=== PATIENT | female | born 1965 | race Two or more races ===

== ENCOUNTER 2019-06-19 13:21 | Inpatient (IN) | payer OTHER ==
[~2019-06-19] VITALS: Ht 162.6 cm; Wt 74.4 kg
[2019-06-19 13:21] VITALS: BP 130/74
--- NOTE | 2019-06-19 13:31 | NUR ---
PT BIBA TO BED 09.
--- NOTE | 2019-06-19 13:32 | NUR ---
BIBA FROM HOME, C/O WEAKNESS X2 DAYS WITH POLYURIA AND VOMITING. ACCUCHECK TOO HIGH TO READ AT HOME, ACCUCHECK 531 AT THIS TIME. PT ADMINISTERED ADDITIONAL 40 UNITS INSULIN LANTUS AT 1000. 1L NS BOLUS STARTED BY [facility]. HX EPILEPSY, DM, CVA, SUBSTANCE ABUSE. PATIENT ALERT, OREINTED,ABLE TO ANSWER THE QUESTIONS APPROPIATELY. PATIENT STATES LOWER ABD & LOWER BACK PAIN OF 6/10 AT THIS TIME. PATIENT POSITIONED FOR COMFORT; HOB ELEVATED; BEDRAILS UP X2; BED DOWN. ER MD MADE AWARE OF PT STATUS.
--- NOTE | 2019-06-19 14:16 | NUR ---
Patient being evaluated by DR RODAS at bedside.
[2019-06-19] MEDS ORDERED: NACL 0.9% 2,000 ML IV ONE (14:25)
[2019-06-19 15:31] LABS: BASOPHILS % (AUTO) 0.2 % (0.0-2.0); EOSINOPHILS % (AUTO) 0.2 % (0.0-4.0); HEMATOCRIT 35.3 % (36-48); HEMOGLOBIN 11.4 g/dL (12.0-16.0); LYMPHOCYTES # (AUTO) 1.6 K/uL (2.5-16.5); LYMPHOCYTES % (AUTO) 10.9 % (20.5-51.1); MEAN CORPUSCULAR HEMOGLOBIN 30 pg (27-31); MEAN CORPUSCULAR HGB CONC 32 g/dL (33-37); MEAN CORPUSCULAR VOLUME 92.7 fL (80-94); MONOCYTES # (AUTO) 0.8 K/uL (0.8-1.0); MONOCYTES % (AUTO) 5.7 % (1.7-9.3); NEUTROPHILS # (AUTO) 11.9 K/uL (1.8-7.7); PLATELET COUNT (AUTO) 304 K/uL (140-450); RED BLOOD CELL COUNT(AUTO) 3.81 MIL/uL (4.20-5.40); RED CELL DISTRIBUTION WIDTH 14.3 % (11.6-13.7); WHITE BLOOD COUNT (AUTO) 14.4 K/uL (4.8-10.8)
[2019-06-19 15:50] LABS: BILIRUBIN,URINE NEGATIVE (NEGATIVE); BLOOD, URINE 2+ (NEGATIVE); COLOR,URINE YELLOW (YELLOW); LEUKOCYTE ESTERASE ,URINE NEGATIVE (NEGATIVE); NITRITE, URINE NEGATIVE (NEGATIVE); UGLUCOSE 3+ (NEGATIVE)
[2019-06-19 15:52] LABS: APPEARANCE,URINE CLOUDY (CLEAR)
[2019-06-19 15:52] LABS: ALBUMIN 2.2 g/dL (3.4-5.0); ANION GAP 12.8 (8-16); CARBON DIOXIDE 26.4 mmol/L (21-32); CREATININE 1.1 mg/dL (0.6-1.3); POTASSIUM 4.2 mmol/L (3.5-5.1); TOTAL BILIRUBIN 0.4 mg/dL (0.0-1.0)
[2019-06-19 16:00] LABS: RBC,URINE 0-5 /HPF (0-5)
[2019-06-19] MEDS ORDERED: FLUCONAZOLE 100 MG TAB PO ONE (16:10)
[2019-06-19] MEDS ORDERED: INSULIN REGULAR, HUMAN 100 UNIT/ML VIAL SUBQ ONE (16:10)
--- NOTE | 2019-06-19 16:55 | NUR ---
Patients blood sugar was checked, and read at 398, Physicians notified.
[2019-06-19] MEDS ORDERED: INSULIN LANTUS 100 UNITS/ML 10 ML VIAL SUBQ ONE (17:10)
[2019-06-19] MEDS ORDERED: ZOLPIDEM 5 MG TAB PO PRN (17:10)
[2019-06-19] MEDS ORDERED: HYDROcodone/APAP 5/325 MG 1 TAB TAB PO PRN (17:10)
[2019-06-19] MEDS ORDERED: LORazepam 2 MG/ML VIAL IVP PRN (17:10)
[2019-06-19] MEDS ORDERED: ALBUTEROL 0.083% 2.5 MG/3 ML NEBU IH PRN (17:10)
[2019-06-19] MEDS ORDERED: NACL 0.9% 1,000 ML IV ONE (17:10)
[2019-06-19] MEDS ORDERED: ONDANSETRON 4 MG/2 ML VIAL IVP PRN (17:10)
[2019-06-19] MEDS ORDERED: DEXTROSE 50% 50 ML SYR IVP PRN (17:10)
[2019-06-19] MEDS ORDERED: LISINOPRIL 20 MG TAB PO SCH (17:52)
--- NOTE | 2019-06-19 18:10 | NUR ---
PATIENT ARRIVED UNIT VIA GURNEY ACCOMPANIED BY ER NURSE ANYA. ASSISTED TO TRANSFER PATIENT TO BED AND POSITIONED COMFORTABLY. RELEASE COORDINATOR CHANGED PATIENT INTO YELLOW GOWN, SOCKS AND APPLIED YELLOW WRIST BAND. ORIENTED PATIENT TO THE ROOM, DEMONSTRATED ON HOW TO USE THE CALL LIGHT, BED REMOTE, TV, TELEPHONE AND BOTTLE CAPPER, PATIENT VERBALIZED UNDERSTANDING. ALLERGY WRIST BAND APPLIED AND MRSA NARES COLLECTED. SAFETY MEASURES IN PLACE. FALL RISK PROTOCOL IN PLACE AND SEIZURE PRECAUTION IN PLACE. BED IN LOW POSITION AND CALL LIGHT WITHIN REACH. INSTRUCTED PATIENT TO USE THE CALL LIGHT FOR ANY ASSISTANCE AND PATIENT WAS AWARE.
--- NOTE | 2019-06-19 18:10 | NUR ---
Patient will be admitted to care of DR ORTEGA. Admited to MS. Will go to room 121B. Belongings list completed. Report to MARTA GOLBDERG.
[2019-06-19] MEDS: NACL 0.9% 1,000 ML IV SCH (18:24)
[2019-06-19] MEDS: ACETAMINOPHEN 325 MG TAB PO PRN (18:29)
--- NOTE | 2019-06-19 18:29 | NUR ---
PATIENT COMPLAINED THAT SHE HAS MILD PAIN ON HER BACK, ADMINISTERED ACETAMINOPHEN PER MD ORDER, MED EDUCATION PROVIDED TO PATIENT AND PATIENT SAID OK. PATIENT IS RESTING ON BED AT THIS TIME. SAFETY MEASURES IN PLACE.
--- NOTE | 2019-06-19 18:41 | NUR ---
VITAL SIGNS TAKEN; BP 147/84, PULSE 103, SPO2 99 ON RA, RR 18, STATED PAIN IS 2/10 AND ALREADY MEDICATED. ADMINISTERED LISINOPRIL PER MD ORDER. CHECKED BLOOD GLUCOSE AND RECEIVED 302, ADMINISTERED LANTUS VIA SUBQ PER MD ORDER, MEDS EDUCATION PROVIDED TO PATIENT AND PATIENT VERBALIZED UNDERSTANDING. NO SIGNS OF DISTRESS NOTED. SAFETY MEASURES IN PLACE. BED IN LOW POSITION AND CALL LIGHT WITHIN REACH. FALL RISK PROTOCOL IN PLACE AND BED ALARM ACTIVATED.
--- NOTE | 2019-06-19 18:50 | NUR ---
PATIENT DID NOT GET HER DINNER TRAY, CALLED [facility] AND WENT TO VOICE MAIL. LEFT A MESSAGE.
--- NOTE | 2019-06-19 19:18 | NUR ---
ENDORSED PATIENT AT BEDSIDE TO CAREER CENTER ADVISOR NURSE FOR CONTINUITY OF CARE. PATIENT AWAKE AND RESTING ON BED AT THIS TIME. NO SIGNS OF DISTRESS NOTED. PATIENT IS IN STABLE CONDITION.
--- NOTE | 2019-06-19 19:19 | NUR ---
RECEIVED REPORT FROM AM NURSE, PT SLEEPING, EASILY AROUSABLE, ASSESSMENT DONE, CC: OF GENERALIZED WEAKNESS, AAOX4, ABLE TO MAKE NEEDS KNOWN, EVASIVE AND AT TIMES REFUSED TO ANSWER TO SOME OF THE QUESTIONS, STATED "NOT RIGHT NOW OR ITS A LONG STORY", VITAL SIGNS STABLE, IVF INFUSING WELL, SAFETY MEASURES IN PLACE, ON SEIZURE PRECAUTION, SIDE RAILS UP AND PADDED, BED ALARM ON, CALL LIGHT WITHIN REACH.
[2019-06-19 19:30] VITALS: BP 113/49
[2019-06-19] MEDS: FLUCONAZOLE 200 MG/NS PREMIX 100 ML IV SCH (20:19)
[2019-06-19] MEDS: BLOOD GLUCOSE MONITORING 1 DEV DEV FS SCH (20:19)
[2019-06-19] MEDS: INSULIN LISPRO SLIDING SCALE 100 UNITS/ML VIAL SUBQ PRN (20:30)
--- NOTE | 2019-06-19 20:30 | NUR ---
BLOOD SUGAR CHECKED WITH 241 RESULT, COVERAGE GIVEN, PROVIDED WITH CHICKEN BROTH AND CRANBERRY JUICE PER REQUEST, TOLERATED WELL, PT WENT TO SLEEP, MONITORED CLOSELY.
--- NOTE | 2019-06-19 21:57 | NUR ---
PT NAUSEATED BUT NO VOMITING NOTED, MEDICATED PRN WITH ZOFRAN IVP, MONITORED CLOSELY.
[2019-06-20] VITALS: BP 135/53
[2019-06-20] MEDS ORDERED: Z-GUARD PASTE TP PRN (01:50)
[2019-06-20] MEDS ORDERED: Z-GUARD PASTE TP ONE (01:53)
--- NOTE | 2019-06-20 01:58 | NUR ---
PT INCONTINENT OF URINE, PERINEAL CARE, NOTED WITH PERINEAL REDNESS, ORDERED Z-GUARD, APPLIED AND LEFT SITE KAMILLA, REPOSITIONED AND OFFLOAD PRESSURE AREAS, MONITORED CLOSELY.
[2019-06-20] MEDS: ACETAMINOPHEN 325 MG TAB PO PRN (02:52)
--- NOTE | 2019-06-20 02:55 | NUR ---
PT COMPLAINING OF BACK PAIN, PT REFUSED NORCO, STATED FEELS LIKE SHES HAVING A SEIZURE WHEN TAKING IT, PREFER TYLENOL, TYLENOL GIVEN, CHANGED POSITION TO LEFT SIDE, ICE CHIPS PROVIDED PER REQUEST, TOLERATED WELL, MONITORED CLOSELY.
[2019-06-20] MEDS: NACL 0.9% 1,000 ML IV SCH ×4 (03:10→18:49)
--- NOTE | 2019-06-20 06:00 | NUR ---
PT AT FIRST REFUSED AM LAB DRAW, RISK AND BENEFITS EXPLAINED, CONSENTED TO AM LAB DRAW, BLOOD SUGAR CHECKED WITH 96 RESULT, IVF INFUSING WELL, NO DISTRESS NOTED, MONITORED CLOSELY.
--- NOTE | 2019-06-20 06:13 | NUR ---
MODERATE DRAINAGE FROM LEFT CHEST ABSCESS, NEW DRESSING APPLIED TO LEFT CHEST, MAINTAINED ON NPO, IVF INFUSING WELL, TOLERABLE PAIN 09/17 AT THIS TIME, MONITORED CLOSELY. Addendum: 06/20/19 at 0621 by Jeffery Pabon RN CHARTED ON WRONG PT
[2019-06-20] MEDS: BLOOD GLUCOSE MONITORING 1 DEV DEV FS SCH ×4 (06:33→20:33)
[2019-06-20 06:44] LABS: BASOPHILS % (AUTO) 0.1 % (0.0-2.0); HEMATOCRIT 31.1 % (36-48); HEMOGLOBIN 10.2 g/dL (12.0-16.0); LYMPHOCYTES # (AUTO) 2.1 K/uL (2.5-16.5); LYMPHOCYTES % (AUTO) 10.8 % (20.5-51.1); MEAN CORPUSCULAR HEMOGLOBIN 30 pg (27-31); MEAN CORPUSCULAR HGB CONC 33 g/dL (33-37); MEAN CORPUSCULAR VOLUME 90.6 fL (80-94); MONOCYTES # (AUTO) 0.8 K/uL (0.8-1.0); MONOCYTES % (AUTO) 3.8 % (1.7-9.3); NEUTROPHILS # (AUTO) 16.8 K/uL (1.8-7.7); NEUTROPHILS % (AUTO) 85.3 % (42.2-75.2); PLATELET COUNT (AUTO) 229 K/uL (140-450); RED BLOOD CELL COUNT(AUTO) 3.43 MIL/uL (4.20-5.40); WHITE BLOOD COUNT (AUTO) 19.7 K/uL (4.8-10.8)
[2019-06-20 07:18] LABS: ANION GAP 13.8 (8-16); CARBON DIOXIDE 21.9 mmol/L (21-32); CREATININE 0.7 mg/dL (0.6-1.3); POTASSIUM 3.7 mmol/L (3.5-5.1)
--- NOTE | 2019-06-20 07:20 | NUR ---
PT SLEEPING, NO SIGNS OF DISTRESS, NO SEIZURE EPISODE THE WHOLE SHIFT, ENDORSE TO ASHLYN WESTBROOK FOR CONTINUITY OF CARE.
--- NOTE | 2019-06-20 07:25 | NUR ---
RECEIVED REPORT FROM NIGHT NURSE. PATIENT IS LYING IN BED ASLEEP, ABLE TO WAKE. RESPIRATION EVEN AND UNLABORED. DENIES PAIN OR DISCOMFORT AT THIS TIME. IV INTACT AND PATENT TO RIGHT WRIST 20G WITH IVF NS INFUSING @ 100ML/HR. TOLERATING WELL. BED IN LOW POSITION, SAFETY MEASURES IN PLACE. CALL LIGHT WITHIN REACH.
[2019-06-20 07:31] LABS: TOTAL BILIRUBIN 0.4 mg/dL (0.0-1.0)
[2019-06-20 07:57] LABS: ALBUMIN 1.6 g/dL (3.4-5.0); MAGNESIUM 1.3 mg/dL (1.8-2.4)
[2019-06-20 08:00] VITALS: BP 118/55
--- NOTE | 2019-06-20 08:14 | NUR ---
PATIENT HAS BEEN SCREENED AND CATEGORIZED MODERATE NUTRITION RISK. PATIENT WILL BE SEEN WITHIN 3-5 DAYS OF ADMISSION. 06/22/19 06/24/[address]
[2019-06-20] MEDS: LISINOPRIL 20 MG TAB PO SCH (09:00)
[2019-06-20] MEDS: ENOXAPARIN 40 MG/0.4 ML SYR SUBQ SCH (09:48)
--- NOTE | 2019-06-20 09:50 | NUR ---
AM MEDICATIONS GIVEN ORDERED. PATIENT IS AWAKE, ALERT AND VERBALLY RESPONSIVE. IV INTACT AND PATENT TO RIGHT WRIST. IVF FLUID NS INFUSING AT 100ML/HR. TOLERATING WELL. NO S/S OF DISTRESS NOTED. CALL LIGHT WITHIN REACH.
[2019-06-20] MEDS ORDERED: VANCOMYCIN 1GM/DEXT 5% PREMIX 200 ML IV ONE (11:25)
[2019-06-20] MEDS: PIPERACILLIN/TAZOBACTAM 3.375 GM in DEXTROSE 5% 50 ML IV SCH ×2 (11:54→17:44)
[2019-06-20] MEDS: INSULIN LISPRO SLIDING SCALE 100 UNITS/ML VIAL SUBQ PRN ×3 (12:00→21:34)
--- NOTE | 2019-06-20 12:00 | NUR ---
BLOOD SUGAR, 179 HUMALOG 3UNITS GIVEN PER SLIDING SCALE. IV ZOSYN FIRST DOSE GIVEN ORDERED. PATIENT REPORTS FEELING ANXIOUS, ATIVAN GIVEN ORDERED 0.5MG. WILL MONITOR PATIENT.
--- NOTE | 2019-06-20 12:12 | NUR ---
DC PLANNING 53 YRS OLD FEMALE A/OX4 WAS ADMITTED FROM HOME, WITH A DX OF HYPERGLYCEMIA BS 548 ON ADMISSION , UTI 3+ BACTERIA IN THE URINE, AND ORAL THRUSH . HX OF DM INSULIN DEPENDENT NON-COMPLIANT WITH MEDICATION. IVF STARTED ADMINISTERED ZOSYN AND VANCO IVPB . REGULAR INSULIN ADMINISTERED . DC PLAN SLIDING SCALE COVERAGE TO MONITOR BS , DIABETIC TEACHING FNS CONSULT. SS CONSULT FOR HOMELESSNESS .CM TO F/U Addendum: 06/20/19 at 1509 by Yen Akins CM PCP APPOINTMENT CALLED PT'S PCP OFFICE DR RADHA JORGE MADE F/U APPOINTMENT ON Tuesday06/22/19 AT 3PM THE ADDRESS [address] [place] [address] TEL [phone] TANIYA REMINDER GIVEN TO THE PT
--- NOTE | 2019-06-20 12:23 | NUR ---
Radiology Equipment Servicer Note: Basic Screen: Yes High Risk DC Screen [place]: REFUSED Home Tel: N/A Relationship: N/A Pre-Admission Living Arrangements: Lives with Other Prior ADL Independent Current Home Health Name/Tel: N/A Current DME/02 Name/Tel: [facility] Current Hospice Name/Tel: N/A Current Dialysis Name/Tel: N/A Healthcare Decision Maker: Patient Advance Directive No - REFUSED Physician Orders for Life Sustaining Treatment Form No Information Taught: Advance Directive Person Taught: Patient Teaching Tools: Verbal Factors Affecting Learning: None Participation Level: Refused Discipline: Case Mgt/Social Svcs Tentative Discharge Plan/Destination: No Needs Identified Will require assistance post discharge: No Referred to [employer]: No Tentative Discharge Plan Summary: Patient is a 53 year old female admitted for hyperglycemia. Patient was admitted from home. Patient has past medical hx of diabetes. NANCY verified demographics with patient. Patient stated she is unable to provide address since she just moved but lives with 3 roommates. Patient stated that she has no emergency contact on file because her phone . Patient stated she can provide contact information once her phone is charged. Patient denies any mental health history and reported no SI/HI. Patient stated that she has a past substance abuse history for methamphetamines but patient stated she has been sober for multiple years. SW offered education for advanced directive but patient refused. Patient's tentative plan after discharge is to return home. No further needs identified. Signature: JOHN Bueno Date: Jun 20, 2019 Time: 12:23
[2019-06-20] MEDS ORDERED: VANCOMYCIN PER PHARMACY MC PRN (12:25)
--- NOTE | 2019-06-20 13:00 | NUR ---
PATIENT IS REPOSITIONED IN BED FOR COMFORT. DENIES PAIN AT THIS TIME. PATIENT IS AWAKE AND VERBALLY RESPONSIVE. IV INTACT AND PATENT WITH IVF NS INFUSING AT 100ML/HR AND TOLERATING WELL. PATIENT IS INCONTINENT, PERINEAL CARE PROVIDED. NEEDS MET AT THIS TIME. NO S/S OF DISTRESS.
[2019-06-20] MEDS: VANCOMYCIN 750 MG in DEXTROSE 5% 250 ML IV SCH (15:06)
[2019-06-20] MEDS: Z-GUARD PASTE TP SCH (15:06)
[2019-06-20 16:00] VITALS: BP_SYST 129; BP_SYST 96; BP_DIAS 49; BP_DIAS 60
--- NOTE | 2019-06-20 17:30 | NUR ---
BS 256 INSULIN COVERAGE 8UNITS GIVEN ORDERED. NO S/S OF DISTRESS NOTED.
[2019-06-20] MEDS: FLUCONAZOLE 200 MG/NS PREMIX 100 ML IV SCH (18:49)
--- NOTE | 2019-06-20 19:15 | NUR ---
ENDORSED FOR CONTINUITY OF CARE TO ASHLYN JANSEN. PATIENT IS IN STABLE CONDITION.
--- NOTE | 2019-06-20 19:15 | NUR ---
RECIEVED PT AAOX4 , NID . IV SITE INTACT AND PATENT , NO C/O PAIN . V/S WNL - PLAN OF CARE DISCUSSED AND VERBALIZE UNDERSTANDING - CALL LIGHT WITHIN REACH . ON FALL PRECAUTION PROTOCOL - BED ALARM ON WILL CONT. TO MONITOR.
--- NOTE | 2019-06-20 22:00 | NUR ---
MADE ROUND . NO SIGNS OF ACUTE DISTRESS NOTED AT THIS TIME - CALL LIGHT WITHINREACH . WILL CONT. TO MONITOR.
[2019-06-21] VITALS: BP 110/60
--- NOTE | 2019-06-21 | NUR ---
REQUESTING SNACKS - FOOD SERVE - NO COMPLAIN MADE AT THIS TIME.
[2019-06-21] MEDS: PIPERACILLIN/TAZOBACTAM 3.375 GM in DEXTROSE 5% 50 ML IV SCH ×3 (00:40→12:07)
[2019-06-21] MEDS: Z-GUARD PASTE TP SCH ×2 (01:00→13:00)
[2019-06-21] MEDS ORDERED: MAG SULF 2000 MG/WATER PREMIX 100 ML IV SCH (01:00)
[2019-06-21] MEDS: ACETAMINOPHEN 325 MG TAB PO PRN (02:55)
[2019-06-21] MEDS: VANCOMYCIN 750 MG in DEXTROSE 5% 250 ML IV SCH ×2 (02:57→13:00)
--- NOTE | 2019-06-21 03:00 | NUR ---
FEBRILE 100.3 F -WILL MEDICATE FOR FEVER . WILL CONT TO MONITOR.
--- NOTE | 2019-06-21 04:00 | NUR ---
TEMP. RE CHECK 99.8F -WILL CONT. TO MONITOR. FRESH WATER PROVIDED . CALL LIGHT WITHIN REACH.
[2019-06-21 05:37] LABS: BASOPHILS # (AUTO) 0.1 K/uL (0.00-0.22); BASOPHILS % (AUTO) 0.4 % (0.0-2.0); EOSINOPHILS % (AUTO) 0.2 % (0.0-4.0); HEMATOCRIT 28.1 % (36-48); HEMOGLOBIN 9.2 g/dL (12.0-16.0); LYMPHOCYTES # (AUTO) 2.1 K/uL (2.5-16.5); LYMPHOCYTES % (AUTO) 15.1 % (20.5-51.1); MEAN CORPUSCULAR HEMOGLOBIN 30 pg (27-31); MEAN CORPUSCULAR HGB CONC 33 g/dL (33-37); MEAN CORPUSCULAR VOLUME 90.7 fL (80-94); MONOCYTES # (AUTO) 0.8 K/uL (0.8-1.0); MONOCYTES % (AUTO) 5.8 % (1.7-9.3); NEUTROPHILS # (AUTO) 10.7 K/uL (1.8-7.7); NEUTROPHILS % (AUTO) 78.5 % (42.2-75.2); PLATELET COUNT (AUTO) 188 K/uL (140-450); WHITE BLOOD COUNT (AUTO) 13.7 K/uL (4.8-10.8)
--- NOTE | 2019-06-21 06:00 | NUR ---
MADE ROUND . NO CPMPLAIN MADE AT THIS TIME. LATEST TEMP 98.8F. WILL CONT. TO MONITOR.
[2019-06-21] MEDS: BLOOD GLUCOSE MONITORING 1 DEV DEV FS SCH ×3 (07:10→16:30)
[2019-06-21 07:21] LABS: CARBON DIOXIDE 24.3 mmol/L (21-32); CREATININE 0.9 mg/dL (0.6-1.3); POTASSIUM 3.3 mmol/L (3.5-5.1); TOTAL BILIRUBIN 0.5 mg/dL (0.0-1.0)
[2019-06-21 07:22] LABS: ALBUMIN 1.4 g/dL (3.4-5.0)
--- NOTE | 2019-06-21 07:30 | NUR ---
ENDORSED TO AM SHIFT WITH STABLE CONDITION.
--- NOTE | 2019-06-21 07:35 | NUR ---
ENDORSED TO AM SHIFT WITH STABLE CONDITION.
--- NOTE | 2019-06-21 07:35 | NUR ---
RECEIVED REPORT FROM RESIDENT MANAGER NURSE. PATIENT IS LYING IN BED, AWAKE, ALERT AND VERBALLY RESPONSIVE. DENIES PAIN OR DISCOMFORT. RESPIRATION EVEN AND UNLABORED. IV INTACT AND PATENT TO RIGHT HAND. IVF NS INFUSING @ 100ML/HR, TOLERATING WELL. NEEDS MET AT THIS TIME.
[2019-06-21 08:00] VITALS: BP 103/44
[2019-06-21] MEDS: LISINOPRIL 20 MG TAB PO SCH (09:00)
[2019-06-21] MEDS: ENOXAPARIN 40 MG/0.4 ML SYR SUBQ SCH (09:26)
[2019-06-21] MEDS: NACL 0.9% 1,000 ML IV SCH (09:27)
--- NOTE | 2019-06-21 09:27 | NUR ---
AM MEDICATIONS GIVEN ORDERED. PATIENT IS AWAKE AND ALERT. NO S/S OF DISTRESS NOTED.
[2019-06-21] MEDS ORDERED: POTASSIUM CHLORIDE 10 MEQ TABER PO SCH (11:05)
--- NOTE | 2019-06-21 12:08 | NUR ---
BS CHECKED 266, HUMALOG GIVEN WITH 8 UNITS. PATIENT IS IN BED WITH HOB ELEVATED EATING LUNCH. IV NOTED TO RIGHT HAND IS INFILTRATED, UNABLE TO FLUSH. IV REMOVED, CANNULA INTACT. ATTEMPTED TO REINSERT IV, UNABLE TO HAVE IV ACCESS AT THIS TIME. WILL ATTEMPT AGAIN LATER.
[2019-06-21] MEDS: INSULIN LISPRO SLIDING SCALE 100 UNITS/ML VIAL SUBQ PRN (12:40)
[2019-06-21] MEDS ORDERED: MAGNESIUM HYDROXIDE 2400 MG/30 ML UDC PO SCH (13:00)
--- NOTE | 2019-06-21 13:00 | NUR ---
STILL NO IV ACCESS, UNABLE TO INSERT IV AT THIS TIME.
--- NOTE | 2019-06-21 15:00 | NUR ---
PATIENT IS FOR DISCHARGED TODAY. NO S/S OF DISTRESS. PT SPOKE TO HER FRIEND FOR ORDER CALLER TODAY AT 1700.
[2019-06-21] MEDS ORDERED: MUPIROCIN CA NASAL 2% 1GM TUBE NS SCH (17:00)
[2019-06-21] MEDS ORDERED: VANCOMYCIN 1,000 MG in DEXTROSE 5% 250 ML IV SCH (17:00)
[2019-06-21] MEDS ORDERED: CHLORHEXADINE GLUC 2% CLOTH TP SCH (17:00)
--- NOTE | 2019-06-21 17:00 | NUR ---
PT DISCHARGED TO HOME WITH FRIEND RODRIGUE VIA PRIVATE TRANSPORT. PATIENT GIVEN ALL DISCHARGE INSTRUCTIONS, RESOURCES AND ALL BELONGINGS. IV ACCESS NOT INTACT. ID BAND REMOVED.
== END 2019-06-21 16:45 | disposition home or self-care (01) | DRG 420 ==
LOC: MED 13:21 → MTU 17:17
PROVIDERS: ADMIT Internal Medicine Pulmonary Disease; ATTEND Internal Medicine Pulmonary Disease
DX: E11.65 Type 2 diabetes mellitus with hyperglycemia (principal); B37.0 Candidal stomatitis; R65.10 Systemic inflammatory response syndrome (SIRS) of non-infectious origin without acute organ dysfunction; E44.0 Moderate protein-calorie malnutrition; B37.3 Candidiasis of vulva and vagina; N39.0 Urinary tract infection, site not specified; F17.210 Nicotine dependence, cigarettes, uncomplicated; E86.0 Dehydration; Z59.0 Homelessness; Z88.8 Allergy status to other drugs, medicaments and biological substances; Z91.14 Patient's other noncompliance with medication regimen
CPT/HCPCS: 36415; 71045; 80053; 80202; 81001; 82948; 83036; 83690; 83735; 84484; 85025; 87081; 87086; 87186; 96360; 96372; 99285; C1758; J0696; J1450; J1650; J1815; J2060; J2405; J2543; J3370; J3475; J7030; J7060; Q0092

== ENCOUNTER 2019-07-14 23:12 | Inpatient (IN) | payer OTHER ==
[~2019-07-14] VITALS: Ht 162.6 cm; Wt 68.9 kg
[2019-07-14 23:13] VITALS: BP 155/60
--- NOTE | 2019-07-14 23:20 | NUR ---
22G IV INSERTED BY SENAIT GOLDBERG.
--- NOTE | 2019-07-14 23:20 | NUR ---
22 G PLACED TO RIGHT WRIST. NS BOLUS RUNNING WIDE OPEN. VERBAL ORDER OBTAINED BY DR. ALARCON.
--- NOTE | 2019-07-14 23:23 | NUR ---
PATIENT BIBA WITH BS READING OF "HIGH". EMS STATES THAT PATIENT LAST SEEN 3 DAYS AGO IN HOME. PATIENT IS LETHARGIC BUT ABLE TO ANSWER QUESTIONS. PATIENT STATES THAT SHE LAST HAD INSULIN 2-3 DAYS AGO BUT STOPPED BECAUSE SHE RAN OUT OF INSULIN. BS READING HIGH. PATIENT IS LETHARGIC, AOX4, GCS 12 (E3, V4, M5). LUNG SOUNDS CTABL, SPO 100%. BOWEL SOUNDS ACTIVE X4, ABDOMEN SOFT FIRM AND TENDER IN RIGHT UPPER QUADRANT. SKIN IS PALE AND COLD. PATIENT HAS A HISTORY OF DIABETES. BED IN LOWEST POSITION, LOCKED, BED RAIL UPX1.
--- NOTE | 2019-07-14 23:25 | NUR ---
Note vira in EDM - 07/15/19 at 0320 by MEDMobovivoJorge A PATIENT BIBA WITH BS READING OF "HIGH". EMS STATES THAT PATIENT LAST SEEN 3 DAYS AGO IN HOME. PATIENT IS STUPOROUS BUT ABLE TO ANSWER QUESTIONS IN SLOW, MUMBLED SPEECH. PATIENT STATES THAT SHE LAST HAD INSULIN 2-3 DAYS AGO BUT STOPPED BECAUSE SHE RAN OUT OF INSULIN. BS READING HIGH-NO RESULT. PATIENT IS LETHARGIC, AOX4, GCS 12 (E3, V4, M5).
[2019-07-14] MEDS ORDERED: NACL 0.9% 2,000 ML IV ONE (23:40)
--- NOTE | 2019-07-14 23:45 | NUR ---
LABS DRAWN VIA BUTTERFLY BY RN. LAB NOTIFIED.
[2019-07-15] VITALS (10 sets, daily range): BP systolic 136–169; BP diastolic 69–99
[2019-07-15 00:04] LABS: HEMATOCRIT 44.2 % (36-48); HEMOGLOBIN 13.2 g/dL (12.0-16.0); MEAN CORPUSCULAR HEMOGLOBIN 28 pg (27-31); MEAN CORPUSCULAR HGB CONC 30 g/dL (33-37); MEAN CORPUSCULAR VOLUME 93.4 fL (80-94); PLATELET COUNT (AUTO) 612 K/uL (140-450); RED BLOOD CELL COUNT(AUTO) 4.73 MIL/uL (4.20-5.40); RED CELL DISTRIBUTION WIDTH 17.1 % (11.6-13.7)
[2019-07-15 00:23] LABS: WHITE BLOOD COUNT (AUTO) 25.7 K/uL (4.8-10.8)
[2019-07-15 00:32] LABS: ALBUMIN 2.4 g/dL (3.4-5.0); ANION GAP 34.1 (8-16); ASPARTATE AMINOTRANSFERASE 8 U/L (15-37); CARBON DIOXIDE 12.2 mmol/L (21-32); CHLORIDE 97 mmol/L (98-107); GFR ARICAN-AMERICAN 34 mL/min (>90); POTASSIUM 4.3 mmol/L (3.5-5.1); SALICYLATE 7.2 mg/dL (2.8-20.0); SODIUM SERUM 139 mmol/L (136-145); TOTAL BILIRUBIN 0.5 mg/dL (0.0-1.0); UREA NITROGEN, BLOOD 34 mg/dL (7-18)
[2019-07-15 00:35] LABS: APPEARANCE,URINE SL CLOUDY (CLEAR); BILIRUBIN,URINE 2+ (NEGATIVE); BLOOD, URINE 1+ (NEGATIVE); COLOR,URINE YELLOW (YELLOW); LEUKOCYTE ESTERASE ,URINE NEGATIVE (NEGATIVE); NITRITE, URINE NEGATIVE (NEGATIVE); PH,URINE 5.5 (5.0-9.0); UGLUCOSE 3+ (NEGATIVE)
[2019-07-15 00:45] LABS: BARBITURATE, URINE NEG. ng/ml (NEG <=200); BENZODIAZEPINE, URINE NEG. ng/mL (NEG <=200); CANNABINOID, URINE NEG. ng/mL (NEG <=50); COCAINE, URINE NEG. ng/mL (NEG <=300); OPIATE, URINE NEG. ng/mL (NEG <=2000); PHENCYCLIDINE SCREEN,URINE NEG. ng/mL (NEG <=25)
[2019-07-15 00:54] LABS: ACETAMINOPHEN < 0.5 ug/ml (10-30)
[2019-07-15 00:55] LABS: GLUCOSE 881 mg/dL (74-106)
--- NOTE | 2019-07-15 01:00 | NUR ---
PATIENT IS AOX3, REVEALS THAT SHE HAS HAD A HISTORY OF SEIZURES AND TAKES KEPPRA. PATIENT IS PALE AND COOL. BREATHING EVEN AND UNLABORED. WILL CONTINUE TO MONITOR. Addendum: 07/15/19 at 0402 by navabi LAST SEIZURE X 6 YEARS AGO.
[2019-07-15 01:01] LABS: LYMPHOCYTES % (MANUAL) 9 % (20-46); MONOCYTES % (MANUAL) 2 % (5-12)
[2019-07-15] MEDS: BLOOD GLUCOSE MONITORING 1 DEV DEV FS SCH ×23 (01:05→23:25)
[2019-07-15] MEDS ORDERED: INSULIN REGULAR, HUMAN 100 UNIT in NACL 0.9% 100 ML IV SCH ×4 (01:05→03:55)
[2019-07-15] MEDS ORDERED: DEXTROSE 50% 50 ML SYR IVP PRN (01:05)
--- NOTE | 2019-07-15 01:10 | NUR ---
MULTIPLE ATTEMPTS TO MAKE 2ND IV INSERTION UNSUCCESSFUL, PATIENT STATES "PLEASE STOP, NO MORE POKES", DR ALARCON MADE AWARE
[2019-07-15 01:14] LABS: RBC,URINE 0-5 /HPF (0-5)
[2019-07-15 01:15] LABS: HYALINE CASTS, URINE 0-2 /LPF (None Seen)
[2019-07-15] MEDS ORDERED: POTASSIUM CHL 20 MEQ/NACL 0.9% 1,000 ML IV ONE (01:15)
--- NOTE | 2019-07-15 01:17 | NUR ---
URINE COLLECTED VIA STRAIGHT CATH AND SENT TO LAB BY ASHLYN BORJA.
--- NOTE | 2019-07-15 01:30 | NUR ---
Denise constantino in EDM - 07/15/19 at 0342 by MEDJACQUELINE MULTIPLE ATTEMPTS TO MAKE 2ND IV INSERTION UNSUCCESSFUL, PATIENT STATES "PLEASE STOP, NO MORE POKES", DR ALARCON MADE AWARE
--- NOTE | 2019-07-15 01:40 | NUR ---
2ND IV LINE INSERTED BY PAYTON GOLDBERG, 20G IV IN RIGHT AC.
--- NOTE | 2019-07-15 02:23 | NUR ---
ATTEMPTED TO READ BLOOD SUGAR BUT STILL TOO HIGH, LAST GLUCOSE READING WAS 881 AT BLOOD DRAW. PATIENT VS STABLE. INSULIN HUMAN REGULAR DRIP STARTED AT ORDERED RATE. WILL CONTINUE TO MONITOR PER TITRATION PROTOCOL.
[2019-07-15] MEDS ORDERED: AZITHROMYCIN 500 MG in DEXTROSE 5% 250 ML IV ONE (02:30)
--- NOTE | 2019-07-15 02:30 | NUR ---
PATIENT IS AOX3, SKIN COOL AND PALE. BREATHING EVEN AND UNLABORED. WILL CONTINUE TO MONITOR.
--- NOTE | 2019-07-15 02:40 | NUR ---
PATIENT STATES THAT SHE CAN NOT REMEMBER ALL MEDICATION SHE TAKES AT HOME ASIDE FROM KEPPRA 600MG 2X DAY, GABAPENTIN 600MG 3X DAY, AND INSULIN. DOES NOT KNOW WHAT TYPE OF INSULIN OR DOSING.
--- NOTE | 2019-07-15 02:59 | NUR ---
PATIENT TAKEN TO FLOOR IN [facility]. ESCORTED BY RNS.
--- NOTE | 2019-07-15 03:10 | NUR ---
Patient will be admitted to care of DR MELCHOR. Admited to ICU. Will go to room 1. Belongings list completed. Report to ORLANDO GOLDBERG AND MEHDI GOLDBERG.
[2019-07-15] MEDS ORDERED: ACETAMINOPHEN 325 MG TAB PO PRN (03:15)
--- NOTE | 2019-07-15 03:15 | NUR ---
RECEIVED BEDSIDE REPORT FROM SURVEYOR'S ASSISTANT. PATIENT AAOX4. ABLE TO FOLLOW COMMANDS AND MAKE NEEDS KNOWN. PERRLA SIZE 2 BILATERALLY, LUNG SOUNDS CLEAR. ST ON MONITOR. BP ELEVATED. S1 AND S2 PALPATED. CAP REFILL LESS THAN 3 SECONDS. SKIN WARM AND DRY NO WOUNDS NOTED. PATIENT COMPLAINING OF ABDOMINAL PAIN. ADMISSION QUESTIONS ASKED. MRSA SCREEN COLLECTED. CALL LIGHT WITHIN REACH, WILL CONTINUE TO MONITOR.
[2019-07-15] MEDS ORDERED: GABA100C PO (03:29)
[2019-07-15] MEDS ORDERED: LEVE250T1 PO (03:29)
--- NOTE | 2019-07-15 03:50 | NUR ---
Called to bedside to obtain ABG, pt awake and alert x4 and uncooperative at this time, refused ABG, RN Summer bedside and aware, will attempt again during next ICU rounds.
[2019-07-15] MEDS: ONDANSETRON 4 MG/2 ML VIAL IVP PRN ×2 (04:10→14:02)
[2019-07-15] MEDS ORDERED: AZITHROMYCIN 500 MG INJ VIAL IV ONE (04:18)
[2019-07-15] MEDS ORDERED: cefTRIAXone 1,000 MG VIAL ONE (04:18)
[2019-07-15] MEDS ORDERED: CARVEDILOL 6.25 MG TAB PO SCH (05:10)
--- NOTE | 2019-07-15 05:15 | NUR ---
BG 510. INSULIN DRIP STILL INFUSING ACCORDING TO MD ORDER.
--- NOTE | 2019-07-15 05:50 | NUR ---
CONSENT FOR PICC LINE INSERTION COLLECTED AND PLACED IN CHART. MEDICATED WITH MORPHINE 1 MG FOR PAIN ACCORDING TO MD ORDER. MEDICATED WITH COREG FOR HIGH BP ACCORDING TO MD ORDER. PATIENT PASSED NURSING BEDSIDE SWALLOW EVALUATION WITH ICE. RT AT BEDSIDE COLLECTING BLOOD FOR ABG.
[2019-07-15 05:51] LABS: BASOPHILS # (AUTO) 0.2 K/uL (0.00-0.22); BASOPHILS % (AUTO) 0.8 % (0.0-2.0); HEMATOCRIT 40.7 % (36-48); HEMOGLOBIN 12.7 g/dL (12.0-16.0); LYMPHOCYTES # (AUTO) 2.4 K/uL (2.5-16.5); LYMPHOCYTES % (AUTO) 10.8 % (20.5-51.1); MEAN CORPUSCULAR HEMOGLOBIN 28 pg (27-31); MEAN CORPUSCULAR HGB CONC 31 g/dL (33-37); MEAN CORPUSCULAR VOLUME 90.7 fL (80-94); MONOCYTES # (AUTO) 0.6 K/uL (0.8-1.0); MONOCYTES % (AUTO) 2.6 % (1.7-9.3); NEUTROPHILS # (AUTO) 18.8 K/uL (1.8-7.7); PLATELET COUNT (AUTO) 533 K/uL (140-450); RED BLOOD CELL COUNT(AUTO) 4.49 MIL/uL (4.20-5.40); RED CELL DISTRIBUTION WIDTH 16.4 % (11.6-13.7); WHITE BLOOD COUNT (AUTO) 21.9 K/uL (4.8-10.8)
[2019-07-15 05:56] LABS: MAGNESIUM 2.1 mg/dL (1.8-2.4)
[2019-07-15 06:02] LABS: NEUTROPHILS % (AUTO) 85.8 % (42.2-75.2)
[2019-07-15 06:13] LABS: ANION GAP 30.1 (8-16); CARBON DIOXIDE 12.7 mmol/L (21-32); CREATININE 1.7 mg/dL (0.6-1.3); POTASSIUM 3.8 mmol/L (3.5-5.1)
--- NOTE | 2019-07-15 06:30 | NUR ---
ABG SHOWS METABOLIC ACIDOSIS. REPORTED CRITICAL TP DR MELCHOR.
--- NOTE | 2019-07-15 07:14 | NUR ---
RECEIVED BEDSIDE REPORT FROM ASHLYN PERRY FOR CONTINUITY OF CARE. PATIENT IS AAOX4, ABLE TO MAKE NEEDS KNOWN AND FOLLOW COMMANDS. PATIENT SKIN IS WARM, DRY, AFEBRILE, INTACT. SHE HAS PERIPHERAL IV SITE TO R WRIST 22 GAUGE AND R AC 20 GAUGE, ASYMPTOMATIC AND PATENT. PATIENT IS ON INSULIN DRIP AT 6.8 UNITS/HR. ON ROOM AIR, SR ON MONITOR, DENIES PAIN. NO SIGNS OF DISTRESS NOTED. WILL CONTINUE TO MONITOR
[2019-07-15] MEDS ORDERED: SODIUM BICARBONATE 8.4% 50 MEQ in DEXTROSE 5% 1,000 ML IV ONE (07:25)
[2019-07-15] MEDS ORDERED: SODIUM BICARBONATE 8.4% PFS 50 MEQ/50 ML SYR IVP SCH (09:00)
--- NOTE | 2019-07-15 09:23 | NUR ---
PATIENT VOMITTED, CLEANED AND REPOSITIONED FOR COMFORT.
--- NOTE | 2019-07-15 10:04 | NUR ---
DR. MELCHOR IS HERE TO SEE AND EXAMINE PATIENT, UPDATED ON PATIENT'S CONDITION. WILL FOLLOW UP ON ANY ORDERS.
[2019-07-15 10:31] LABS: ANION GAP 19.1 (8-16); CARBON DIOXIDE 21.5 mmol/L (21-32); CREATININE 1.6 mg/dL (0.6-1.3); POTASSIUM 3.6 mmol/L (3.5-5.1)
[2019-07-15 10:32] LABS: PHOSPHORUS 2.2 mg/dL (2.5-4.9)
--- NOTE | 2019-07-15 10:38 | NUR ---
PER DR. MELCHOR, CHANGE IVF TO 1/2NS WITH POTASSIUM AT 150ML/HR.
[2019-07-15] MEDS ORDERED: POTASSIUM CHL 20 MEQ/ 1/2 NS 1,000 ML IV SCH (11:40)
--- NOTE | 2019-07-15 13:21 | NUR ---
BS IS 199, DECREASED INSULIN DRIP TO 0.05ML/KG/HR (3.4ML/HR) AND STARTED D51/2NS AT 150ML/HR Addendum: 07/15/19 at 1604 by Blake Taylor RN WRONG TIME
--- NOTE | 2019-07-15 13:38 | NUR ---
PICC LINE RNPERFECTO IS HERE TO DO PICC LINE. US TECH AT BEDSIDE, NO SIGNS OF DISTRESS NOTED
--- NOTE | 2019-07-15 13:52 | NUR ---
PICC LINE INSERTED, OPERATING SYSTEM DESIGNER AT BEDSIDE
--- NOTE | 2019-07-15 13:56 | NUR ---
PER PICC LINE RN, OKAY TO USE PICC LINE
[2019-07-15] MEDS ORDERED: POTASSIUM PHOSPHATE 15 MM in NACL 0.9% 250 ML IV SCH (14:00)
[2019-07-15] MEDS: MORPHINE SULFATE 2 MG/ML SYR IVP PRN (14:02)
--- NOTE | 2019-07-15 14:42 | NUR ---
PATIENT HAS BEEN SCREENED AND CATEGORIZED HIGH NUTRITION RISK. PATIENT WILL BE SEEN WITHIN 1-2 DAYS OF ADMISSION. 07/15/19 - 07/16/19 ALEXANDRU MAURER MBA,RD
[2019-07-15 14:45] LABS: ANION GAP 13.7 (8-16); CARBON DIOXIDE 27.2 mmol/L (21-32); CREATININE 1.5 mg/dL (0.6-1.3); POTASSIUM 3.9 mmol/L (3.5-5.1)
[2019-07-15 15:24] LABS: MAGNESIUM 1.9 mg/dL (1.8-2.4); PHOSPHORUS 1.8 mg/dL (2.5-4.9)
--- NOTE | 2019-07-15 15:24 | NUR ---
BS IS 199, DECREASED INSULIN DRIP TO 0.05ML/KG/HR (3.4ML/HR) AND STARTED D51/2NS AT 150ML/HR
[2019-07-15] MEDS: DEXT 5% / NACL 0.45% 1,000 ML IV SCH ×2 (15:54→21:22)
[2019-07-15 19:04] LABS: ANION GAP 13.4 (8-16); CARBON DIOXIDE 24.6 mmol/L (21-32); CREATININE 1.4 mg/dL (0.6-1.3)
--- NOTE | 2019-07-15 19:20 | NUR ---
ENDORSED CONTINUITY OF CARE TO SUMMER, TITLE INSPECTOR RN, FOR CONTINUITY OF CARE. NO DISTRESS AT THIS TIME
[2019-07-15 19:40] LABS: MAGNESIUM 1.7 mg/dL (1.8-2.4); PHOSPHORUS 2.8 mg/dL (2.5-4.9)
--- NOTE | 2019-07-15 20:00 | NUR ---
RECEIVED REPORT FROM ADRIEL GOLDBERG. PT AWAKE, ALERT AND ORIENTED X4. ABLE TO FOLLOW COMMANDS. PERRRL. LUNG SOUNDS CLEAR. NO SOB NOTED. PICC LINE DOUBLE LUMEN ANTONIO, INTACT, FLUSHED. INSULIN INFUSING AT 3.4 UNITS/HR. NS 0.45% D5 0.9% RUNNING AT 150 ML/HR. ABDOMEN IS SOFT, ACTIVE BOWEL SOUNDS. SKIN IS WARM AND DRY. CAP REFILL LESS THAN 2 SECONDS. DENIES PAIN. SEIZURE PRECAUTIONS IN PLACE. DRY WEIGHT 68KG. BED LOCKED IN LOWEST POSITION. WILL CONTINUE TO MONITOR.
--- NOTE | 2019-07-15 21:00 | NUR ---
PAGED DR. RICKS, SPOKE WITH LOCAL [place] TRUCK DRIVER DR. AVINA. REPORTED LOW BLOOD PRESSURE AND TITRATING LEVOPHED UP WAS NOT EFFECTIVE. PT REQUESTING BACLOFLEN, DR AVINA ORDERED NOT TO GIVE BECAUSE OF LOW BLOOD PRESSURE. DR AVINA ALSO ORDERED CENTRAL LINE INSERTION AND STATED HE WILL COMMUNICATE WITH DR. STORY REGARDING INSERTION EITHER TONIGHT OR TOMORROW. DR AVINA ALSO ORDERED 1 FLUID BOLUS AND TO INFUSE 1 UNIT OF BLOOD IF HGB IS LESS THAN 8. Addendum: 07/15/19 at 2256 by Julien Pro RN DISREGARD CHARTED ON WRONG PT.
[2019-07-15] MEDS: METOPROLOL 25 MG TAB PO SCH (21:02)
[2019-07-15 22:44] LABS: CARBON DIOXIDE 24.5 mmol/L (21-32); CREATININE 1.4 mg/dL (0.6-1.3); POTASSIUM 3.5 mmol/L (3.5-5.1)
[2019-07-15 22:47] LABS: MAGNESIUM 1.7 mg/dL (1.8-2.4)
--- NOTE | 2019-07-15 22:50 | NUR ---
FOLLOWED UP WITH DR STORY. STATED HE CANNOT COME IN TONIGHT TO INSERT CENTRAL LINE AND CAN COME IN TOMORROW. DR STORY STATED TO INSERT ANOTHER PERIPHERAL LINE OR CALL THE RESIDENTS OR ERMD TO INSERT CENTRAL LINE IF NEEDED TONIGHT. Addendum: 07/15/19 at 2257 by Julien Pro RN DISREGARD CHARTED ON WRONG PT.
[2019-07-16] VITALS (9 sets, daily range): BP systolic 110–138; BP diastolic 40–85
[2019-07-16] MEDS: BLOOD GLUCOSE MONITORING 1 DEV DEV FS SCH ×14 (00:05→21:17)
--- NOTE | 2019-07-16 00:05 | NUR ---
PT HAS EYES CLOSED, NO SOB NOTED. BREATHING IS EVEN AND UNLABORED. VITAL SIGNS STABLE. WILL CONTINUE TO MONITOR.
[2019-07-16 00:28] LABS: CARBON DIOXIDE 22.8 mmol/L (21-32); CREATININE 1.4 mg/dL (0.6-1.3); POTASSIUM 3.8 mmol/L (3.5-5.1)
[2019-07-16 00:32] LABS: MAGNESIUM 1.6 mg/dL (1.8-2.4); PHOSPHORUS 1.8 mg/dL (2.5-4.9)
--- NOTE | 2019-07-16 02:30 | NUR ---
PT HAS EYES, VITAL SIGNS STABLE, NO SOB NOTED. BREATHING IS EVEN AND UNLABORED. BED LOCKED IN LOWEST POSITION. WILL CONTINUE TO MONITOR. Addendum: 07/16/19 at 0349 by Julien Pro RN PT HAS EYES CLOSED.
[2019-07-16] MEDS: DEXT 5% / NACL 0.45% 1,000 ML IV SCH (03:36)
--- NOTE | 2019-07-16 03:45 | NUR ---
PT AWAKE. NO SOB NOTED. RESPIRATIONS EVEN AND UNLABORED. DENIES ANY PAIN. WILL CONTINUE TO MONITOR.
[2019-07-16 04:37] LABS: ANION GAP 14.3 (8-16); CARBON DIOXIDE 23.4 mmol/L (21-32); CREATININE 1.3 mg/dL (0.6-1.3); POTASSIUM 3.7 mmol/L (3.5-5.1)
[2019-07-16 04:42] LABS: MAGNESIUM 1.6 mg/dL (1.8-2.4); PHOSPHORUS 1.5 mg/dL (2.5-4.9)
--- NOTE | 2019-07-16 06:00 | NUR ---
ORDERED MEDICATIONS GIVEN. PT AWAKE. NO SOB NOTED. DENIES ANY PAIN. BED LOCKED IN LOWEST POSITION. WILL CONTINUE TO MONITOR.
[2019-07-16] MEDS: AZITHROMYCIN 500 MG in DEXTROSE 5% 250 ML IV SCH (06:21)
[2019-07-16 06:53] LABS: CHOL/HDL RATIO 4.1 (1-4.5); THYROID STIMULATING HORMONE 0.46 uIU/mL (0.34-3.74)
--- NOTE | 2019-07-16 07:15 | NUR ---
RECEIVED PT FROM NIGHT NURSE. VSS. ALERT AND ORIENTED X4. PERRL. DENIES PAIN UPON QUESTIONING. CONTINUES ON INSULIN DRIP WITH BLOOD SUGAR CHECKS Q HOUR. RESPIRATIONS EVEN AND UNLABORED WITHOUT SOB. SPO2 @ 97% RA. LUNGS CLEAR THROUGHOUT. PERIPHERAL IV TO RT WRIST AND RT AC. PICC TO ANTONIO INFUSING D5 1/2 @ 100MLs/HR. PATENT. BOWEL SOUNDS ACTIVE X4. INCONTINENT DERMATITIS NOTED TO PERINEUM. PT INCONTINENT TO BLADDER BUT CLAIMS TO RECOGNIZE URGE TO HAVE BM. PULSES PALPABLE TO BILATERAL LOWER EXTREMITIES. BED LOW AND LOCKED. WILL CONTINUE TO MONITOR FOR CHANGES.
[2019-07-16] MEDS: METOPROLOL 25 MG TAB PO SCH ×3 (08:29→21:15)
--- NOTE | 2019-07-16 08:46 | NUR ---
DISCHARGE PLANNIN YO FEMALE PATIENT FROM HOME, WHO CAME IN DUE TO GENERALIZED WEAKNESS AND SOME UPPER RESPIRATORY TRACT SYMPTOMS. PAST MEDICAL HISTORY INCLUDE INSULIN DEPENDENT DIABETES, POORLY COMPLIANT AND HTN. INITIAL DIAGNOSIS OF PNEUMONIA AND DKA. CURRENT LABS INCLUDE WBC 21.9, H/H 12.7/40.7, NA/K 148/3.7, BUN/CREA 27/1.3 AND GLU 255. CURRENT MEDS INCLUDE AZITHROMYCIN, CEFTRIAXONE AND ON INSULIN DRIP. CXR ON ADMISSION SHOWED RIGHT MID LUNG CONSOLIDATION. WITH RIGHT ARM PICC LINE. NO CONSULTS AT THIS TIME. DC PLAN PENDING ON PATIENT'S RESPONSE TO TREATMENT. Addendum: 07/18/19 at 1532 by Sena Matthews PATIENT IS IN M/S STATUS NOW. WBC IS TRENDING DOWN, TODAY 13.2, H/H 8.1/25.1, NA/K 140/3.2. FOR CT ABDOMEN/PELVIS WITH CONTRAST TODAY. LANTUS WAS INCREASED TO 40 UNITS QHS. ON AZITHROMYCIN AND ROCEPHIN IV.
--- NOTE | 2019-07-16 09:30 | NUR ---
AT BEDSIDE. NEW ORDERS TO D/C INSULIN DRIP AND START LISPRO SLIDING SCALE. GAVE 30U OF LANTUS X1 X NOW. STARTED 1/2 NS @ 125 MLS/HR. ASSISTED PT TO REPOSITION. ORAL CARE PROVIDED. MIKEY-CARE PROVIDED. BED LOW AND LOCKED. CALL LIGHT WITHIN REACH. WILL CONTINUE TO MONITOR.
--- NOTE | 2019-07-16 09:50 | NUR ---
PT EVALUATED BY DR. MELCHOR. MADE AWARE OF BS 351. SAID DISCONTINUE DKA PROTOCOL. STOP INSULIN DRIP. START 0.45% NS AT 125 ML/HR. GIVE LANTUS SUBQ 30 UNITS NOW AND 20 UNIT QHS. ALSO ORDERED CHEM 7 , CBC AND MG LEVEL AT 1400 TODAY.ORDERED TO DO ACHS BS CHECK AND DC Q1H BS CHECK. WILL CARRYOUT ORDER.
[2019-07-16] MEDS: NACL 0.45% 1,000 ML IV SCH ×2 (10:23→18:07)
[2019-07-16] MEDS ORDERED: INSULIN LANTUS 100 UNITS/ML 10 ML VIAL SUBQ SCH ×2 (10:30→21:00)
[2019-07-16] MEDS: MORPHINE SULFATE 2 MG/ML SYR IVP PRN ×2 (10:34→18:16)
--- NOTE | 2019-07-16 12:00 | NUR ---
CHECKED BLOOD SUGAR BEFORE LUNCH MEAL. RESULTS 341. COVERAGE PROVIDED ORDERED. NO ASE R/T MEDICATION ADMINISTRATION NOTED. DENIES PAIN @ THIS TIME. ASSISTED TO REPOSITION. MIKEY-CARE PROVIDED. WILL CONTINUE TO MONITOR FOR CHANGES.
[2019-07-16 12:17] LABS: ANION GAP 16.1 (8-16); CARBON DIOXIDE 20.8 mmol/L (21-32); CREATININE 1.2 mg/dL (0.6-1.3); POTASSIUM 3.9 mmol/L (3.5-5.1)
[2019-07-16 12:20] LABS: MAGNESIUM 1.2 mg/dL (1.8-2.4); PHOSPHORUS 1.2 mg/dL (2.5-4.9)
[2019-07-16] MEDS: INSULIN LISPRO SLIDING SCALE 100 UNITS/ML VIAL SUBQ PRN ×3 (12:29→21:59)
--- NOTE | 2019-07-16 14:00 | NUR ---
PT ASSISTED TO REPOSITION @ THIS TIME. MIKEY-CARE PROVIDED. VSS. DENIES PAIN UPON QUESTIONING. BED LOW AND LOCKED. CALL LIGHT WITHIN REACH. WILL CONTINUE TO MONITOR.
[2019-07-16 15:51] LABS: BASOPHILS % (AUTO) 0.2 % (0.0-2.0); EOSINOPHILS % (AUTO) 0.1 % (0.0-4.0); HEMATOCRIT 28.9 % (36-48); HEMOGLOBIN 9.2 g/dL (12.0-16.0); LYMPHOCYTES # (AUTO) 1.6 K/uL (2.5-16.5); LYMPHOCYTES % (AUTO) 8.5 % (20.5-51.1); MEAN CORPUSCULAR HEMOGLOBIN 28 pg (27-31); MEAN CORPUSCULAR HGB CONC 32 g/dL (33-37); MEAN CORPUSCULAR VOLUME 87.3 fL (80-94); MONOCYTES # (AUTO) 0.6 K/uL (0.8-1.0); MONOCYTES % (AUTO) 3.3 % (1.7-9.3); NEUTROPHILS # (AUTO) 16.4 K/uL (1.8-7.7); NEUTROPHILS % (AUTO) 87.9 % (42.2-75.2); PLATELET COUNT (AUTO) 259 K/uL (140-450); RED BLOOD CELL COUNT(AUTO) 3.32 MIL/uL (4.20-5.40); RED CELL DISTRIBUTION WIDTH 15.9 % (11.6-13.7); WHITE BLOOD COUNT (AUTO) 18.7 K/uL (4.8-10.8)
--- NOTE | 2019-07-16 15:57 | NUR ---
07/16/19 RD INITIAL ASSESSMENT COMPLETED PLEASE REFER TO NUTRITION ASSESSMENT UNDER CARE ACTIVITY FOR ESTIMATED NUTRITIONAL NEEDS. 1. RECOMMEND SWALLOW EVALUATION. 2. RECOMMEND CCHO DIET WITH TEXTURE AND FLUID CONSISTENCY SUGGESTED BY SWALLOW EVALUATION. 3. ENCOURAGE PO INTAKE 4. DIABETES EDUCATION WAS PROVIDED 5. RD TO FOLLOW-UP 2-3 DAYS, HIGH RISK JEAN PIERRE COLON RD REVIEWED BY ENRIQUE EVERETT RD
--- NOTE | 2019-07-16 16:00 | NUR ---
RBS 281 @ THIS TIME. SLIDING SCALE COVERAGE ADMINISTERED ORDERED. PT DENIES PAIN. ASSISTED TO REPOSITION. BED LOW AND LOCKED. CALL LIGHT WITHIN REACH. WILL CONTINUE TO MONITOR.
[2019-07-16 16:11] LABS: ANION GAP 14.7 (8-16); CARBON DIOXIDE 21.7 mmol/L (21-32); POTASSIUM 3.4 mmol/L (3.5-5.1)
[2019-07-16 16:14] LABS: MAGNESIUM 1.5 mg/dL (1.8-2.4); PHOSPHORUS 1.4 mg/dL (2.5-4.9)
--- NOTE | 2019-07-16 18:25 | NUR ---
CLEANSED. KEPT PT DRY. REPOSITIONED. SR ON MONITOR. SPO2 96%. WILL CONTINUE TO MONITOR.
--- NOTE | 2019-07-16 19:11 | NUR ---
REPORT GIVEN TO TELE NURSE TAMY FOR CONTINUITY OF CARE. WILL TRANSFER PT TO ROOM 123 B.
--- NOTE | 2019-07-16 19:50 | NUR ---
RECEIVED PATIENT FROM ICU. REPORT RECEIVED EARLIER FROM ICU NURSE. 53 YEAR OLD, FEMALE. ALERT AND ORIENTED X3. NO APPARENT DISTRESS NOTED. APPEARS DROWSY. WITH PIV ON RIGHT WRIST 22G, RIGHT AC 20G AND RIGHT UPPER ARM PICC LINE DOUBLE LUMEN RUNNING IVF. BED ON LOW POSITION. SEIZURE PRECAUTIONS OBSERVED AT ALL TIMES. WILL CONTINUE TO MONITOR.
--- NOTE | 2019-07-16 21:45 | NUR ---
PATIENT ASLEEP IN BED. NO APPARENT DISTRESS NOTED. VISIBLE CHEST RISE AND FALL NOTED. WILL CONTINUE TO MONITOR.
--- NOTE | 2019-07-16 23:40 | NUR ---
ROUNDS DONE. PATIENT ASLEEP IN BED. NO APPARENT DISTRESS NOTED. WILL CONTINUE TO MONITOR.
[2019-07-17] VITALS: BP 129/51
--- NOTE | 2019-07-17 01:35 | NUR ---
PATIENT ASLEEP IN BED. NO APPARENT DISTRESS NOTED. VISIBLE CHEST RISE AND FALL NOTED. WILL CONTINUE TO MONITOR.
[2019-07-17] MEDS: NACL 0.45% 1,000 ML IV SCH ×3 (02:17→18:10)
[2019-07-17] MEDS: MORPHINE SULFATE 2 MG/ML SYR IVP PRN ×5 (03:18→21:58)
--- NOTE | 2019-07-17 03:20 | NUR ---
ROUNDS DONE. PATIENT NOTED WITH C/O 6/10 PAIN ON ABDOMEN. MEDICATED PER PAIN SCALE. WILL RE-ASSESS.
[2019-07-17 04:00] VITALS: BP 118/46
--- NOTE | 2019-07-17 05:20 | NUR ---
PATIENT ASLEEP IN BED. VISIBLE CHEST RISE AND FALL NOTED. NO APPARENT DISTRESS NOTED. WILL CONTINUE TO MONITOR.
[2019-07-17] MEDS: AZITHROMYCIN 500 MG in DEXTROSE 5% 250 ML IV SCH (05:30)
[2019-07-17 06:07] LABS: BASOPHILS % (AUTO) 0.1 % (0.0-2.0); HEMATOCRIT 27.3 % (36-48); HEMOGLOBIN 8.6 g/dL (12.0-16.0); LYMPHOCYTES # (AUTO) 1.7 K/uL (2.5-16.5); LYMPHOCYTES % (AUTO) 10.8 % (20.5-51.1); MEAN CORPUSCULAR HEMOGLOBIN 28 pg (27-31); MEAN CORPUSCULAR HGB CONC 32 g/dL (33-37); MEAN CORPUSCULAR VOLUME 87.6 fL (80-94); MONOCYTES # (AUTO) 0.6 K/uL (0.8-1.0); MONOCYTES % (AUTO) 3.7 % (1.7-9.3); NEUTROPHILS # (AUTO) 13.6 K/uL (1.8-7.7); NEUTROPHILS % (AUTO) 85.4 % (42.2-75.2); PLATELET COUNT (AUTO) 225 K/uL (140-450); RED BLOOD CELL COUNT(AUTO) 3.12 MIL/uL (4.20-5.40); RED CELL DISTRIBUTION WIDTH 15.9 % (11.6-13.7); WHITE BLOOD COUNT (AUTO) 15.9 K/uL (4.8-10.8)
[2019-07-17] MEDS: INSULIN LISPRO SLIDING SCALE 100 UNITS/ML VIAL SUBQ PRN ×4 (06:16→20:58)
[2019-07-17] MEDS: BLOOD GLUCOSE MONITORING 1 DEV DEV FS SCH ×4 (06:17→21:38)
[2019-07-17 06:30] LABS: ALBUMIN 1.6 g/dL (3.4-5.0); ANION GAP 15.8 (8-16); CARBON DIOXIDE 21.5 mmol/L (21-32); CREATININE 0.8 mg/dL (0.6-1.3); POTASSIUM 3.3 mmol/L (3.5-5.1); TOTAL BILIRUBIN 0.4 mg/dL (0.0-1.0)
--- NOTE | 2019-07-17 07:15 | NUR ---
ENDORSED TO AM SHIFT NURSE FOR CONTINUITY OF CARE.
--- NOTE | 2019-07-17 07:20 | NUR ---
RECEIVED PT FROM TOLL LINE INSPECTOR NURSE, PT IS ASLEEP AND LYING ON THE BED WITH SIDE RAILS UP AND CALL LIGHT WITHIN REACH, PICC LINE ON THE RT UA DOUBLE LUMEN WITH NS INFUSING AT 125ML/HR AND TWO PERIPHERAL LINES ON THE RT AC G. 22 ON SALINE LOCK AND ON THE RT THUMB G. 22 ON SALINE LOCK, RESPIRATION AND NO SIGN OF DISTRESS NOTED. WILL MONITOR PT.
[2019-07-17 08:00] VITALS: BP 130/51
[2019-07-17] MEDS: METOPROLOL 25 MG TAB PO SCH ×2 (08:36→20:55)
--- NOTE | 2019-07-17 08:49 | NUR ---
PT C/O PAIN RATE OF 6/10 ON THE LEGS, PAIN MEDICATION WAS GIVEN VIA IV PUSH, BP IS 139/52, PULSWE IS 98 AND O2 SATURATION IS 98% AND WILL RE-ASSESS AND MONITOR PT
--- NOTE | 2019-07-17 09:47 | NUR ---
DR. MELCHOR MADE ROUNDS. SPOKE TO THE PATIENT. DR. MELCHOR ORDERED MG RIDER 2G AND 40 MEQ KCl IV FOR LOW LAB LEVELS. DR. MELCHOR ORDERED CBC, CHEM 7, AND MG FOR TOMORROW. DR. MELCHOR INCREASED PATIENT'S LANTUS TO 40 UNITS QHS.
[2019-07-17] MEDS ORDERED: KCL 20 MEQ/WATER INJ PREMIX 200 ML IV ONE (10:05)
[2019-07-17] MEDS ORDERED: INSULIN LANTUS 100 UNITS/ML 10 ML VIAL SUBQ SCH (10:30)
[2019-07-17] MEDS ORDERED: MAG SULF 2000 MG/WATER PREMIX 50 ML IV SCH (10:30)
--- NOTE | 2019-07-17 10:35 | NUR ---
CXR WAS DONE TO PT .
--- NOTE | 2019-07-17 11:23 | NUR ---
ENDORSED PT TO RN AM SHIFT, ANGELES, FOR CONTINUITY OF CARE, PT IS ASLEEP AND STABLE AT THIS TIME.
--- NOTE | 2019-07-17 11:25 | NUR ---
GOT BEDSIDE REPORT FROM [facility] FOR CONTINUITY OF CARE.
[2019-07-17 12:00] VITALS: BP 126/46
--- NOTE | 2019-07-17 12:03 | NUR ---
*S.T. Note* order for S.T. Bedside swallow eval received, chart reviewed, cleared by ASHLYN Mcmillan pt seen at bedside w/o family/caregiver present. Pt c/o 05/17 abd pain and unable to have HOB moved to upright position. Once HOB was at 30 degrees, pt screamed and demanded for HOB to be brought back down and verbally refused eval, despite several attempts. Unable to complete eval at this time. Per RNs Deyanira and , pt was given morphine this AM and was not due for another dose for another hour. This clinician unable to return at that time due to schedule conflict. Will reattempt completion of eval tomorrow. Time 1120
--- NOTE | 2019-07-17 15:57 | NUR ---
PT IS ASLEEP, NO S/S OF ACUTE DISTRESS OR SOB AT THIS TIME.
--- NOTE | 2019-07-17 16:45 | NUR ---
PT DOWNGRADED TO MED-SURG
--- NOTE | 2019-07-17 17:41 | NUR ---
PT C/O 02/14 ABDOMINAL PAIN, WILL MEDICATE SOON TIMELY APPROPRIATE.
--- NOTE | 2019-07-17 19:22 | NUR ---
ENDORSED PT TO MOTOR ELECTRICIAN NURSE IN STABLE CONDITION.
--- NOTE | 2019-07-17 19:23 | NUR ---
RECEIVED REPORT FROM AM SHIFT NURSE. PATIENT ALERT AND ORIENTED X3. NO APPARENT DISTRESS NOTED. BED ON LOW POSITION. CALL LIGHT WITHIN REACH. WITH RIGHT WRIST 22G, RIGHT AC 20G AND RIGHT UPPER ARM PICC LINE RUNNING IVF. WILL CONTINUE TO MONITOR.
[2019-07-17] MEDS: INSULIN LANTUS 100 UNITS/ML 10 ML VIAL SUBQ SCH (20:58)
--- NOTE | 2019-07-17 21:20 | NUR ---
PATIENT ASLEEP IN BED. BED ON LOW POSITION. SEIZURE PRECAUTIONS IN PLACE. CALL LIGHT WITHIN REACH. VISIBLE CHEST RISE AND FALL NOTED. WILL CONTINUE TO MONITOR.
--- NOTE | 2019-07-17 23:18 | NUR ---
PATIENT AWAKE IN BED. VISIBLE CHEST RISE AND FALL NOTED. NO APPARENT DISTRESS NOTED. WILL CONTINUE TO MONITOR.
[2019-07-18] VITALS: BP 121/50
[2019-07-18] MEDS: NACL 0.45% 1,000 ML IV SCH ×3 (00:43→17:34)
--- NOTE | 2019-07-18 01:15 | NUR ---
PATIENT ASLEEP IN BED. NO APPARENT DISTRESS NOTED. VISIBLE CHEST RISE AND FALL NOTED. WILL CONTINUE TO MONITOR.
--- NOTE | 2019-07-18 03:07 | NUR ---
PATIENT AWAKE IN BED. ASSISTED WITH REPOSITIONING PER PATIENT'S REQUEST. NO APPARENT DISTRESS NOTED. WILL CONTINUE TO MONITOR.
--- NOTE | 2019-07-18 04:59 | NUR ---
PATIENT ASLEEP IN BED. BED ON LOW POSITION. NO SIGNS OF DISTRESS NOTED. VISIBLE CHEST RISE AND FALL NOTED. CALL LIGHT WITHIN REACH. SEIZURE PRECAUTIONS OBSERVED AT ALL TIMES. WILL CONTINUE TO MONITOR.
[2019-07-18] MEDS: AZITHROMYCIN 500 MG in DEXTROSE 5% 250 ML IV SCH (05:00)
[2019-07-18] MEDS: BLOOD GLUCOSE MONITORING 1 DEV DEV FS SCH ×4 (05:21→20:20)
[2019-07-18] MEDS: INSULIN LISPRO SLIDING SCALE 100 UNITS/ML VIAL SUBQ PRN ×3 (05:23→20:30)
[2019-07-18 06:12] LABS: ALBUMIN 1.4 g/dL (3.4-5.0); ANION GAP 12.5 (8-16); CARBON DIOXIDE 24.7 mmol/L (21-32); CREATININE 0.7 mg/dL (0.6-1.3); MAGNESIUM 1.8 mg/dL (1.8-2.4); POTASSIUM 3.2 mmol/L (3.5-5.1); THYROID STIMULATING HORMONE 0.65 uIU/mL (0.34-3.74); TOTAL BILIRUBIN 0.3 mg/dL (0.0-1.0)
--- NOTE | 2019-07-18 06:34 | NUR ---
PATIENT ASLEEP IN BED. NO APPARENT DISTRESS NOTED. WILL CONTINUE TO MONITOR.
[2019-07-18 06:48] LABS: BASOPHILS % (AUTO) 0.3 % (0.0-2.0); EOSINOPHILS # (AUTO) 0.1 K/uL (0-0.4); EOSINOPHILS % (AUTO) 0.7 % (0.0-4.0); HEMATOCRIT 25.1 % (36-48); HEMOGLOBIN 8.1 g/dL (12.0-16.0); LYMPHOCYTES # (AUTO) 1.9 K/uL (2.5-16.5); LYMPHOCYTES % (AUTO) 14.5 % (20.5-51.1); MEAN CORPUSCULAR HEMOGLOBIN 28 pg (27-31); MEAN CORPUSCULAR HGB CONC 32 g/dL (33-37); MEAN CORPUSCULAR VOLUME 87.6 fL (80-94); MONOCYTES # (AUTO) 0.6 K/uL (0.8-1.0); MONOCYTES % (AUTO) 4.6 % (1.7-9.3); NEUTROPHILS # (AUTO) 10.5 K/uL (1.8-7.7); NEUTROPHILS % (AUTO) 79.9 % (42.2-75.2); PLATELET COUNT (AUTO) 204 K/uL (140-450); RED BLOOD CELL COUNT(AUTO) 2.86 MIL/uL (4.20-5.40); WHITE BLOOD COUNT (AUTO) 13.2 K/uL (4.8-10.8)
--- NOTE | 2019-07-18 07:30 | NUR ---
ENDORSED TO AM SHIFT NURSE FOR CONTINUITY OF CARE.
--- NOTE | 2019-07-18 07:41 | NUR ---
RECEIVED REPORT FROM WASHROOM CLEANER NURSE. PATIENT AAOX3. NO APPARENT DISTRESS NOTED. BED ON LOW POSITION. CALL LIGHT WITHIN REACH. WITH RIGHT WRIST 22G, RIGHT AC 20G AND RIGHT UPPER ARM PICC LINE RUNNING IVF. WILL CONTINUE TO MONITOR. BED IN LOW POSITION, CALL LIGHT WITHIN REACH.
[2019-07-18 08:00] VITALS: BP 104/48
[2019-07-18] MEDS: METOPROLOL 25 MG TAB PO SCH ×2 (09:00→20:20)
[2019-07-18] MEDS: ENOXAPARIN 30 MG/0.3 ML SYR SUBQ SCH (09:00)
--- NOTE | 2019-07-18 10:01 | NUR ---
ADMINISTERED MORNING MEDS TO PT. PT TOLERATED WELL. ALL OTHER NEEDS MET.
--- NOTE | 2019-07-18 11:43 | NUR ---
PT ASLEEP. ALL NEEDS MET.
--- NOTE | 2019-07-18 11:59 | NUR ---
* ST NOTE * Pt seen at bedside w/nsg Lissa present. Pt alert, cooperative and engaged throughout session, reporting no c/o pain at this time. Pt allowing clinician to elevate HOB to 70 degrees, but refusing further elevation of HOB at this time, despite maximal cueing and education provided by clinician. Bedside dysphagia and oral mechanism exams completed. See evaluation report for further details. Pt tolerating 3/3 alternating PO trials of regular solid saltine crackers as well as 5/5 alternating PO trials of thin liquid apple juice via a straw, all w/o s/s of aspiration or choking. Pt education completed re: aspiration precautions once again and safe swallow compensatory strategies pt could utilize to aid w/swallow function, w/pt and nsg Lissa verbalizing understanding and agreement w/clinician's recommendations. Pt also requesting for eggs and oatmeal for breakfast, and for eggs to be "less dry". Clinician thus suggesting eggs scrambled easy if available, w/pt agreeable. Additionally, pt presenting with missing dentition, namely 3 missing upper incisors as well as canines. To better aid pt w/mastication and for safety, it is thus recommended pt's PO diet consistency remain as mechanical soft-ground textures w/thin liquids w/aspiration precautions in place, w/pt verbalizing agreement. No further ST follow up recommended at this time. Pt and caregiver/Nsg Lissa education completed re: results of evaluation; benefits of abiding by recommended PO diet consistency and aspiration precautions; and prognosis for improvement; with pt and caregiver/Nsg Lissa verbalizing understanding and agreement w/clinician's recommendations. Recommend: - CONTINUE CURRENT PO DIET CONSISTENCY OF MECHANICAL SOFT-GROUND TEXTURES W/THIN LIQUIDS for all meals - WHOLE PILL MEDICATION ADMINISTRATION - MAINTAIN ASPIRATION PRECAUTIONS DURING PT'S PO INTAKE - Pt can self-feed after setup of tray - CUE/REMIND/ASSIST PT IN SITTING UP AT 70-90 DEGREE ANGLE DURING PO INTAKE 2/2 TO PT NON-COMPLIANT W/PROPER POSITIONING FOR PO INTAKE - CUE/REMIND PT TO EAT/DRINK SLOWLY; ALTERNATE BTWN SOLIDS & LIQUIDS; AND TO TAKE SMALL BITES/SIPS - FNS/DIETARY: PT REQUESTING OATMEAL AND EGGS SCRAMBLED EASY FOR BREAKFAST IF AVAILABLE PLEASE No further ST follow up recommended at this time. NOMS Level 3 Time In/Out 11:15 - 11:45
[2019-07-18] MEDS ORDERED: POTASSIUM CHLORIDE 10 MEQ TABER PO ONE (12:00)
--- NOTE | 2019-07-18 13:40 | NUR ---
PT ASLEEP. ALL NEEDS MET.
--- NOTE | 2019-07-18 15:37 | NUR ---
PT ASLEEP. NO SIGNS OF PAIN OR DISTRESS NOTED. WILL CONTINUE TO ROUND ON PT.
[2019-07-18 16:00] VITALS: BP 115/55
--- NOTE | 2019-07-18 16:04 | NUR ---
07/18/19 RD FOLLOW UP COMPLETED PLEASE REFER TO NUTRITION ASSESSMENT UNDER CARE ACTIVITY FOR ESTIMATED NUTRITIONAL NEEDS. 1. RECOMMEND MECHANICAL SOFT CCHO 60GM WITH GLUCERNA BID 2. DIET HEALTH SHAKE WILL BE PROVIDED 3. ENCOURAGE INCREASING PO INTAKE 4. DIABETES EDUCATION WAS PROVIDED ON INITIAL ASSESSMENT VISIT 5. RD TO FOLLOW-UP 2-3 DAYS, HIGH RISK ENRIQUE EVERETT RD
--- NOTE | 2019-07-18 17:46 | NUR ---
PT RESTING IN BED. ALL NEEDS MET. WILL CONTINUE TO ROUND FREQUENTLY ON PT.
--- NOTE | 2019-07-18 19:37 | NUR ---
ENDORSED PT TO WRECKER OPERATOR FOR CONTINUITY OF CARE. PT IN STABLE CONDITION AT THIS TIME.
--- NOTE | 2019-07-18 19:38 | NUR ---
RECEIVED BEDSIDE REPORT FROM DAY RN. PATIENT AAOX3. ON ROOM AIR RESPIRATIONS ARE EQUAL AND UNLABORED. BED ON LOW POSITION. CALL LIGHT WITHIN REACH. WITH IV ON RIGHT WRIST 22G, RIGHT AC 20G AND RIGHT UPPER ARM PICC LINE INFUSING IVF. R ARM HAND NOTED SWELLING WILL D/C R WRIST AND AC IV. AND KEEP HAND ELEVATED.ON FALL & SZ PRECAUTIONS. SIDE RAILS UP X2 AND PADDED. PT WITH NON-PRODUCTIVE COUGH. PER RN PT HAD CT WITH CONTRAST TODAY BUT REFUSED SINCE SHE DID NOT WANT TO BE KEPT NPO. IS AWARE AND ORDERED TO CANCEL CT. POC DISCUSSED WITH PT. WILL CONTINUE TO MONITOR. BED IN LOW POSITION, CALL LIGHT WITHIN REACH.
--- NOTE | 2019-07-18 20:00 | NUR ---
PTS RIGHT ARM IS SWOLLEN AND WARM TO THE TOUCH. REMOVED IV ON RAC AND FA. BOTH CATH ARE INTACT. ELEVATED ARM ON PILLOW. WILL CONTINUE TO MONITOR. CALL LIGHT IS WITHIN REACH.
[2019-07-18] MEDS: INSULIN LANTUS 100 UNITS/ML 10 ML VIAL SUBQ SCH (20:31)
[2019-07-18] MEDS: PROMETH/CODEINE 6.25-10MG/5ML 5 ML UDC PO PRN (20:32)
--- NOTE | 2019-07-18 20:32 | NUR ---
ADMINISTERED JANUARY LANTUS 40U BG 240 ADMINISTERED SLIDING SCALE PER ORDERS. SNACK AT BEDSIDE. ADMINISTERED PRN COUGH SYRUP. ALL SAFETY MEASURES ARE IN PLACE. CALL LIGHT IS WITHIN REACH.
--- NOTE | 2019-07-18 22:00 | NUR ---
NOTED DECREASE SWELLING TO R ARM. PT DENIES PAIN. CALL LIGHT IS WITHIN REACH. WILL CONTINUE TO MONITOR.
[2019-07-18 23:42] VITALS: BP 106/38
--- NOTE | 2019-07-18 23:43 | NUR ---
VITAL SIGNS ARE WITHIN NORMAL LIMITS. ALL SAFETY MEASURES ARE IN PLACE. CALL LIGHT IS WITHIN REACH. WILL CONTINUE TO MONITOR.
--- NOTE | 2019-07-19 00:15 | NUR ---
GAVE BEDSIDE REPORT TO JOSÉ MIGUEL RN. PT ENDORSED IN STABLE CONDITION.
--- NOTE | 2019-07-19 00:20 | NUR ---
RECEIVED PT. FROM ANOTHER RN FOR CONTINUITY OF CARE. SLEEPING AT THIS TIME. CALL LIGHT WITH IN REACH AND PER PRIOR RN , PT. USES CALL LIGHT FOR HELP. WITH 1/2 NS INFUSING WELL. NO RESTLESSNESS.
[2019-07-19] MEDS: NACL 0.45% 1,000 ML IV SCH ×3 (02:00→18:34)
[2019-07-19] MEDS: BLOOD GLUCOSE MONITORING 1 DEV DEV FS SCH ×4 (05:23→20:41)
[2019-07-19] MEDS: AZITHROMYCIN 500 MG in DEXTROSE 5% 250 ML IV SCH (05:23)
[2019-07-19] MEDS: INSULIN LISPRO SLIDING SCALE 100 UNITS/ML VIAL SUBQ PRN ×2 (05:23→12:06)
[2019-07-19 06:00] LABS: BASOPHILS % (AUTO) 0.3 % (0.0-2.0); EOSINOPHILS # (AUTO) 0.2 K/uL (0-0.4); EOSINOPHILS % (AUTO) 1.4 % (0.0-4.0); HEMATOCRIT 25.6 % (36-48); HEMOGLOBIN 8.1 g/dL (12.0-16.0); LYMPHOCYTES # (AUTO) 2.1 K/uL (2.5-16.5); LYMPHOCYTES % (AUTO) 17.9 % (20.5-51.1); MEAN CORPUSCULAR HEMOGLOBIN 28 pg (27-31); MEAN CORPUSCULAR HGB CONC 32 g/dL (33-37); MEAN CORPUSCULAR VOLUME 87.5 fL (80-94); MONOCYTES # (AUTO) 0.9 K/uL (0.8-1.0); MONOCYTES % (AUTO) 7.7 % (1.7-9.3); NEUTROPHILS # (AUTO) 8.5 K/uL (1.8-7.7); NEUTROPHILS % (AUTO) 72.7 % (42.2-75.2); PLATELET COUNT (AUTO) 223 K/uL (140-450); RED BLOOD CELL COUNT(AUTO) 2.93 MIL/uL (4.20-5.40); WHITE BLOOD COUNT (AUTO) 11.7 K/uL (4.8-10.8)
--- NOTE | 2019-07-19 06:27 | NUR ---
SLEPT WELL THIS SHIFT. NO SOB. NO COMPLAINTS DONE. ABLE TO USE CALL LIGHT FOR HELP. REFUSED SCHEDULED CT ABD/PELVIS W/ CONTRAST . CHARGE NURSE AWARE. BLOOD SUGAR PER FINGERSTICK 248. COVERED WITH HUMALOG INSULIN PER PROTOCOL. FLUSHED 2 PORTS PICC LINE. PATENT.
[2019-07-19 07:07] LABS: ALBUMIN 1.3 g/dL (3.4-5.0); ANION GAP 8.5 (8-16); CREATININE 0.6 mg/dL (0.6-1.3); POTASSIUM 3.5 mmol/L (3.5-5.1); TOTAL BILIRUBIN 0.2 mg/dL (0.0-1.0)
--- NOTE | 2019-07-19 07:30 | NUR ---
PT IN BED ASLEEP. NO DISTRESS NOTED. RESPIRATIONS EVEN AND UNLABORED ON ROOM AIR. R UA PICC LINE IN PLACE INFUSING PER ORDER, PATENT ASYMPTOMATIC AND INTACT. SKIN INTACT. BED IN LOW POSITION. CALL LIGHT WITHIN REACH. SAFETY MEASURES IN PLACE. WILL CONTINUE TO MONITOR.
[2019-07-19 08:00] VITALS: BP 114/57
--- NOTE | 2019-07-19 09:42 | NUR ---
MEDICATIONS ADMINISTERED PER ORDER. PT TOLERATED WELL. NO DISTRESS NOTED. WILL CONTINUE TO MONITOR.
[2019-07-19] MEDS: PROMETH/CODEINE 6.25-10MG/5ML 5 ML UDC PO PRN (10:23)
[2019-07-19] MEDS: METOPROLOL 25 MG TAB PO SCH ×2 (10:24→20:41)
[2019-07-19] MEDS: ENOXAPARIN 30 MG/0.3 ML SYR SUBQ SCH (10:27)
--- NOTE | 2019-07-19 11:42 | NUR ---
BLOOD GLUCOSE CHECKED AT THIS TIME 190. WILL GIVE SUBQ HUMALOG 2 UNITS. NO DISTRESS NOTED. WILL CONTINUE TO MONITOR.
[2019-07-19] MEDS ORDERED: LANTUS SUBQ (13:21)
[2019-07-19] MEDS ORDERED: METO25TA PO (13:21)
[2019-07-19] MEDS ORDERED: AZIT250T3 PO (13:21)
--- NOTE | 2019-07-19 14:28 | NUR ---
PT IN BED ASLEEP. NO DISTRESS NOTED. SAFETY MEASURES IN PLACE. CALL LIGHT WITHIN REACH. WILL CONTINUE TO MONITOR.
[2019-07-19 16:00] VITALS: BP 116/51
--- NOTE | 2019-07-19 16:35 | NUR ---
BLOOD GLUCOSE MONITORED AT THIS TIME 118. NO COVERAGE NEEDED. WILL CONTINUE TO MONITOR.
[2019-07-19 16:59] VITALS: BP 116/51
--- NOTE | 2019-07-19 18:05 | NUR ---
ORDER FOR PICC LINE REMOVAL ENTERED. REMOVAL PENDING ARRANGEMENT FOR PT PICKUP. WILL CONTINUE TO MONITOR.
--- NOTE | 2019-07-19 18:24 | NUR ---
PT READY FOR DISCHARGE, CALLED BROTHRILEY FONG TWICE AT [phone] AND LEFT A MESSAGE REQUESTING FOR PT PICKUP. PT SAID FAM IRIZARRY TOLD HER SHE COULD ARRANGE PICKUP FOR PT UPON DISCHARGE, CALLED [employer] NUMBER PROVIDED IN CHART, BUT THEY ARE OUTSIDE OF BUSINESS HOURS. ALSO CALLED PT HOME PHONE NUMBER BUT THE NUMBER HAS BEEN DISCONNECTED Addendum: 07/19/19 at 1857 by Rufino Becerril RN PT NOT ABLE TO BE SENT HOME VIA TAXI OR OTHER TRANSPORT, BECAUSE PT STATED ITS A NEW RESIDENCE AND SHE HAS NOBODY TO HELP HER ONCE SHE ARRIVES AT HOME SINCE SHE CANNOT WALK
--- NOTE | 2019-07-19 19:16 | NUR ---
REPORT GIVEN TO NIGHT NURSE FOR CONTINUITY OF CARE.
--- NOTE | 2019-07-19 19:16 | NUR ---
RECEIVED REPORT FORM CHAD CHAVARRIA, PT IN STABLE CONDITION.
--- NOTE | 2019-07-19 19:57 | NUR ---
TALK TO AJTI BROTHER , PER AJIT HE WILL GO TO PATIENT HOUSE AND CHECK THE ADDRESS AND HE WILL BE THERE TO WAIT TO WAIT FOR HER,
--- NOTE | 2019-07-19 20:00 | NUR ---
PT IN LOW BED WITH SIDE RIALS UP X2 . PT AWAKE AND ALERT AND EATING A SALAD AT BED SIDE, PT HAS NO C/O OF PAIN OR DISTRESS NOTED. SHE HAS A RIGHT UPPER DOUBLE LUMEN PICC LINE INTACT AND RUNNING 1/2 NS AT 125MLS/HR. V/S FOLLOWS : T 98.4 P 92 R 18 B/P 120/54 02 96%. ALL REQUESTED NEEDS ATTENDED BY STAFF AND CALL NESBITT IN REACH.
[2019-07-19] MEDS: INSULIN LANTUS 100 UNITS/ML 10 ML VIAL SUBQ SCH (20:35)
--- NOTE | 2019-07-19 21:00 | NUR ---
PT FINGERSTICK IS 133, NO HUMALOG COVERAGE NEEDED. PT GIVEN SNACK AND LANTUS 40 UNITS ORDERED. PT ALSO GIVEN ORDERED LOPRESSOR 25MG.
--- NOTE | 2019-07-19 21:20 | NUR ---
RIGHT UPPER ARM DOUBLE LUMEN PICC WAS REMOVED PER ORDER DUE TO DISCHARGE. PICC LINE MEASURED AT 34CC WITH TIP INTACT. PRESSURE BANDAGE APPLIED TO RIGHT UPPER ARM.
--- NOTE | 2019-07-19 21:30 | NUR ---
PT DISCHARGE TEACHING DONE AT BEDSIDE. PT RECEIVED SCRIPTS FOR LANTUS, NEEDLES AND METOPROLOL FOR HTN. PT IN STABLE CONDITION. WAS DRESSED WITH ALL BELONGINGS IN HAND. PT WAS GIVEN TAXI VOUCHER TO GET HOME, PT IN STABLE CONDITION.
== END 2019-07-19 21:35 | disposition home or self-care (01) | DRG 720 ==
LOC: MED 23:12 → MIC 07-15 02:30 → MMU 07-16 19:56 → MTU 07-17 12:42 → MMU 07-17 13:10
PROVIDERS: ADMIT Internal Medicine Pulmonary Disease; ATTEND Internal Medicine Pulmonary Disease
PROC: 02HV33Z Insertion of Infusion Device into Superior Vena Cava, Percutaneous Approach (ICD-10-PCS; principal; 2019-07-15)
PROC: B548ZZA Ultrasonography of Superior Vena Cava, Guidance (ICD-10-PCS; 2019-07-15)
DX: A41.9 Sepsis, unspecified organism (principal); N17.0 Acute kidney failure with tubular necrosis; E11.10 Type 2 diabetes mellitus with ketoacidosis without coma; J18.9 Pneumonia, unspecified organism; F17.200 Nicotine dependence, unspecified, uncomplicated; T38.3X6A Underdosing of insulin and oral hypoglycemic [antidiabetic] drugs, initial encounter; I10 Essential (primary) hypertension; E44.1 Mild protein-calorie malnutrition; Z68.26 Body mass index [BMI] 26.0-26.9, adult; Z91.19 Patient's noncompliance with other medical treatment and regimen; Y92.89 Other specified places as the place of occurrence of the external cause; Z79.4 Long term (current) use of insulin; Z88.6 Allergy status to analgesic agent; Z88.4 Allergy status to anesthetic agent; Z79.899 Other long term (current) drug therapy
CPT/HCPCS: 36415; 36600; 71045; 80048; 80053; 80305; 81001; 81025; 82550; 82803; 82948; 83036; 83735; 84100; 84436; 84443; 84484; 85025; 87081; 87086; 87186; 92610; 93005; 97116; 97161-GP; 97530; 99291; G0480; G0482; J0456; J0696; J1650; J1815; J2270; J2405; J3475; J3480; J7030; J7060; Q0092

== ENCOUNTER 2019-08-15 16:09 | Inpatient (IN) | payer OTHER ==
[~2019-08-15] VITALS: Ht 154.9 cm; Wt 65.3 kg
[~2019-08-15 16:09] MED LIST: AZIT250T3 PO; GABA100C PO; LANTUS SUBQ; LEVE250T1 PO; METO25TA PO
[2019-08-15 16:10] VITALS: BP 105/78
--- NOTE | 2019-08-15 16:37 | NUR ---
53 Y/O FEMALE BIBA FOUND ALTERED IN A HOUSE, LAST SEEN NORMAL X 2 DAYS AGO PER EMS. PER EMS PT WAS FOUND FACE DOWN NAKED. BYSTANDER STATED PT WAS PAINTING A ROOM. RR EVEN AND UNLABORED. GLUCOSE TAKEN IN ROUTE, TOO HIGH TO READ. PT PLACED ON MONITOR. VSS. MEDHX: SEIZURES, DM ALLERGIES: IBURPRFEN AND PENICILLIN
[2019-08-15] MEDS ORDERED: NACL 0.9% 2,000 ML IV ONE (16:45)
[2019-08-15] MEDS ORDERED: INSULIN REGULAR, HUMAN 100 UNIT/ML VIAL SUBQ ONE (16:45)
--- NOTE | 2019-08-15 16:54 | NUR ---
LOPES PLACED IN PT. PT TOLERATED PROCEDURE WELL.
--- NOTE | 2019-08-15 17:00 | NUR ---
RT AT BEDSIDE FOR ABG.
--- NOTE | 2019-08-15 17:08 | NUR ---
LAB AT BEDSIDE
[2019-08-15] MEDS ORDERED: INSULIN REGULAR, HUMAN 100 UNIT/ML VIAL IVP ONE (17:10)
--- NOTE | 2019-08-15 17:14 | NUR ---
REVIEWED ABG SAMPLE REPORT WITH DR. RAVINDER DOUGHERTY
[2019-08-15 17:19] LABS: APPEARANCE,URINE CLEAR (CLEAR); BILIRUBIN,URINE 1+ (NEGATIVE); BLOOD, URINE 1+ (NEGATIVE); COLOR,URINE YELLOW (YELLOW); LEUKOCYTE ESTERASE ,URINE NEGATIVE (NEGATIVE); NITRITE, URINE POSITIVE (NEGATIVE); PH,URINE 5.5 (5.0-9.0); UGLUCOSE 3+ (NEGATIVE)
[2019-08-15] MEDS ORDERED: SODIUM BICARBONATE 8.4% PFS 50 MEQ/50 ML SYR IVP ONE ×2 (17:20→17:22)
[2019-08-15 17:29] LABS: BARBITURATE, URINE NEG. ng/ml (NEG <=200); BENZODIAZEPINE, URINE NEG. ng/mL (NEG <=200); CANNABINOID, URINE NEG. ng/mL (NEG <=50); COCAINE, URINE NEG. ng/mL (NEG <=300); OPIATE, URINE NEG. ng/mL (NEG <=2000); PHENCYCLIDINE SCREEN,URINE NEG. ng/mL (NEG <=25)
--- NOTE | 2019-08-15 17:29 | NUR ---
PT LAYING IN BED, AROUSABLE TO NAME, PT CONTINUES TO MUMBLE, VSS WILL CONTINUE TO MONITOR.
[2019-08-15] MEDS ORDERED: NACL 0.9% 1,000 ML IV ONE (17:40)
[2019-08-15] MEDS ORDERED: INSULIN REGULAR, HUMAN 100 UNIT in NACL 0.9% 100 ML IV ONE ×2 (17:40)
[2019-08-15] MEDS ORDERED: LEVOFLOXACIN 750 MG/D5W PREMIX 150 ML IV ONE (17:40)
[2019-08-15 17:49] LABS: BASOPHILS % (AUTO) 0.1 % (0.0-2.0); HEMATOCRIT 44.3 % (36-48); HEMOGLOBIN 11.6 g/dL (12.0-16.0); LYMPHOCYTES # (AUTO) 0.8 K/uL (2.5-16.5); LYMPHOCYTES % (AUTO) 5.4 % (20.5-51.1); MEAN CORPUSCULAR HEMOGLOBIN 28 pg (27-31); MEAN CORPUSCULAR HGB CONC 26 g/dL (33-37); MEAN CORPUSCULAR VOLUME 105.1 fL (80-94); MONOCYTES # (AUTO) 0.1 K/uL (0.8-1.0); NEUTROPHILS # (AUTO) 13.3 K/uL (1.8-7.7); NEUTROPHILS % (AUTO) 93.5 % (42.2-75.2); PLATELET COUNT (AUTO) 339 K/uL (140-450); RED BLOOD CELL COUNT(AUTO) 4.22 MIL/uL (4.20-5.40); RED CELL DISTRIBUTION WIDTH 20.7 % (11.6-13.7); WHITE BLOOD COUNT (AUTO) 14.3 K/uL (4.8-10.8)
[2019-08-15 17:51] LABS: HYALINE CASTS, URINE 0-10 /LPF (None Seen); WBC,URINE 0-5 /HPF (0-5)
--- NOTE | 2019-08-15 17:56 | NUR ---
2ND LITER OF FLUIDS GIVEN TO PT, BOLUS PLACED IN PRESSURE BAG PER MD
--- NOTE | 2019-08-15 18:10 | NUR ---
02 SAT 88% RA. PT PLACED ON 2L NC. 100% O2 SAT AFTER PLACED ON 02
--- NOTE | 2019-08-15 18:17 | NUR ---
PT AROUSABLE TO NAME, LAYING IN BED ROLLING FROM SIDE TO SIDE. IV SITE INTACT. VSS. WILL CONTINUE TO MONITOR.
[2019-08-15] MEDS ORDERED: LORazepam 2 MG/ML VIAL ONE (18:19)
[2019-08-15] MEDS ORDERED: LORazepam 2 MG/ML VIAL IVP ONE (18:20)
[2019-08-15 18:24] LABS: ALBUMIN 2.8 g/dL (3.4-5.0); ANION GAP 39.4 (8-16); CARBON DIOXIDE 13.3 mmol/L (21-32); CREATININE 3.8 mg/dL (0.6-1.3); POTASSIUM 5.7 mmol/L (3.5-5.1); TOTAL BILIRUBIN 0.5 mg/dL (0.0-1.0)
--- NOTE | 2019-08-15 18:35 | NUR ---
DR DOUGHERTY AT BEDSIDE PREPARING PT FOR CENTRAL LINE INSERTION.
[2019-08-15 18:50] LABS: ACETAMINOPHEN < 0.5 ug/ml (10-30); SALICYLATE 6.7 mg/dL (2.8-20.0)
--- NOTE | 2019-08-15 18:52 | NUR ---
CENTRAL LINE PLACED IN RT IJ BY DR DOUGHERTY. PT TOLERATED PROCEDURE WELL.
--- NOTE | 2019-08-15 19:14 | NUR ---
DR DOUGHERTY CONFIRMED IJ IN PLACE VIA XRAY, IJ OK TO USE PER DR DOUGHERTY
--- NOTE | 2019-08-15 19:21 | NUR ---
INSULIN DRIP MOVED TO CENTRAL LINE, WILL CONTINUE TO INFUSE.
--- NOTE | 2019-08-15 19:26 | NUR ---
TALK TO DR. VARGAS AND ASKED IF PT STILL NEEDS CT SCAN BEFORE TRANSFERRING TO ICU AND MD VARGAS SAID NO NEED FOR CT AT THIS TIME.
[2019-08-15] MEDS ORDERED: DOCU-299 PO (19:35)
[2019-08-15] MEDS ORDERED: TRAZ-343 PO (19:35)
[2019-08-15] MEDS ORDERED: SERT50TA PO (19:35)
[2019-08-15] MEDS ORDERED: LORA10TA19 PO (19:35)
--- NOTE | 2019-08-15 19:45 | NUR ---
PATIENT TRANSFERRED TO ICU BED 2 VIA GURNEY, RECEIVED REPORT FROM ER NURSE AT BEDSIDE. PATIENT NOT ALERT/AWAKE, AROUSED TO DEEP PAIN. DOES NOT OPEN EYES, NONVERBAL, CANNOT FOLLOW SIMPLE COMMANDS. ON NASAL CANNULA AT 2LPM. SATURATIONS 100%, RESPIRATIONS 24, EQUAL CHEST RISE, LUNG SOUNDS DIMINISHED THROUGHOUT. BREATHING IS UNLABORED. PERRL, 3MM, BRISK. S1S2, SR ON MONITOR, HEART RATE 81 BPM. BLOOD PRESSURE 114/59. RIGHT IJ CENTRAL LINE IN PLACE, TRIPLE LUMEN, PATENT. RIGHT WRIST 22G PERIPHERAL IV, FLUSHED AND PATENT WITHOUT SYMPTOMS, SALINE LOCKED. AFEBRILE, SKIN IS WARM AND DRY, INTACT. SLIGHT REDNESS NOTED AT PERINEAL AREAS. ABDOMEN SOFT, AND NONTENDER WITH ACTIVE BOWEL SOUNDS. BUE AND BLE NOTED WITH GENERALIZED WEAKNESS, CAP REFILL LESS THAN 3 SECONDS. LOPES CATHETER IN PLACE, WITH CLEAR YELLOW URINE DRAINING. SIDERAILS UPx3, HOB 30 DEGREES, CALL LIGHT WITHIN REACH, FILEMAKER DEVELOPER AND SAFETY ALARMS IN PLACE WILL CONTINUE TO MONITOR. Addendum: 08/16/19 at 0648 by Sunitha James RN INFUSING INSULIN DRIP AT 5UNITS/HR AND IV ANTIBIOTICS INFUSING (LEVOQUIN).
--- NOTE | 2019-08-15 19:48 | NUR ---
Patient will be admitted to care of dr seymour. Admited to icu . Will go to room 2. Belongings list completed. Report to leyla whitfield.
[2019-08-15 20:00] VITALS: BP 114/59
--- NOTE | 2019-08-15 20:10 | NUR ---
INCREASED INSULIN DRIP TO 5.9 UNITS/HR PER DKA PROTOCOL, DRY WT USED-59.9KG. MD AWARE, AT BEDSIDE TO ASSESS PATIENT.
[2019-08-15] MEDS ORDERED: INSULIN REGULAR, HUMAN 100 UNIT in NACL 0.9% 100 ML IV SCH ×2 (21:00)
[2019-08-15] MEDS: BLOOD GLUCOSE MONITORING 1 DEV DEV FS SCH ×4 (21:30→23:46)
[2019-08-15] MEDS: NACL 0.9% 1,000 ML IV SCH (21:32)
[2019-08-15] MEDS ORDERED: cefTRIAXone 1,000 MG VIAL ONE (21:33)
[2019-08-15 21:36] LABS: ANION GAP 27.9 (8-16); CARBON DIOXIDE 18.7 mmol/L (21-32); CREATININE 3.5 mg/dL (0.6-1.3); POTASSIUM 3.6 mmol/L (3.5-5.1)
--- NOTE | 2019-08-15 21:38 | NUR ---
RECEIVED CRITICAL LABS. BUN-83, CREATININE-3.5, WILL ENDORSE TO
[2019-08-15 22:00] VITALS: BP 110/55
--- NOTE | 2019-08-15 22:00 | NUR ---
DR. OSMAN MADE AWARE OF CRITICAL LABS, AND HIGH SUGAR LEVELS. CONFIRMED TO CONTINUE WITH INSULIN DRIP AT 5.9 MCG/KG/HR. CONTINUE WITH 2L NORMAL SALINE FLUIDS. FOLLOW UP WITH NEXT LAB DRAW. WILL CARRY OUT
--- NOTE | 2019-08-15 23:50 | NUR ---
REMOVED NASAL CANNULA FOR OXYGEN SATURATION TRIAL, PATIENT REMAINED AT 100% WITHOUT NASAL CANNULA. BREATHING IS UNLABORED, CHEST RISE AND FALL.
[2019-08-16] VITALS (12 sets, daily range): BP systolic 96–141; BP diastolic 54–85
--- NOTE | 2019-08-16 00:10 | NUR ---
PATIENT TAKEN TO CT. PHOTOGRAPHIC SPOTTER CONNECTED, TRANSFERRED VIA GURNEY WITH 2 RN's AND HAM PUMPER.
--- NOTE | 2019-08-16 00:45 | NUR ---
PATIENT BACK TO ICU BED [address] SCAN. NO INCIDENTS NOTED. PATIENT IS MORE ALERT. MOANING AND WITHDRAWS TO LIGHT PAIN, STILL LETHARGIC, OPENED EYES ONCE BUT NO EYE CONTACT. SAFETY ALARMS IN PLACE, SIDERAILS UP.
--- NOTE | 2019-08-16 01:01 | NUR ---
RECEIVED RESULTS FOR CT HEAD SCAN, CONFIRMED NEGATIVE FOR BRAIN BLEED OR OTHER INCIDENTS.
[2019-08-16 01:24] LABS: ANION GAP 18.7 (8-16); CARBON DIOXIDE 24.8 mmol/L (21-32); CREATININE 3.2 mg/dL (0.6-1.3); POTASSIUM 3.5 mmol/L (3.5-5.1)
[2019-08-16] MEDS: BLOOD GLUCOSE MONITORING 1 DEV DEV FS SCH ×23 (01:37→23:45)
[2019-08-16] MEDS: NACL 0.9% 1,000 ML IV SCH ×3 (02:30→10:45)
--- NOTE | 2019-08-16 02:45 | NUR ---
SPOKE WITH DR. OSMAN FOR PATIENT UPDATE, CONFIRMED TO CHANGE IV FLUIDS TO 0.45% NS @ 150ML/HR, PER ELEVATED SODIUM LEVELS, ALSO STANDING ORDERS FOR BORDERLINE POTASSIUM: K= 2.9-3.5, GIVE 40 KCL, IF LESS THAN 2.9, GIVE 60 KCL. WILL CARRY OUT.
[2019-08-16] MEDS: NACL 0.45% 1,000 ML IV SCH ×7 (02:55→23:50)
[2019-08-16] MEDS ORDERED: KCL 20 MEQ/WATER INJ PREMIX 100 ML IV PRN (03:00)
[2019-08-16] MEDS ORDERED: KCL 20 MEQ/WATER INJ PREMIX 200 ML IV PRN (03:00)
--- NOTE | 2019-08-16 04:07 | NUR ---
PATIENT CONTINUED ON INSULIN DRIP PER PROTOCOL, @ 5.9 MCG/HR, SUGAR CHECKS CONTINUED QHOUR, SUGAR FINALLY BELOW 600, CURRENTLY 588. WILL CONTINUE WITH PROTOCOL.
--- NOTE | 2019-08-16 05:20 | NUR ---
PROVIDED SPONGE BATH, ORAL CARE, AND PERINEAL CARE. PATIENT HAS REDNESS AT SACRUM AND PERINEAL AREA, SKIN INTACT. PATIENT WITHDRAWING TO LIGHT PAIN, MOANING AND MORE ALERT. ASKED PATIENT TO OPEN EYES AND SHE YELLS "NO". TURNED AND REPOSITIONED PATIENT TO OFFLOAD PRESSURE AREAS. REPLACED SECUREMENT DEVICE AT LOPES CATHETER AND PROVIDED LOPES CARE, PATIENT SCREAMING "OW" WITH LOPES CARE. SAFETY ALARMS IN PLACE, HOB 30 DEGREES, SIDERAILS UP. CALL LIGHT WITHIN REACH.
--- NOTE | 2019-08-16 06:10 | NUR ---
PATIENT SATURATIONS 99-100% ON ROOM AIR. BREATHING UNLABORED WITH EQUAL CHEST RISE. PERIPHERAL IV ON RIGHT WRIST 22G, PATENT AND SALINE LOCKED. RIGHT IJ CENTRAL LINE IN PLACE, INFUSING INSULIN DRIP AT 5.9 MCG/HR AND IVF 0.45% NS @ 150ML/HR. SIDERAILS UP x3, HOB 30 DEGREES, LOPES CATHETER DRAINING AT BEDSIDE. AND LODGE SALES ASSOCIATE CONNECTED, SAFETY ALARMS IN PLACE. LAST SUGAR CHECK 519. WILL ENDORSE CARE TO A.M NURSE.
[2019-08-16 07:05] LABS: ANION GAP 16.4 (8-16); CARBON DIOXIDE 26.6 mmol/L (21-32)
--- NOTE | 2019-08-16 07:30 | NUR ---
RECEIVED BEDSIDE REPORT FROM DECKER OPERATOR RN. PT IS DROWSY, EYES CLOSED, AROUSABLE TO LIGHT TOUCH, BUT DOES NOT FOLLOW COMMANDS. AFEBRILE. FLACC 0. SINUS TACHYCARDIA ON MONITOR. S1 S2 HEARD. PULSES PALPABLE TO ALL EXTREMITIES. CAP REFILL < 2 SEC. PT IS ON ROOM AIR, BREATHING EVEN AND UNLABORED. RR 14 SPO2 99%. LUNGS SOUND DIMINISHED. NO SIGNS OF RESPIRATORY DISTRESS NOTED. CENTRAL LING TLC TO RIGHT IJ PATENT AND INTACT, PT IS ON INSULIN DRIP AT 5.9 UNITS/HR (DRY WEIGHT 59 KG) AND IVF 1/2 NS AT 150 ML/HR. PERIPHERAL IV G22 TO RIGHT WRIST SALINE LOCKED. ABDOMEN SOFT, NONTENDER, NONDISTENDED. BOWEL SOUNDS ACTIVE X 4 QUADRANTS. SKIN IS INTACT, DRY AND WARM TO TOUCH. REDNESS NOTED TO PERINEAL AREA. ABLE TO MOVE ALL EXTREMITIES. HOB AT 30 DEGREES. BED IN LOWEST POSITION LOCKED. CALL LIGHT WITHIN REACH. NO SIGNS OF DISTRESS NOTED AT THIS TIME. WILL CONTINUE TO MONITOR.
--- NOTE | 2019-08-16 08:06 | NUR ---
PATIENT HAS BEEN SCREENED AND CATEGORIZED HIGH NUTRITION RISK. PATIENT WILL BE SEEN WITHIN 1-2 DAYS OF ADMISSION. 08/16/19-08/17/[address]
--- NOTE | 2019-08-16 08:14 | NUR ---
ABG TAKEN BY RT AT BEDSIDE. PT IS STILL DROWSY. NOT IN ANY DISTRESS AT THIS TIME.
[2019-08-16] MEDS: ENOXAPARIN 30 MG/0.3 ML SYR SUBQ SCH (08:22)
--- NOTE | 2019-08-16 09:36 | NUR ---
DR. RICKS IN TO SEE PT. WILL FOLLOW UP ON ORDERS. Addendum: 08/16/19 at 1122 by Britton Segura RN DR. RICKS MADE AWARE OF INCREASED HR 115, NA 153, LOW URINE OUTPUT.
[2019-08-16] MEDS ORDERED: INSULIN REGULAR, HUMAN 100 UNIT in NACL 0.9% 100 ML IV SCH ×2 (10:00)
[2019-08-16] MEDS: DEXT 5% / NACL 0.45% 1,000 ML IV SCH ×3 (10:00→23:20)
--- NOTE | 2019-08-16 11:15 | NUR ---
Digital Product Manager Note: Patient is a 53-year-old female admitted for DKA. Patient has PMHX of hypertension, diabetes, anxiety, and seizures. SW met with patient at bedside to complete assessment. Per nurse, patient was sedated and is unable to have a conversation at this time. SW will follow up as needed.
--- NOTE | 2019-08-16 11:16 | NUR ---
PT STILL DROWSY, AAOX0, DOES NOT FOLLOW COMMANDS AT THIS TIME. SAFETY PRECAUTIONS IN PLACE. CALL LIGHT WITHIN REACH. WILL CONTINUE TO MONITOR.
[2019-08-16 11:49] LABS: ANION GAP 15.2 (8-16); CARBON DIOXIDE 28.8 mmol/L (21-32); CREATININE 2.8 mg/dL (0.6-1.3)
--- NOTE | 2019-08-16 12:05 | NUR ---
SPOKE WITH DR. PAIGE. PER DR. PAIGE, HE WILL COME AND SEE PT AROUND 14:30.
[2019-08-16] MEDS: Z-GUARD PASTE TP SCH (13:50)
--- NOTE | 2019-08-16 14:21 | NUR ---
08/16/19 RD INITIAL ASSESSMENT COMPLETED PLEASE REFER TO NUTRITION ASSESSMENT UNDER CARE ACTIVITY FOR ESTIMATED NUTRITIONAL NEEDS. 1. CONTINUE NPO MEDICALLY APPROPRIATE 2. IF/WHEN PATIENT BECOMES MEDICALLY STABLE CONSIDER ADVANCING DIET TO CCHO [address] WILL PROVIDE NUTRITION EDUCATION FOR DIABETES WHEN PT IS ALERT AND ORIENTATED 4. RD TO FOLLOW-UP 2-3 DAYS, HIGH RISK ENRIQUE EVERETT, RD
--- NOTE | 2019-08-16 14:47 | NUR ---
PT STILL ON INSULIN DRIP. ON ROOM AIR, SPO2 97%, RR 25, HR 102, BP 131/64. AFEBRILE. STILL DROWSY. FLACC 0. SAFETY MEASURES ENSURED. WILL CONTINUE TO MONITOR.
[2019-08-16 15:11] LABS: ANION GAP 12.3 (8-16); CARBON DIOXIDE 30.4 mmol/L (21-32); CREATININE 2.7 mg/dL (0.6-1.3); POTASSIUM 3.7 mmol/L (3.5-5.1)
--- NOTE | 2019-08-16 15:27 | NUR ---
DISCHARGE PLANNIN53 Y/O FEMALE PATIENT FROM HOME, WHO CAME IN DUE TO HIGH BLOOD SUGAR AND ALOC. PAST MEDICAL HISTORY INCLUDE HTN, DM, ANXIETY AND DEPRESSION. INITIAL DIAGNOSIS OF DKA. CURRENT LABS INCLUDE WBC 14.3, H/H 11.6/44.3, NA/K 158/3.7, BUN/CREA 76/2.7. BLOOD SUGAR ON ADMISSION 1461, TODAY 161, ANION GAP ON ADMISSION 39.4 TODAY 12.3. ON INSULIN DRIP AND ROCEPHIN. NEPHRO CONSULT WITH DR. PAIGE FOR RENAL FAILURE. BLOOD C/S PENDING. 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 CHEST X RAY ON ADMISSION SHOWED PATCHY RIGHT MIDDLE LOBE CONSOLIDATION SUSPICIOUS FOR PNA. DC PLANNING PENDING ON PATIENT'S RESPONSE TO TREATMENT. Addendum: 08/17/19 at 0827 by Sena Matthews CM STILL IN ICU, ON ROOM AIR SAT 97%. RIGHT IJ CENTRAL LINE. ON HEPARIN DRIP. FC IN PLACE. NEPHR CONSULT IN PLACE. MORNING LABS STILL PENDING. URINE AND BLOOD C/S PENDING. DC PLAN PENDING ON PATIENT'S RESPONSE TO TREATMENT. Addendum: 08/19/19 at 1602 by Sena Matthews CM WITH DC ORDER TODAY.
--- NOTE | 2019-08-16 16:02 | NUR ---
PT SEEN AND EXAMINED BY DR. PAIGE. ORDERS RECEIVED. Addendum: 08/16/19 at 1607 by Britton Segura RN PER DR. PAIGE, CONTINUE INSULIN DRIP AND IV FLUIDS UNTIL PT IS AWAKE, ALERT AND ABLE TO EAT.
[2019-08-16] MEDS: DEXTROSE 5% 1,000 ML IV SCH ×2 (16:15→23:50)
[2019-08-16] MEDS: NACL 0.9% 500 ML IV PRN (17:21)
--- NOTE | 2019-08-16 17:56 | NUR ---
TURNED AND REPOSITIONED PT. PRESSURE AREAS OFF LOADED. PROVIDED DINNER, NEEDS 1:1 TOTAL ASSISTANCE WITH MEALS. HAVING DINNER IN HIGH FOWLERS POSITION, BEING FED BY CHARGE NURSE AT THIS TIME. NO SIGNS OF DISTRESS NOTED HAVING MECHANICAL SOFT CARDIAC DIET. WILL CONTINUE TO MONITOR.
--- NOTE | 2019-08-16 19:30 | NUR ---
PT IS DROWSY, A&OX0, DOES NOT FOLLOW COMMANDS. PUPIL SIZE 3MM, PERRL. SINUS RHYTHM ON MONITOR. PT ON ROOM AIR. LUNG SOUNDS CLEAR, DIMINISHED AT BASES. RIJ, TRIPLE LUMEN CATH CENTRAL LINE. IV SITE R WRIST 22 GAUGE, INTACT AND PATENT. CAP REFILL LESS THAN 2 SECONDS. SKIN IS WARM AND DRY. ABDOMEN IS SOFT AND ROUNDS. ACTIVE BOWEL SOUNDS. LOPES CATHETER IN PLACE. GENERALIZED WEAKNESS. NPO EXCEPT MEDS. DRY WEIGHT 59KG.
--- NOTE | 2019-08-16 19:31 | NUR ---
REPORT GIVEN TO CLOTH BOOKER RN FOR CONTINUITY OF CARE. PT IS IN STABLE CONDITION.
--- NOTE | 2019-08-16 20:00 | NUR ---
PT IS LETHARGIC AND DROWSY. PT HAS EYES CLOSED. RESPIRATIONS EVEN AND UNLABORED. REPOSITIONED PT. WILL CONTINUE TO MONITOR.
[2019-08-16 23:07] LABS: ANION GAP 13.5 (8-16); CARBON DIOXIDE 27.8 mmol/L (21-32); POTASSIUM 3.3 mmol/L (3.5-5.1)
--- NOTE | 2019-08-16 23:30 | NUR ---
PT HAS EYES CLOSED. RESPIRATIONS EVEN AND UNLABORED. CHEST RISE IS SYMMETRICAL. HOB 30 DEGREES. BED LOCKED IN LOWEST POSITION. WILL CONTINUE TO MONITOR.
[2019-08-17] VITALS (10 sets, daily range): BP systolic 136–148; BP diastolic 66–90
[2019-08-17] MEDS: NACL 0.9% 500 ML IV PRN (00:07)
--- NOTE | 2019-08-17 00:15 | NUR ---
500 ML BOLUS OF 0.9% NS GIVEN PRN DUE TO URINE OUTPUT LESS THAN 30ML/HR.
[2019-08-17] MEDS: BLOOD GLUCOSE MONITORING 1 DEV DEV FS SCH ×10 (00:45→21:53)
[2019-08-17] MEDS: Z-GUARD PASTE TP SCH ×2 (01:02→13:00)
--- NOTE | 2019-08-17 01:36 | NUR ---
PT MOANING, STATES HAS THE FEELING TO VOMIT. PT SPIT UP SMALL AMOUNT OF FLUID FROM THE MOUTH.
--- NOTE | 2019-08-17 02:00 | NUR ---
PT IS ALERT. A&O X2. RESPONDS TO NAME, ABLE TO FOLLOW COMMANDS. RESPIRATIONS EVEN AND UNLABORED. CHEST RISE IS SYMMETRICAL. WILL CONTINUE TO MONITOR.
[2019-08-17] MEDS: DEXT 5% / NACL 0.45% 1,000 ML IV SCH (02:45)
--- NOTE | 2019-08-17 04:15 | NUR ---
LOPES CATHETER LEAKING, REINFLATED LOPES CATHETER BALLOON. MIKEY CARE PROVIDED. PT REPOSITIONED. WILL CONTINUE TO MONITOR.
--- NOTE | 2019-08-17 05:15 | NUR ---
PT HAS EYES CLOSED. RESPIRATIONS EVEN AND UNLABORED. CHEST RISE IS SYMMETRICAL. WILL CONTINUE TO MONITOR.
[2019-08-17 06:19] LABS: CARBON DIOXIDE 27.2 mmol/L (21-32); CREATININE 1.7 mg/dL (0.6-1.3); POTASSIUM 3.2 mmol/L (3.5-5.1)
--- NOTE | 2019-08-17 07:22 | NUR ---
REPORT GIVEN TO AM NURSE FOR CONTINUITY OF CARE.
--- NOTE | 2019-08-17 07:30 | NUR ---
RECEIVED REPORT FROM ESSENCE . PT. IS SLEEPING ,SKIN DRY AND WARM, BREATHING IN ROOM AIR O2 QCO549. IV ACCESS HAS CENTRAL LINE ON RT. IJ INFUSING INSULIN AT 3 UNIT/HR DRY WEIGH AT 59 KGS. IV FLUID 1/2 NS AT 150M L/HR. ABDOMEN SOFT . LOPES,S CATH DRAIN CLEAR YELLOW URINE.
--- NOTE | 2019-08-17 07:54 | NUR ---
PT. SLEEP .BUT FOLLOW AND RESPONS TO VERBAL COMMAND. ORAL CARE GIVEN.
--- NOTE | 2019-08-17 08:40 | NUR ---
PAGED DR. RICKS. NOTIFIED OF BMP RESULTS DRAWN AT 9995 THIS AM. GAVE ORDERS.
--- NOTE | 2019-08-17 08:45 | NUR ---
OOB IN CHAIR ABLE TO EAT CHOCOLATE OND APPLE JUICE FOR BREAKFAST,
[2019-08-17] MEDS ORDERED: DEXTROSE 50% 50 ML SYR IVP PRN (08:50)
[2019-08-17] MEDS: NACL 0.45% 1,000 ML IV SCH (09:20)
--- NOTE | 2019-08-17 09:20 | NUR ---
INSULIN DRIP DC'D. IV CHANGED TO 0.45% NS AT 70 ML/HR.
[2019-08-17] MEDS: ENOXAPARIN 30 MG/0.3 ML SYR SUBQ SCH (09:47)
--- NOTE | 2019-08-17 10:57 | NUR ---
SCREEN FOR LOW NALLELY SCALE AT RISK, CONTINUE TO FOLLOW PRESSURE ULCER PREVENTION INTERVENTIONS. MAD TO PERINEUM Z GUARD ORDER IN PLACE, KEEP AREA DRY AND CLEAN -TURN AND REPOSITION PATIENT Q 2H -ASSESS AND MONITOR SKIN CONDITION DURING POSITION CHANGE -OFFLOAD BILATERAL HEELS BY PLACING PILLOWS UNDER CALVES AT ALL TIMES, UNLESS OTHERWISE CONTRAINDICATED -PRESSURE REDISTRIBUTION BY PLACING PILLOWS AND OFFLOADING SACRALCOCCYX -KEEP SKIN CLEAN AND DRY AT ALL TIMES.
--- NOTE | 2019-08-17 11:45 | NUR ---
BLOOD GLUCOSE 373 INSULIN COVERAGE GIVEN .
--- NOTE | 2019-08-17 12:10 | NUR ---
EVALUATED BY PT, RETURN TO BED AFTER , PT. IS AWAKE AND ALERT DURING THE EVALUATION.
[2019-08-17 13:48] LABS: ANION GAP 13.6 (8-16); CREATININE 1.4 mg/dL (0.6-1.3); POTASSIUM 4.6 mmol/L (3.5-5.1)
[2019-08-17] MEDS ORDERED: INSULIN NPH HUMAN ISOPHANE 100 UNIT/ML VIAL SUBQ SCH (14:30)
[2019-08-17] MEDS: INSULIN LISPRO SLIDING SCALE 100 UNITS/ML VIAL SUBQ PRN ×3 (17:00→21:57)
[2019-08-17] MEDS: MUPIROCIN CA NASAL 2% 1GM TUBE NS SCH (17:53)
[2019-08-17] MEDS: CHLORHEXADINE GLUC 2% CLOTH TP SCH (18:00)
--- NOTE | 2019-08-17 19:50 | NUR ---
RECEIVED FROM AM RN IN BED SLEEPING. ABLE TO WAKE UP EASILY AND ANSWER IN BULGARIAN WELL . VERBALIZE SIMPLE NEEDS. WITH RIJ TRIPLE LUMEN IN PLACE AND INFUSING WITH 1/2 NS AT 70 ML/H. CALL LIGHT WITH IN REACH AT HER BEDSIDE AND BED ALARM ON. ISOLATION PRECAUTION RT MRSA NARES. LOPES CATHETER IN PLACE AND DRAINING WITH YELLOW URINE TO BAG. PT. WILL BE ASSISTED TO TURN ON SIDES Q2H WITH PILLOW SUPPORT TO PRESSURE AREAS. .
[2019-08-17] MEDS ORDERED: LEVETIRACETAM 500 MG PO SCH (21:00)
[2019-08-17 21:48] LABS: ANION GAP 10.2 (8-16); CARBON DIOXIDE 29.7 mmol/L (21-32); POTASSIUM 3.9 mmol/L (3.5-5.1)
[2019-08-17] MEDS: levETIRAcetam 500 MG TAB PO SCH (21:53)
[2019-08-17] MEDS: METOPROLOL 25 MG TAB PO SCH (21:53)
[2019-08-17] MEDS: INSULIN LANTUS 100 UNITS/ML 10 ML VIAL SUBQ SCH (21:58)
--- NOTE | 2019-08-17 22:01 | NUR ---
CHLORHEXIDINE WIPES DONE BY CORI GOLDBERG REPORTED TO ME.
--- NOTE | 2019-08-18 00:18 | NUR ---
PT. SLEEPING AT THIS TIME. NO RESTLESSNESS NOTED. TELEMETRY MONITORING. CALL LIGHT WITH IN REACH.
[2019-08-18] MEDS: NACL 0.45% 1,000 ML IV SCH ×3 (00:27→21:23)
[2019-08-18 00:59] VITALS: BP_SYST 148; BP_SYST 97; BP_DIAS 50; BP_DIAS 74
[2019-08-18] MEDS: Z-GUARD PASTE TP SCH ×2 (01:00→13:19)
--- NOTE | 2019-08-18 02:30 | NUR ---
CHECKED ON PT. SLEEPING. NO RESTLESSNESS NOTED. CALL LIGHT WITH IN REACH. TELEMETRY MONITORING. ABLE TO VERBALIZE SIMPLE NEEDS WHEN AWAKE.
[2019-08-18 04:00] VITALS: BP 129/59
--- NOTE | 2019-08-18 04:00 | NUR ---
AM PERSONAL HYGIENE RENDERED BY CNAS. NO COMPLAINTS DONE. VERBALIZES WELL IN BULGARIAN. BEEN SLEEPING WELL THIS SHIFT. AFEBRILE.
[2019-08-18] MEDS: BLOOD GLUCOSE MONITORING 1 DEV DEV FS SCH ×4 (06:40→21:08)
[2019-08-18] MEDS: INSULIN LISPRO SLIDING SCALE 100 UNITS/ML VIAL SUBQ PRN ×4 (06:41→21:14)
--- NOTE | 2019-08-18 06:47 | NUR ---
PT. AWAKE AT THIS TIME. BLOOD SUGAR CHECK PER FINGERSTICK 195 . COVERED WITH HUMALOG INSULIN . NO SOB. DENIES ANY PAIN. WAITING FOR BREAKFAST STATING SHE IS HUNGRY. ABLE TO VERBALIZE SIMPLE NEEDS. ISOLATION PRECAUTIONS OBSERVED. WILL ENDORSE TO AM RN FOR CONTINUITY OF CARE. TELEMETRY MONITORING.
--- NOTE | 2019-08-18 07:25 | NUR ---
PATIENT REPORT RECEIVED FROM DISCHARGE RN NURSE FOR CONTINUITY OF CARE. WILL CONTINUE TO MONITOR.
[2019-08-18 07:48] LABS: ANION GAP 11.3 (8-16); CARBON DIOXIDE 27.8 mmol/L (21-32); CREATININE 0.8 mg/dL (0.6-1.3); POTASSIUM 4.1 mmol/L (3.5-5.1)
[2019-08-18 07:57] LABS: MAGNESIUM 1.7 mg/dL (1.8-2.4); PHOSPHORUS 2.1 mg/dL (2.5-4.9)
[2019-08-18 08:00] VITALS: BP 161/53
[2019-08-18 08:06] LABS: BASOPHILS % (AUTO) 0.5 % (0.0-2.0); EOSINOPHILS # (AUTO) 0.1 K/uL (0-0.4); EOSINOPHILS % (AUTO) 1.1 % (0.0-4.0); HEMATOCRIT 32.9 % (36-48); HEMOGLOBIN 10.4 g/dL (12.0-16.0); LYMPHOCYTES # (AUTO) 2.4 K/uL (2.5-16.5); LYMPHOCYTES % (AUTO) 29.8 % (20.5-51.1); MEAN CORPUSCULAR HEMOGLOBIN 28 pg (27-31); MEAN CORPUSCULAR HGB CONC 32 g/dL (33-37); MEAN CORPUSCULAR VOLUME 88.6 fL (80-94); MONOCYTES # (AUTO) 0.4 K/uL (0.8-1.0); MONOCYTES % (AUTO) 4.9 % (1.7-9.3); NEUTROPHILS # (AUTO) 5.1 K/uL (1.8-7.7); NEUTROPHILS % (AUTO) 63.7 % (42.2-75.2); PLATELET COUNT (AUTO) 157 K/uL (140-450); RED BLOOD CELL COUNT(AUTO) 3.71 MIL/uL (4.20-5.40); RED CELL DISTRIBUTION WIDTH 19.8 % (11.6-13.7); WHITE BLOOD COUNT (AUTO) 7.9 K/uL (4.8-10.8)
--- NOTE | 2019-08-18 10:00 | NUR ---
PATIENT IS RESTING, BED IN LOW POSITION, CALL LIGHT ON AND WITHIN REACH. ORDER TO REMOVE LOPES CATHETER. PATIENT IS AAOX3. SHE IS LETHARGIC AND HAS MUMBLED SPEECH. TOLERATED BREAKFAST WELL. URINE IS SLIGHTLY CLOUDED AND YELLOW. WILL CONTINUE TO MONITOR.
[2019-08-18] MEDS: levETIRAcetam 500 MG TAB PO SCH ×2 (10:09→21:20)
[2019-08-18] MEDS: SERTRALINE 50 MG TAB PO SCH (10:09)
[2019-08-18] MEDS: METOPROLOL 25 MG TAB PO SCH ×2 (10:09→21:21)
[2019-08-18] MEDS: ENOXAPARIN 30 MG/0.3 ML SYR SUBQ SCH (10:11)
[2019-08-18 12:00] VITALS: BP 129/46
--- NOTE | 2019-08-18 12:30 | NUR ---
LOPES CATHETER REMOVED, TOLERATED WELL. NON-ODOROUS. BED IN LOW POSITION, BLOOD GLUCOSE 172, 2 UNITS OF HUMALOG INSULIN TO BE GIVEN. WILL CONTINUE TO MONITOR.
[2019-08-18] MEDS: MAGNESIUM OXIDE 400 MG TAB PO SCH (13:23)
--- NOTE | 2019-08-18 15:00 | NUR ---
PATIENT IS RESTING IN BED, CALL LIGHT ON AND WITHIN REACH, BED IN LOW POSITION, WILL CONTINUE TO MONITOR.
[2019-08-18 16:00] VITALS: BP 125/55
--- NOTE | 2019-08-18 17:30 | NUR ---
MEDICATIONS GIVEN, TOLERATED WELL. CHG BATH GIVEN, TOLERATED WELL. BS 184, 2 UNITS HUMALOG INSULIN GIVEN. TOLERATED WELL. WILL CONTINUE TO MONITOR.
[2019-08-18] MEDS: MUPIROCIN CA NASAL 2% 1GM TUBE NS SCH (17:39)
[2019-08-18] MEDS: CHLORHEXADINE GLUC 2% CLOTH TP SCH (17:40)
--- NOTE | 2019-08-18 19:29 | NUR ---
REPORT GIVEN TO TIRE BUILDING SUPERVISOR NURSE FOR CONTINUITY OF CARE.
--- NOTE | 2019-08-18 19:30 | NUR ---
RECEIVED BEDSIDE REPORT FROM AM SHIFT RN FOR PT'S CONTINUITY OF CARE. PT IS ASLEEP WITH NO SIGNS OF DISTRESS. PT IS ON ROOM AIR, ON ENERGY CONSERVATION TECHNICIAN, HAS RIGHT IJ WITH 1/2 NS AT 70 ML/HR, AND RIGHT HAND 22G SALINE LOCK. ISOLATION PRECAUTION, SEIZURE PRECAUTION, AND SAFETY, MEASURES ARE IN PLACE. WILL MONITOR PT THROUGHOUT SHIFT.
[2019-08-18 20:00] VITALS: BP 126/64
[2019-08-18] MEDS: INSULIN LANTUS 100 UNITS/ML 10 ML VIAL SUBQ SCH (21:14)
--- NOTE | 2019-08-18 21:20 | NUR ---
ADMINISTERED SCHEDULED IVF, IV ABX, SUBQ INSULIN SCHEDULED AND PER SS PROTOCOL, AND PO MEDICATIONS ORDERED. PT TOLERATED THEM WELL. BLOOD GLUCOSE CHECKED AND CHARTED. PT TEACHING GIVEN. PT REQUESTED FOR SNACKS. PT DENIES ANY PAIN, VERY LETHARGIC. WILL CONTINUE TO MONITOR PT.
--- NOTE | 2019-08-18 23:30 | NUR ---
PT REQUESTED AND PROVIDED WITH SOME SNACKS AND TEA. STILL LETHARGIC BUT DENIES ANY PAIN OR DISCOMFORT. WILL CONTINUE TO MONITOR PT.
[2019-08-19] VITALS: BP 120/49
--- NOTE | 2019-08-19 01:00 | NUR ---
MADE ROUNDS, PT LYING DOWN ASLEEP WITH NO SIGNS OF DISTRESS. WILL CONTINUE TO MONITOR PT.
[2019-08-19] MEDS: Z-GUARD PASTE TP SCH (01:50)
--- NOTE | 2019-08-19 03:30 | NUR ---
PT ASLEEP WITH NO SIGNS OF DISTRESS. WILL CONTINUE TO MONITOR.
[2019-08-19 04:00] VITALS: BP 124/41
[2019-08-19] MEDS: BLOOD GLUCOSE MONITORING 1 DEV DEV FS SCH ×2 (06:17→11:30)
[2019-08-19] MEDS: INSULIN LISPRO SLIDING SCALE 100 UNITS/ML VIAL SUBQ PRN ×2 (06:21→15:44)
--- NOTE | 2019-08-19 06:27 | NUR ---
BLOOD GLUCOSE CHECKED AND CHARTED. PT C/O CHEST PAIN WHEN TAKING DEEP BREATH. REPOSITIONED PT AND PUT HER MORE UPRIGHT. ADMINISTERED SUBQ INSULIN PER SS PROTOCOL. PT DENIES ANY OTHER PAIN. MADE PT COMFORTABLE. WILL ENDORSE TO AM SHIFT RN FOR PT'S CONTINUITY OF CARE.
[2019-08-19 06:58] LABS: ALBUMIN 2.1 g/dL (3.4-5.0); CARBON DIOXIDE 28.7 mmol/L (21-32); CREATININE 0.7 mg/dL (0.6-1.3); POTASSIUM 3.7 mmol/L (3.5-5.1); TOTAL BILIRUBIN 0.3 mg/dL (0.0-1.0)
--- NOTE | 2019-08-19 07:25 | NUR ---
PATIENT REPORT RECEIVED FROM PANEL EDGE SEALER NURSE FOR CONTINUITY OF CARE. CALL LIGHT ON AND WITHIN REACH. PATIENT IS AAOX4. WILL CONTINUE TO MONITOR.
[2019-08-19 07:38] LABS: BASOPHILS % (AUTO) 0.5 % (0.0-2.0); EOSINOPHILS # (AUTO) 0.2 K/uL (0-0.4); EOSINOPHILS % (AUTO) 2.4 % (0.0-4.0); HEMATOCRIT 32.8 % (36-48); HEMOGLOBIN 10.3 g/dL (12.0-16.0); LYMPHOCYTES # (AUTO) 2.5 K/uL (2.5-16.5); MEAN CORPUSCULAR HEMOGLOBIN 28 pg (27-31); MEAN CORPUSCULAR HGB CONC 31 g/dL (33-37); MEAN CORPUSCULAR VOLUME 87.8 fL (80-94); MONOCYTES # (AUTO) 0.4 K/uL (0.8-1.0); NEUTROPHILS # (AUTO) 4.1 K/uL (1.8-7.7); NEUTROPHILS % (AUTO) 57.1 % (42.2-75.2); PLATELET COUNT (AUTO) 145 K/uL (140-450); RED BLOOD CELL COUNT(AUTO) 3.73 MIL/uL (4.20-5.40); RED CELL DISTRIBUTION WIDTH 19.4 % (11.6-13.7); WHITE BLOOD COUNT (AUTO) 7.2 K/uL (4.8-10.8)
[2019-08-19 08:00] VITALS: BP 130/60
[2019-08-19] MEDS: levETIRAcetam 500 MG TAB PO SCH (08:44)
[2019-08-19] MEDS: METOPROLOL 25 MG TAB PO SCH (08:44)
[2019-08-19] MEDS: SERTRALINE 50 MG TAB PO SCH (08:45)
[2019-08-19] MEDS: MAGNESIUM OXIDE 400 MG TAB PO SCH (08:45)
[2019-08-19] MEDS: ENOXAPARIN 30 MG/0.3 ML SYR SUBQ SCH (08:46)
--- NOTE | 2019-08-19 09:32 | NUR ---
(08/19/19) RD FOLLOW UP COMPLETED PLEASE REFER TO NUTRITION PROGRESS NOTE UNDER CARE ACTIVITY FOR ESTIMATED NUTRITION NEEDS. RD RECOMMENDATIONS: 1. CONTINUE ON CCHO 60 GM, GROUND, MECHANICAL SOFT TOLERATED. 3. RD WILL PROVIDE NUTRITION EDUCATION FOR DIABETES WHEN PT IS ALERT AND ORIENTATED RD TO FOLLOW-UP 2-3 DAYS, HIGH RISK YOJANA LAURENT MS, RDN Addendum: 08/19/19 at [address] (08/19/19) RD FOLLOW UP COMPLETED PLEASE REFER TO NUTRITION PROGRESS NOTE UNDER CARE ACTIVITY FOR ESTIMATED NUTRITION NEEDS. RD RECOMMENDATIONS: CORRECTION: 1. CONTINUE ON CCHO 60 GM, GROUND, MECHANICAL SOFT TOLERATED. 2. LORENZAN PROVIDED DM DIET EDUCATION TO PT. PT MAY BE DM DIET EDUCATION REINFORCEMENT. 3. RD TO FOLLOW-UP 2-3 DAYS, HIGH RISK YOJANA LAURENT MS, RDN
[2019-08-19 12:00] VITALS: BP 128/64
--- NOTE | 2019-08-19 16:38 | NUR ---
WAITING FOR PICKUP, DISCHARGE ORDER PLACED. CENTRAL LINE REMOVED, IV RIGHT HAND REMOVED. PATIENT TOLERATED WELL. DISCHARGE PAPERWORK SIGNED, EDUCATED ON THE IMPORTANCE OF MAINTAINING HEALTHY BLOOD SUGAR. BELONGINGS SIGNED AND ACCOUNTED FOR.
--- NOTE | 2019-08-19 17:00 | NUR ---
RECEIVED REPORT FOR CONTINUITY OF CARE. PT DISCHARGE PAPERWORK COMPLETED BY DAY SHIFT NURSE RUKHSANA. PT WAITING ON RIDE. PT IN STABLE CONDITION. RESPIRATIONS EVEN AND UNLABORED. RESPIRATIONS EVEN AND UNLABORED. CALL LIGHT AT BEDSIDE. BED IN LOW POSITION. WILL CONTINUE TO MONITOR.
--- NOTE | 2019-08-19 18:45 | NUR ---
ASSISTED PT WITH DRESSING FOR DISCHARGE. PT TOLERATED WELL.
--- NOTE | 2019-08-19 19:10 | NUR ---
WHEELED PT TO LOBBY WHERE RIDE WAS WAITING WITH BICYCLE WITH PASSENGER RIDING CART ATTACHED. PT IN STABLE CONDITION.
== END 2019-08-19 19:10 | disposition home or self-care (01) | DRG 420 ==
LOC: MED 16:09 → MIC 19:20 → MTU 08-17 17:50
PROVIDERS: ADMIT Internal Medicine Pulmonary Disease; ATTEND Internal Medicine Pulmonary Disease
PROC: 02HV33Z Insertion of Infusion Device into Superior Vena Cava, Percutaneous Approach (ICD-10-PCS; principal; 2019-08-15)
DX: E11.10 Type 2 diabetes mellitus with ketoacidosis without coma (principal); G93.40 Encephalopathy, unspecified; N18.4 Chronic kidney disease, stage 4 (severe); E87.0 Hyperosmolality and hypernatremia; E87.5 Hyperkalemia; F41.8 Other specified anxiety disorders; I12.9 Hypertensive chronic kidney disease with stage 1 through stage 4 chronic kidney disease, or unspecified chronic kidney disease; E44.1 Mild protein-calorie malnutrition; E87.6 Hypokalemia; Z79.4 Long term (current) use of insulin; Z88.8 Allergy status to other drugs, medicaments and biological substances; Z79.899 Other long term (current) drug therapy; Z68.27 Body mass index [BMI] 27.0-27.9, adult
CPT/HCPCS: 36415; 36600; 70450; 71045; 80048; 80053; 80305; 81001; 82140; 82550; 82803; 82948; 83605; 83735; 83880; 84100; 84484; 85025; 87040; 87081; 87086; 93005; 96361; 96365; 96372; 96375; 96376; 97116; 97161-GP; 99285; G0480; G0482; J0696; J1650; J1815; J1956; J2060; J3480; J7030; J7060; Q0092

== ENCOUNTER 2021-11-17 20:51 | Inpatient (IN) | payer OTHER ==
[~2021-11-17] VITALS: Ht 160 cm; Wt 65.3 kg
[2021-11-17 20:51] VITALS: BP 135/77
[~2021-11-17 20:51] MED LIST changes: +ACET-1182 PO; +ASPI81CT95 PO; -AZIT250T3 PO; +DOCU-299 PO; +GABA300C PO; +HUMSLIDE SUBQ; +LEVE500T9 PO; +LORA10TA19 PO; +LOV40I SUBQ; +METO-485 PO; +NITR100C7 PO; +SERT50TA PO; +TRAZ-343 PO
--- NOTE | 2021-11-17 20:54 | NUR ---
PT SIVAKUMAR ALS. TAKEN TO BED 9
[2021-11-17] MEDS ORDERED: NACL 0.9% 2,000 ML IV ONE (20:55)
--- NOTE | 2021-11-17 20:59 | NUR ---
X-Ray at bedside.
--- NOTE | 2021-11-17 21:30 | NUR ---
received pt from EMS and placed to bed 09. pt currently a/o x 2, gcs 13. pt is a 56 year old female with hx of HTN, DM, and COPD biba from home for ALOC for 2 days. per EMS, pt has no family at home. initial sugar LEDGER POSTER in the 500s. sugar at ER is 485. pt currently on 6lpm n/c.
[2021-11-17 21:39] LABS: BASOPHILS % (AUTO) 0.3 % (0.0-2.0); EOSINOPHILS # (AUTO) 0.1 K/uL (0-0.4); EOSINOPHILS % (AUTO) 1.7 % (0.0-4.0); HEMATOCRIT 37.5 % (36-48); HEMOGLOBIN 12.6 g/dL (12.0-16.0); LYMPHOCYTES # (AUTO) 1.1 K/uL (2.5-16.5); LYMPHOCYTES % (AUTO) 13.1 % (20.5-51.1); MEAN CORPUSCULAR HEMOGLOBIN 31 pg (27-31); MEAN CORPUSCULAR HGB CONC 34 g/dL (33-37); MEAN CORPUSCULAR VOLUME 92.7 fL (80-94); MONOCYTES # (AUTO) 0.4 K/uL (0.8-1.0); MONOCYTES % (AUTO) 4.9 % (1.7-9.3); NEUTROPHILS # (AUTO) 6.9 K/uL (1.8-7.7); PLATELET COUNT (AUTO) 209 K/uL (140-450); RED BLOOD CELL COUNT(AUTO) 4.04 MIL/uL (4.20-5.40); RED CELL DISTRIBUTION WIDTH 12.2 % (11.6-13.7); WHITE BLOOD COUNT (AUTO) 8.7 K/uL (4.8-10.8)
--- NOTE | 2021-11-17 21:40 | NUR ---
Dr. French examining patient.
--- NOTE | 2021-11-17 21:47 | NUR ---
covid swab collected
[2021-11-17 22:00] LABS: LIPASE 69 U/L (73-393)
[2021-11-17 22:11] LABS: ALBUMIN 3.1 g/dL (3.4-5.0); CARBON DIOXIDE 29.7 mmol/L (21-32); CREATININE 1.5 mg/dL (0.6-1.3); POTASSIUM 4.7 mmol/L (3.5-5.1); TOTAL BILIRUBIN 0.3 mg/dL (0.0-1.0)
[2021-11-17] MEDS ORDERED: NACL 0.9% 1,000 ML IV ONE (22:20)
[2021-11-17] MEDS ORDERED: INSULIN REGULAR, HUMAN 100 UNIT/ML VIAL IVP ONE (22:20)
[2021-11-17] MEDS ORDERED: ONDANSETRON 4 MG/2 ML VIAL IVP ONE (22:20)
--- NOTE | 2021-11-17 23:03 | NUR ---
PT RETURN FROM CT
[2021-11-17 23:54] LABS: APPEARANCE,URINE CLEAR (CLEAR); BILIRUBIN,URINE NEGATIVE (NEGATIVE); BLOOD, URINE 2+ (NEGATIVE); COLOR,URINE YELLOW (YELLOW); LEUKOCYTE ESTERASE ,URINE NEGATIVE (NEGATIVE); NITRITE, URINE NEGATIVE (NEGATIVE); PH,URINE 5.5 (5.0-9.0); UGLUCOSE 3+ (NEGATIVE)
[2021-11-18 00:02] LABS: RBC,URINE 0-5 /HPF (0-5); WBC,URINE 60-80 /HPF (0-5)
[2021-11-18 00:05] LABS: BARBITURATE, URINE NEGATIVE ng/ml (NEG <=200); BENZODIAZEPINE, URINE NEGATIVE ng/mL (NEG <=200); COCAINE, URINE NEGATIVE ng/mL (NEG <=300)
[2021-11-18 00:06] LABS: CANNABINOID, URINE NEGATIVE ng/mL (NEG <=50); OPIATE, URINE POSITIVE ng/mL (NEG <=2000); PHENCYCLIDINE SCREEN,URINE NEGATIVE ng/mL (NEG <=25)
[2021-11-18] MEDS ORDERED: MORPHINE SULFATE 4 MG/ML SYR IVP PRN (00:20)
[2021-11-18] MEDS ORDERED: ONDANSETRON 4 MG/2 ML VIAL IVP PRN (00:20)
[2021-11-18] MEDS ORDERED: HYDROcodone/APAP 5/325 MG 1 TAB TAB PO PRN (00:20)
[2021-11-18] MEDS ORDERED: MAG SULF 2000 MG/WATER PREMIX 50 ML IV PRN (00:20)
[2021-11-18] MEDS ORDERED: ACETAMINOPHEN 325 MG TAB PO PRN (00:20)
[2021-11-18] MEDS ORDERED: KCL 20 MEQ/WATER INJ PREMIX 200 ML IV PRN (00:20)
[2021-11-18] MEDS: NACL 0.9% 1,000 ML IV SCH ×3 (00:20→23:38)
[2021-11-18] MEDS ORDERED: MAGNESIUM OXIDE 400 MG TAB PO PRN (00:20)
[2021-11-18] MEDS ORDERED: POTASSIUM CHLORIDE 10 MEQ TABER PO PRN (00:20)
[2021-11-18] MEDS ORDERED: DEXTROSE 50% 50 ML SYR IVP PRN (00:25)
--- NOTE | 2021-11-18 00:44 | NUR ---
report given to Alli GOLDBERG from tele unit.
[2021-11-18] MEDS: ALBUTEROL SULFATE/IPRATROPIU 3 ML SOL IH SCH ×4 (01:00→19:54)
[2021-11-18] MEDS ORDERED: LORazepam 2 MG/ML VIAL ONE (01:09)
[2021-11-18] MEDS ORDERED: LORazepam 2 MG/ML VIAL IVP STA (01:22)
--- NOTE | 2021-11-18 01:50 | NUR ---
RECEIVED PATIENT FROM ER VIA GURNEY,PATIENT ON 3L NC,LOPES CATHETER,PERIPHERAL IV ON LEFT FOREARM 20G,RIGHT AC 20G.VS WNL,NO DISTRESS NOTED
[2021-11-18 04:00] VITALS: BP 128/81
--- NOTE | 2021-11-18 04:00 | NUR ---
PATIENT IN BED RESTING COMFORTABLY,BREATHING EVEN AND UNLABORED ,ALL SAFETY MEASURES IN PLACE ,NO DISTRESS NOTED.
[2021-11-18] MEDS ORDERED: AZITHROMYCIN 500 MG INJ VIAL IV ONE (05:53)
[2021-11-18] MEDS ORDERED: cefTRIAXone 1,000 MG VIAL ONE (05:54)
--- NOTE | 2021-11-18 06:00 | NUR ---
PATIENT ASLEEP,NO ADVERSE REACTIONS NOTED ON ANTIBIOTICS,NO DISTRESS NOTED
[2021-11-18] MEDS: AZITHROMYCIN 500 MG in DEXTROSE 5% 250 ML IV SCH (06:22)
[2021-11-18] MEDS: BLOOD GLUCOSE MONITORING 1 DEV DEV FS SCH ×4 (06:50→21:05)
--- NOTE | 2021-11-18 07:30 | NUR ---
RECEIVED REPORT FROM NIGHTSHIFT RN. PT A/O X2, ABLE TO MAKE NEEDS KNOWN. NO SOB OR RESPIRATORY DISTRESS. RR EVEN & UNLABORED ON 6L O2 VIA NC. DENIES PAIN. NS @ 80 ON R AC 20G, LFA 20G WITH DRESSING C/D/I. NEEDS ALL MET AT THIS TIME. SAFETY PRECAUTIONS IN PLACE. WILL CONTINUE TO MONITOR CLOSELY.
--- NOTE | 2021-11-18 07:40 | NUR ---
ENDORSED PT TO AM NURSE FOR CONTINUITY OF CARE PT IS STABLE.
[2021-11-18 08:00] VITALS: BP 100/48
[2021-11-18] MEDS ORDERED: PIPERACILLIN/TAZOBACTAM 3.375 GM VIAL IV ONE (08:00)
[2021-11-18] MEDS: PIPERACILLIN/TAZOBACTAM 3.375 GM in DEXTROSE 5% 50 ML IV SCH ×3 (08:00→17:46)
--- NOTE | 2021-11-18 08:32 | NUR ---
PATIENT HAS BEEN SCREENED AND CATEGORIZED MODERATE NUTRITION RISK. PATIENT WILL BE SEEN WITHIN 3-5 DAYS OF ADMISSION. REFERRAL RECEIVED NOT APPLICABLE JOSIAH ORTEGA RD
[2021-11-18] MEDS ORDERED: methylPREDNISolone SS 125 MG/2 ML VIAL IVP SCH (09:00)
--- NOTE | 2021-11-18 09:20 | NUR ---
DUE MEDS GIVEN
--- NOTE | 2021-11-18 11:00 | NUR ---
PT IN BED, LETHARGIC, RESPONSIVE TO PAIN STIMULI. AOX1 WHEN AWAKE
[2021-11-18] MEDS: INSULIN LISPRO SLIDING SCALE 100 UNITS/ML VIAL SUBQ PRN ×3 (11:52→21:08)
[2021-11-18 12:00] VITALS: BP 113/49
--- NOTE | 2021-11-18 13:15 | NUR ---
PT AWAKE, CONFUSED AND ATTEMPTING TO AMBULATE UNASSISTED. REORIENTED PT, ASSISTED BACK TO BED, COMPLIANT TO CARE
--- NOTE | 2021-11-18 15:28 | NUR ---
PT ASLEEP IN BED, NO APPARENT DISTRESS, FLACC 0
--- NOTE | 2021-11-18 15:37 | NUR ---
DC PLANNING: THE PATIENTS PRESENTED FROM HOME WITH C/O ALOC 2 DAYS. H/O SUBSTANCE ABUSE, DM AND SMOKING, CHRONIC RESPIRATORY FAILURE. CXR SHOWS PULMONARY EDEMA AND PNA, GLUCOSE 513. GIVEN IV ABX AND IVF'S IN THE ED, ADMITTED FOR MANAGEMENT. CM ATTEMPTED TO SPEAK WITH THE PATIENT AT BEDSIDE, PATIENT WAS TOO LETHARGIC TO HOLD A CONVERSATION. CM THEN SPOKE WITH HER MOTHER ELIZABET BY PHONE. ELIZABET WAS UNABLE TO CONFIRM THE PATIENTS ADDRESS BUT STATES THAT SHE RENTS A ROOM IN A HOUSE. THE HOME BASEBALL CLUB MANAGER HAS ASKED THE PATIENT TO MOVE, THE PATIENTS MOTHER IS ASSISTING WITH LOOKING FOR ANOTHER PLACE FOR THE PATIENT. THE PATIENT STAYS WITH HER MOTHER ON TUE, TUE, AND TUE, HER MOTHER DRIVES HER BACK TO HER HOME ON MONDAYS. THE PATIENT IS ON SSI/DISABILITY AND HAS DME OF O2, FWW AND GLUCOMETER. THE PATIENT HAS A H/O OF MULTIPLE CVA'S AND IS ABLE TO WALK SHORT DISTANCES USING HER FWW. THE PATIENT HAS NOT BEEN USING HER HOME O2 RECENTLY AND IS ON SERVICE WITH HOME HEALTH BUT THE MOTHER CAN'T REMEMBER THE NAME OF THE AGENCY. THE MOTHER LIVES IN A SENIOR APARTMENT COMPLEX, THE PATIENT CANNOT LIVE WITH HER. THE PATIENT DOES SEE HER PCP BUT ELIZABET IS UNSURE HOW OFTEN. THE PATIENT HAS BEEN [facility] SEVERAL TIMES AND MAY NEED SNF PLACEMENT AGAIN WHEN CLINICALLY STABLE. CM WILL FOLLOW. Addendum: 11/18/21 at 1544 by Kayeln Irizarry CM Amended: Links added. Addendum: 11/19/21 at 1216 by Kaylen Irizarry CM DC PLANNING: CM RECEIVED A CALL FROM [facility] ([phone]) WHO STATES THAT THE PATIENT IS ON SERVICE WITH THEM. THEY HAVE BEEN FOLLOWING HER AT HER MOTHERS RESIDENCE, THE PATIENT IS SEEN 2X/WEEK BY NURSING, AND ALSO BY THE PLATFORM BEATER AND FRAME FEEDER. THEY LAST SAW HER ON THE PRIOR TO ADMISSION HERE, THE PATIENT WAS AMBULATORY WITH ASSISTANCE AND HER VSS AND GLUCOSE WERE WNL'S. PER NURSING THE PATIENT TRIED TO AMBULATE TODAY AND WAS UNABLE, CM WILL SPEAK WITH HER ABOUT POSSIBLE SNF PLACEMENT. CM WILL FOLLOW. Addendum: 11/19/21 at 1501 by Kaylen Irizarry DC PLANNING: EDDA SPOKE WITH PATIENT AT BEDSIDE, PATIENT ABLE TO AMBULATE WITHOUT DIFFICULTY WITH P.T., PATIENT DECLINING TO GO TO SNF. DC PLAN IS TO RETURN HOME WITH HOSPICE. EDDA WILL FOLLOW. Addendum: 11/19/21 at 1529 by Kaylen Irizarry DC PLANNING: ORDER AND CLINICAL PACKET FAXED TO [facility], ENDORSED THAT THE PATIENT WILL DC TODAY. NURSING CALLED THE PATIENTS BROTHER TO PICK HER UP, CM ALSO SPOKE WITH THE PATIENTS MOTHER TO ENDORSE THE DISCHARGE. CM WILL FOLLOW.
[2021-11-18 16:00] VITALS: BP 115/53
--- NOTE | 2021-11-18 18:22 | NUR ---
PT AWAKE IN BED AND EATING DINNER AT THIS TIME. NO C/O PAIN, NO RESPIRATORY DISTRESS
--- NOTE | 2021-11-18 19:20 | NUR ---
RECEIVED BEDSIDE REPORT FROM DAY SHIFT NURSE. PATIENT IS ASLEEP AROUSABLE BY TOUCH. SKIN IS WARM AND DRY. IV PATENT AND INTACT. RESPIRATION EVEN UNLABORED ON 4L NC O2. NO DISTRESS NOTED. LOPES CATHETER DRAINING YELLOW URINE. ALL SAFETY MEASURES IN PLACE. BED IS AT LOW POSITION. CALL LIGHT WITHIN REACH. WILL CONTINUE TO MONITOR
[2021-11-18 20:00] VITALS: BP 140/79
--- NOTE | 2021-11-18 20:00 | NUR ---
INITIAL ASSESSMENT DONE. NOTICED THAT PATIENT REMOVED HER NASAL CANNULA. EXPLAINED THE PURPOSE OF NASAL CANNULA PATIENT VERBALIZES UNDERSTANDING. WILL CONTINUE TO MONITOR
[2021-11-18] MEDS ORDERED: INSULIN LANTUS 100 UNITS/ML 10 ML VIAL SUBQ SCH (21:00)
[2021-11-18] MEDS: levETIRAcetam 500 MG TAB PO SCH (21:04)
--- NOTE | 2021-11-18 21:09 | NUR ---
ALL SCHEDULED MEDICATIONS GIVEN PER ORDER. WILL CONTINUE TO MONITOR
--- NOTE | 2021-11-18 22:30 | NUR ---
PATIENT ASKED FOR WATER, WATER GIVEN. WILL CONTINUE TO MONITOR
--- NOTE | 2021-11-18 23:46 | NUR ---
MADE ROUNDS. FOUND PATIENT WITHOUT HER NASAL CANNULA, EXPLAINED AGAIN TO THE PATIENT THE PURPOSE OF IT X2. PATIENT VERBALIZES UNDERSTANDING WILL CONTINUE TO MONITOR
[2021-11-19] VITALS: BP 139/70
[2021-11-19] MEDS: PIPERACILLIN/TAZOBACTAM 3.375 GM in DEXTROSE 5% 50 ML IV SCH ×3 (00:17→12:31)
[2021-11-19] MEDS: ALBUTEROL SULFATE/IPRATROPIU 3 ML SOL IH SCH ×3 (01:00→12:18)
--- NOTE | 2021-11-19 01:40 | NUR ---
REPORTED FOR PT ROOM TO ADMINISTER HHN TX BUT SHE DECLINED AND STATED SHE RATHER SLEEP. PT CURRENTLY SATTING 94% ON 3 LPM NC ANTERIOR AUSCULTATIONS REVEALED BS CLEAR/ DIMINISHED, NO SIGNS OF RESPIRATORY DISTRESS NOTES AT THIS TIME.WILL CONTINUE TO MONITOR.
--- NOTE | 2021-11-19 02:18 | NUR ---
MADE ROUNDS PATIENT SLEEPING NO DISTRESS NOTED
[2021-11-19 04:00] VITALS: BP 139/72
--- NOTE | 2021-11-19 04:00 | NUR ---
PROVIDED AM CARE
[2021-11-19] MEDS: AZITHROMYCIN 500 MG in DEXTROSE 5% 250 ML IV SCH (05:21)
--- NOTE | 2021-11-19 05:33 | NUR ---
PT HAD A BOWEL MOVEMENT
[2021-11-19] MEDS: INSULIN LISPRO SLIDING SCALE 100 UNITS/ML VIAL SUBQ PRN (06:34)
[2021-11-19 07:20] LABS: BASOPHILS % (AUTO) 0.3 % (0.0-2.0); EOSINOPHILS % (AUTO) 0.2 % (0.0-4.0); HEMATOCRIT 31.8 % (36-48); HEMOGLOBIN 10.7 g/dL (12.0-16.0); LYMPHOCYTES # (AUTO) 1.4 K/uL (2.5-16.5); LYMPHOCYTES % (AUTO) 18.9 % (20.5-51.1); MEAN CORPUSCULAR HEMOGLOBIN 31 pg (27-31); MEAN CORPUSCULAR HGB CONC 34 g/dL (33-37); MEAN CORPUSCULAR VOLUME 91.9 fL (80-94); MONOCYTES # (AUTO) 0.4 K/uL (0.8-1.0); MONOCYTES % (AUTO) 5.4 % (1.7-9.3); NEUTROPHILS # (AUTO) 5.6 K/uL (1.8-7.7); NEUTROPHILS % (AUTO) 75.2 % (42.2-75.2); PLATELET COUNT (AUTO) 214 K/uL (140-450); RED BLOOD CELL COUNT(AUTO) 3.46 MIL/uL (4.20-5.40); RED CELL DISTRIBUTION WIDTH 12.5 % (11.6-13.7); WHITE BLOOD COUNT (AUTO) 7.4 K/uL (4.8-10.8)
--- NOTE | 2021-11-19 07:30 | NUR ---
RECEIVED REPORT FROM NIGHTSHIFT RN. PT A/O X2, ABLE TO MAKE NEEDS KNOWN. NO SOB OR RESPIRATORY DISTRESS. RR EVEN & UNLABORED ON 2L O2 VIA NC. DENIES PAIN. NS @ 80 ON R AC 20G, LFA 20G WITH DRESSING C/D/I. NEEDS ALL MET AT THIS TIME. SAFETY PRECAUTIONS IN PLACE. WILL CONTINUE TO MONITOR CLOSELY.
[2021-11-19 08:00] VITALS: BP 113/42
[2021-11-19 08:09] LABS: ALBUMIN 2.2 g/dL (3.4-5.0); ANION GAP 10.9 (8-16); CARBON DIOXIDE 26.5 mmol/L (21-32); CREATININE 0.9 mg/dL (0.6-1.3); MAGNESIUM 2.1 mg/dL (1.8-2.4); POTASSIUM 4.4 mmol/L (3.5-5.1); TOTAL BILIRUBIN 0.2 mg/dL (0.0-1.0)
[2021-11-19] MEDS: BLOOD GLUCOSE MONITORING 1 DEV DEV FS SCH ×2 (08:15→11:30)
[2021-11-19] MEDS: levETIRAcetam 500 MG TAB PO SCH (08:26)
[2021-11-19] MEDS: NACL 0.9% 1,000 ML IV SCH (08:52)
[2021-11-19] MEDS ORDERED: ECOTRIN 81 MG TABEC PO SCH (09:00)
--- NOTE | 2021-11-19 09:30 | NUR ---
DUE MEDS GIVEN. TOLERATED WELL
--- NOTE | 2021-11-19 11:00 | NUR ---
PT RESTING IN BED AT THIS TIME. NO APPARENT DISTRESS
[2021-11-19 12:00] VITALS: BP 124/50
--- NOTE | 2021-11-19 13:00 | NUR ---
ASSISTED TO BATHROOM, WITH X1 SMALL BM
[2021-11-19] MEDS ORDERED: LEVO-315 PO (14:11)
--- NOTE | 2021-11-19 15:28 | NUR ---
DISCHARGE INSTRUCTIONS GIVEN TO PT AND PT'S BROTHER. VERBALIZED UNDERSTANDING
[2021-11-19 16:00] VITALS: BP 146/1
--- NOTE | 2021-11-19 16:30 | NUR ---
DISCHARGED PT, PICKED BY BROTHER VIA PRIVATE VEHICLE
--- NOTE | 2021-11-25 12:00 | NUR ---
NAYELI PLANNING LATE ENTRY PAINTLESS DENT REPAIR TECHNICIAN CONTACT PATIENT'S PCP OFFICE AT TO MAKE A FOLLOW UP APPOINTMENT FOR PATIENT AFTER HER DISCHARGE. SPOKE TO LUISITO WHO PROVIDED SCHEDULED APPOINTMENT FOR PATIENT ON 11/27/2021 AT 12:00PM. LOCATION FOR APPOINTMENT IS [address] [place] [address]. SW CALL PATIENT AT TO INFORM HER OF SCHEDULED APPOINTMENT WITH ASSIGNED PCP WITHIN 7 DAYS OF HER DISCHARGE FROM [facility]. SW PROVIDED PATIENT WITH TIME, DATE AND ADDRESS INFORMATION FOR FOLLOW UP APPOINTMENT. PATIENT AGREED AND THANKED THESE RESIDENTIAL CONCIERGE.
== END 2021-11-19 16:30 | disposition home or self-care (01) | DRG 52 ==
LOC: MED 20:51 → MTU 11-18 00:21
PROVIDERS: ADMIT Internal Medicine; ATTEND Internal Medicine
DX: G93.41 Metabolic encephalopathy (principal); J96.20 Acute and chronic respiratory failure, unspecified whether with hypoxia or hypercapnia; J18.9 Pneumonia, unspecified organism; E11.43 Type 2 diabetes mellitus with diabetic autonomic (poly)neuropathy; K31.84 Gastroparesis; N17.9 Acute kidney failure, unspecified; Z20.822 Contact with and (suspected) exposure to COVID-19; J44.9 Chronic obstructive pulmonary disease, unspecified; G40.909 Epilepsy, unspecified, not intractable, without status epilepticus; F15.10 Other stimulant abuse, uncomplicated; Z88.8 Allergy status to other drugs, medicaments and biological substances; Z88.6 Allergy status to analgesic agent; Z91.010 Allergy to peanuts
CPT/HCPCS: 36415; 70450; 71045; 80053; 80305; 81001; 82009; 82140; 82803; 82948; 83036; 83605; 83690; 83735; 83880; 84484; 85025; 87040; 87081; 87086; 93005; 94640; 96374; 96375; 97116; 97163-GP; 99285; G0482; J0456; J0696; J1644; J1815; J2060; J2543; J2930; J7030; J7060

== ENCOUNTER 2022-04-06 10:48 | Emergency (ER) | payer OTHER ==
[~2022-04-06] VITALS: Ht 162.6 cm; Wt 57.2 kg
[~2022-04-06 10:48] MED LIST changes: -DOCU-299 PO; -GABA100C PO; -LEVE500T9 PO; +LEVO-481 PO; -LOV40I SUBQ; -METO-485 PO; -NITR100C7 PO; -TRAZ-343 PO
[2022-04-06 10:55] VITALS: BP 146/65
--- NOTE | 2022-04-06 11:11 | NUR ---
PT IDA SHAVER, VIA GURNEY TO BED 14.
[2022-04-06] MEDS ORDERED: ONDANSETRON 4 MG/2 ML VIAL IVP ONE ×2 (12:20)
[2022-04-06] MEDS ORDERED: MORPHINE SULFATE 4 MG/ML SYR IVP ONE (12:30)
--- NOTE | 2022-04-06 12:30 | NUR ---
56 y/o female biba from home c/o of L sided hip pain s/p fall last night. States she fell off 2 step ladder and landed on left side. Pt reports hitting her head and LOC. Rates pain 10/10, constant and sharp. Denies fever, chills, NV, headache, cp, sob. Admits to meth use x3 days ago. PMH: [place], CVA, R sided deficit ALL: Ibuprofen, Lidocaine, peanuts
[2022-04-06 12:37] LABS: BASOPHILS # (AUTO) 0.1 K/uL (0.00-0.22); BASOPHILS % (AUTO) 0.6 % (0.0-2.0); EOSINOPHILS # (AUTO) 0.2 K/uL (0-0.4); EOSINOPHILS % (AUTO) 2.6 % (0.0-4.0); HEMATOCRIT 36.7 % (36-48); HEMOGLOBIN 12.1 g/dL (12.0-16.0); LYMPHOCYTES % (AUTO) 41.4 % (20.5-51.1); MEAN CORPUSCULAR HEMOGLOBIN 31 pg (27-31); MEAN CORPUSCULAR HGB CONC 33 g/dL (33-37); MEAN CORPUSCULAR VOLUME 92.5 fL (80-94); MONOCYTES # (AUTO) 0.8 K/uL (0.8-1.0); MONOCYTES % (AUTO) 8.1 % (1.7-9.3); NEUTROPHILS # (AUTO) 4.6 K/uL (1.8-7.7); NEUTROPHILS % (AUTO) 47.3 % (42.2-75.2); PLATELET COUNT (AUTO) 267 K/uL (140-450); RED BLOOD CELL COUNT(AUTO) 3.97 MIL/uL (4.20-5.40); RED CELL DISTRIBUTION WIDTH 13.4 % (11.6-13.7); WHITE BLOOD COUNT (AUTO) 9.7 K/uL (4.8-10.8)
[2022-04-06 12:46] LABS: PROTHROMBIN TIME 9.4 secs (10.8-13.4)
[2022-04-06 12:59] LABS: ALBUMIN 2.8 g/dL (3.4-5.0); ANION GAP 10.2 (8-16); CARBON DIOXIDE 30.7 mmol/L (21-32); CREATININE 0.8 mg/dL (0.6-1.3); POTASSIUM 3.9 mmol/L (3.5-5.1); TOTAL BILIRUBIN 0.3 mg/dL (0.0-1.0)
[2022-04-06] MEDS ORDERED: MORPHINE SULFATE 10 MG/ML VIAL IM ONE (13:15)
--- NOTE | 2022-04-06 14:19 | NUR ---
PT RETURNED FROM CT VIA [facility]
--- NOTE | 2022-04-06 14:36 | NUR ---
pt resting with eyes closed, respirations even and unlabored. FLACC pain scale 0.
--- NOTE | 2022-04-06 14:49 | NUR ---
TAKEN TO CT VIA ABDIRIZAK
--- NOTE | 2022-04-06 14:56 | NUR ---
[facility]
--- NOTE | 2022-04-06 15:01 | NUR ---
pt resting in bed with eyes closed, responds to tactile stimuli. No s/s of pain or distress.
--- NOTE | 2022-04-06 15:24 | NUR ---
Denise constantino in [facility] - 04/06/22 at 1524 by NOLA allie dodson) collected and handed to computer laboratory technicianMaryan balbuena + urine sample
[2022-04-06] MEDS ORDERED: IBUP-2213 PO (16:43)
[2022-04-06] MEDS ORDERED: ACET-5629 PO (16:43)
--- NOTE | 2022-04-06 16:54 | NUR ---
Phone call placed to Efrain smith. AMADA for picked edge sewing machine operator 1 hour.
[2022-04-06 17:05] VITALS: BP 118/77
--- NOTE | 2022-04-06 17:05 | NUR ---
Patient discharged with v/s stable. Written and verbal after care instructions about hip pain, chronic back pain given and explained. Patient alert, oriented and verbalized understanding of instructions. Wheel Chair Assisted with steady gait. All questions addressed prior to discharge. ID band removed. Patient advised to follow up with PMD. Rx of Percocet, Ibuprofen given. Patient educated on indication of medication including possible reaction and side effects. Opportunity to ask questions provided and answered.
--- NOTE | 2022-04-06 17:05 | NUR ---
Pt assisted into w/c, will wait in lobby for brother to picker/puller.
== END 2022-04-06 17:05 | disposition home or self-care (01) ==
LOC: MED 10:48
DX: S70.02XA Contusion of left hip, initial encounter (principal); M54.9 Dorsalgia, unspecified; F15.10 Other stimulant abuse, uncomplicated; J44.9 Chronic obstructive pulmonary disease, unspecified; E11.9 Type 2 diabetes mellitus without complications; Z79.899 Other long term (current) drug therapy; Z88.8 Allergy status to other drugs, medicaments and biological substances; Z79.4 Long term (current) use of insulin; Z91.010 Allergy to peanuts; Z88.6 Allergy status to analgesic agent; W08.XXXA Fall from other furniture, initial encounter; Y93.89 Activity, other specified; Y92.89 Other specified places as the place of occurrence of the external cause; Y99.8 Other external cause status
CPT/HCPCS: 36415; 70450; 71045; 72100; 72131; 73502; 80053; 85025; 85610; 85730; 93005; 96374; 96375; 99285; J2270; J2405

== ENCOUNTER 2022-07-14 12:07 | Inpatient (IN) | payer OTHER ==
[~2022-07-14] VITALS: Ht 162.6 cm; Wt 59.9 kg
[2022-07-14] VITALS (7 sets, daily range): BP systolic 120–168; BP diastolic 70–91
[~2022-07-14 12:07] MED LIST changes: +ACET-5629 PO; +IBUP-2213 PO
--- NOTE | 2022-07-14 12:21 | NUR ---
PT W/C ASSISTED TO BED 7.
[2022-07-14] MEDS ORDERED: methylPREDNISolone SS 125 MG/2 ML VIAL IVP ONE (12:25)
[2022-07-14] MEDS ORDERED: ALBUTEROL SULFATE/IPRATROPIU 3 ML SOL IH ONE (12:25)
[2022-07-14] MEDS ORDERED: methylPREDNISolone SS 125 MG/2 ML VIAL ONE (12:31)
--- NOTE | 2022-07-14 12:52 | NUR ---
[place] and Rapid Flu given to lab.
--- NOTE | 2022-07-14 13:03 | NUR ---
Pt placed on purewick.
[2022-07-14 13:13] LABS: BASOPHILS % (AUTO) 0.5 % (0.0-2.0); EOSINOPHILS % (AUTO) 0.4 % (0.0-4.0); HEMATOCRIT 42.4 % (36-48); HEMOGLOBIN 14.1 g/dL (12.0-16.0); LYMPHOCYTES # (AUTO) 1.9 K/uL (2.5-16.5); LYMPHOCYTES % (AUTO) 20.4 % (20.5-51.1); MEAN CORPUSCULAR HEMOGLOBIN 30 pg (27-31); MEAN CORPUSCULAR HGB CONC 33 g/dL (33-37); MEAN CORPUSCULAR VOLUME 90.8 fL (80-94); MONOCYTES # (AUTO) 0.4 K/uL (0.8-1.0); MONOCYTES % (AUTO) 3.9 % (1.7-9.3); NEUTROPHILS % (AUTO) 74.8 % (42.2-75.2); PLATELET COUNT (AUTO) 321 K/uL (140-450); RED BLOOD CELL COUNT(AUTO) 4.67 MIL/uL (4.20-5.40); WHITE BLOOD COUNT (AUTO) 9.4 K/uL (4.8-10.8)
[2022-07-14 13:20] LABS: ALBUMIN 3.1 g/dL (3.4-5.0); ANION GAP 27.5 (8-16); ASPARTATE AMINOTRANSFERASE 12 U/L (15-37); CARBON DIOXIDE 20.4 mmol/L (21-32); CHLORIDE 87 mmol/L (98-107); CREATININE 1.6 mg/dL (0.6-1.3); GFR ARICAN-AMERICAN 43 mL/min (>90); POTASSIUM 4.9 mmol/L (3.5-5.1); SODIUM SERUM 130 mmol/L (136-145); TOTAL BILIRUBIN 0.4 mg/dL (0.0-1.0); UREA NITROGEN, BLOOD 29 mg/dL (7-18)
[2022-07-14 13:21] LABS: GLUCOSE 636 mg/dL (74-106)
[2022-07-14] MEDS ORDERED: NACL 0.9% 1,000 ML IV ONE (13:30)
[2022-07-14] MEDS ORDERED: INSULIN REGULAR, HUMAN 100 UNIT in NACL 0.9% 100 ML IV ONE ×2 (13:35)
--- NOTE | 2022-07-14 14:03 | NUR ---
Pt started on Insulin drip per protocol at 0.1U/KG/HR. Drip started at 5.5U/HR, 5.5ML/HR
[2022-07-14] MEDS ORDERED: KCL 20 MEQ/WATER INJ PREMIX 200 ML IV PRN (14:35)
[2022-07-14] MEDS ORDERED: ZOLPIDEM 5 MG TAB PO PRN (14:35)
[2022-07-14] MEDS ORDERED: NACL 0.9% 1,000 ML IV SCH (14:35)
[2022-07-14] MEDS ORDERED: HYDROcodone/APAP 5/325 MG 1 TAB TAB PO PRN (14:35)
[2022-07-14] MEDS ORDERED: ACETAMINOPHEN 325 MG TAB PO PRN (14:35)
[2022-07-14] MEDS ORDERED: POTASSIUM CHLORIDE 10 MEQ TABER PO PRN (14:35)
[2022-07-14] MEDS ORDERED: ONDANSETRON 4 MG/2 ML VIAL IVP PRN (14:35)
[2022-07-14] MEDS ORDERED: MORPHINE SULFATE 4 MG/ML SYR IVP PRN (14:35)
[2022-07-14] MEDS ORDERED: MAG SULF 2000 MG/WATER PREMIX 50 ML IV PRN (14:35)
[2022-07-14] MEDS: NACL 0.9% 1,000 ML IV SCH ×2 (14:45→20:30)
[2022-07-14] MEDS: DEXT 5% / NACL 0.45% 1,000 ML IV SCH (14:45)
[2022-07-14] MEDS ORDERED: DEXTROSE 50% 50 ML SYR IVP PRN (14:45)
--- NOTE | 2022-07-14 15:00 | NUR ---
BS 496. No change to insulin drip.
[2022-07-14] MEDS: BLOOD GLUCOSE MONITORING 1 DEV DEV FS SCH ×10 (15:03→23:45)
[2022-07-14] MEDS: INSULIN REGULAR, HUMAN 100 UNIT in NACL 0.9% 100 ML IV SCH ×2 (15:18)
--- NOTE | 2022-07-14 15:18 | NUR ---
ED Insulin drip discontinued, stopped. Admitting Insulin drip ordered, started.
--- NOTE | 2022-07-14 15:57 | NUR ---
Report given to receiving RN. VSS. Pt aware and agreeable to admission. Pt transported with all belongings. Endorsed Insulin drip @ 5.5ML/HR. Receiving RN aware of hourly BS checks on the hour.
--- NOTE | 2022-07-14 15:59 | NUR ---
NS bolus completed.
--- NOTE | 2022-07-14 16:00 | NUR ---
Received pt alert and oriented x4. O2 sat 97% on room air. Sinus rhythm on monitor. On insulin drip for Dx:DKA. Incontinent bladder with purewick in place. Peripheral IV on right AC 20 gauge intact and patent infusing NS@200ml/hr. Peripheral IV right hand 24 gauge intact and patent infusing insulin @0.1 unit/kg/hr. Oriented pt to room and environment. Call light within reach.
[2022-07-14 16:23] LABS: ANION GAP 19.9 (8-16); CREATININE 1.4 mg/dL (0.6-1.3); POTASSIUM 3.9 mmol/L (3.5-5.1)
--- NOTE | 2022-07-14 17:00 | NUR ---
Seen and examined by Dr. Reyes. New orders received.
--- NOTE | 2022-07-14 18:25 | NUR ---
ULTRASOUND DONE AT BEDSIDE.
--- NOTE | 2022-07-14 19:20 | NUR ---
Endorsed to manager shift nurse Teresa for continuity of care.
[2022-07-14 19:21] LABS: APPEARANCE,URINE CLEAR (CLEAR); BILIRUBIN,URINE 1+ (NEGATIVE); BLOOD, URINE 2+ (NEGATIVE); COLOR,URINE YELLOW (YELLOW); LEUKOCYTE ESTERASE ,URINE NEGATIVE (NEGATIVE); NITRITE, URINE NEGATIVE (NEGATIVE); UGLUCOSE 3+ (NEGATIVE)
--- NOTE | 2022-07-14 19:30 | NUR ---
RECEIVED PATIENT ON BED; AWAKE, ALERT AND ORIENTED; MOVES LIMBS FREELY BUT CLAIMS THAT SHE HAD MILD WEAKNESS ON LEFT SIDE OF HER BODY. BREATHING EVEN AND UNLABORED ON ROOM AIR, SO2 96%. CARDIACSCOPE SHOWS ON SINUS RHYTHM HR 86/MIN NO ARRHYTHMIAS SEEN. ON REGULAR INSULIN DRIP AND NORMAL SALINE PER DKA PROTOCOL. ABDOMEN IS SOFT, ACTIVE BOWEL SOUNDS. WITH PUERWICK IN PLACE.
[2022-07-14 19:34] LABS: OTHER CASTS, URINE None Seen /LPF (None Seen); WBC,URINE 0-5 /HPF (0-5)
[2022-07-14] MEDS: METOPROLOL 25 MG TAB PO SCH (20:19)
[2022-07-14 21:18] LABS: ANION GAP 17.9 (8-16); CARBON DIOXIDE 22.6 mmol/L (21-32); CREATININE 1.1 mg/dL (0.6-1.3); POTASSIUM 4.5 mmol/L (3.5-5.1)
[2022-07-15] VITALS (19 sets, daily range): BP systolic 140–165; BP diastolic 74–100
--- NOTE | 2022-07-15 | NUR ---
REFUSED BLOOD DRAW, CRYING AND SCREAMING OF PAIN; SO PLEHBOTOMIST UNABLE TO GET BLOOD SAMPLE
[2022-07-15] MEDS: BLOOD GLUCOSE MONITORING 1 DEV DEV FS SCH ×20 (00:45→19:59)
[2022-07-15] MEDS: DEXT 5% / NACL 0.45% 1,000 ML IV SCH ×6 (00:58→20:45)
[2022-07-15] MEDS: INSULIN REGULAR, HUMAN 100 UNIT in NACL 0.9% 100 ML IV SCH ×2 (03:12)
[2022-07-15 04:53] LABS: ANION GAP 13.2 (8-16); CARBON DIOXIDE 25.9 mmol/L (21-32); POTASSIUM 4.1 mmol/L (3.5-5.1)
--- NOTE | 2022-07-15 05:00 | NUR ---
MORNING BED BATH DONE; KEPT CLEAN DRY AND COMFORTABLE.
[2022-07-15] MEDS: NACL 0.9% 1,000 ML IV SCH ×5 (05:45→20:45)
--- NOTE | 2022-07-15 06:00 | NUR ---
INSULIN DRIP STILL IN PROGRESS PER DKA PROTOCOL.
[2022-07-15 06:51] LABS: BASOPHILS % (AUTO) 0.3 % (0.0-2.0); HEMATOCRIT 38.6 % (36-48); HEMOGLOBIN 13.1 g/dL (12.0-16.0); LYMPHOCYTES % (AUTO) 19.4 % (20.5-51.1); MEAN CORPUSCULAR HEMOGLOBIN 30 pg (27-31); MEAN CORPUSCULAR HGB CONC 34 g/dL (33-37); MONOCYTES # (AUTO) 0.4 K/uL (0.8-1.0); MONOCYTES % (AUTO) 3.6 % (1.7-9.3); NEUTROPHILS # (AUTO) 7.7 K/uL (1.8-7.7); NEUTROPHILS % (AUTO) 76.7 % (42.2-75.2); PLATELET COUNT (AUTO) 270 K/uL (140-450); RED BLOOD CELL COUNT(AUTO) 4.34 MIL/uL (4.20-5.40); RED CELL DISTRIBUTION WIDTH 12.7 % (11.6-13.7); WHITE BLOOD COUNT (AUTO) 10.1 K/uL (4.8-10.8)
--- NOTE | 2022-07-15 07:15 | NUR ---
RECEIVED BEDSIDE REPORT FROM DYE MAKER JOSÉ MIGUEL GOLDBERG. PT A&O X4. DIABETIC DIET. SR ON MONITOR. PURE WICK IN PLACE TO CONTINUOS SUCTION. SKIN SEE WOUND ASSESSMENT. IV TO RT AC 20G, RT LOWER FOREARM 20G. RUNNING D5 1/2 NS @ 200MLS/HR, INSULIN DRIP @0.05 IU/KG/H. RT SIDE WEAKNESS, BEDREST. BED TO LOWEST POSITION, HOB ELEVATED. CALL LIGHT WITHIN REACH, WILL CONTINUE TO MONITOR.
[2022-07-15] MEDS: SERTRALINE 50 MG TAB PO SCH (08:45)
[2022-07-15] MEDS: ENOXAPARIN 40 MG/0.4 ML SYR SUBQ SCH (08:45)
[2022-07-15] MEDS: METOPROLOL 25 MG TAB PO SCH ×2 (08:45→20:10)
[2022-07-15] MEDS: ASPIRIN 81 MG TAB.CHEW PO SCH (08:46)
[2022-07-15 08:50] LABS: ANION GAP 10.8 (8-16); CARBON DIOXIDE 27.4 mmol/L (21-32); CREATININE 0.8 mg/dL (0.6-1.3); POTASSIUM 4.2 mmol/L (3.5-5.1)
--- NOTE | 2022-07-15 09:33 | NUR ---
PATIENT HAS BEEN SCREENED AND CATEGORIZED HIGH NUTRITION RISK. PATIENT WILL BE SEEN WITHIN 1-2 DAYS OF ADMISSION. 07/15/2212 REFERRAL RECEIVED FOR UNCONTROLLED DIABETES JOSIAH ORTE[address]
--- NOTE | 2022-07-15 11:52 | NUR ---
SEEN AND EXAMINED BY DR WONG. UPDATED PT INFORMATION.
--- NOTE | 2022-07-15 12:55 | NUR ---
DR PAULO BARR AT BEDSIDE. UPDATED PT INFORMATION.
--- NOTE | 2022-07-15 14:00 | NUR ---
DISCHARGE PLANNING PATIENT IS A 56 YEAR OLD FEMALE ADMITTED TO THE [facility]/ED ON 07/14/2022 DUE TO SHORTNESS OF BREATH AND COUGH. PATIENT REPORTS 3 DAYS HISTORY OF CHEST AND ABDOMINAL PAIN. PATIENT HAS ALSO HISTORY OF DM, HTN, ASTHMA, METHAMPHETAMINE USE DISORDER. SW MEET WITH PATIENT AT BEDSIDE TO DISCUSS AND GATHER HER COLLATERAL INFORMATION. PATIENT WAS AWAKE AND ALERT ABLE TO PROVIDE HER INFORMATION ON HER OWN. PER PATIENT SHE LIVES ALONE IN A ROOM SHE IS RENTING FROM A FAMILY IN A HOME IN [facility]. THE ADDRESS IN THE FACE SHEET IS CORRECT. PER PATIENT SHE HAS SUPPORT FROM HER BROTHER VALENTINO AND HER MOTHER ELIZABET WHO ARE ALSO HER EMERGENCY CONTACTS. PER PATIENT SHE DO NOT HAVE A.D. AND DO NOT WANT ANY INF. FORMS PROVIDED BY SW PER PATIENT SHE DO NOT WANT ANY ONE TO MAKE ANY OF HER MEDICAL DECISIONS BUT "HER AND IF SHE IS TO TO LET HER AND GO" PER PATIENT SHE HAS NO ISSUES WITH HER MEDICATIONS SHE WAS GETTING THEM FROM [facility] BEFORE BUT NOW SHE IS GETTING THEM WITH HER HOSPICE AGENCY. SW ASK HER SEVERAL TIMES THE NAME OF AGENCY AND PATIENT DID NOT REMEMBER AND STATED THAT SHE WILL LOOK FOR IT AND WILL PROVIDE IT LATER. SW AGREED. PER PATIENT SHE HAS ALL HER EQUIPMENT NECESSARY WALKER AND WHEELCHAIR AND A CANE AND STATED THAT SHE CAN WALK STILL WITH ASSISTANCE. PER PATIENT SHE WILL LIKE TO GO BACK HOME TO HER ROOM WHEN SHE IS READY FOR DISCHARGE FROM [facility] WITH HOSPICE CARE WHEN SHE IS READY AND STABLE TO DISCHARGE. PATIENT REPORTED THAT SHE MAY NEED TRANSPORTATION ASSISTANCE AT DISCHARGE FROM [facility]. SW THANKED HER FOR HER INFORMATION AND ENDED THE MEETING. SW/EDDA WILL FOLLOW UP WITH PATIENT NEEDED.
--- NOTE | 2022-07-15 15:13 | NUR ---
07/15/22 RD INITIAL ASSESSMENT COMPLETED PLEASE REFER TO NUTRITION ASSESSMENT UNDER CARE ACTIVITY FOR ESTIMATED NUTRITIONAL NEEDS. 1. CONTINUE CCHO 60 GRAM DIET TOLERATED 2. RECOMMENDED GLUCERNA SUPPLEMENT SHAKE 1XDAY TO PROMOTE WOUND HEALING. 3. PROVIDED NUTRITION EDUCATION FOR DIABETES AND CARB COUNTING WITH HANDOUTS 4. RD TO FOLLOW-UP 7 DAYS, LOW RISK. REVIEWED BY JOSIAH ORTEGA RD
[2022-07-15 17:09] LABS: ANION GAP 9.3 (8-16); CARBON DIOXIDE 23.2 mmol/L (21-32); CREATININE 0.7 mg/dL (0.6-1.3); POTASSIUM 3.5 mmol/L (3.5-5.1)
--- NOTE | 2022-07-15 19:15 | NUR ---
ENDORSED TO [facility] VERONICA RN FOR CONTINUITY OF CARE.
[2022-07-15] MEDS ORDERED: INSULIN LANTUS 100 UNITS/ML 10 ML VIAL SUBQ SCH (20:00)
--- NOTE | 2022-07-15 20:45 | NUR ---
2044-Accucheck POC taken reading 189, Maintenence fluid switched back to D5 1/2 NS @ 200ml/hr
[2022-07-15] MEDS: LOSARTAN 25 MG TAB PO SCH (21:50)
--- NOTE | 2022-07-15 22:10 | NUR ---
2145 Accucheck Reading 166. Insulin Drip Stopped at 2200 per protocol
[2022-07-16] VITALS (14 sets, daily range): BP systolic 96–185; BP diastolic 48–97
[2022-07-16] MEDS: DEXT 5% / NACL 0.45% 1,000 ML IV SCH ×2 (01:45→06:45)
[2022-07-16] MEDS: NACL 0.9% 1,000 ML IV SCH ×2 (01:45→06:45)
--- NOTE | 2022-07-16 02:42 | NUR ---
Bedside Accucheck 240 Addendum: 07/16/22 at 0309 by Agency 05 RN RN 0255-Dr Cortez notified via text of blood sugar results and requesting sliding scale coverage
[2022-07-16] MEDS ORDERED: INSULIN LISPRO SLIDING SCALE 100 UNITS/ML VIAL SUBQ PRN ×2 (02:55→04:40)
[2022-07-16] MEDS ORDERED: hydrALAZINE 20 MG/ML VIAL IVP PRN (04:40)
[2022-07-16] MEDS ORDERED: hydrALAZINE 20 MG/ML VIAL ONE (04:40)
--- NOTE | 2022-07-16 04:51 | NUR ---
bedside accucheck 191
[2022-07-16 06:12] LABS: ANION GAP 9.9 (8-16); CARBON DIOXIDE 23.7 mmol/L (21-32); CREATININE 0.8 mg/dL (0.6-1.3); POTASSIUM 3.6 mmol/L (3.5-5.1)
[2022-07-16 06:36] LABS: BASOPHILS # (AUTO) 0.1 K/uL (0.00-0.22); BASOPHILS % (AUTO) 0.9 % (0.0-2.0); EOSINOPHILS # (AUTO) 0.1 K/uL (0-0.4); EOSINOPHILS % (AUTO) 1.1 % (0.0-4.0); HEMOGLOBIN 12.9 g/dL (12.0-16.0); LYMPHOCYTES % (AUTO) 46.8 % (20.5-51.1); MEAN CORPUSCULAR HEMOGLOBIN 31 pg (27-31); MEAN CORPUSCULAR HGB CONC 34 g/dL (33-37); MEAN CORPUSCULAR VOLUME 90.2 fL (80-94); MONOCYTES # (AUTO) 0.3 K/uL (0.8-1.0); MONOCYTES % (AUTO) 3.2 % (1.7-9.3); NEUTROPHILS # (AUTO) 5.1 K/uL (1.8-7.7); PLATELET COUNT (AUTO) 247 K/uL (140-450); RED BLOOD CELL COUNT(AUTO) 4.21 MIL/uL (4.20-5.40); RED CELL DISTRIBUTION WIDTH 13.1 % (11.6-13.7); WHITE BLOOD COUNT (AUTO) 10.6 K/uL (4.8-10.8)
--- NOTE | 2022-07-16 07:15 | NUR ---
RECEIVED BEDSIDE REPORT FROM SENIOR LEAD SOFTWARE ENGINEER VERONICA RN. PT A&O X4. DIABETIC DIET. SR ON MONITOR. PURE WICK IN PLACE TO CONTINUOS SUCTION. SKIN SEE WOUND ASSESSMENT. IV TO RT AC 20G, RUNNING MAGNESIUM @ 25MLS/HR. RT LOWER FOREARM 20G, SALINE LOCKED. RT SIDE WEAKNESS, BEDREST. BED TO LOWEST POSITION, HOB ELEVATED. CALL LIGHT WITHIN REACH, WILL CONTINUE TO MONITOR.
[2022-07-16] MEDS: BLOOD GLUCOSE MONITORING 1 DEV DEV FS SCH ×2 (08:00→12:00)
[2022-07-16] MEDS: INSULIN LISPRO SLIDING SCALE 100 UNITS/ML VIAL SUBQ PRN ×2 (08:23→12:34)
[2022-07-16] MEDS: METOPROLOL 25 MG TAB PO SCH (09:18)
[2022-07-16] MEDS: LOSARTAN 25 MG TAB PO SCH (09:18)
[2022-07-16] MEDS: ASPIRIN 81 MG TAB.CHEW PO SCH (09:19)
[2022-07-16] MEDS: SERTRALINE 50 MG TAB PO SCH (09:19)
[2022-07-16] MEDS: ENOXAPARIN 40 MG/0.4 ML SYR SUBQ SCH (09:20)
--- NOTE | 2022-07-16 10:42 | NUR ---
DR WONG ROUNDING AT BEDSIDE. UPDATED PT INFORMATION. ORDER PT DOWN GRADE TO MED SURG AND D/C IV FLUID.
[2022-07-16] MEDS ORDERED: LISI5TAB18 PO (12:43)
[2022-07-16] MEDS ORDERED: LANC-947 TP (12:53)
[2022-07-16] MEDS ORDERED: [UNRECOGNIZED DRUG - CODE] SUBQ (12:53)
[2022-07-16] MEDS ORDERED: INSU100S22 SUBQ (12:53)
[2022-07-16] MEDS ORDERED: PEN-124 SUBQ (12:53)
--- NOTE | 2022-07-16 15:30 | NUR ---
PT TRANSFERRED TO [facility]A WITH HELP. PT TOLERATED WELL, VS STABLE. BEDSIDE REPORT GIVEN TO KATIE GOLDBERG FOR CONTINUITY OF CARE, ALL QUESTIONS ANSWERED.
--- NOTE | 2022-07-16 15:30 | NUR ---
TELEMETRY UNIT RM 106-A, FROM ICU RECEIVED PATIENT FROM ICU-ASHLYN Gomez TELEMETRY PATIENT, AC[facility]HS [facility]UCHECK[facility], PT. REQUESTS FOR MECHANICAL SOFT DIET, NO DENTURES. INCONTINENT, WITH PINK SACRUM FROM INCONTINENCE, PUREWICK NEEDS CHANGING. CHANGED PAD WITH ASHLYN PRIETO.
--- NOTE | 2022-07-16 18:10 | NUR ---
DISCHARGED DISCHARGE PAPERS SIGNED BY NIOL REAL SINCE PT. COMPLAINS OF UNABLE TO WRITE DUE TO PROBLEM WITH FINGER MOVEMENT. GIVEN INSTRUCTIONS. COPY PLACED IN THE CHART. PT. HAS NO PRESSURE SORE. HAS DIAPER PLACED IN LIEU OF PUREWICK. PATIENT DISCHARGED WITH NIECE AND BROTHER, BY WHEELCHAIR, BROUGHT TO THE CAR OUTSIDE. UNDERSTOOD NEEDS TO BE FOLLOWED UP WITH PCP IN 1 WEEK. MED. LIST GIVEN, WITH BELONGINGS. REMOVED I.V. CANNULA X 2. GIVEN UN-OPENED PATIENT'S DIAPERS. TOPS & PANTS WAS PROVIDED BY HOSPITAL SECURITY. PATIENT STABLE.
[2022-07-16] MEDS ORDERED: INSULIN LANTUS 100 UNITS/ML 10 ML VIAL SUBQ SCH ×2 (20:00)
== END 2022-07-16 18:15 | disposition home or self-care (01) | DRG 420 ==
LOC: MED 12:07 → MTU 14:36 → MIC 16:13 → MTU 07-16 16:00
PROVIDERS: ADMIT Internal Medicine; ATTEND Internal Medicine
DX: E10.10 Type 1 diabetes mellitus with ketoacidosis without coma (principal); N17.9 Acute kidney failure, unspecified; F15.10 Other stimulant abuse, uncomplicated; J44.9 Chronic obstructive pulmonary disease, unspecified; Z20.822 Contact with and (suspected) exposure to COVID-19; Z88.1 Allergy status to other antibiotic agents; Z88.5 Allergy status to narcotic agent; Z88.8 Allergy status to other drugs, medicaments and biological substances; Z79.899 Other long term (current) drug therapy; Z86.73 Personal history of transient ischemic attack (TIA), and cerebral infarction without residual deficits; Z83.3 Family history of diabetes mellitus; Z82.49 Family history of ischemic heart disease and other diseases of the circulatory system
CPT/HCPCS: 36415; 71045; 76770; 80048; 80053; 81001; 82009; 82948; 83735; 83880; 84484; 85025; 87081; 93005; 94640; 96361; 96374; 99291; J0360; J1650; J1815; J2405; J2930; J7030; Q0092

== ENCOUNTER 2022-08-15 10:44 | Inpatient (IN) | payer OTHER ==
[~2022-08-15] VITALS: Ht 165.1 cm; Wt 46.3 kg
[~2022-08-15 10:44] MED LIST changes: -IBUP-2213 PO; +INSU100S22 SUBQ; +LANC-947 TP; -LANTUS SUBQ; -LEVO-481 PO; +LISI5TAB18 PO; +PEN-124 SUBQ; +[UNRECOGNIZED DRUG - CODE] SUBQ
--- NOTE | 2022-08-15 10:48 | NUR ---
SIVAKUMAR ALS TO ER BED 8
[2022-08-15] MEDS ORDERED: NACL 0.9% 1,000 ML IV SCH (10:55)
--- NOTE | 2022-08-15 11:01 | NUR ---
Lab at bedside.
--- NOTE | 2022-08-15 11:06 | NUR ---
RT at bedside.
[2022-08-15 11:07] VITALS: BP 153/64
[2022-08-15 11:22] LABS: BASOPHILS % (AUTO) 0.3 % (0.0-2.0); HEMATOCRIT 31.5 % (36-48); HEMOGLOBIN 9.9 g/dL (12.0-16.0); LYMPHOCYTES # (AUTO) 0.9 K/uL (2.5-16.5); LYMPHOCYTES % (AUTO) 10.5 % (20.5-51.1); MEAN CORPUSCULAR HEMOGLOBIN 30 pg (27-31); MEAN CORPUSCULAR HGB CONC 31 g/dL (33-37); MEAN CORPUSCULAR VOLUME 96.2 fL (80-94); MONOCYTES # (AUTO) 0.3 K/uL (0.8-1.0); MONOCYTES % (AUTO) 3.7 % (1.7-9.3); NEUTROPHILS # (AUTO) 7.7 K/uL (1.8-7.7); NEUTROPHILS % (AUTO) 85.5 % (42.2-75.2); PLATELET COUNT (AUTO) 239 K/uL (140-450); RED BLOOD CELL COUNT(AUTO) 3.27 MIL/uL (4.20-5.40); RED CELL DISTRIBUTION WIDTH 13.9 % (11.6-13.7)
--- NOTE | 2022-08-15 11:26 | NUR ---
# 8 FR Urinary catheter inserted utilizing sterile technique. Immediate return of 30 ml light yellow urine noted. Urine sample collected and sent to lab. Pt tolerated procedure well.
--- NOTE | 2022-08-15 11:27 | NUR ---
Dr. Garcia evaluating patient at bedside.
--- NOTE | 2022-08-15 11:29 | NUR ---
Radiology at bedside.
[2022-08-15 11:46] LABS: ALBUMIN 1.6 g/dL (3.4-5.0); TOTAL BILIRUBIN 0.2 mg/dL (0.0-1.0)
[2022-08-15 12:00] LABS: ANION GAP 27.2 (8-16); CARBON DIOXIDE 10.2 mmol/L (21-32); CREATININE 1.5 mg/dL (0.6-1.3); POTASSIUM 3.4 mmol/L (3.5-5.1)
[2022-08-15 12:04] LABS: APPEARANCE,URINE CLEAR (CLEAR); BILIRUBIN,URINE 1+ (NEGATIVE); BLOOD, URINE 1+ (NEGATIVE); COLOR,URINE YELLOW (YELLOW); LEUKOCYTE ESTERASE ,URINE NEGATIVE (NEGATIVE); NITRITE, URINE NEGATIVE (NEGATIVE); PH,URINE 5.5 (5.0-9.0); UGLUCOSE 3+ (NEGATIVE)
[2022-08-15] MEDS ORDERED: INSULIN REGULAR, HUMAN 100 UNIT in NACL 0.9% 100 ML IV ONE ×2 (12:20)
[2022-08-15 12:28] LABS: WBC,URINE 0-5 /HPF (0-5)
[2022-08-15 12:29] LABS: BARBITURATE, URINE NEGATIVE ng/ml (NEG <=200); URINE AMORPHOUS URATE 1+ /HPF (None Seen)
[2022-08-15 12:30] LABS: BENZODIAZEPINE, URINE NEGATIVE ng/mL (NEG <=200); CANNABINOID, URINE NEGATIVE ng/mL (NEG <=50); COCAINE, URINE NEGATIVE ng/mL (NEG <=300); OPIATE, URINE NEGATIVE ng/mL (NEG <=2000); PHENCYCLIDINE SCREEN,URINE NEGATIVE ng/mL (NEG <=25)
--- NOTE | 2022-08-15 12:42 | NUR ---
56 y/o female biba from [facility] for ALOC. Patient was last seen normal 1 week ago. Patient is a meth user. Patient is confused. Patient is noted with mottled skin through out her legs. 22 G IV Left Wrist was started by EMS en route along with a bolus. Glucose reading read Error for EMS. At triage blood glucose was HI. Medical History: DM, Meth user ALLERGY: IBUPROFEN, LIDOCAINE, PEANUT
[2022-08-15] MEDS ORDERED: INSULIN REGULAR, HUMAN 100 UNIT in NACL 0.9% 100 ML IV SCH ×4 (13:18→19:25)
[2022-08-15] MEDS ORDERED: KCL 20 MEQ/WATER INJ PREMIX 200 ML IV PRN (13:40)
[2022-08-15] MEDS ORDERED: MAGNESIUM OXIDE 400 MG TAB PO PRN (13:40)
[2022-08-15] MEDS ORDERED: POTASSIUM CHLORIDE 10 MEQ TABER PO PRN (13:40)
[2022-08-15] MEDS ORDERED: ONDANSETRON 4 MG/2 ML VIAL IVP PRN (13:40)
[2022-08-15] MEDS ORDERED: HYDROcodone/APAP 5/325 MG 1 TAB TAB PO PRN (13:40)
[2022-08-15] MEDS ORDERED: MAG SULF 2000 MG/WATER PREMIX 50 ML IV PRN (13:40)
[2022-08-15] MEDS ORDERED: ACETAMINOPHEN 325 MG TAB PO PRN (13:40)
[2022-08-15] MEDS ORDERED: MORPHINE SULFATE 4 MG/ML SYR IVP PRN (13:40)
--- NOTE | 2022-08-15 14:22 | NUR ---
Patient is resting on bed, respirations even and unlabored.
[2022-08-15] MEDS: NACL 0.9% 1,000 ML IV SCH ×2 (14:26→22:00)
[2022-08-15] MEDS ORDERED: hydrALAZINE 20 MG/ML VIAL IVP PRN (16:05)
[2022-08-15] MEDS ORDERED: MORPHINE SULFATE 2 MG/ML SYR IVP PRN (16:10)
--- NOTE | 2022-08-15 16:23 | NUR ---
Dr. Packer, admitting doctor, evaluating patient at bedside.
[2022-08-15 16:40] LABS: ANION GAP 39.2 (8-16); CARBON DIOXIDE 16.7 mmol/L (21-32); CREATININE 2.8 mg/dL (0.6-1.3); MAGNESIUM 3.8 mg/dL (1.8-2.4); PHOSPHORUS 6.5 mg/dL (2.5-4.9); POTASSIUM 5.9 mmol/L (3.5-5.1)
--- NOTE | 2022-08-15 18:33 | NUR ---
Patient was made clean and dry. Fresh diaper was applied.
--- NOTE | 2022-08-15 19:20 | NUR ---
Pt report given to ASHLYN Bach. Transfer of care at this time.
[2022-08-15] MEDS ORDERED: BLOOD GLUCOSE MONITORING 1 DEV DEV FS SCH (19:25)
[2022-08-15] MEDS ORDERED: DEXTROSE 50% 50 ML SYR IVP PRN ×2 (19:25)
--- NOTE | 2022-08-15 19:25 | NUR ---
pt is on insulin drip 5 unit and will follow up with the dr to get the correct number of insulin drip, pending ordered
--- NOTE | 2022-08-15 19:46 | NUR ---
pt is alert but spoke garble. ptis resting in bed. insuilin is infusing.
[2022-08-15 19:52] LABS: MAGNESIUM 3.6 mg/dL (1.8-2.4); PHOSPHORUS 4.1 mg/dL (2.5-4.9)
[2022-08-15 20:21] LABS: ANION GAP 29.6 (8-16); CARBON DIOXIDE 24.2 mmol/L (21-32); CREATININE 2.7 mg/dL (0.6-1.3); POTASSIUM 4.8 mmol/L (3.5-5.1)
--- NOTE | 2022-08-15 20:25 | NUR ---
spoke to Dr. Veliz and ordered 10 unit to start and acc q1 hours
--- NOTE | 2022-08-15 20:37 | NUR ---
called Dr. salas for sugar of 1140, he said start with 10 units and check Q 1 hr. will check again at 2130
[2022-08-15] MEDS ORDERED: LEVETIRACETAM 500 MG PO SCH (21:00)
[2022-08-15] MEDS: METOPROLOL 25 MG TAB PO SCH ×2 (21:00→21:56)
[2022-08-15] MEDS: levETIRAcetam 500 MG TAB PO SCH ×2 (21:00→21:55)
[2022-08-15 21:09] LABS: POTASSIUM 4.8 mmol/L (3.5-5.1)
[2022-08-15 21:10] LABS: ANION GAP 29.6 (8-16); CARBON DIOXIDE 24.2 mmol/L (21-32); CREATININE 2.7 mg/dL (0.6-1.3)
--- NOTE | 2022-08-15 21:35 | NUR ---
pt is blood sugar remain high on ac check machine
[2022-08-15] MEDS ORDERED: levETIRAcetam 500 MG in NACL 0.9% 100 ML IV SCH (22:20)
[2022-08-15] MEDS ORDERED: levETIRAcetam 100 MG/ML VIAL IV ONE (22:21)
--- NOTE | 2022-08-15 22:30 | NUR ---
pt blood sugar remain high through acc
--- NOTE | 2022-08-15 23:43 | NUR ---
pt blood sugar remain high still undectebatble in the system
[2022-08-16] VITALS (7 sets, daily range): BP systolic 134–174; BP diastolic 75–96
[2022-08-16 01:09] LABS: ANION GAP 21.3 (8-16); CARBON DIOXIDE 29.1 mmol/L (21-32); CREATININE 2.4 mg/dL (0.6-1.3); POTASSIUM 4.4 mmol/L (3.5-5.1)
[2022-08-16 01:19] LABS: MAGNESIUM 3.6 mg/dL (1.8-2.4); PHOSPHORUS 3.5 mg/dL (2.5-4.9)
--- NOTE | 2022-08-16 01:30 | NUR ---
blood sugar 540
--- NOTE | 2022-08-16 02:30 | NUR ---
blood sugar check was 504
[2022-08-16 04:09] LABS: BASOPHILS # (AUTO) 0.1 K/uL (0.00-0.22); BASOPHILS % (AUTO) 0.6 % (0.0-2.0); EOSINOPHILS % (AUTO) 0.1 % (0.0-4.0); HEMOGLOBIN 14.1 g/dL (12.0-16.0); LYMPHOCYTES # (AUTO) 3.3 K/uL (2.5-16.5); LYMPHOCYTES % (AUTO) 18.3 % (20.5-51.1); MEAN CORPUSCULAR HEMOGLOBIN 30 pg (27-31); MEAN CORPUSCULAR HGB CONC 33 g/dL (33-37); MEAN CORPUSCULAR VOLUME 90.6 fL (80-94); MONOCYTES # (AUTO) 1.4 K/uL (0.8-1.0); MONOCYTES % (AUTO) 7.8 % (1.7-9.3); NEUTROPHILS # (AUTO) 13.4 K/uL (1.8-7.7); NEUTROPHILS % (AUTO) 73.2 % (42.2-75.2); PLATELET COUNT (AUTO) 317 K/uL (140-450); RED BLOOD CELL COUNT(AUTO) 4.75 MIL/uL (4.20-5.40); RED CELL DISTRIBUTION WIDTH 13.8 % (11.6-13.7); WHITE BLOOD COUNT (AUTO) 18.2 K/uL (4.8-10.8)
[2022-08-16 04:24] LABS: ANION GAP 12.3 (8-16); CARBON DIOXIDE 34.7 mmol/L (21-32); CREATININE 2.2 mg/dL (0.6-1.3)
[2022-08-16 04:27] LABS: MAGNESIUM 3.2 mg/dL (1.8-2.4); PHOSPHORUS 2.5 mg/dL (2.5-4.9)
--- NOTE | 2022-08-16 07:10 | NUR ---
PT RECEIVED, CARE ASSUMED. PT LAYING IN BED ASLEEP. NO ACUTE DISTRESS NOTED. NOTED V/S. INSULIN DRIP ON. WILL CONTINUE TO MONITOR
[2022-08-16] MEDS: levETIRAcetam 500 MG TAB PO SCH ×2 (09:00→20:42)
--- NOTE | 2022-08-16 09:00 | NUR ---
ACCU CHECK 157
--- NOTE | 2022-08-16 09:01 | NUR ---
INSULIN DRIP CHANGED TO 1 UNIT/HR. PT IS SLEEPY, HARD TO AROUSE VERBALLY. PT DOES REACT TO PAINFUL STIMULI
--- NOTE | 2022-08-16 09:04 | NUR ---
PATIENT HAS BEEN SCREENED AND CATEGORIZED HIGH NUTRITION RISK. PATIENT WILL BE SEEN WITHIN 1-2 DAYS OF ADMISSION. REVIEWED BY JOSIAH ORTEGA RD
[2022-08-16 09:05] LABS: PHOSPHORUS 2.2 mg/dL (2.5-4.9)
[2022-08-16 09:07] LABS: ALBUMIN 2.9 g/dL (3.4-5.0); CREATININE 1.8 mg/dL (0.6-1.3); TOTAL BILIRUBIN 0.1 mg/dL (0.0-1.0)
[2022-08-16] MEDS ORDERED: atenoloL 50 MG TAB PO SCH (09:35)
[2022-08-16] MEDS: METOPROLOL 25 MG TAB PO SCH ×2 (10:26→20:42)
[2022-08-16] MEDS: SERTRALINE 50 MG TAB PO SCH (10:26)
[2022-08-16] MEDS: ASPIRIN 81 MG TAB.CHEW PO SCH (10:27)
--- NOTE | 2022-08-16 11:00 | NUR ---
Denise constantino in [facility] - 08/16/22 at 1101 by [id number] ACCU CHECK 157
--- NOTE | 2022-08-16 11:01 | NUR ---
ACCU CHECK 156
--- NOTE | 2022-08-16 11:52 | NUR ---
PER MD CONTINUE D5-45%NS AT 125 FOR SODIUM
[2022-08-16] MEDS: DEXT 5% / NACL 0.45% 1,000 ML IV SCH ×2 (12:04→17:45)
[2022-08-16 12:38] LABS: ANION GAP 14.4 (8-16); CARBON DIOXIDE 30.7 mmol/L (21-32); CREATININE 1.7 mg/dL (0.6-1.3); POTASSIUM 4.1 mmol/L (3.5-5.1)
[2022-08-16 12:43] LABS: MAGNESIUM 2.8 mg/dL (1.8-2.4); PHOSPHORUS 2.4 mg/dL (2.5-4.9)
--- NOTE | 2022-08-16 13:22 | NUR ---
PT C/O GEN ABDO PAIN, GAVE MORPHINE 2MG IVP PRN. ACCU CHECK DONE 158, WILL CONTINUE TO MONITOR
--- NOTE | 2022-08-16 16:02 | NUR ---
ACCU CHECK 263, PLACED INSULIN DRIP AT 3UNITS
--- NOTE | 2022-08-16 16:39 | NUR ---
Patient will be admitted to care of SONIA. Admited to ICU6. Will go to room. Belongings list completed. Report to .
--- NOTE | 2022-08-16 16:45 | NUR ---
RECEIVED PT FROM ER, AOX2 FOLLOWS SIMPLE COMMANDS. IV NOTED TO LEFT WRIST #22GUAGE AND RIGHT SHOULDER #20GUAGE INSULIN DRIP INFUSING AT 3UNITS/HR. D5NS INFUSING AT 125ML/HR. NSR ON MONITOR.SAFETY MAINTAINED
--- NOTE | 2022-08-16 17:09 | NUR ---
VS DOCUMENTED AT 1709 ERROR DOCUMENTED ON WRONG PT
--- NOTE | 2022-08-16 18:40 | NUR ---
PAGED DR LEWIS D/T GAP BEING CLOSED AND DIET ORDER.
--- NOTE | 2022-08-16 19:12 | NUR ---
REPORT GIVEN TO NBA GOLDBERG FOR CONTINUATION OF CARE
--- NOTE | 2022-08-16 19:25 | NUR ---
TRANSFER OF CARE FROM DAY SHIFT, REPORT RECEIVED FROM ASHLYN SCOTT. PATIENT RECEIVED IN BED, ASLEEP, EASILY AROUSED AND DOES NOT APPEAR TO BE IN DISTRESS. PATIENT IS ON SUPPLEMENTAL O2 (2L VIA NC). PATIENT HAS THE FOLLOWING MEDICATIONS CURRENTLY INFUSING: INSULIN DRIP AT A RATE OF 3 UNITS/HR AND D5 1/2 MS AT A RATE OF 125ML/HR. CURRENT VITALS AT START OF SHIFT: TEMP=98.0F, HR=74, O2 DVB=778%, BP= 165/83, R=9. CURRENT ANION GAP = 14.[address] WILL CONTINUE TO MONITOR PATIENT
[2022-08-16] MEDS: BLOOD GLUCOSE MONITORING 1 DEV DEV FS SCH ×4 (21:09→23:28)
--- NOTE | 2022-08-16 21:40 | NUR ---
PATIENT WITH GLUCOSE OF 358, INSULIN DRIP TITRATED TO 5 UNITS/HR PER EMAR AND MESSAGE SENT TO MD. PATIENT ALSO WITH WBC = 18.2. REQUEST ORDERS FOR IV ABX
[2022-08-17] VITALS (9 sets, daily range): BP systolic 107–150; BP diastolic 55–77
[2022-08-17] MEDS: BLOOD GLUCOSE MONITORING 1 DEV DEV FS SCH ×12 (00:23→21:50)
[2022-08-17] MEDS: DEXT 5% / NACL 0.45% 1,000 ML IV SCH ×3 (01:35→08:07)
[2022-08-17 05:27] LABS: BASOPHILS # (AUTO) 0.1 K/uL (0.00-0.22); BASOPHILS % (AUTO) 0.4 % (0.0-2.0); EOSINOPHILS % (AUTO) 0.2 % (0.0-4.0); HEMATOCRIT 37.1 % (36-48); HEMOGLOBIN 12.5 g/dL (12.0-16.0); LYMPHOCYTES % (AUTO) 20.3 % (20.5-51.1); MEAN CORPUSCULAR HEMOGLOBIN 30 pg (27-31); MEAN CORPUSCULAR HGB CONC 34 g/dL (33-37); MEAN CORPUSCULAR VOLUME 88.4 fL (80-94); MONOCYTES # (AUTO) 0.4 K/uL (0.8-1.0); MONOCYTES % (AUTO) 2.5 % (1.7-9.3); NEUTROPHILS # (AUTO) 11.3 K/uL (1.8-7.7); NEUTROPHILS % (AUTO) 76.6 % (42.2-75.2); PLATELET COUNT (AUTO) 236 K/uL (140-450); RED CELL DISTRIBUTION WIDTH 13.7 % (11.6-13.7); WHITE BLOOD COUNT (AUTO) 14.8 K/uL (4.8-10.8)
[2022-08-17 06:29] LABS: ALBUMIN 2.8 g/dL (3.4-5.0); ANION GAP 12.1 (8-16); CARBON DIOXIDE 29.7 mmol/L (21-32); CREATININE 1.2 mg/dL (0.6-1.3); MAGNESIUM 2.6 mg/dL (1.8-2.4); POTASSIUM 3.8 mmol/L (3.5-5.1); TOTAL BILIRUBIN 0.2 mg/dL (0.0-1.0)
--- NOTE | 2022-08-17 07:30 | NUR ---
RECEIVED PT IN HOSPITAL BED, AOX3 WITH LETHARGY. NSR ON MONITOR. IV INFUSING INSULIN DRIP PER ORDER. FLUIDS INFUSING PER PROTOCOL. TOLERATING WELL. NAD. SAFETY MAINTAINED.
[2022-08-17] MEDS ORDERED: NACL 0.9% 1,000 ML IV SCH (07:55)
[2022-08-17] MEDS ORDERED: DEXTROSE 50% 50 ML SYR IVP PRN (07:55)
[2022-08-17] MEDS ORDERED: INSULIN REGULAR, HUMAN 100 UNIT in NACL 0.9% 100 ML IV SCH ×2 (07:55)
[2022-08-17] MEDS: ASPIRIN 81 MG TAB.CHEW PO SCH (09:10)
[2022-08-17] MEDS: METOPROLOL 25 MG TAB PO SCH ×2 (09:10→22:00)
[2022-08-17] MEDS: levETIRAcetam 500 MG TAB PO SCH ×2 (09:10→21:59)
[2022-08-17] MEDS: SERTRALINE 50 MG TAB PO SCH (09:11)
--- NOTE | 2022-08-17 09:25 | NUR ---
DR RICKS AT BEDSIDE.
[2022-08-17] MEDS: NACL 0.45% 1,000 ML IV SCH (09:56)
--- NOTE | 2022-08-17 10:00 | NUR ---
INSULIN DRIP CANCELLED PER MD. PT DOWNGRADED TO MED SURG. HANDICRAFTS TEACHER ARLETTE MADE AWARE, STATES NO BEDS AT THIS TIME. PT NOW ON SLIDING SCALE. PT AOX4. DENIES PAIN OR DISCOMFORT. NSR ON MONITOR. TOLERATING PO. NAD. SAFETY MAINTAINED.
[2022-08-17] MEDS: INSULIN LANTUS 100 UNITS/ML 10 ML VIAL SUBQ SCH (10:06)
[2022-08-17] MEDS: INSULIN LISPRO SLIDING SCALE 100 UNITS/ML VIAL SUBQ PRN ×3 (11:46→22:07)
--- NOTE | 2022-08-17 13:00 | NUR ---
PT TOLERATED LUNCH WITHOUT ANY DIFFICULTY. NO CHANGES NOTED. SAFETY MAINTAINED.
--- NOTE | 2022-08-17 16:00 | NUR ---
PT ASLEEP NO S/S PAIN OR DISCOMFORT. NSR ON MONITOR. NAD. SAFETY MAINTAINED.
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
--- NOTE | 2022-08-17 16:32 | NUR ---
08/17/22 RD INITIAL ASSESSMENT COMPLETED PLEASE REFER TO NUTRITION ASSESSMENT UNDER CARE ACTIVITY FOR ESTIMATED NUTRITIONAL NEEDS. 1. CONTINUE CARDIAC DIET 2. RECOMMEND ADDING PUREE CCHO 60 GRAM TO DIET. 3. MONITOR GI, BLOOD GLUCOSE, LAB VALUES, AND PO INTAKE. 4. RD TO FOLLOW-UP 7 DAYS, LOW RISK REVIEWED BY JOSIAH ORTEGA RD
--- NOTE | 2022-08-17 19:13 | NUR ---
REPORT GIVEN TO NIGHT RN FOR CONTINUATION OF CARE
--- NOTE | 2022-08-17 22:05 | NUR ---
RECEIVED PT FROM ER CAME IN VIA [facility]. PT IS AWAKE, ALERT AND VERBALLY RESPONSIVE.PT IS WITH DM KETO ACIDOSIS. PT IS A FULL CODE. SHE IS ON PUREE DIET. IV SITE IS ON RIGHT SHOULDER AND LEFT WRIST, BOTH WITH 22G. IV FLUID 0.45% NS INFUSING AT 60ML/HR.
--- NOTE | 2022-08-17 23:33 | NUR ---
2000: After receiving report from AM shift RN, instruction received from epic stork specialists to prepare patient for transfer to Med-magnetic doctor. Patient is A/O x4, no acute distress, deny pain or discomfort. Report was given to Med-magnetic doctor via telephone. Patient transfer via bed with belonging. Endorse care. Addendum: 08/17/22 at 2337 by Agency Nurse, RN RN 2000: VS stable prior to transfer: SR HR: 75, BP: 140/68, Resp: 14, Sat: 98
[2022-08-18] VITALS: BP 144/68
--- NOTE | 2022-08-18 01:15 | NUR ---
PT IS ASLEEP, NO SOB OR DISTRESS. PT IS ON STABLE CONDITION.
[2022-08-18] MEDS: NACL 0.45% 1,000 ML IV SCH (02:05)
[2022-08-18] MEDS ORDERED: CHLORHEXADINE GLUC 2% CLOTH TP SCH (02:20)
[2022-08-18] MEDS ORDERED: MUPIROCIN CA NASAL 2% 1GM TUBE NS SCH (02:20)
[2022-08-18 04:00] VITALS: BP 127/55
[2022-08-18] MEDS: BLOOD GLUCOSE MONITORING 1 DEV DEV FS SCH ×3 (06:45→17:16)
[2022-08-18] MEDS: INSULIN LISPRO SLIDING SCALE 100 UNITS/ML VIAL SUBQ PRN ×3 (06:47→17:21)
[2022-08-18 08:00] VITALS: BP 102/69
[2022-08-18] MEDS: SERTRALINE 50 MG TAB PO SCH (11:20)
[2022-08-18] MEDS: METOPROLOL 25 MG TAB PO SCH (11:20)
[2022-08-18] MEDS: levETIRAcetam 500 MG TAB PO SCH (11:20)
[2022-08-18] MEDS: ASPIRIN 81 MG TAB.CHEW PO SCH (11:20)
[2022-08-18] MEDS: INSULIN LANTUS 100 UNITS/ML 10 ML VIAL SUBQ SCH (11:40)
--- NOTE | 2022-08-18 19:35 | NUR ---
PATIENT WAS DISCHARGED TO HOME, PICKED UP BY SAI CRUZ. PATIENT HAS HER BELONGINGS. PATIENT IN STABLE CONDITION. DISCHARGED PAPERS GIVEN TO THE PATIENT.
--- NOTE | 2022-08-24 16:43 | NUR ---
pt dc'd home on 08/18/22 at 1930
== END 2022-08-18 19:30 | disposition home or self-care (01) | DRG 420 ==
LOC: MED 10:44 → MTU 13:42 → MIC 08-16 15:55 → MTU 08-17 20:05
PROVIDERS: ADMIT Internal Medicine; ATTEND Internal Medicine
DX: E10.10 Type 1 diabetes mellitus with ketoacidosis without coma (principal); N17.0 Acute kidney failure with tubular necrosis; E43 Unspecified severe protein-calorie malnutrition; E86.0 Dehydration; J45.909 Unspecified asthma, uncomplicated; F15.10 Other stimulant abuse, uncomplicated; Z20.822 Contact with and (suspected) exposure to COVID-19; Z88.8 Allergy status to other drugs, medicaments and biological substances; Z91.010 Allergy to peanuts; Z79.899 Other long term (current) drug therapy; Z86.73 Personal history of transient ischemic attack (TIA), and cerebral infarction without residual deficits; Z91.14 Patient's other noncompliance with medication regimen; Z88.1 Allergy status to other antibiotic agents; Z79.82 Long term (current) use of aspirin; Z68.1 Body mass index [BMI] 19.9 or less, adult
CPT/HCPCS: 36415; 36600; 71045; 80048; 80053; 80305; 81001; 82803; 82948; 83605; 83735; 83880; 84100; 84484; 85025; 87040; 87081; 87086; 93005; 99291; J1644; J1815; J1953; J2270; Q0092

== ENCOUNTER 2022-11-15 16:14 | Inpatient (IN) | payer OTHER ==
[~2022-11-15] VITALS: Ht 162.6 cm; Wt 24.5 kg
--- NOTE | 2022-11-15 16:17 | NUR ---
SIVAKUMAR ALS TO ER BED 3
[2022-11-15 16:22] VITALS: BP 137/69
[2022-11-15 17:25] LABS: BASOPHILS # (AUTO) 0.1 K/uL (0.00-0.22); BASOPHILS % (AUTO) 0.4 % (0.0-2.0); EOSINOPHILS # (AUTO) 0.1 K/uL (0-0.4); EOSINOPHILS % (AUTO) 0.5 % (0.0-4.0); HEMATOCRIT 49.3 % (36-48); HEMOGLOBIN 16.5 g/dL (12.0-16.0); LYMPHOCYTES # (AUTO) 3.3 K/uL (2.5-16.5); LYMPHOCYTES % (AUTO) 22.2 % (20.5-51.1); MEAN CORPUSCULAR HEMOGLOBIN 31 pg (27-31); MEAN CORPUSCULAR HGB CONC 34 g/dL (33-37); MEAN CORPUSCULAR VOLUME 91.3 fL (80-94); MONOCYTES # (AUTO) 0.4 K/uL (0.8-1.0); MONOCYTES % (AUTO) 2.6 % (1.7-9.3); NEUTROPHILS # (AUTO) 11.1 K/uL (1.8-7.7); NEUTROPHILS % (AUTO) 74.3 % (42.2-75.2); PLATELET COUNT (AUTO) 249 K/uL (140-450); RED CELL DISTRIBUTION WIDTH 14.8 % (11.6-13.7); WHITE BLOOD COUNT (AUTO) 14.9 K/uL (4.8-10.8)
[2022-11-15 17:45] LABS: ALBUMIN 3.8 g/dL (3.4-5.0); ANION GAP 22.9 (8-16); ASPARTATE AMINOTRANSFERASE 13 U/L (15-37); CARBON DIOXIDE 25.6 mmol/L (21-32); CHLORIDE 113 mmol/L (98-107); CREATININE 3.9 mg/dL (0.6-1.3); GFR ARICAN-AMERICAN 15 mL/min (>90); GLUCOSE 247 mg/dL (74-106); POTASSIUM 4.5 mmol/L (3.5-5.1); TOTAL BILIRUBIN 0.3 mg/dL (0.0-1.0)
[2022-11-15 17:48] LABS: SODIUM SERUM 157 mmol/L (136-145)
[2022-11-15 17:49] LABS: ACETAMINOPHEN < 0.5 ug/ml (10-30); SALICYLATE < 2.8 mg/dL (2.8-20.0); UREA NITROGEN, BLOOD 100 mg/dL (7-18)
[2022-11-15] MEDS ORDERED: LACTATED RINGERS 1,000 ML IV ONE (17:55)
[2022-11-15] MEDS ORDERED: cefTRIAXone 1,000 MG VIAL ONE (17:58)
--- NOTE | 2022-11-15 19:19 | NUR ---
ATTEMPTED TO DO STRAIGHT CATHETER. ONLY SCANT AMOUNT OF URINE COLEECTED NOT ENOUGH TO SEND TO LABS. PATIENT STATES SHE JUST URINATE. DIAPER CHANGED SOAKED WITH URINE. ENDORSED TO PM SHIFT
--- NOTE | 2022-11-15 19:25 | NUR ---
Note undone in [facility] - 11/15/22 at 1952 by [id number] Patient resting in bed, confused, chest rise and fall symmetrical, no c/o pain or s/s of distress. Addendum: 11/15/22 at 1935 by [email or web address] Amendment undone in [facility] - 11/15/22 at 1952 by [email or web address] Patient resting in bed A/Ox4, chest rise and fall symmetrical, no c/o pain or s/s of distress, seizure pads on bedrails.
--- NOTE | 2022-11-15 19:25 | NUR ---
Note vira in ED - 11/15/22 at 1925 by [email or web address] Patient resting in bed A/Ox4, chest rise and fall symmetrical, no c/o pain or s/s of distress.
--- NOTE | 2022-11-15 19:28 | NUR ---
Patient resting in bed, A/Ox3, chest rise and fall symmetrical, no c/o pain or s/s of distress. Addendum: 11/15/22 at 2140 by [id number] Patient resting in bed, A/Ox3, confused, chest rise and fall symmetrical, no c/o pain or s/s of distress.
[2022-11-15] MEDS ORDERED: ACETAMINOPHEN 325 MG TAB PO PRN (19:45)
[2022-11-15] MEDS ORDERED: HYDROcodone/APAP 5/325 MG 1 TAB TAB PO PRN (19:45)
[2022-11-15] MEDS ORDERED: NACL 0.9% 1,000 ML IV SCH (19:45)
[2022-11-15] MEDS ORDERED: ONDANSETRON 4 MG/2 ML VIAL IVP PRN (19:45)
[2022-11-15] MEDS ORDERED: MORPHINE SULFATE 4 MG/ML SYR IVP PRN (19:45)
[2022-11-15] MEDS ORDERED: LORazepam 1 MG TAB PO PRN (19:45)
[2022-11-15] MEDS: DEXT 5% / NACL 0.45% 1,000 ML IV SCH (21:16)
--- NOTE | 2022-11-15 21:39 | NUR ---
Patient resting in bed, A/Ox3, confused, chest rise and fall symmetrical, no c/o pain or s/s of distress.
--- NOTE | 2022-11-15 22:20 | NUR ---
VALENTINO MARTINEZ, LEFT NUMBER FOR UPDATES:
--- NOTE | 2022-11-15 23:30 | NUR ---
Patient resting in bed, A/Ox3, confused, chest rise and fall symmetrical, no c/o pain or s/s of distress.
--- NOTE | 2022-11-16 01:50 | NUR ---
Patient resting in bed, A/Ox3, confused, chest rise and fall symmetrical, no c/o pain or s/s of distress.
--- NOTE | 2022-11-16 02:45 | NUR ---
Patient resting in bed, A/Ox3, confused, chest rise and fall symmetrical, no c/o pain or s/s of distress.
--- NOTE | 2022-11-16 04:00 | NUR ---
Patient resting in bed, A/Ox3, confused, chest rise and fall symmetrical, no c/o pain or s/s of distress.
--- NOTE | 2022-11-16 06:00 | NUR ---
Patient resting in bed, A/Ox3, confused, chest rise and fall symmetrical, no c/o pain or s/s of distress.
[2022-11-16] MEDS: DEXT 5% / NACL 0.45% 1,000 ML IV SCH ×2 (06:21→15:45)
--- NOTE | 2022-11-16 07:31 | NUR ---
Change of shift report given to AM shift nurse Casey RN. Casey RN verbalized understanding of report, no further questions.
[2022-11-16 08:10] VITALS: BP 160/79
--- NOTE | 2022-11-16 08:19 | NUR ---
Patient will be admitted to care of DR WONG. Admited to TELE. Will go to [facility]. Belongings list completed. Report to PRO GOLDBERG.
[2022-11-16] MEDS: DOCUSATE SODIUM 100 MG GELCAP PO SCH (09:00)
--- NOTE | 2022-11-16 09:56 | NUR ---
PATIENT HAS BEEN SCREENED AND CATEGORIZED MODERATE NUTRITION RISK. PATIENT WILL BE SEEN WITHIN 3-5 DAYS OF ADMISSION. REVIEWED BY JOSIAH ORTEGA RD Addendum: 11/16/22 at [address] FNS REFERRAL HAS BEEN RECEIVED ON 11/16/22 FOR VOMITING OVER 3 DAYS. PATIENT HAS BEEN RE-SCREENED HIGH RISK AND WILL BE SEEN WITHIN 1-2 DAYS OF RECEIVING THE FNS CONSULT. 11/17/22-11/18/22
--- NOTE | 2022-11-16 11:00 | NUR ---
DC PLANNING ASSESSMENT COMPLETE PLEASE REFER TO ASSESSMENT FOR ADDITIONAL DETAILS PT REPORTS SHE IS NOT HAPPY WITH HER CURRENT LIVING SITUATION. SW OFFERED PT HOMELESS RESOURCES AND SUBSTANCE USE RESOURCES HOWEVER, PT REPORTS SHE DOES NOT WANT TO GO A HOMELESS [facility]. SW ENCOURAGED PT TO REACH OUT TO FAMILY OR TO FIND AN ALTERNATIVE PLACE TO RENT ROOM. PT REPORTS "ILL JUST GO BACK HOME" Addendum: 11/18/22 at 1443 by Mehul Holly SS Amended: Links added.
[2022-11-16 12:00] VITALS: BP 143/73
[2022-11-16 14:39] LABS: ANION GAP 12.3 (8-16); POTASSIUM 4.3 mmol/L (3.5-5.1)
[2022-11-16] MEDS ORDERED: DEXTROSE 50% 50 ML SYR IVP PRN (14:55)
--- NOTE | 2022-11-16 14:58 | NUR ---
INFORMED BY LAB OF CRITICAL RESULTS FOR PATIENT, NOTIFIED MD BATES OF RESULTS
--- NOTE | 2022-11-16 15:50 | NUR ---
URINE SPECIMEN COLLECTED AND SENT TO LAB
[2022-11-16 16:00] VITALS: BP 168/70
[2022-11-16 16:02] LABS: APPEARANCE,URINE CLEAR (CLEAR); BILIRUBIN,URINE NEGATIVE (NEGATIVE); BLOOD, URINE 2+ (NEGATIVE); COLOR,URINE YELLOW (YELLOW); LEUKOCYTE ESTERASE ,URINE 2+ (NEGATIVE); NITRITE, URINE NEGATIVE (NEGATIVE); UGLUCOSE 2+ (NEGATIVE)
[2022-11-16 16:12] LABS: RBC,URINE 11-20 (MOD) /HPF (0-5)
[2022-11-16 16:13] LABS: BARBITURATE, URINE NEGATIVE ng/ml (NEG <=200); BENZODIAZEPINE, URINE NEGATIVE ng/mL (NEG <=200); CANNABINOID, URINE NEGATIVE ng/mL (NEG <=50); COCAINE, URINE NEGATIVE ng/mL (NEG <=300); OPIATE, URINE NEGATIVE ng/mL (NEG <=2000); PHENCYCLIDINE SCREEN,URINE NEGATIVE ng/mL (NEG <=25)
--- NOTE | 2022-11-16 16:20 | NUR ---
NOTIFIED MD ABOUT ELEVATED GLUCOSE STATES TO ADD 10 UNITS LANTUS AND ORDER A1C
[2022-11-16] MEDS: BLOOD GLUCOSE MONITORING 1 DEV DEV FS SCH ×2 (16:30→21:07)
[2022-11-16] MEDS: INSULIN LISPRO SLIDING SCALE 100 UNITS/ML VIAL SUBQ PRN ×2 (17:37→21:04)
--- NOTE | 2022-11-16 18:06 | NUR ---
NOTIFIED ABOUT BLOOD SUGAR OF 426 STATES TO ADD 8 UNITS OF LISPRO TID WITH MEALS
[2022-11-16] MEDS: INSULIN LISPRO 100 UNITS/ML VIAL SUBQ SCH (18:17)
--- NOTE | 2022-11-16 19:20 | NUR ---
RECEIVED SHIFT REPORT FROM SHADE RN, PATIENT WAS NOTED STABLE AT THIS TIME. PATIENT IN BED AWAKE REQUESTING FOR HEAD OF BED TO BE LOWER. PATIENT IS A LITTLE CONFUSED AND CAN DO FOR HERSELF BUT PREFERS STAFF INSTEAD OF TRYING. PATIENT WAS GIVEN EDUCATION ON KEEPING HER STRENGTH. PATIENT WAS ABLE TO MOVE WITHOUT INCIDENT OR PAIN/DISCOMFORT AT THIS TIME. NO NOTED RESPIRATORY DISTRESS. SIDE RAILS UP X 2 FOR COMFORT AND REPOSITIONING. CALL LIGHT WITHIN REACH FOR ASSISTANCE. NO NOTED SEIZURE ACTIVITY REPORTED OR NOTED. [email or web address]
--- NOTE | 2022-11-16 20:00 | NUR ---
Patient's Plan of Care was discussed and reviewed with YOKASTA ZAMORA:
[2022-11-16] MEDS: INSULIN LANTUS 100 UNITS/ML 10 ML VIAL SUBQ SCH (21:02)
[2022-11-16] MEDS: ZOLPIDEM 5 MG TAB PO PRN (21:08)
[2022-11-17] VITALS: BP 141/61
--- NOTE | 2022-11-17 00:09 | NUR ---
PATIENT NOTED IN BED ASLEEP WITHOUT INCIDENT. CALL LIGHT WITHIN REACH. SIDE RAILS UP X 2 FOR SAFETY AND COMFORT. [email or web address]
[2022-11-17] MEDS: DEXT 5% / NACL 0.45% 1,000 ML IV SCH (01:45)
--- NOTE | 2022-11-17 03:10 | NUR ---
PATIENT NOTED IN BED ASLEEP. PATIENT DENIED HAVING ANY NEEDS FOR CHANGE. NO NOTED S/S OF PAIN/DISCOMFORT. NO NOTED S/S OF RESPIRATORY DISTRESS. CALL LIGHT WITHIN REACH. SIDE RAILS UP FOR SAFETY AND ADJUSTMENT. [email or web address]
--- NOTE | 2022-11-17 05:55 | NUR ---
PATIENT NOTED IN BED ASLEEP. NURSING WILL ATTEMPT TO CLEAN PATIENT BEFORE THE END OF SHIFT. NO NOTED S/S OF PAIN/DISCOMFORT. NO NOTED S/S OF RESPIRATORY DISTRESS. CALL LIGHT WITHIN REACH. SIDE RAILS UP FOR SAFETY AND ADJUSTMENT. [email or web address]
[2022-11-17] MEDS: BLOOD GLUCOSE MONITORING 1 DEV DEV FS SCH ×4 (06:23→20:39)
[2022-11-17] MEDS: INSULIN LISPRO SLIDING SCALE 100 UNITS/ML VIAL SUBQ PRN ×3 (06:24→17:39)
[2022-11-17 07:03] LABS: BASOPHILS % (AUTO) 0.3 % (0.0-2.0); EOSINOPHILS # (AUTO) 0.4 K/uL (0-0.4); EOSINOPHILS % (AUTO) 5.3 % (0.0-4.0); HEMATOCRIT 37.5 % (36-48); HEMOGLOBIN 12.4 g/dL (12.0-16.0); LYMPHOCYTES # (AUTO) 2.7 K/uL (2.5-16.5); LYMPHOCYTES % (AUTO) 33.2 % (20.5-51.1); MEAN CORPUSCULAR HEMOGLOBIN 31 pg (27-31); MEAN CORPUSCULAR HGB CONC 33 g/dL (33-37); MEAN CORPUSCULAR VOLUME 92.3 fL (80-94); MONOCYTES # (AUTO) 0.4 K/uL (0.8-1.0); MONOCYTES % (AUTO) 4.9 % (1.7-9.3); NEUTROPHILS # (AUTO) 4.5 K/uL (1.8-7.7); NEUTROPHILS % (AUTO) 56.3 % (42.2-75.2); PLATELET COUNT (AUTO) 177 K/uL (140-450); RED BLOOD CELL COUNT(AUTO) 4.06 MIL/uL (4.20-5.40); RED CELL DISTRIBUTION WIDTH 14.1 % (11.6-13.7); WHITE BLOOD COUNT (AUTO) 8.1 K/uL (4.8-10.8)
--- NOTE | 2022-11-17 07:20 | NUR ---
ENDORSED PATIENT CARE FOR CONTINUITY CARE TO DENNIS TEMPLETON, PATIENT WAS STABLE DURING SHIFT REPORT. [email or web address]
--- NOTE | 2022-11-17 07:21 | NUR ---
ASSUMED CONTINUITY OF CARE. INITIAL ASSESSMENT DONE. RE-ORIENTED TO EVENTS AND SURROUNDINGS. KEEP COMFORTABLE ON BED. SEIZURE AND FALL PRECAUTION APPLIED. CALL LIGHT WITHIN REACH.
[2022-11-17 07:45] LABS: ANION GAP 12.8 (8-16); CARBON DIOXIDE 29.2 mmol/L (21-32); CREATININE 1.7 mg/dL (0.6-1.3)
[2022-11-17 08:00] VITALS: BP 123/67
[2022-11-17] MEDS: DOCUSATE SODIUM 100 MG GELCAP PO SCH (09:02)
[2022-11-17] MEDS: INSULIN LISPRO 100 UNITS/ML VIAL SUBQ SCH ×3 (09:04→17:39)
--- NOTE | 2022-11-17 11:14 | NUR ---
DR. BATES SEEN PT.. INFORMED OF IVF CHANGED.
[2022-11-17] MEDS: NACL 0.45% 1,000 ML IV SCH ×2 (11:34→21:26)
--- NOTE | 2022-11-17 15:44 | NUR ---
11/17/22 RD INITIAL ASSESSMENT COMPLETED PLEASE REFER TO NUTRITION ASSESSMENT UNDER CARE ACTIVITY FOR ESTIMATED NUTRITIONAL NEEDS. 1. RECOMMEND ADDING [id number] TO CARDIAC DIET TOLERATED. 2. PROVIDED NUTRITION EDUCATION AND HANDOUTS FOR DM. 3. RD TO FOLLOW-UP 7 DAYS, LOW RISK REVIEWED BY JOSIAH ORTEGA RD
[2022-11-17 16:00] VITALS: BP 122/58
--- NOTE | 2022-11-17 19:11 | NUR ---
REPORT GIVEN TO JAYNE GAYTAN IN STABLE CONDITION.
--- NOTE | 2022-11-17 19:12 | NUR ---
RECEIVED PT FROM MORNING SHIFT NURSE. PT IS AOX3-4, BEDBOUND, ABLE TO VERBALIZE NEEDS AND ABLE TO FOLLOW COMMANDS. PT IS ON ROOM AIR AND ON CARDIAC DIET. PT HAS IV ON LEFT WRIST GAUGE 20 RUNNING WITH 1/2 NS AT 100 ML/HR. PT SKIN IS INTACT. COMPLAIN OF ABDOMINAL PAIN WITH PAIN SCALE OF 6/10. NO S/S OF RESPIRATORY DISTRESS NOTED. ALL SAFETY MEASURES IMPLEMENTED. BED WHEELS ON LOCK, BED IN LOW POSITION AND CALL LIGHT WITHIN REACH
[2022-11-17] MEDS: ZOLPIDEM 5 MG TAB PO PRN (20:21)
[2022-11-17] MEDS: INSULIN LANTUS 100 UNITS/ML 10 ML VIAL SUBQ SCH (20:37)
--- NOTE | 2022-11-17 20:39 | NUR ---
ALL SCHEDULED AND PRESCRIBED MEDICATION WAS GIVEN TO PT PER MD ORDER. MORPHINE WAS ALSO GIVEN DUE TO ABD PAIN WITH PAIN SCALE OF 6/10. ZOFRAN AND AMBIEN ALSO GIVEN. ALL SAFETY MEASURES IMPLEMENTED. BED WHEELS ON LOCK, BED IN LOW POSITION AND CALL LIGHT WITHIN REACH
--- NOTE | 2022-11-17 22:00 | NUR ---
CLEANED THE PT AND CHANGED DIAPER. NO COMPLAIN OF PAIN AT THIS TIME. NO S/S OF RESPIRATORY DISTRESS NOTED. ALL SAFETY MEASURES IMPLEMENTED. BED IN LOW POSITION, BED WHEELS ON LOCK AND CALL LIGHT WITHIN REACH.
[2022-11-18] VITALS: BP 123/60
--- NOTE | 2022-11-18 | NUR ---
PT IS ON SLEEP. CHEST RISE AND FALL SYMMETRICALLY NOTED. RESPIRATION IS EVEN AND UNLABORED. NO S/S OF RESPIRATORY DISTRESS NOTED. ALL SAFETY MEASURES IMPLEMENTED. BED IN LOW POSITION, BED WHEELS ON LOCK AND CALL LIGHT WITHIN REACH.
--- NOTE | 2022-11-18 02:00 | NUR ---
PT IS STABLE. ENDORSED PT TO CASSIE RN FOR CHANGE OF ASSIGNMENT.
[2022-11-18] MEDS: BLOOD GLUCOSE MONITORING 1 DEV DEV FS SCH ×3 (06:36→16:38)
[2022-11-18] MEDS: NACL 0.45% 1,000 ML IV SCH ×2 (06:37→09:10)
[2022-11-18 07:09] LABS: BASOPHILS % (AUTO) 0.3 % (0.0-2.0); EOSINOPHILS # (AUTO) 0.3 K/uL (0-0.4); EOSINOPHILS % (AUTO) 3.4 % (0.0-4.0); HEMATOCRIT 32.8 % (36-48); HEMOGLOBIN 10.9 g/dL (12.0-16.0); LYMPHOCYTES # (AUTO) 3.1 K/uL (2.5-16.5); LYMPHOCYTES % (AUTO) 36.7 % (20.5-51.1); MEAN CORPUSCULAR HEMOGLOBIN 31 pg (27-31); MEAN CORPUSCULAR HGB CONC 33 g/dL (33-37); MEAN CORPUSCULAR VOLUME 92.1 fL (80-94); MONOCYTES # (AUTO) 0.3 K/uL (0.8-1.0); MONOCYTES % (AUTO) 3.6 % (1.7-9.3); NEUTROPHILS # (AUTO) 4.8 K/uL (1.8-7.7); PLATELET COUNT (AUTO) 150 K/uL (140-450); RED BLOOD CELL COUNT(AUTO) 3.57 MIL/uL (4.20-5.40); RED CELL DISTRIBUTION WIDTH 13.9 % (11.6-13.7); WHITE BLOOD COUNT (AUTO) 8.5 K/uL (4.8-10.8)
[2022-11-18 07:48] LABS: ANION GAP 9.8 (8-16); CARBON DIOXIDE 25.4 mmol/L (21-32); CREATININE 1.2 mg/dL (0.6-1.3); POTASSIUM 4.2 mmol/L (3.5-5.1)
[2022-11-18 08:00] VITALS: BP 109/45
[2022-11-18] MEDS: DOCUSATE SODIUM 100 MG GELCAP PO SCH (08:53)
[2022-11-18] MEDS: INSULIN LISPRO 100 UNITS/ML VIAL SUBQ SCH ×3 (08:57→16:39)
[2022-11-18 16:00] VITALS: BP 135/60
--- NOTE | 2022-11-18 19:30 | NUR ---
RECEIVED PATIENT WELL RESTED IN NO ACUTE DISTRESS NOTED. CALL LIGHT WITHIN REACH. SAFETY MEASURES IN PLACE.
--- NOTE | 2022-11-18 19:50 | NUR ---
DISCHARGED PATIENT HOME PICKED UP BY HER BROTHER IN STABLE CONDITION.
== END 2022-11-18 19:45 | disposition home or self-care (01) | DRG 426 ==
LOC: MED 16:14 → MTU 19:44
PROVIDERS: ADMIT Hospitalist; ATTEND Hospitalist
DX: E87.0 Hyperosmolality and hypernatremia (principal); N17.0 Acute kidney failure with tubular necrosis; G92.8 Other toxic encephalopathy; E87.20 Acidosis, unspecified; E11.22 Type 2 diabetes mellitus with diabetic chronic kidney disease; E86.0 Dehydration; E87.1 Hypo-osmolality and hyponatremia; F10.10 Alcohol abuse, uncomplicated; F15.10 Other stimulant abuse, uncomplicated; F17.200 Nicotine dependence, unspecified, uncomplicated; Y90.9 Presence of alcohol in blood, level not specified; Z20.822 Contact with and (suspected) exposure to COVID-19; Z88.8 Allergy status to other drugs, medicaments and biological substances; Z88.1 Allergy status to other antibiotic agents; Z91.010 Allergy to peanuts; Z79.899 Other long term (current) drug therapy; Z83.3 Family history of diabetes mellitus; Z82.49 Family history of ischemic heart disease and other diseases of the circulatory system; Z79.4 Long term (current) use of insulin; Z79.82 Long term (current) use of aspirin; I12.9 Hypertensive chronic kidney disease with stage 1 through stage 4 chronic kidney disease, or unspecified chronic kidney disease; N18.30 Chronic kidney disease, stage 3 unspecified
CPT/HCPCS: 36415; 70450; 71045; 80048; 80053; 80305; 81001; 82550; 82948; 83036; 83605; 83735; 84100; 84484; 85025; 87040; 87081; 87086; 93005; 99285; G0480; G0482; J0696; J1644; J1815; J2270; J2405; J7060; Q0092

== ENCOUNTER 2023-01-27 16:48 | Inpatient (IN) | payer OTHER ==
[~2023-01-27] VITALS: Ht 167.6 cm; Wt 59.0 kg
--- NOTE | 2023-01-27 16:51 | NUR ---
PATIENT BIB [facility], TO ER BED 02
[2023-01-27 17:09] VITALS: BP 109/49; PULSE 71; RESP 11; TEMP 97.1; O2SAT 99
[2023-01-27] MEDS ORDERED: NACL 0.9% 1,000 ML IV ONE ×2 (17:20→18:30)
[2023-01-27 18:01] LABS: BASOPHILS % (AUTO) 0.4 % (0.0-2.0); EOSINOPHILS % (AUTO) 0.2 % (0.0-4.0); HEMATOCRIT 40.8 % (36-48); HEMOGLOBIN 13.7 g/dL (12.0-16.0); LYMPHOCYTES # (AUTO) 2.6 K/uL (2.5-16.5); LYMPHOCYTES % (AUTO) 23.5 % (20.5-51.1); MEAN CORPUSCULAR HEMOGLOBIN 30 pg (27-31); MEAN CORPUSCULAR HGB CONC 33 g/dL (33-37); MEAN CORPUSCULAR VOLUME 89.8 fL (80-94); MONOCYTES # (AUTO) 0.3 K/uL (0.8-1.0); MONOCYTES % (AUTO) 3.1 % (1.7-9.3); NEUTROPHILS # (AUTO) 7.9 K/uL (1.8-7.7); NEUTROPHILS % (AUTO) 72.8 % (42.2-75.2); PLATELET COUNT (AUTO) 211 K/uL (140-450); RED BLOOD CELL COUNT(AUTO) 4.55 MIL/uL (4.20-5.40); WHITE BLOOD COUNT (AUTO) 10.9 K/uL (4.8-10.8)
[2023-01-27 18:19] LABS: ALBUMIN 2.8 g/dL (3.4-5.0); CARBON DIOXIDE 27.3 mmol/L (21-32); CREATININE 3.8 mg/dL (0.6-1.3); POTASSIUM 3.3 mmol/L (3.5-5.1); TOTAL BILIRUBIN 0.2 mg/dL (0.0-1.0)
[2023-01-27 18:28] LABS: PROTHROMBIN TIME 10.5 secs (10.8-13.4)
--- NOTE | 2023-01-27 19:00 | NUR ---
PT MEDICATED PER MD ORDERS.
--- NOTE | 2023-01-27 19:04 | NUR ---
WHEELED TO CT WITH RADIOLOGY
[2023-01-27 19:05] LABS: ACETAMINOPHEN 1.4 ug/ml (10-30)
[2023-01-27 19:06] LABS: SALICYLATE < 2.8 mg/dL (2.8-20.0)
[2023-01-27 19:10] LABS: APPEARANCE,URINE CLEAR (CLEAR); BILIRUBIN,URINE 1+ (NEGATIVE); BLOOD, URINE 2+ (NEGATIVE); COLOR,URINE YELLOW (YELLOW); LEUKOCYTE ESTERASE ,URINE TRACE (NEGATIVE); NITRITE, URINE NEGATIVE (NEGATIVE); PH,URINE 5.5 (5.0-9.0); UGLUCOSE NEGATIVE (NEGATIVE)
[2023-01-27] MEDS ORDERED: cefTRIAXone 1,000 MG VIAL ONE (19:14)
--- NOTE | 2023-01-27 19:15 | NUR ---
Pt report given to MARY GOLDBERG. Transfer of care at this time.
[2023-01-27 19:22] LABS: RBC,URINE 20-50 /HPF (0-5)
[2023-01-27 19:23] LABS: BARBITURATE, URINE NEGATIVE ng/ml (NEG <=200); BENZODIAZEPINE, URINE NEGATIVE ng/mL (NEG <=200); CANNABINOID, URINE NEGATIVE ng/mL (NEG <=50); COCAINE, URINE NEGATIVE ng/mL (NEG <=300); OPIATE, URINE NEGATIVE ng/mL (NEG <=2000); PHENCYCLIDINE SCREEN,URINE NEGATIVE ng/mL (NEG <=25)
--- NOTE | 2023-01-27 19:25 | NUR ---
Patient resting in bed, awake and alert, chest rise and fall symmetrical, no s/s of distress, on monitor. Addendum: 01/28/23 at 0130 by [id number] Patient resting in bed, awake and alert, chest rise and fall symmetrical, no s/s of distress, on monitor, seizure pads in place.
[2023-01-27] MEDS ORDERED: ONDANSETRON 4 MG/2 ML VIAL IVP PRN (20:25)
[2023-01-27] MEDS: NACL 0.9% 1,000 ML IV SCH (20:25)
[2023-01-27] MEDS ORDERED: HYDROcodone/APAP 5/325 MG 1 TAB TAB PO PRN (20:25)
[2023-01-27] MEDS ORDERED: MORPHINE SULFATE 4 MG/ML SYR IVP PRN (20:25)
[2023-01-27] MEDS ORDERED: POTASSIUM CHLORIDE 10 MEQ TABER PO PRN (20:25)
[2023-01-27] MEDS ORDERED: ACETAMINOPHEN 325 MG TAB PO PRN (20:25)
[2023-01-27] MEDS ORDERED: MAGNESIUM OXIDE 400 MG TAB PO PRN (20:25)
--- NOTE | 2023-01-27 21:43 | NUR ---
Patient resting in bed, A/Ox4, chest rise and fall symmetrical, no c/o pain or s/s of distress, on monitor. Addendum: 01/28/23 at 0130 by [id number] Patient resting in bed, A/Ox4, chest rise and fall symmetrical, no s/s of distress, on monitor, seizure pads in place.
--- NOTE | 2023-01-27 22:49 | NUR ---
Patient given food per renal diet order. Patient ate food, drank fluid.
--- NOTE | 2023-01-27 22:51 | NUR ---
Patient resting in bed, A/Ox4, chest rise and fall symmetrical, no c/o pain or s/s of distress, on monitor. Addendum: 01/28/23 at 0131 by [id number] Patient resting in bed, A/Ox4, chest rise and fall symmetrical, no s/s of distress, on monitor, seizure pads in place.
--- NOTE | 2023-01-28 00:04 | NUR ---
Patient will be admitted to care of Dr. Willis. Admited to Telemetry. Will go to room 113. Belongings list completed. Report to Telemetry Nurse Dannie RN. Telemetry Nurse Dannie RN verbalized understanding, no further questions.
[2023-01-28 00:08] VITALS: BP 108/53; PULSE 75; PULSE 91; RESP 16; RESP 20; TEMP 97.3; O2SAT 98
--- NOTE | 2023-01-28 00:08 | NUR ---
RECEIVED REPORT FROM ER NURSE MARY FOR CONTINUITY OF CARE. PT TRANSPORTED FROM ER VIA GURNEY. PT IS AAOX4. ON BED REST. PT CAME IN FOR MODERATE WEAKNESS. PT STATES SHE FEEL SEVERAL TIMES AT HOME. PT STATES SHE'S BEEN GETTING PROGRESSIVELY WEAKER. USES ORALIA AND WALKER AT HOME. PT HAS FC PUT IN ER DRAINING TO GRAVITY. PT HAS RIGHT HAND 22 GAUGE RUNNING NS 80 CC/HR. PT DENIES ANY PAIN AT THIS TIME. EDUCATED PT INSTRUCTOR ADJUNCT PHARMACY TECHNICIAN LIGHT SYSTEM. POC DISCUSSED. WILL CONTINUE TO MONITOR THE PT.
[2023-01-28 04:00] VITALS: BP 137/58; PULSE 76; PULSE 77; RESP 18; TEMP 97.1; O2SAT 96
--- NOTE | 2023-01-28 04:01 | NUR ---
VITAL SIGNS TAKEN AND STABLE. PT WANTED SOME SNACKS AND WAS PROVIDED. NO OTHER COMPLAINS. WILL CONTINUE TO MONITOR THE PT.
[2023-01-28 06:44] LABS: BASOPHILS % (AUTO) 0.2 % (0.0-2.0); EOSINOPHILS % (AUTO) 0.4 % (0.0-4.0); HEMOGLOBIN 12.1 g/dL (12.0-16.0); LYMPHOCYTES # (AUTO) 1.2 K/uL (2.5-16.5); LYMPHOCYTES % (AUTO) 19.7 % (20.5-51.1); MEAN CORPUSCULAR HEMOGLOBIN 30 pg (27-31); MEAN CORPUSCULAR HGB CONC 34 g/dL (33-37); MEAN CORPUSCULAR VOLUME 89.6 fL (80-94); MONOCYTES # (AUTO) 0.4 K/uL (0.8-1.0); MONOCYTES % (AUTO) 6.2 % (1.7-9.3); NEUTROPHILS # (AUTO) 4.6 K/uL (1.8-7.7); NEUTROPHILS % (AUTO) 73.5 % (42.2-75.2); PLATELET COUNT (AUTO) 183 K/uL (140-450); RED BLOOD CELL COUNT(AUTO) 4.01 MIL/uL (4.20-5.40); RED CELL DISTRIBUTION WIDTH 13.9 % (11.6-13.7); WHITE BLOOD COUNT (AUTO) 6.3 K/uL (4.8-10.8)
[2023-01-28 06:59] LABS: ANION GAP 10.2 (8-16); CARBON DIOXIDE 26.4 mmol/L (21-32); CREATININE 2.1 mg/dL (0.6-1.3); POTASSIUM 3.6 mmol/L (3.5-5.1)
--- NOTE | 2023-01-28 07:10 | NUR ---
ASSUMED CONTINUITY OF CARE. INITIAL ASSESSMENT DONE. SKIN BRUISE ON LEFT KNEE NOTED. KEEP COMFORTABLE ON BED. FALL PRECAUTION APPLIED. CALL LIGHT WITHIN REACH.
--- NOTE | 2023-01-28 07:10 | NUR ---
ENDORSED PT TO DAY SHIFT RN FOR CONTINUITY OF CARE. PT IS STABLE.
[2023-01-28 08:00] VITALS: BP 127/61; PULSE 68; PULSE 73; RESP 17; TEMP 97; O2SAT 100
[2023-01-28] MEDS: DOCUSATE SODIUM 100 MG GELCAP PO SCH (08:29)
[2023-01-28] MEDS ORDERED: INSULIN LISPRO SLIDING SCALE 100 UNITS/ML VIAL SUBQ PRN (08:30)
[2023-01-28] MEDS ORDERED: DEXTROSE 50% 50 ML SYR IVP PRN (08:30)
--- NOTE | 2023-01-28 08:59 | NUR ---
PATIENT HAS BEEN SCREENED AND CATEGORIZED MODERATE NUTRITION RISK. PATIENT WILL BE SEEN WITHIN 3-5 DAYS OF ADMISSION. 01/30/23-02/01/[address]
[2023-01-28] MEDS: NACL 0.9% 1,000 ML IV SCH ×2 (11:35→21:25)
[2023-01-28] MEDS: BLOOD GLUCOSE MONITORING 1 DEV DEV FS SCH ×3 (11:36→20:46)
--- NOTE | 2023-01-28 11:49 | NUR ---
CALLED PT. TAMARER DavideVALENTINO DANIELSON AT REGARDING PT. HOME MEDS LIST. LEFT CALL BACK NUMBER AND MESSAGES. INFORMED CHARGE NURSE CAROLYN -ASHLYN.
[2023-01-28 12:00] VITALS: BP 151/72; PULSE 70; PULSE 71; RESP 18; TEMP 97.2; O2SAT 98
--- NOTE | 2023-01-28 12:17 | NUR ---
DC PLANN[age] YRS OLD FEMALE PATIENT WAS ADMITTED FROM HOME WITH A DX OF LILIAN, ACUTE ENCEPHALOPATHY. PATIENT HAS A HX OF HTN, METH ABUSE AND DM. CXR SHOWS NO DEFINITE EVIDENCE OF ACUTE CARDIOPULMONARY DISEASE. CT HEAD NEGATIVE. ADMINISTERED IVF, IV ABX ROCEPHIN AND CONTINUED HOME MEDS. CONSULTED WITH NEPHRO. MODULAR HOME CREW MEMBER TO EVALUATE FOR DRUG USE. DC PLAN TO GO HOME WHEN STABLE. CM TO FOLLOW
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
--- NOTE | 2023-01-28 15:52 | NUR ---
CALLED PT. DavideVALENTINO DANIELSON AT FOR THE SECOND TIME REGARDING PT. HOME MEDS LIST. LEFT CALL BACK NUMBER AND MESSAGES. INFORMED CHARGE NURSE CAROLYN -ASHLYN.
[2023-01-28 16:00] VITALS: BP 113/72; PULSE 81; RESP 20; TEMP 98.5; O2SAT 96
--- NOTE | 2023-01-28 18:13 | NUR ---
RE-CHECKED BLOOD SUGAR 93. NO ACUTE DISTRESS NOTED. PT. STARTING TO EAT DINNER AT THIS TIME.
--- NOTE | 2023-01-28 19:25 | NUR ---
REPORT GIVEN TO MARY CAMPOS. IN STABLE CONDITION. IVF INFUSING WELL.
--- NOTE | 2023-01-28 19:30 | NUR ---
RECEIVED REPORT FROM DAY SHIFT NURSE DENNIS FOR CONTINUITY OF CARE. PATIENT IS A&O X4. PATIENT IS ON ROOM AIR, BREATHING IS NORMAL WITH SYMMETRICAL RISE AND FALL OF CHEST. IV IS A 24G R HAND; RUNNING NS 80. PATIENT IS SITTING IN HIGH-FOWLERS POSITION IN BED. BED IS IN LOWEST POSITION, WHEELS LOCKED, CALL LIGHT IN PLACE. WILL CONTINUE TO OBSERVE PATIENT.
[2023-01-28 20:00] VITALS: BP 143/62; PULSE 79; RESP 18; TEMP 97.3; O2SAT 97
--- NOTE | 2023-01-28 21:30 | NUR ---
CHECKED PATIENT'S BS. BS WAS 54, D50 WAS HAD BEEN ADMINISTERED 3HRS EARLIER. GAVE PATIENT OJ TO INCREASE BS; BUT PATIENT REFUSED STATING SHE WOULD ONLY DRINK GRAPE JUICE. CHARGE NURSE DYLAN OBTAINED GRAPE JUICE FROM OTHER UNIT. GAVE GRAPE JUICE TO PATIENT. WILL RECHECK BS.
--- NOTE | 2023-01-28 22:30 | NUR ---
PATIENT'S BS WAS RECHECKED. PATIENT'S BS WAS 117, GRAPE JUICE WAS SUCCESSFUL IN INCREASING PATIENT'S BS. WILL CONTINUE TO OBSERVE PATIENT.
[2023-01-29] MEDS: NACL 0.9% 1,000 ML IV SCH (00:52)
--- NOTE | 2023-01-29 01:30 | NUR ---
LOOKED IN ON PATIENT. PATIENT WAS SLEEPING. BREATHING IS NORMAL WITH SYMMETRICAL RISE AND FALL OF CHEST. WILL CONTINUE TO OBSERVE PATIENT.
[2023-01-29 04:00] VITALS: BP 136/56; PULSE 76; RESP 18; TEMP 96; O2SAT 99
--- NOTE | 2023-01-29 05:30 | NUR ---
PATIENT IS SLEEPING. BREATHING IS NORMAL WITH SYMMETRICAL RISE AND FALL OF CHEST. IV IS RUNNING. WILL CONTINUE TO OBSERVE PATIENT.
[2023-01-29 06:46] LABS: BASOPHILS % (AUTO) 0.3 % (0.0-2.0); EOSINOPHILS # (AUTO) 0.2 K/uL (0-0.4); EOSINOPHILS % (AUTO) 1.9 % (0.0-4.0); HEMATOCRIT 35.3 % (36-48); HEMOGLOBIN 11.7 g/dL (12.0-16.0); LYMPHOCYTES # (AUTO) 3.2 K/uL (2.5-16.5); LYMPHOCYTES % (AUTO) 34.2 % (20.5-51.1); MEAN CORPUSCULAR HEMOGLOBIN 30 pg (27-31); MEAN CORPUSCULAR HGB CONC 33 g/dL (33-37); MEAN CORPUSCULAR VOLUME 91.3 fL (80-94); MONOCYTES # (AUTO) 0.5 K/uL (0.8-1.0); MONOCYTES % (AUTO) 5.2 % (1.7-9.3); NEUTROPHILS # (AUTO) 5.4 K/uL (1.8-7.7); NEUTROPHILS % (AUTO) 58.4 % (42.2-75.2); PLATELET COUNT (AUTO) 175 K/uL (140-450); RED BLOOD CELL COUNT(AUTO) 3.87 MIL/uL (4.20-5.40); RED CELL DISTRIBUTION WIDTH 13.8 % (11.6-13.7); WHITE BLOOD COUNT (AUTO) 9.2 K/uL (4.8-10.8)
[2023-01-29] MEDS: BLOOD GLUCOSE MONITORING 1 DEV DEV FS SCH ×3 (06:46→16:30)
[2023-01-29 07:05] LABS: ANION GAP 11.2 (8-16); CARBON DIOXIDE 24.2 mmol/L (21-32); POTASSIUM 3.4 mmol/L (3.5-5.1)
--- NOTE | 2023-01-29 07:26 | NUR ---
ENDORSED TO DAY SHIFT NURSE MARGARET FOR CONTINUITY OF CARE. PATIENT IS STABLE.
[2023-01-29 08:00] VITALS: PULSE 84
[2023-01-29] MEDS: DOCUSATE SODIUM 100 MG GELCAP PO SCH (09:00)
[2023-01-29 09:20] VITALS: BP 135/70; PULSE 89; RESP 18; TEMP 97; O2SAT 99
[2023-01-29 16:12] VITALS: BP 135/70; PULSE 89; RESP 18; TEMP 97
--- NOTE | 2023-01-31 13:45 | NUR ---
CALLED [facility] ()[phone] LOCATED AT [address] [facility] [id number] SPOKE WITH BASHIR WHO WAS ABLE TO HELP ME SCHEDULE THE SOONEST FOLLOW UP APPOINTMENT FOR 02/24/2023 AT 0945. WENT TO BEDSIDE TO GIVE PATIENT AN APPOINTMENT SLIP. USED ADOBE LAYER ENRIQUE DIAZ #[id number] TO EXPLAIN WHAT EACH PAPER WAS AND PATIENT IS AWARE OF EVERYTHING ABOVE. Addendum: 01/31/23 at 1359 by JENNA CALL CM DISREGARD THE ABOVE INFORMATION. Addendum: 01/31/23 at 1403 by JENNA CALL CALLED DR VENU ANDRE'S OFFICE LOCATED AT [address] [facility] [id number] AND SPOKE WITH GEM WHO WAS ABLE TO HELP ME SCHEDULE A HOSPITAL FOLLOW UP APPOINTMENT FOR 02/04/2023 AT 1015 AND FAXED OVER ALL PAPERWORK TO OFFICE. CALLED PATIENT [phone] 3 TIME BUT NO ANSWER AND VOICE MAIL WAS FULL. CALLED PTN BROTHER VALENTINO WHO WELL DIDN'T ANSWER BUT WAS ABLE TO EAVE MESSAGE REGARDING THE ABOVE INFORMATION. Addendum: 02/02/23 at 3076 by Yen Akins RN dc planning: PATIENT HAS AN ORDER TO RESUME HOSPICE WITH [facility]. [phone]. PATIENT STATED AGREED TO CONTINUE WITH [facility] CONTACT THE HOSPICE COMPANY FAXED ALL PAPERWORK.
== END 2023-01-29 19:30 | disposition home or self-care (01) | DRG 720 ==
LOC: MED 16:48 → MTU 20:28
PROVIDERS: ADMIT Student in an Organized Health Care Education/Training Program; ATTEND Student in an Organized Health Care Education/Training Program
DX: A41.9 Sepsis, unspecified organism (principal); N17.0 Acute kidney failure with tubular necrosis; G93.41 Metabolic encephalopathy; E44.0 Moderate protein-calorie malnutrition; N39.0 Urinary tract infection, site not specified; F15.10 Other stimulant abuse, uncomplicated; J44.9 Chronic obstructive pulmonary disease, unspecified; E87.6 Hypokalemia; Z20.822 Contact with and (suspected) exposure to COVID-19; K52.9 Noninfective gastroenteritis and colitis, unspecified; Z88.8 Allergy status to other drugs, medicaments and biological substances; Z79.899 Other long term (current) drug therapy; Z88.1 Allergy status to other antibiotic agents; Z91.010 Allergy to peanuts; Z86.73 Personal history of transient ischemic attack (TIA), and cerebral infarction without residual deficits; Z83.3 Family history of diabetes mellitus; Z82.49 Family history of ischemic heart disease and other diseases of the circulatory system; Z79.4 Long term (current) use of insulin; Z79.82 Long term (current) use of aspirin; Z91.148 Patient's other noncompliance with medication regimen for other reason; Z68.21 Body mass index [BMI] 21.0-21.9, adult
CPT/HCPCS: 36415; 36600; 70450; 71045; 80048; 80053; 80305; 81001; 82550; 82803; 82948; 83605; 83880; 84484; 85025; 85610; 85730; 87040; 87081; 87086; 93005; 96361; 96365; 97110; 97116; 97530; 99291; G0480; J0696; J1644; J1815; J7060; Q0092

== ENCOUNTER 2023-03-24 19:21 | Inpatient (IN) | payer OTHER ==
[~2023-03-24] VITALS: Ht 160 cm; Wt 56.7 kg
[2023-03-24 19:26] VITALS: BP 141/58; PULSE 88; RESP 12; TEMP 97.1; O2SAT 98
[2023-03-24 19:41] LABS: BASOPHILS # (AUTO) 0.1 K/uL (0.00-0.22); BASOPHILS % (AUTO) 0.9 % (0.0-2.0); EOSINOPHILS % (AUTO) 0.4 % (0.0-4.0); HEMATOCRIT 39.2 % (36-48); HEMOGLOBIN 12.8 g/dL (12.0-16.0); LYMPHOCYTES # (AUTO) 3.6 K/uL (2.5-16.5); LYMPHOCYTES % (AUTO) 41.1 % (20.5-51.1); MEAN CORPUSCULAR HEMOGLOBIN 30 pg (27-31); MEAN CORPUSCULAR HGB CONC 33 g/dL (33-37); MEAN CORPUSCULAR VOLUME 91.1 fL (80-94); MONOCYTES # (AUTO) 0.3 K/uL (0.8-1.0); MONOCYTES % (AUTO) 3.5 % (1.7-9.3); NEUTROPHILS # (AUTO) 4.7 K/uL (1.8-7.7); NEUTROPHILS % (AUTO) 54.1 % (42.2-75.2); PLATELET COUNT (AUTO) 258 K/uL (140-450); RED CELL DISTRIBUTION WIDTH 13.3 % (11.6-13.7); WHITE BLOOD COUNT (AUTO) 8.7 K/uL (4.8-10.8)
[2023-03-24 20:00] LABS: ANION GAP 21.9 (8-16); CALCIUM 8.9 mg/dL (8.5-10.1); CREATININE 1.8 mg/dL (0.6-1.3); POTASSIUM 4.9 mmol/L (3.5-5.1); TOTAL BILIRUBIN 0.5 mg/dL (0.0-1.0); TOTAL PROTEIN, SERUM 6.8 g/dL (6.4-8.2)
[2023-03-24] MEDS ORDERED: NACL 0.9% 2,000 ML IV ONE (21:10)
[2023-03-24] MEDS ORDERED: NACL 0.9% 1,000 ML IV ONE (22:40)
[2023-03-24] MEDS ORDERED: INSULIN REGULAR, HUMAN 100 UNIT/ML VIAL SUBQ ONE (22:40)
[2023-03-24] MEDS ORDERED: MAG SULF 2000 MG/WATER PREMIX 50 ML IV PRN (22:45)
[2023-03-24] MEDS ORDERED: MAGNESIUM OXIDE 400 MG TAB PO PRN (22:45)
[2023-03-24] MEDS ORDERED: ACETAMINOPHEN 325 MG TAB PO PRN (22:45)
[2023-03-24] MEDS ORDERED: HYDROcodone/APAP 5/325 MG 1 TAB TAB PO PRN (22:45)
[2023-03-24] MEDS ORDERED: KCL 20 MEQ IN 100 mL PREMIX 200 ML IV PRN (22:45)
[2023-03-24] MEDS ORDERED: POTASSIUM CHLORIDE 10 MEQ TABER PO PRN (22:45)
[2023-03-24] MEDS ORDERED: ONDANSETRON 4 MG/2 ML VIAL IVP PRN (22:45)
[2023-03-24] MEDS ORDERED: NACL 0.9% 1,000 ML IV SCH (22:45)
[2023-03-24] MEDS ORDERED: hydrALAZINE 20 MG/ML VIAL IM ONE (22:50)
[2023-03-24] MEDS ORDERED: DEXTROSE 50% 50 ML SYR IVP PRN (22:50)
[2023-03-24 23:13] LABS: APPEARANCE,URINE CLEAR (CLEAR); BILIRUBIN,URINE NEGATIVE (NEGATIVE); BLOOD, URINE 1+ (NEGATIVE); COLOR,URINE YELLOW (YELLOW); LEUKOCYTE ESTERASE ,URINE NEGATIVE (NEGATIVE); NITRITE, URINE NEGATIVE (NEGATIVE); PROTEIN,URINE NEGATIVE (NEGATIVE); UGLUCOSE 3+ (NEGATIVE); UROBILINOGEN,URINE 0.2 EU/dL (0.2 - 1)
[2023-03-24 23:17] LABS: BACTERIA,URINE 10-30 (MOD) /HPF (None Seen); MUCUS,URINE 1+ /LPF (None Seen); SQUAMOUS EPITHELIAL CELL,UR 0-3 (FEW) /LPF (0-3 (FEW))
[2023-03-25 00:45] VITALS: BP 150/80; PULSE 76; RESP 18; TEMP 98; O2SAT 97
[2023-03-25 04:00] VITALS: BP 160/80; RESP 18; TEMP 97.8; O2SAT 98
[2023-03-25] MEDS: INSULIN LISPRO SLIDING SCALE 100 UNITS/ML VIAL SUBQ PRN ×4 (06:49→20:48)
[2023-03-25] MEDS: BLOOD GLUCOSE MONITORING 1 DEV DEV FS SCH ×4 (06:51→20:40)
[2023-03-25 07:01] LABS: BASOPHILS % (AUTO) 0.2 % (0.0-2.0); EOSINOPHILS # (AUTO) 0.1 K/uL (0-0.4); EOSINOPHILS % (AUTO) 1.3 % (0.0-4.0); HEMATOCRIT 37.9 % (36-48); HEMOGLOBIN 12.9 g/dL (12.0-16.0); LYMPHOCYTES # (AUTO) 3.6 K/uL (2.5-16.5); LYMPHOCYTES % (AUTO) 44.4 % (20.5-51.1); MEAN CORPUSCULAR HEMOGLOBIN 30 pg (27-31); MEAN CORPUSCULAR HGB CONC 34 g/dL (33-37); MEAN CORPUSCULAR VOLUME 88.3 fL (80-94); MONOCYTES # (AUTO) 0.4 K/uL (0.8-1.0); MONOCYTES % (AUTO) 4.4 % (1.7-9.3); NEUTROPHILS % (AUTO) 49.7 % (42.2-75.2); PLATELET COUNT (AUTO) 255 K/uL (140-450); RED BLOOD CELL COUNT(AUTO) 4.29 MIL/uL (4.20-5.40); WHITE BLOOD COUNT (AUTO) 8.1 K/uL (4.8-10.8)
[2023-03-25 07:11] LABS: ANION GAP 15.4 (8-16); CALCIUM 8.1 mg/dL (8.5-10.1); CARBON DIOXIDE 23.5 mmol/L (21-32); CREATININE 1.1 mg/dL (0.6-1.3); POTASSIUM 3.9 mmol/L (3.5-5.1)
[2023-03-25 07:16] LABS: MAGNESIUM 1.9 mg/dL (1.8-2.4); PHOSPHORUS 2.5 mg/dL (2.5-4.9)
[2023-03-25 08:00] VITALS: BP 154/92; RESP 18; TEMP 97.6; O2SAT 100
[2023-03-25] MEDS: NACL 0.45% 1,000 ML IV SCH ×2 (08:35→17:45)
[2023-03-25] MEDS: DOCUSATE SODIUM 100 MG GELCAP PO SCH (08:37)
[2023-03-25] MEDS ORDERED: hydrALAZINE 25 MG TAB PO PRN (09:50)
[2023-03-25] MEDS: LOSARTAN 50 MG TAB PO SCH (14:00)
[2023-03-25] MEDS: INSULIN LANTUS 100 UNITS/ML 10 ML VIAL SUBQ SCH (14:03)
[2023-03-25 14:36] LABS: ANION GAP 11.4 (8-16); CALCIUM 7.4 mg/dL (8.5-10.1); CARBON DIOXIDE 25.7 mmol/L (21-32); CREATININE 1.1 mg/dL (0.6-1.3); POTASSIUM 4.1 mmol/L (3.5-5.1)
[2023-03-25 16:00] VITALS: BP 149/73; RESP 18; TEMP 97.7; O2SAT 98
[2023-03-25 20:00] VITALS: BP 121/63; PULSE 85; RESP 18; TEMP 97.6; O2SAT 99
[2023-03-26 04:00] VITALS: BP 120/58; PULSE 86; RESP 18; TEMP 97; O2SAT 98
[2023-03-26 06:16] LABS: BASOPHILS % (AUTO) 0.1 % (0.0-2.0); EOSINOPHILS # (AUTO) 0.2 K/uL (0-0.4); EOSINOPHILS % (AUTO) 1.6 % (0.0-4.0); HEMATOCRIT 38.2 % (36-48); HEMOGLOBIN 12.9 g/dL (12.0-16.0); LYMPHOCYTES # (AUTO) 2.5 K/uL (2.5-16.5); LYMPHOCYTES % (AUTO) 24.7 % (20.5-51.1); MEAN CORPUSCULAR HEMOGLOBIN 30 pg (27-31); MEAN CORPUSCULAR HGB CONC 34 g/dL (33-37); MEAN CORPUSCULAR VOLUME 89.7 fL (80-94); MONOCYTES # (AUTO) 0.3 K/uL (0.8-1.0); MONOCYTES % (AUTO) 2.9 % (1.7-9.3); NEUTROPHILS # (AUTO) 7.2 K/uL (1.8-7.7); NEUTROPHILS % (AUTO) 70.7 % (42.2-75.2); PLATELET COUNT (AUTO) 201 K/uL (140-450); RED BLOOD CELL COUNT(AUTO) 4.26 MIL/uL (4.20-5.40); RED CELL DISTRIBUTION WIDTH 13.3 % (11.6-13.7); WHITE BLOOD COUNT (AUTO) 10.1 K/uL (4.8-10.8)
[2023-03-26] MEDS: BLOOD GLUCOSE MONITORING 1 DEV DEV FS SCH ×4 (06:48→21:50)
[2023-03-26] MEDS: INSULIN LISPRO SLIDING SCALE 100 UNITS/ML VIAL SUBQ PRN ×4 (06:51→21:51)
[2023-03-26] MEDS ORDERED: INSULIN LISPRO 100 UNITS/ML VIAL SUBQ SCH (07:00)
[2023-03-26] MEDS: NACL 0.45% 1,000 ML IV SCH ×2 (07:00→08:42)
[2023-03-26 07:01] LABS: MAGNESIUM 1.7 mg/dL (1.8-2.4); PHOSPHORUS 1.9 mg/dL (2.5-4.9)
[2023-03-26 07:19] LABS: ANION GAP 12.6 (8-16); CALCIUM 7.6 mg/dL (8.5-10.1); CARBON DIOXIDE 23.6 mmol/L (21-32); CREATININE 0.9 mg/dL (0.6-1.3); POTASSIUM 4.2 mmol/L (3.5-5.1)
[2023-03-26 08:00] VITALS: BP 104/49; PULSE 82; RESP 20; TEMP 98.4; O2SAT 99
[2023-03-26] MEDS: INSULIN LANTUS 100 UNITS/ML 10 ML VIAL SUBQ SCH (08:51)
[2023-03-26] MEDS: DOCUSATE SODIUM 100 MG GELCAP PO SCH (08:55)
[2023-03-26] MEDS: LOSARTAN 50 MG TAB PO SCH (08:57)
[2023-03-26] MEDS ORDERED: INSULIN LANTUS 100 UNITS/ML 10 ML VIAL SUBQ SCH (14:15)
[2023-03-26] MEDS ORDERED: MORPHINE SULFATE 4 MG/ML SYR IVP PRN (15:30)
[2023-03-26 16:00] VITALS: BP 138/51; PULSE 90; RESP 20; TEMP 98.5; O2SAT 98
[2023-03-26 20:00] VITALS: BP 139/71; PULSE 87; RESP 18; TEMP 98.2; O2SAT 99
[2023-03-27 04:00] VITALS: BP 128/67; PULSE 86; RESP 18; TEMP 97.6; O2SAT 98
[2023-03-27] MEDS: INSULIN LISPRO SLIDING SCALE 100 UNITS/ML VIAL SUBQ PRN ×3 (06:31→17:09)
[2023-03-27] MEDS: BLOOD GLUCOSE MONITORING 1 DEV DEV FS SCH ×3 (06:33→17:06)
[2023-03-27 08:00] VITALS: BP 135/59; PULSE 73; PULSE 87; RESP 18; TEMP 96.8; O2SAT 100; O2SAT 99
[2023-03-27] MEDS: LOSARTAN 50 MG TAB PO SCH (08:24)
[2023-03-27] MEDS: DOCUSATE SODIUM 100 MG GELCAP PO SCH (08:24)
[2023-03-27] MEDS ORDERED: INSULIN LANTUS 100 UNITS/ML 10 ML VIAL SUBQ SCH ×2 (09:00→13:00)
[2023-03-27] MEDS ORDERED: LOSA-270 PO (12:02)
[2023-03-27] MEDS ORDERED: HUMSLIDE SUBQ (12:02)
[2023-03-27] MEDS ORDERED: LANTUS SUBQ (12:02)
[2023-03-27] MEDS ORDERED: SLIDE SUBQ (12:03)
[2023-03-27] MEDS ORDERED: CEPH-588 PO (12:06)
[2023-03-27 12:22] LABS: BASOPHILS % (AUTO) 0.2 % (0.0-2.0); EOSINOPHILS # (AUTO) 0.1 K/uL (0-0.4); EOSINOPHILS % (AUTO) 1.3 % (0.0-4.0); HEMATOCRIT 33.9 % (36-48); HEMOGLOBIN 11.4 g/dL (12.0-16.0); LYMPHOCYTES # (AUTO) 3.3 K/uL (2.5-16.5); LYMPHOCYTES % (AUTO) 33.8 % (20.5-51.1); MEAN CORPUSCULAR HEMOGLOBIN 30 pg (27-31); MEAN CORPUSCULAR HGB CONC 34 g/dL (33-37); MEAN CORPUSCULAR VOLUME 89.4 fL (80-94); MONOCYTES # (AUTO) 0.4 K/uL (0.8-1.0); MONOCYTES % (AUTO) 3.7 % (1.7-9.3); PLATELET COUNT (AUTO) 195 K/uL (140-450); RED BLOOD CELL COUNT(AUTO) 3.79 MIL/uL (4.20-5.40); RED CELL DISTRIBUTION WIDTH 13.3 % (11.6-13.7); WHITE BLOOD COUNT (AUTO) 9.9 K/uL (4.8-10.8)
[2023-03-27 12:30] LABS: ANION GAP 9.8 (8-16); CALCIUM 7.7 mg/dL (8.5-10.1); CARBON DIOXIDE 25.3 mmol/L (21-32); CREATININE 0.9 mg/dL (0.6-1.3); POTASSIUM 4.1 mmol/L (3.5-5.1)
[2023-03-27 12:34] LABS: MAGNESIUM 1.6 mg/dL (1.8-2.4); PHOSPHORUS 2.6 mg/dL (2.5-4.9)
[2023-03-27] MEDS ORDERED: FLUCONAZOLE 100 MG TAB PO SCH (13:00)
[2023-03-27 16:00] VITALS: BP 141/70; PULSE 81; RESP 18; TEMP 97.5; O2SAT 99
== END 2023-03-27 19:40 | disposition home or self-care (01) | DRG 199 ==
LOC: MED 19:21 → MTU 22:47 → OBSVTOIN 22:47 → MTU 03-25 00:30
PROVIDERS: ADMIT Internal Medicine; ATTEND Internal Medicine
DX: I16.1 Hypertensive emergency (principal); N17.9 Acute kidney failure, unspecified; E44.0 Moderate protein-calorie malnutrition; N39.0 Urinary tract infection, site not specified; E11.65 Type 2 diabetes mellitus with hyperglycemia; I10 Essential (primary) hypertension; E86.0 Dehydration; F15.10 Other stimulant abuse, uncomplicated; J44.9 Chronic obstructive pulmonary disease, unspecified; K29.70 Gastritis, unspecified, without bleeding; T50.2X5A Adverse effect of carbonic-anhydrase inhibitors, benzothiadiazides and other diuretics, initial encounter; T38.3X6A Underdosing of insulin and oral hypoglycemic [antidiabetic] drugs, initial encounter; Y92.89 Other specified places as the place of occurrence of the external cause; Z88.6 Allergy status to analgesic agent; Z68.22 Body mass index [BMI] 22.0-22.9, adult; Z88.4 Allergy status to anesthetic agent; Z91.010 Allergy to peanuts; Z86.73 Personal history of transient ischemic attack (TIA), and cerebral infarction without residual deficits; Z82.49 Family history of ischemic heart disease and other diseases of the circulatory system; Z83.3 Family history of diabetes mellitus; Z87.891 Personal history of nicotine dependence
CPT/HCPCS: 36415; 80048; 80053; 81001; 82948; 83036; 83690; 83735; 84100; 85025; 87081; 87086; 96360; 96361; 96372; 99285; J0360; J0696; J1644; J1815; J2405; J7030; J7060; Q9967

== ENCOUNTER 2023-06-06 13:35 | Inpatient (IN) | payer OTHER ==
[2023-06-06] VITALS (9 sets, daily range): BP systolic 146–170; BP diastolic 22–90; PULSE 68–86; RESP 11–22; TEMP 97.8–98.6; O2SAT 99–100
[~2023-06-06] VITALS: Ht 162.6 cm; Wt 51.3 kg
[~2023-06-06 13:35] MED LIST changes: -ACET-1182 PO; -ACET-5629 PO; -ASPI81CT95 PO; +CEPH-588 PO; -GABA300C PO; -INSU100S22 SUBQ; -LANC-947 TP; +LANTUS SUBQ; -LEVE250T1 PO; -LISI5TAB18 PO; -LORA10TA19 PO; +LOSA-270 PO; -METO25TA PO; -PEN-124 SUBQ; -SERT50TA PO; +SLIDE SUBQ; -[UNRECOGNIZED DRUG - CODE] SUBQ
[2023-06-06] MEDS ORDERED: MORPHINE SULFATE 4 MG/ML SYR IVP ONE (14:35)
[2023-06-06] MEDS ORDERED: NACL 0.9% 1,000 ML IV ONE (14:45)
[2023-06-06 14:47] LABS: BASOPHILS % (AUTO) 0.6 % (0.0-2.0); EOSINOPHILS % (AUTO) 0.4 % (0.0-4.0); HEMATOCRIT 43.4 % (36-48); HEMOGLOBIN 14.5 g/dL (12.0-16.0); LYMPHOCYTES # (AUTO) 1.9 K/uL (2.5-16.5); LYMPHOCYTES % (AUTO) 28.5 % (20.5-51.1); MEAN CORPUSCULAR HEMOGLOBIN 31 pg (27-31); MEAN CORPUSCULAR HGB CONC 33 g/dL (33-37); MEAN CORPUSCULAR VOLUME 93.5 fL (80-94); MONOCYTES # (AUTO) 0.2 K/uL (0.8-1.0); MONOCYTES % (AUTO) 3.2 % (1.7-9.3); NEUTROPHILS # (AUTO) 4.5 K/uL (1.8-7.7); NEUTROPHILS % (AUTO) 67.3 % (42.2-75.2); PLATELET COUNT (AUTO) 279 K/uL (140-450); RED BLOOD CELL COUNT(AUTO) 4.64 MIL/uL (4.20-5.40); RED CELL DISTRIBUTION WIDTH 12.6 % (11.6-13.7); WHITE BLOOD COUNT (AUTO) 6.7 K/uL (4.8-10.8)
[2023-06-06 15:09] LABS: ALBUMIN 3.3 g/dL (3.4-5.0); ANION GAP 17.1 (8-16); CALCIUM 9.6 mg/dL (8.5-10.1); CARBON DIOXIDE 24.5 mmol/L (21-32); CREATININE 1.5 mg/dL (0.6-1.3); POTASSIUM 5.6 mmol/L (3.5-5.1); TOTAL BILIRUBIN 0.4 mg/dL (0.0-1.0); TOTAL PROTEIN, SERUM 7.5 g/dL (6.4-8.2)
[2023-06-06] MEDS ORDERED: INSULIN REGULAR, HUMAN 100 UNIT in NACL 0.9% 100 ML IV ONE ×2 (16:55)
[2023-06-06] MEDS ORDERED: ACETAMINOPHEN 325 MG TAB PO PRN (18:25)
[2023-06-06] MEDS ORDERED: NACL 0.9% 1,000 ML IV SCH ×3 (18:25→19:50)
[2023-06-06] MEDS ORDERED: INSULIN REGULAR, HUMAN 100 UNIT in NACL 0.9% 100 ML IV SCH ×6 (18:25→19:50)
[2023-06-06] MEDS ORDERED: ONDANSETRON 4 MG/2 ML VIAL IVP PRN (18:25)
[2023-06-06] MEDS ORDERED: HYDROcodone/APAP 5/325 MG 1 TAB TAB PO PRN (18:25)
[2023-06-06] MEDS ORDERED: DEXTROSE 50% 50 ML SYR IVP PRN ×3 (18:25→19:50)
[2023-06-06] MEDS ORDERED: DEXT 5% / NACL 0.45% 1,000 ML IV SCH ×2 (19:10→19:50)
[2023-06-06] MEDS ORDERED: BLOOD GLUCOSE MONITORING 1 DEV DEV FS SCH ×2 (19:10→19:50)
[2023-06-06] MEDS: BLOOD GLUCOSE MONITORING 1 DEV DEV FS SCH ×4 (19:25→22:25)
[2023-06-06 19:51] LABS: FREE T4 (FREE THYROXINE) 1.2 ng/dL (0.76-1.46); THYROID STIMULATING HORMONE 0.41 uIU/mL (0.34-3.74)
[2023-06-06] MEDS: NACL 0.45% IV SCH (20:00)
[2023-06-06] MEDS: POTASSIUM CHLORIDE IV SCH (20:00)
[2023-06-06] MEDS: NACL 0.9% 1,000 ML IV SCH (20:00)
[2023-06-06] MEDS: DEXT 5% IV SCH (20:00)
[2023-06-06 22:02] LABS: ANION GAP 9.7 (8-16); CALCIUM 8.6 mg/dL (8.5-10.1); CREATININE 1.4 mg/dL (0.6-1.3); POTASSIUM 3.7 mmol/L (3.5-5.1)
[2023-06-06 22:07] LABS: MAGNESIUM 2.1 mg/dL (1.8-2.4); PHOSPHORUS 2.3 mg/dL (2.5-4.9)
[2023-06-06] MEDS ORDERED: traMADol 50 MG TAB PO SCH (22:55)
[2023-06-06] MEDS ORDERED: CLONIDINE HYDROCHLORIDE 0.1 MG TAB PO PRN (22:55)
[2023-06-06] MEDS ORDERED: DOCUSATE SODIUM 100 MG GELCAP PO PRN (22:55)
[2023-06-06] MEDS ORDERED: hydrALAZINE 20 MG/ML VIAL IVP PRN (23:20)
[2023-06-06] MEDS ORDERED: oxyCODONE/APAP 5/325 MG 1 TAB TAB PO PRN (23:25)
[2023-06-07] VITALS (17 sets, daily range): BP systolic 98–137; BP diastolic 53–76; PULSE 70–82; RESP 11–21; TEMP 98.4–98.8; O2SAT 94–98
[2023-06-07] MEDS: BLOOD GLUCOSE MONITORING 1 DEV DEV FS SCH ×15 (00:10→20:41)
[2023-06-07] MEDS: POTASSIUM CHLORIDE IV SCH ×2 (01:06→06:40)
[2023-06-07] MEDS: NACL 0.45% IV SCH ×2 (01:06→06:40)
[2023-06-07] MEDS: DEXT 5% IV SCH ×2 (01:06→06:40)
[2023-06-07] MEDS: NACL 0.9% 1,000 ML IV SCH ×2 (01:13→06:00)
[2023-06-07 01:18] LABS: ANION GAP 8.5 (8-16); CALCIUM 8.3 mg/dL (8.5-10.1); CARBON DIOXIDE 30.6 mmol/L (21-32); CREATININE 1.4 mg/dL (0.6-1.3); POTASSIUM 4.1 mmol/L (3.5-5.1)
[2023-06-07 01:41] LABS: MAGNESIUM 1.9 mg/dL (1.8-2.4); PHOSPHORUS 2.4 mg/dL (2.5-4.9)
[2023-06-07 04:32] LABS: BASOPHILS % (AUTO) 0.2 % (0.0-2.0); EOSINOPHILS # (AUTO) 0.1 K/uL (0-0.4); EOSINOPHILS % (AUTO) 1.1 % (0.0-4.0); HEMATOCRIT 34.5 % (36-48); HEMOGLOBIN 11.8 g/dL (12.0-16.0); LYMPHOCYTES # (AUTO) 3.8 K/uL (2.5-16.5); LYMPHOCYTES % (AUTO) 45.9 % (20.5-51.1); MEAN CORPUSCULAR HEMOGLOBIN 31 pg (27-31); MEAN CORPUSCULAR HGB CONC 34 g/dL (33-37); MEAN CORPUSCULAR VOLUME 90.4 fL (80-94); MONOCYTES # (AUTO) 0.5 K/uL (0.8-1.0); MONOCYTES % (AUTO) 6.4 % (1.7-9.3); NEUTROPHILS # (AUTO) 3.9 K/uL (1.8-7.7); NEUTROPHILS % (AUTO) 46.4 % (42.2-75.2); PLATELET COUNT (AUTO) 250 K/uL (140-450); RED BLOOD CELL COUNT(AUTO) 3.82 MIL/uL (4.20-5.40); RED CELL DISTRIBUTION WIDTH 12.5 % (11.6-13.7); WHITE BLOOD COUNT (AUTO) 8.4 K/uL (4.8-10.8)
[2023-06-07] MEDS ORDERED: GABAPENTIN 100 MG CAP ONE (04:52)
[2023-06-07 04:53] LABS: ANION GAP 9.8 (8-16); CALCIUM 7.7 mg/dL (8.5-10.1); CARBON DIOXIDE 27.1 mmol/L (21-32); CREATININE 1.2 mg/dL (0.6-1.3); POTASSIUM 3.9 mmol/L (3.5-5.1)
[2023-06-07 04:56] LABS: MAGNESIUM 1.7 mg/dL (1.8-2.4); PHOSPHORUS 2.3 mg/dL (2.5-4.9)
[2023-06-07] MEDS ORDERED: GABAPENTIN 100 MG CAP PO SCH (05:00)
[2023-06-07] MEDS ORDERED: POTASSIUM CHL 40 MEQ/ D5-1/2NS 1,000 ML IV ONE (06:35)
[2023-06-07] MEDS: GABAPENTIN 300 MG CAP PO SCH ×3 (06:44→20:43)
[2023-06-07] MEDS: FAMOTIDINE 20 MG TAB PO SCH (09:06)
[2023-06-07] MEDS: busPIRone 5 MG TAB PO SCH ×2 (09:07→20:42)
[2023-06-07] MEDS: SERTRALINE 50 MG TAB PO SCH (09:07)
[2023-06-07] MEDS: LORATADINE 10 MG TAB PO SCH (09:07)
[2023-06-07] MEDS: levETIRAcetam 500 MG TAB PO SCH ×2 (09:08→20:42)
[2023-06-07] MEDS: amLODIPine 5 MG TAB PO SCH (09:08)
[2023-06-07] MEDS: CLOPIDOGREL 75 MG TAB PO SCH (09:08)
[2023-06-07 09:37] LABS: ANION GAP 8.7 (8-16); CALCIUM 8.1 mg/dL (8.5-10.1); CARBON DIOXIDE 27.5 mmol/L (21-32); CREATININE 1.1 mg/dL (0.6-1.3); POTASSIUM 4.2 mmol/L (3.5-5.1)
[2023-06-07 09:42] LABS: MAGNESIUM 1.9 mg/dL (1.8-2.4); PHOSPHORUS 2.3 mg/dL (2.5-4.9)
[2023-06-07] MEDS ORDERED: DEXTROSE 50% 50 ML SYR IVP PRN (10:50)
[2023-06-07] MEDS ORDERED: INSULIN LANTUS 100 UNITS/ML 10 ML VIAL SUBQ SCH (11:15)
[2023-06-07] MEDS: INSULIN LISPRO SLIDING SCALE 100 UNITS/ML VIAL SUBQ PRN ×3 (11:37→20:45)
[2023-06-07] MEDS ORDERED: hydrALAZINE 25 MG TAB PO PRN (11:40)
[2023-06-07] MEDS: traZODone 50 MG TAB PO SCH (20:42)
[2023-06-08] VITALS: BP 124/64; PULSE 81; PULSE 83; RESP 15; TEMP 97.6; O2SAT 96
[2023-06-08 02:51] LABS: APPEARANCE,URINE CLEAR (CLEAR); BILIRUBIN,URINE NEGATIVE (NEGATIVE); BLOOD, URINE 1+ (NEGATIVE); COLOR,URINE YELLOW (YELLOW); LEUKOCYTE ESTERASE ,URINE 3+ (NEGATIVE); NITRITE, URINE POSITIVE (NEGATIVE); PROTEIN,URINE NEGATIVE (NEGATIVE); UGLUCOSE 2+ (NEGATIVE); UROBILINOGEN,URINE 0.2 EU/dL (0.2 - 1)
[2023-06-08 02:56] LABS: BACTERIA,URINE >30 (MANY) /HPF (None Seen); MUCUS,URINE 2+ /LPF (None Seen); SQUAMOUS EPITHELIAL CELL,UR 0-3 (FEW) /LPF (0-3 (FEW)); YEAST,URINE Many /HPF (None Seen)
[2023-06-08 04:00] VITALS: BP 120/68; PULSE 81; PULSE 86; RESP 17; TEMP 98.1; O2SAT 96
[2023-06-08] MEDS: GABAPENTIN 300 MG CAP PO SCH ×3 (05:43→20:59)
[2023-06-08] MEDS: INSULIN LISPRO SLIDING SCALE 100 UNITS/ML VIAL SUBQ PRN ×4 (06:56→20:57)
[2023-06-08] MEDS: BLOOD GLUCOSE MONITORING 1 DEV DEV FS SCH ×4 (06:58→20:54)
[2023-06-08 08:00] VITALS: BP 114/46; PULSE 94; PULSE 95; RESP 17; TEMP 97.5; O2SAT 97
[2023-06-08 09:06] LABS: T4 (THYROXINE) 5.8 ug/dL (4.5-12.0)
[2023-06-08] MEDS: levETIRAcetam 500 MG TAB PO SCH ×2 (09:30→20:59)
[2023-06-08] MEDS: LORATADINE 10 MG TAB PO SCH (09:30)
[2023-06-08] MEDS: FAMOTIDINE 20 MG TAB PO SCH (09:30)
[2023-06-08] MEDS: amLODIPine 5 MG TAB PO SCH (09:31)
[2023-06-08] MEDS: SERTRALINE 50 MG TAB PO SCH (09:32)
[2023-06-08] MEDS: CLOPIDOGREL 75 MG TAB PO SCH (09:32)
[2023-06-08] MEDS: busPIRone 5 MG TAB PO SCH ×2 (09:32→21:00)
[2023-06-08] MEDS: INSULIN LANTUS 100 UNITS/ML 10 ML VIAL SUBQ SCH (09:36)
[2023-06-08] MEDS ORDERED: CEPH-588 PO (10:45)
[2023-06-08 12:00] VITALS: BP 116/67; PULSE 91; PULSE 92; RESP 17; TEMP 98; O2SAT 99
[2023-06-08] MEDS ORDERED: INSULIN LISPRO 100 UNITS/ML VIAL SUBQ SCH (12:25)
[2023-06-08 20:00] VITALS: BP 122/71; PULSE 91; RESP 17; TEMP 98.2; O2SAT 97
[2023-06-08] MEDS: traZODone 50 MG TAB PO SCH (20:59)
[2023-06-09 04:00] VITALS: BP 133/70; PULSE 77; RESP 18; TEMP 98.3; O2SAT 98
[2023-06-09] MEDS: GABAPENTIN 300 MG CAP PO SCH (04:13)
[2023-06-09] MEDS: BLOOD GLUCOSE MONITORING 1 DEV DEV FS SCH ×2 (06:30→10:53)
[2023-06-09] MEDS: INSULIN LISPRO SLIDING SCALE 100 UNITS/ML VIAL SUBQ PRN ×2 (06:32→10:55)
[2023-06-09 08:00] VITALS: PULSE 80; RESP 18; O2SAT 96
[2023-06-09] MEDS: busPIRone 5 MG TAB PO SCH (08:16)
[2023-06-09] MEDS: amLODIPine 5 MG TAB PO SCH (08:16)
[2023-06-09] MEDS: CLOPIDOGREL 75 MG TAB PO SCH (08:16)
[2023-06-09] MEDS: LORATADINE 10 MG TAB PO SCH (08:16)
[2023-06-09] MEDS: FAMOTIDINE 20 MG TAB PO SCH (08:17)
[2023-06-09] MEDS: SERTRALINE 50 MG TAB PO SCH (08:17)
[2023-06-09] MEDS: levETIRAcetam 500 MG TAB PO SCH (08:17)
[2023-06-09] MEDS: INSULIN LANTUS 100 UNITS/ML 10 ML VIAL SUBQ SCH (08:33)
[2023-06-09] MEDS ORDERED: INSULIN LANTUS 100 UNITS/ML 10 ML VIAL SUBQ SCH (10:23)
[2023-06-09 11:40] VITALS: BP 133/70; PULSE 80; RESP 18; TEMP 98.3
[2023-06-10] MEDS ORDERED: INSULIN LANTUS 100 UNITS/ML 10 ML VIAL SUBQ SCH (09:00)
== END 2023-06-09 15:25 | DRG 42 ==
LOC: MED 13:35 → MMU 18:21 → MIC 18:58 → MTU 06-07 21:15
PROVIDERS: ADMIT Internal Medicine; ATTEND Internal Medicine
DX: G31.89 Other specified degenerative diseases of nervous system (principal); N17.9 Acute kidney failure, unspecified; E44.0 Moderate protein-calorie malnutrition; E11.65 Type 2 diabetes mellitus with hyperglycemia; M54.50 Low back pain, unspecified; E86.0 Dehydration; Z88.8 Allergy status to other drugs, medicaments and biological substances; Z88.5 Allergy status to narcotic agent; Z91.010 Allergy to peanuts; Z79.899 Other long term (current) drug therapy; Z86.73 Personal history of transient ischemic attack (TIA), and cerebral infarction without residual deficits; Z83.3 Family history of diabetes mellitus; Z82.49 Family history of ischemic heart disease and other diseases of the circulatory system; Z91.148 Patient's other noncompliance with medication regimen for other reason; Z68.1 Body mass index [BMI] 19.9 or less, adult
CPT/HCPCS: 36415; 71045; 72100; 72220; 80048; 80053; 81001; 82803; 82948; 83036; 83735; 83880; 84100; 84436; 84439; 84443; 84479; 84484; 85025; 87081; 87086; 93005; 96361; 96374; 97110; 97112; 97530; 99291; J0696; J1644; J1815; J2270; J2405; J3480; J7060

== ENCOUNTER 2023-07-09 20:37 | Inpatient (IN) | payer OTHER ==
[~2023-07-09] VITALS: Ht 165.1 cm; Wt 55.3 kg
[2023-07-09 21:02] VITALS: BP 162/72; PULSE 87; RESP 15; TEMP 97.9; O2SAT 95
[2023-07-09 21:25] LABS: BASOPHILS # (AUTO) 0.1 K/uL (0.00-0.22); BASOPHILS % (AUTO) 0.6 % (0.0-2.0); EOSINOPHILS % (AUTO) 0.5 % (0.0-4.0); HEMATOCRIT 43.4 % (36-48); HEMOGLOBIN 14.2 g/dL (12.0-16.0); LYMPHOCYTES # (AUTO) 2.7 K/uL (2.5-16.5); LYMPHOCYTES % (AUTO) 26.8 % (20.5-51.1); MEAN CORPUSCULAR HEMOGLOBIN 31 pg (27-31); MEAN CORPUSCULAR HGB CONC 33 g/dL (33-37); MEAN CORPUSCULAR VOLUME 93.3 fL (80-94); MONOCYTES # (AUTO) 0.3 K/uL (0.8-1.0); MONOCYTES % (AUTO) 2.7 % (1.7-9.3); NEUTROPHILS # (AUTO) 6.9 K/uL (1.8-7.7); NEUTROPHILS % (AUTO) 69.4 % (42.2-75.2); PLATELET COUNT (AUTO) 259 K/uL (140-450); RED BLOOD CELL COUNT(AUTO) 4.65 MIL/uL (4.20-5.40); RED CELL DISTRIBUTION WIDTH 13.1 % (11.6-13.7)
[2023-07-09 21:33] LABS: FLU A ANTIGEN negative (NEGATIVE); FLU B ANTIGEN NEGATIVE (NEGATIVE)
[2023-07-09 21:44] LABS: LACTIC ACID 1.4 mmol/L (0.4-2.0)
[2023-07-09 21:47] LABS: ALBUMIN 3.4 g/dL (3.4-5.0); ANION GAP 22.1 (8-16); CALCIUM 9.3 mg/dL (8.5-10.1); CARBON DIOXIDE 24.4 mmol/L (21-32); CREATININE 1.5 mg/dL (0.6-1.3); POTASSIUM 5.5 mmol/L (3.5-5.1); TOTAL BILIRUBIN 0.4 mg/dL (0.0-1.0); TOTAL PROTEIN, SERUM 7.4 g/dL (6.4-8.2)
[2023-07-09] MEDS: cefTRIAXone 1,000 MG in DEXT 5% MINI-BAG PLUS 50 ML IV ONE (21:47)
[2023-07-09] MEDS: NACL 0.9% 2,000 ML IV SCH (21:47)
[2023-07-09] MEDS ORDERED: cefTRIAXone 1,000 MG VIAL ONE (21:53)
[2023-07-09 22:17] LABS: APPEARANCE,URINE CLEAR (CLEAR); BILIRUBIN,URINE NEGATIVE (NEGATIVE); BLOOD, URINE 2+ (NEGATIVE); COLOR,URINE YELLOW (YELLOW); LEUKOCYTE ESTERASE ,URINE NEGATIVE (NEGATIVE); NITRITE, URINE POSITIVE (NEGATIVE); PROTEIN,URINE 1+ (NEGATIVE); UGLUCOSE 3+ (NEGATIVE); UROBILINOGEN,URINE 0.2 EU/dL (0.2 - 1)
[2023-07-09 22:20] LABS: BACTERIA,URINE 1+ /HPF (None Seen); MUCUS,URINE None Seen /LPF (None Seen); SQUAMOUS EPITHELIAL CELL,UR 0-3 (FEW) /LPF (0-3 (FEW)); WBC,URINE 0-5 /HPF (0-5)
[2023-07-09 22:26] LABS: AMPHETAMINE, URINE POSITIVE ng/ml (NEG <=1000); BARBITURATE, URINE NEGATIVE ng/ml (NEG <=200); BENZODIAZEPINE, URINE NEGATIVE ng/mL (NEG <=200)
[2023-07-09 22:27] LABS: CANNABINOID, URINE NEGATIVE ng/mL (NEG <=50); COCAINE, URINE NEGATIVE ng/mL (NEG <=300); OPIATE, URINE NEGATIVE ng/mL (NEG <=2000); PHENCYCLIDINE SCREEN,URINE NEGATIVE ng/mL (NEG <=25)
[2023-07-09] MEDS: MORPHINE SULFATE 4 MG/ML SYR IVP ONE (22:35)
[2023-07-09] MEDS: ONDANSETRON 4 MG/2 ML VIAL IVP ONE (22:37)
[2023-07-09] MEDS ORDERED: ACETAMINOPHEN 325 MG TAB PO PRN (22:45)
[2023-07-09] MEDS ORDERED: DEXTROSE 50% 50 ML SYR IVP PRN (22:45)
[2023-07-09] MEDS ORDERED: HYDROcodone/APAP 5/325 MG 1 TAB TAB PO PRN (22:45)
[2023-07-09] MEDS ORDERED: LORazepam 1 MG TAB PO PRN (22:45)
[2023-07-09] MEDS: BLOOD GLUCOSE MONITORING 1 DEV DEV FS SCH (23:45)
[2023-07-10] MEDS: LOSARTAN 50 MG TAB PO SCH ×2 (00:26→09:20)
[2023-07-10 01:41] LABS: MAGNESIUM 2.2 mg/dL (1.8-2.4)
[2023-07-10] MEDS: NACL 0.9% 1,000 ML IV SCH ×2 (01:57→09:15)
[2023-07-10] MEDS: INSULIN REGULAR, HUMAN 100 UNIT in NACL 0.9% 100 ML IV ONE (02:02)
[2023-07-10 02:03] LABS: ANION GAP 20.1 (8-16); CALCIUM 8.3 mg/dL (8.5-10.1); CARBON DIOXIDE 25.1 mmol/L (21-32); CREATININE 1.5 mg/dL (0.6-1.3); POTASSIUM 5.2 mmol/L (3.5-5.1)
[2023-07-10] MEDS: HYDROmorphone 1 MG/ML AMP IVP PRN (04:26)
[2023-07-10 04:36] LABS: ANION GAP 14.2 (8-16); CREATININE 1.4 mg/dL (0.6-1.3); POTASSIUM 4.2 mmol/L (3.5-5.1)
[2023-07-10 04:40] LABS: MAGNESIUM 2.2 mg/dL (1.8-2.4); PHOSPHORUS 3.7 mg/dL (2.5-4.9)
[2023-07-10 08:00] VITALS: PULSE 67
[2023-07-10 08:45] VITALS: BP 117/71; PULSE 69; PULSE 70; RESP 20; RESP 32; TEMP 96.3; O2SAT 100
[2023-07-10] MEDS ORDERED: DEXTROSE 50% 50 ML SYR IVP PRN (09:15)
[2023-07-10 09:20] LABS: MAGNESIUM 2.3 mg/dL (1.8-2.4); PHOSPHORUS 3.4 mg/dL (2.5-4.9)
[2023-07-10] MEDS: DOCUSATE SODIUM 100 MG GELCAP PO SCH (09:20)
[2023-07-10] MEDS: DEXT 5% / NACL 0.45% 1,000 ML IV SCH (09:29)
[2023-07-10 10:00] VITALS: BP 125/69; PULSE 66; RESP 41; O2SAT 100
[2023-07-10 10:30] LABS: ANION GAP 12.7 (8-16); CALCIUM 8.1 mg/dL (8.5-10.1); CARBON DIOXIDE 26.2 mmol/L (21-32); CREATININE 1.5 mg/dL (0.6-1.3); POTASSIUM 3.9 mmol/L (3.5-5.1)
[2023-07-10] MEDS: BLOOD GLUCOSE MONITORING 1 DEV DEV FS SCH (10:40)
[2023-07-10] MEDS: INSULIN REGULAR, HUMAN 100 UNIT in NACL 0.9% 100 ML IV SCH (11:06)
[2023-07-10] MEDS: INSULIN LANTUS 100 UNITS/ML 10 ML VIAL SUBQ SCH ×2 (11:10→21:09)
[2023-07-10 12:00] VITALS: BP 135/68; PULSE 68; PULSE 77; RESP 33; TEMP 97.8; O2SAT 100
[2023-07-10 13:12] LABS: ANION GAP 13.7 (8-16); CALCIUM 7.9 mg/dL (8.5-10.1); CREATININE 1.4 mg/dL (0.6-1.3); POTASSIUM 3.7 mmol/L (3.5-5.1)
[2023-07-10 16:00] VITALS: BP 175/80; PULSE 64; RESP 37; TEMP 97.2; O2SAT 99
[2023-07-10] MEDS ORDERED: CLONIDINE HYDROCHLORIDE 0.1 MG TAB PO PRN (16:10)
[2023-07-10] MEDS: INSULIN LISPRO SLIDING SCALE 100 UNITS/ML VIAL SUBQ PRN (16:41)
[2023-07-10 20:00] VITALS: BP 138/61; PULSE 64; PULSE 79; RESP 18; TEMP 97.5; O2SAT 98
[2023-07-10 21:53] LABS: BASOPHILS # (AUTO) 0.1 K/uL (0.00-0.22); BASOPHILS % (AUTO) 1.2 % (0.0-2.0); EOSINOPHILS % (AUTO) 0.2 % (0.0-4.0); HEMATOCRIT 40.6 % (36-48); HEMOGLOBIN 13.1 g/dL (12.0-16.0); LYMPHOCYTES # (AUTO) 3.2 K/uL (2.5-16.5); LYMPHOCYTES % (AUTO) 29.1 % (20.5-51.1); MEAN CORPUSCULAR HEMOGLOBIN 31 pg (27-31); MEAN CORPUSCULAR HGB CONC 32 g/dL (33-37); MEAN CORPUSCULAR VOLUME 94.9 fL (80-94); MONOCYTES # (AUTO) 0.3 K/uL (0.8-1.0); MONOCYTES % (AUTO) 2.4 % (1.7-9.3); NEUTROPHILS # (AUTO) 7.4 K/uL (1.8-7.7); NEUTROPHILS % (AUTO) 67.1 % (42.2-75.2); PLATELET COUNT (AUTO) 246 K/uL (140-450); RED BLOOD CELL COUNT(AUTO) 4.28 MIL/uL (4.20-5.40); RED CELL DISTRIBUTION WIDTH 13.7 % (11.6-13.7)
[2023-07-11] VITALS: BP 117/48; PULSE 70; PULSE 74; RESP 18; TEMP 98.1; O2SAT 96
[2023-07-11 04:00] VITALS: BP 120/62; PULSE 69; PULSE 81; RESP 18; TEMP 98.2; O2SAT 100
[2023-07-11 08:00] VITALS: BP 119/68; PULSE 71; PULSE 84; RESP 18; TEMP 97.1; O2SAT 99
[2023-07-11] MEDS: AZITHROMYCIN 250 MG TAB PO SCH (09:15)
[2023-07-11 10:39] LABS: BASOPHILS % (AUTO) 0.3 % (0.0-2.0); EOSINOPHILS # (AUTO) 0.1 K/uL (0-0.4); EOSINOPHILS % (AUTO) 1.1 % (0.0-4.0); HEMATOCRIT 34.6 % (36-48); HEMOGLOBIN 11.6 g/dL (12.0-16.0); LYMPHOCYTES # (AUTO) 1.9 K/uL (2.5-16.5); LYMPHOCYTES % (AUTO) 19.5 % (20.5-51.1); MEAN CORPUSCULAR HEMOGLOBIN 31 pg (27-31); MEAN CORPUSCULAR HGB CONC 33 g/dL (33-37); MEAN CORPUSCULAR VOLUME 92.4 fL (80-94); MONOCYTES # (AUTO) 0.3 K/uL (0.8-1.0); MONOCYTES % (AUTO) 2.8 % (1.7-9.3); NEUTROPHILS # (AUTO) 7.3 K/uL (1.8-7.7); NEUTROPHILS % (AUTO) 76.3 % (42.2-75.2); PLATELET COUNT (AUTO) 188 K/uL (140-450); RED BLOOD CELL COUNT(AUTO) 3.75 MIL/uL (4.20-5.40); RED CELL DISTRIBUTION WIDTH 13.2 % (11.6-13.7); WHITE BLOOD COUNT (AUTO) 9.6 K/uL (4.8-10.8)
[2023-07-11 10:56] LABS: ANION GAP 8.8 (8-16); CALCIUM 7.3 mg/dL (8.5-10.1); POTASSIUM 4.8 mmol/L (3.5-5.1)
[2023-07-11 12:00] VITALS: BP 115/64; PULSE 67; PULSE 69; RESP 18; TEMP 99.4; O2SAT 99
[2023-07-11 16:00] VITALS: BP 123/55; PULSE 73; PULSE 74; RESP 19; TEMP 97.8; O2SAT 99
[2023-07-11 20:00] VITALS: BP 132/54; PULSE 66; RESP 18; TEMP 98.1; O2SAT 99
[2023-07-11] MEDS: INSULIN LANTUS 100 UNITS/ML 10 ML VIAL SUBQ SCH (22:47)
[2023-07-11] MEDS: ONDANSETRON 4 MG/2 ML VIAL IVP PRN (23:06)
[2023-07-12] VITALS: BP 129/48; PULSE 87; RESP 19; TEMP 98; O2SAT 98
[2023-07-12 04:00] VITALS: BP 127/61; PULSE 73; PULSE 83; RESP 18; TEMP 98; O2SAT 98
[2023-07-12] MEDS ORDERED: LANTUS SUBQ (12:14)
[2023-07-12 19:08] VITALS: BP 127/61; PULSE 83; RESP 18; TEMP 98
== END 2023-07-12 20:10 | disposition home or self-care (01) | DRG 720 ==
LOC: MED 20:37 → MIC 22:48 → MTU 07-10 18:36
PROVIDERS: ADMIT Internal Medicine; ATTEND Internal Medicine
DX: A41.9 Sepsis, unspecified organism (principal); E11.00 Type 2 diabetes mellitus with hyperosmolarity without nonketotic hyperglycemic-hyperosmolar coma (NKHHC); N17.9 Acute kidney failure, unspecified; E87.1 Hypo-osmolality and hyponatremia; J44.1 Chronic obstructive pulmonary disease with (acute) exacerbation; N39.0 Urinary tract infection, site not specified; E11.65 Type 2 diabetes mellitus with hyperglycemia; F15.19 Other stimulant abuse with unspecified stimulant-induced disorder; F10.90 Alcohol use, unspecified, uncomplicated; E87.6 Hypokalemia; I10 Essential (primary) hypertension; Z91.148 Patient's other noncompliance with medication regimen for other reason; Z79.899 Other long term (current) drug therapy; Z88.8 Allergy status to other drugs, medicaments and biological substances; Z86.73 Personal history of transient ischemic attack (TIA), and cerebral infarction without residual deficits; Z88.5 Allergy status to narcotic agent
CPT/HCPCS: 36415; 70450; 71045; 80048; 80053; 80305; 81001; 82948; 83605; 83735; 83880; 83930; 84100; 84484; 85025; 87040; 87081; 87086; 93005; 96361; 96365; 96375; 97163-GP; 97530; 99291; J0696; J1170; J1644; J1815; J2270; J2405; J7042; Q0092

== ENCOUNTER 2023-07-18 18:27 | Inpatient (IN) | payer OTHER ==
[~2023-07-18] VITALS: Ht 157.5 cm; Wt 59.0 kg
[~2023-07-18 18:27] MED LIST changes: -CEPH-588 PO; -SLIDE SUBQ
[2023-07-18] MEDS ORDERED: NACL 0.9% 1,000 ML IV ONE ×2 (19:05→21:10)
[2023-07-18 19:11] VITALS: BP 174/77; PULSE 92; RESP 20; TEMP 96; TEMP 98; O2SAT 96
[2023-07-18 20:04] LABS: BASOPHILS % (AUTO) 0.4 % (0.0-2.0); EOSINOPHILS % (AUTO) 0.1 % (0.0-4.0); HEMATOCRIT 38.4 % (36-48); HEMOGLOBIN 12.6 g/dL (12.0-16.0); LYMPHOCYTES # (AUTO) 1.4 K/uL (2.5-16.5); LYMPHOCYTES % (AUTO) 16.7 % (20.5-51.1); MEAN CORPUSCULAR HEMOGLOBIN 31 pg (27-31); MEAN CORPUSCULAR HGB CONC 33 g/dL (33-37); MEAN CORPUSCULAR VOLUME 94.1 fL (80-94); MONOCYTES # (AUTO) 0.7 K/uL (0.8-1.0); MONOCYTES % (AUTO) 8.4 % (1.7-9.3); NEUTROPHILS # (AUTO) 6.3 K/uL (1.8-7.7); NEUTROPHILS % (AUTO) 74.4 % (42.2-75.2); PLATELET COUNT (AUTO) 226 K/uL (140-450); RED BLOOD CELL COUNT(AUTO) 4.09 MIL/uL (4.20-5.40); RED CELL DISTRIBUTION WIDTH 12.8 % (11.6-13.7); WHITE BLOOD COUNT (AUTO) 8.5 K/uL (4.8-10.8)
[2023-07-18 20:17] LABS: BLOOD GAS BASE EXCESS -1.2 mmol/L (-2.0-2.0); BLOOD GAS HCO3 24.8 mmol/L (22-26); BLOOD GAS O2 SAT% 95.1 % (92.0-98.5); BLOOD GAS PCO2 46.6 mmHg (35-45); BLOOD GAS PH 7.344 (7.35-7.45); BLOOD GAS PO2 80.4 mmHg (75-100)
[2023-07-18 20:22] LABS: CALCIUM 9.3 mg/dL (8.5-10.1); CARBON DIOXIDE 28.4 mmol/L (21-32); CREATININE 1.2 mg/dL (0.6-1.3); POTASSIUM 5.4 mmol/L (3.5-5.1)
[2023-07-18 20:23] LABS: INR 0.93 (0.8-1.2); PARTIAL THROMBOPLASTIN TIME 23.2 secs (22-35.6); PROTHROMBIN TIME 9.8 secs (10.8-13.4)
[2023-07-18] MEDS ORDERED: NACL 0.9% 3,000 ML IV ONE (20:30)
[2023-07-18] MEDS ORDERED: INSULIN REGULAR, HUMAN 100 UNIT in NACL 0.9% 100 ML IV SCH ×2 (21:10)
[2023-07-18 21:31] LABS: AMPHETAMINE, URINE POSITIVE ng/ml (NEG <=1000); BARBITURATE, URINE NEGATIVE ng/ml (NEG <=200)
[2023-07-18 21:32] LABS: BENZODIAZEPINE, URINE NEGATIVE ng/mL (NEG <=200); CANNABINOID, URINE NEGATIVE ng/mL (NEG <=50); COCAINE, URINE NEGATIVE ng/mL (NEG <=300); OPIATE, URINE NEGATIVE ng/mL (NEG <=2000); PHENCYCLIDINE SCREEN,URINE NEGATIVE ng/mL (NEG <=25)
[2023-07-18 21:35] LABS: APPEARANCE,URINE CLEAR (CLEAR); BILIRUBIN,URINE NEGATIVE (NEGATIVE); BLOOD, URINE 1+ (NEGATIVE); COLOR,URINE YELLOW (YELLOW); LEUKOCYTE ESTERASE ,URINE NEGATIVE (NEGATIVE); NITRITE, URINE NEGATIVE (NEGATIVE); PROTEIN,URINE TRACE (NEGATIVE); UGLUCOSE 3+ (NEGATIVE); UROBILINOGEN,URINE 0.2 EU/dL (0.2 - 1)
[2023-07-18 21:35] LABS: SALICYLATE 3.4 mg/dL (2.8-20.0)
[2023-07-18 21:40] LABS: RBC,URINE 0-5 /HPF (0-5); WBC,URINE 0 /HPF (0-5)
[2023-07-18 21:41] LABS: BACTERIA,URINE 0-2 /HPF (None Seen); MUCUS,URINE None Seen /LPF (None Seen); SQUAMOUS EPITHELIAL CELL,UR 0-3 (FEW) /LPF (0-3 (FEW))
[2023-07-19] VITALS (7 sets, daily range): BP systolic 120–156; BP diastolic 49–75; PULSE 78–91; RESP 18–19; TEMP 96.4–98.2; O2SAT 96–100
[2023-07-19] MEDS ORDERED: KCL 20 MEQ IN 100 mL PREMIX 200 ML IV PRN (00:15)
[2023-07-19] MEDS ORDERED: MAG SULF 2000 MG/WATER PREMIX 50 ML IV PRN (00:15)
[2023-07-19] MEDS ORDERED: ONDANSETRON 4 MG/2 ML VIAL IVP PRN (00:15)
[2023-07-19] MEDS ORDERED: POTASSIUM CHLORIDE 10 MEQ TABER PO PRN (00:15)
[2023-07-19] MEDS ORDERED: DEXTROSE 50% 50 ML SYR IVP PRN (00:15)
[2023-07-19] MEDS ORDERED: INSULIN LANTUS 100 UNITS/ML 10 ML VIAL SUBQ ONE (00:20)
[2023-07-19] MEDS: NACL 0.9% 1,000 ML IV SCH ×2 (02:00→14:40)
[2023-07-19] MEDS ORDERED: hydrALAZINE 20 MG/ML VIAL IVP PRN (05:45)
[2023-07-19] MEDS: NIFEdipine 60 MG TABER PO SCH ×2 (06:02→09:21)
[2023-07-19] MEDS: BLOOD GLUCOSE MONITORING 1 DEV DEV FS SCH ×4 (07:50→21:27)
[2023-07-19] MEDS: INSULIN LISPRO SLIDING SCALE 100 UNITS/ML VIAL SUBQ PRN ×4 (08:01→21:18)
[2023-07-20] VITALS (7 sets, daily range): BP systolic 131–149; BP diastolic 53–76; PULSE 73–95; RESP 16–18; TEMP 97.7–99.5; O2SAT 96–99
[2023-07-20] MEDS: NACL 0.9% 1,000 ML IV SCH ×4 (01:15→17:20)
[2023-07-20] MEDS: BLOOD GLUCOSE MONITORING 1 DEV DEV FS SCH ×4 (06:02→20:37)
[2023-07-20] MEDS: INSULIN LISPRO SLIDING SCALE 100 UNITS/ML VIAL SUBQ PRN ×4 (06:05→20:40)
[2023-07-20] MEDS: NIFEdipine 60 MG TABER PO SCH (09:59)
[2023-07-20 10:55] LABS: BASOPHILS % (AUTO) 0.2 % (0.0-2.0); EOSINOPHILS % (AUTO) 0.3 % (0.0-4.0); HEMATOCRIT 34.9 % (36-48); HEMOGLOBIN 11.7 g/dL (12.0-16.0); LYMPHOCYTES # (AUTO) 1.7 K/uL (2.5-16.5); LYMPHOCYTES % (AUTO) 25.1 % (20.5-51.1); MEAN CORPUSCULAR HEMOGLOBIN 31 pg (27-31); MEAN CORPUSCULAR HGB CONC 34 g/dL (33-37); MEAN CORPUSCULAR VOLUME 92.4 fL (80-94); MONOCYTES # (AUTO) 0.4 K/uL (0.8-1.0); MONOCYTES % (AUTO) 6.1 % (1.7-9.3); NEUTROPHILS # (AUTO) 4.6 K/uL (1.8-7.7); NEUTROPHILS % (AUTO) 68.3 % (42.2-75.2); PLATELET COUNT (AUTO) 213 K/uL (140-450); RED BLOOD CELL COUNT(AUTO) 3.78 MIL/uL (4.20-5.40); RED CELL DISTRIBUTION WIDTH 13.1 % (11.6-13.7); WHITE BLOOD COUNT (AUTO) 6.7 K/uL (4.8-10.8)
[2023-07-20 12:43] LABS: ALBUMIN 2.1 g/dL (3.4-5.0); ANION GAP 11.4 (8-16); CALCIUM 7.9 mg/dL (8.5-10.1); CARBON DIOXIDE 25.8 mmol/L (21-32); CREATININE 0.8 mg/dL (0.6-1.3); MAGNESIUM 1.7 mg/dL (1.8-2.4); POTASSIUM 4.2 mmol/L (3.5-5.1); TOTAL BILIRUBIN 0.2 mg/dL (0.0-1.0); TOTAL PROTEIN, SERUM 5.6 g/dL (6.4-8.2)
[2023-07-20] MEDS: MAGNESIUM OXIDE 400 MG TAB PO PRN (17:18)
[2023-07-20] MEDS: traMADol 50 MG TAB PO PRN (19:02)
[2023-07-20] MEDS: INSULIN LANTUS 100 UNITS/ML 10 ML VIAL SUBQ SCH (20:41)
[2023-07-21] VITALS: BP 127/64; PULSE 88; PULSE 92; RESP 17; TEMP 98.5; O2SAT 96
[2023-07-21 04:00] VITALS: BP 148/74; PULSE 86; PULSE 89; RESP 17; TEMP 98.8; O2SAT 96
[2023-07-21] MEDS: NACL 0.9% 1,000 ML IV SCH ×2 (06:04→15:49)
[2023-07-21] MEDS: INSULIN LISPRO SLIDING SCALE 100 UNITS/ML VIAL SUBQ PRN ×4 (06:42→21:17)
[2023-07-21] MEDS: BLOOD GLUCOSE MONITORING 1 DEV DEV FS SCH ×4 (06:43→21:04)
[2023-07-21 08:00] VITALS: BP 162/75; PULSE 77; PULSE 87; PULSE 92; RESP 17; RESP 18; TEMP 98.8; O2SAT 96; O2SAT 98
[2023-07-21] MEDS: NIFEdipine 60 MG TABER PO SCH (08:51)
[2023-07-21] MEDS: traMADol 50 MG TAB PO PRN ×2 (08:52→22:15)
[2023-07-21 09:22] LABS: BASOPHILS % (AUTO) 0.3 % (0.0-2.0); EOSINOPHILS % (AUTO) 0.5 % (0.0-4.0); HEMATOCRIT 32.1 % (36-48); HEMOGLOBIN 10.9 g/dL (12.0-16.0); LYMPHOCYTES # (AUTO) 2.3 K/uL (2.5-16.5); LYMPHOCYTES % (AUTO) 25.2 % (20.5-51.1); MEAN CORPUSCULAR HEMOGLOBIN 31 pg (27-31); MEAN CORPUSCULAR HGB CONC 34 g/dL (33-37); MEAN CORPUSCULAR VOLUME 92.2 fL (80-94); MONOCYTES # (AUTO) 0.4 K/uL (0.8-1.0); MONOCYTES % (AUTO) 4.3 % (1.7-9.3); NEUTROPHILS # (AUTO) 6.2 K/uL (1.8-7.7); NEUTROPHILS % (AUTO) 69.7 % (42.2-75.2); PLATELET COUNT (AUTO) 202 K/uL (140-450); RED BLOOD CELL COUNT(AUTO) 3.48 MIL/uL (4.20-5.40); RED CELL DISTRIBUTION WIDTH 13.1 % (11.6-13.7); WHITE BLOOD COUNT (AUTO) 8.9 K/uL (4.8-10.8)
[2023-07-21 10:00] LABS: ALBUMIN 1.7 g/dL (3.4-5.0); ANION GAP 9.8 (8-16); CALCIUM 7.6 mg/dL (8.5-10.1); CARBON DIOXIDE 26.5 mmol/L (21-32); CREATININE 0.8 mg/dL (0.6-1.3); MAGNESIUM 1.5 mg/dL (1.8-2.4); POTASSIUM 4.3 mmol/L (3.5-5.1); TOTAL BILIRUBIN 0.2 mg/dL (0.0-1.0); TOTAL PROTEIN, SERUM 5.3 g/dL (6.4-8.2)
[2023-07-21 12:00] VITALS: BP 168/75; PULSE 79; PULSE 80; RESP 18; TEMP 98.5; O2SAT 98
[2023-07-21] MEDS: Z-GUARD PASTE TP SCH ×2 (15:48→21:21)
[2023-07-21 16:00] VITALS: BP 120/58; PULSE 86; RESP 18; TEMP 97.5; O2SAT 98
[2023-07-21] MEDS ORDERED: lisinopriL 20 MG TAB PO SCH (17:10)
[2023-07-21 20:00] VITALS: BP 117/56; PULSE 85; RESP 17; TEMP 98.2; O2SAT 98
[2023-07-21] MEDS: DOCUSATE SODIUM 100 MG GELCAP PO SCH (21:08)
[2023-07-21] MEDS: INSULIN LANTUS 100 UNITS/ML 10 ML VIAL SUBQ SCH (21:20)
[2023-07-22] MEDS: MAGNESIUM OXIDE 400 MG TAB PO PRN (00:12)
[2023-07-22] MEDS: NACL 0.9% 1,000 ML IV SCH ×2 (03:38→15:45)
[2023-07-22 04:00] VITALS: BP 149/71; PULSE 81; RESP 19; TEMP 98.3; O2SAT 96
[2023-07-22] MEDS: BLOOD GLUCOSE MONITORING 1 DEV DEV FS SCH ×3 (06:43→16:19)
[2023-07-22 07:10] LABS: BASOPHILS % (AUTO) 0.2 % (0.0-2.0); EOSINOPHILS # (AUTO) 0.1 K/uL (0-0.4); EOSINOPHILS % (AUTO) 1.2 % (0.0-4.0); HEMATOCRIT 29.5 % (36-48); HEMOGLOBIN 9.9 g/dL (12.0-16.0); LYMPHOCYTES # (AUTO) 2.7 K/uL (2.5-16.5); LYMPHOCYTES % (AUTO) 40.2 % (20.5-51.1); MEAN CORPUSCULAR HEMOGLOBIN 31 pg (27-31); MEAN CORPUSCULAR HGB CONC 34 g/dL (33-37); MEAN CORPUSCULAR VOLUME 91.1 fL (80-94); MONOCYTES # (AUTO) 0.3 K/uL (0.8-1.0); MONOCYTES % (AUTO) 4.3 % (1.7-9.3); NEUTROPHILS # (AUTO) 3.6 K/uL (1.8-7.7); NEUTROPHILS % (AUTO) 54.1 % (42.2-75.2); PLATELET COUNT (AUTO) 186 K/uL (140-450); RED BLOOD CELL COUNT(AUTO) 3.24 MIL/uL (4.20-5.40); RED CELL DISTRIBUTION WIDTH 13.2 % (11.6-13.7); WHITE BLOOD COUNT (AUTO) 6.7 K/uL (4.8-10.8)
[2023-07-22 07:15] LABS: ALBUMIN 1.6 g/dL (3.4-5.0); ANION GAP 9.4 (8-16); CARBON DIOXIDE 28.6 mmol/L (21-32); CREATININE 0.7 mg/dL (0.6-1.3); MAGNESIUM 1.6 mg/dL (1.8-2.4); TOTAL BILIRUBIN 0.1 mg/dL (0.0-1.0); TOTAL PROTEIN, SERUM 5.2 g/dL (6.4-8.2)
[2023-07-22] MEDS: NIFEdipine 60 MG TABER PO SCH (08:28)
[2023-07-22] MEDS: DOCUSATE SODIUM 100 MG GELCAP PO SCH (08:28)
[2023-07-22] MEDS: traMADol 50 MG TAB PO PRN (08:30)
[2023-07-22] MEDS: Z-GUARD PASTE TP SCH (08:31)
[2023-07-22] MEDS ORDERED: lisinopriL 5 MG TAB PO SCH (09:00)
[2023-07-22] MEDS ORDERED: lisinopriL 20 MG TAB PO SCH (09:00)
[2023-07-22 09:06] VITALS: PULSE 73; RESP 18; O2SAT 100
[2023-07-22 09:07] VITALS: BP 151/70; PULSE 73; RESP 18; TEMP 98.3; O2SAT 100
[2023-07-22 16:04] VITALS: BP 145/69; PULSE 73; RESP 18; TEMP 96.7; O2SAT 94
[2023-07-22 16:10] VITALS: BP 145/69; PULSE 75; RESP 18; TEMP 96.7
== END 2023-07-22 17:45 | disposition home or self-care (01) | DRG 426 ==
LOC: MED 18:27 → MTU 07-19 00:11
PROVIDERS: ADMIT Hospitalist; ATTEND Hospitalist
DX: E87.1 Hypo-osmolality and hyponatremia (principal); E11.00 Type 2 diabetes mellitus with hyperosmolarity without nonketotic hyperglycemic-hyperosmolar coma (NKHHC); E87.5 Hyperkalemia; R65.10 Systemic inflammatory response syndrome (SIRS) of non-infectious origin without acute organ dysfunction; E44.0 Moderate protein-calorie malnutrition; N28.9 Disorder of kidney and ureter, unspecified; F10.10 Alcohol abuse, uncomplicated; F15.19 Other stimulant abuse with unspecified stimulant-induced disorder; F17.210 Nicotine dependence, cigarettes, uncomplicated; Y90.9 Presence of alcohol in blood, level not specified; Z88.8 Allergy status to other drugs, medicaments and biological substances; Z88.6 Allergy status to analgesic agent; Z88.5 Allergy status to narcotic agent; Z91.010 Allergy to peanuts; Z83.3 Family history of diabetes mellitus; Z82.49 Family history of ischemic heart disease and other diseases of the circulatory system; Z91.148 Patient's other noncompliance with medication regimen for other reason; Z68.23 Body mass index [BMI] 23.0-23.9, adult
CPT/HCPCS: 36415; 36600; 70450; 71045; 80048; 80053; 80305; 81001; 82009; 82803; 82948; 83036; 83735; 84484; 85025; 85610; 85730; 86886; 86900; 86901; 87081; 93005; 96360; 96361; 99291; 99292; G0480; J0360; J1644; J1815; Q0092

== ENCOUNTER 2023-08-19 19:33 | Emergency (ER) | payer OTHER ==
[~2023-08-19] VITALS: Ht 162.6 cm; Wt 49.9 kg
[2023-08-19 19:50] VITALS: BP 126/79; PULSE 91; RESP 18; TEMP 97.9; O2SAT 99
[2023-08-19] MEDS ORDERED: traMADol 50 MG TAB PO ONE (21:10)
[2023-08-19] MEDS ORDERED: MORPHINE SULFATE 4 MG/ML SYR IM ONE (21:50)
[2023-08-19] MEDS ORDERED: TRAM50TA3 PO (22:02)
== END 2023-08-19 22:43 | disposition home or self-care (01) ==
LOC: MED 19:33
DX: S83.91XA Sprain of unspecified site of right knee, initial encounter (principal); J44.9 Chronic obstructive pulmonary disease, unspecified; E11.9 Type 2 diabetes mellitus without complications; I10 Essential (primary) hypertension; Z86.73 Personal history of transient ischemic attack (TIA), and cerebral infarction without residual deficits; Z79.899 Other long term (current) drug therapy; Z79.4 Long term (current) use of insulin; Z88.8 Allergy status to other drugs, medicaments and biological substances; Z88.5 Allergy status to narcotic agent; Z88.6 Allergy status to analgesic agent; Z88.4 Allergy status to anesthetic agent; Z91.010 Allergy to peanuts; W01.0XXA Fall on same level from slipping, tripping and stumbling without subsequent striking against object, initial encounter; Y92.89 Other specified places as the place of occurrence of the external cause; Y93.89 Activity, other specified; Y99.8 Other external cause status
CPT/HCPCS: 29505; 73562; 96372; 99283; J2270

== ENCOUNTER 2023-08-26 09:53 | Inpatient (IN) | payer OTHER ==
[~2023-08-26] VITALS: Ht 162.6 cm; Wt 51.3 kg
[~2023-08-26 09:53] MED LIST changes: +TRAM50TA3 PO
[2023-08-26 09:56] VITALS: BP 113/59; PULSE 96; RESP 18; TEMP 97.9; O2SAT 96
[2023-08-26] MEDS ORDERED: cefTRIAXone 1,000 MG VIAL ONE (10:30)
[2023-08-26] MEDS: NACL 0.9% 2,000 ML IV SCH (10:44)
[2023-08-26] MEDS: cefTRIAXone 1,000 MG in DEXT 5% MINI-BAG PLUS 50 ML IV ONE (10:53)
[2023-08-26 11:10] LABS: HEMATOCRIT 39.6 % (36-48); MEAN CORPUSCULAR HEMOGLOBIN 30 pg (27-31); MEAN CORPUSCULAR HGB CONC 33 g/dL (33-37); MEAN CORPUSCULAR VOLUME 92.3 fL (80-94); PLATELET COUNT (AUTO) 475 K/uL (140-450); RED BLOOD CELL COUNT(AUTO) 4.29 MIL/uL (4.20-5.40); RED CELL DISTRIBUTION WIDTH 13.7 % (11.6-13.7); WHITE BLOOD COUNT (AUTO) 23.1 K/uL (4.8-10.8)
[2023-08-26 11:25] LABS: LACTIC ACID 3.9 mmol/L (0.4-2.0)
[2023-08-26 11:27] LABS: CREATININE 1.7 mg/dL (0.6-1.3)
[2023-08-26 11:32] LABS: ANION GAP 20.7 (8-16); CARBON DIOXIDE 25.2 mmol/L (21-32); POTASSIUM 3.9 mmol/L (3.5-5.1)
[2023-08-26] MEDS: ONDANSETRON 4 MG/2 ML VIAL IVP ONE (11:53)
[2023-08-26] MEDS: INSULIN REGULAR, HUMAN 100 UNIT/ML VIAL IVP ONE (12:17)
[2023-08-26] MEDS: INSULIN REGULAR, HUMAN 100 UNIT in NACL 0.9% 100 ML IV ONE (12:32)
[2023-08-26 12:43] LABS: LYMPHOCYTES % (MANUAL) 4 % (20-46)
[2023-08-26 12:44] LABS: BASOPHILS % (MANUAL) 0 % (0-2); BLASTS, MANUAL % 0 % (0-0); EOSINOPHILS % (MANUAL) 0 % (0-4); METAMYELOCYTES % 0 % (0-0); MONOCYTES % (MANUAL) 2 % (5-12); MYELOCYTES % 0 % (0-0); OTHER CELLS,MANUAL % 0 (0-0); PLASMA CELLS 0; PLATELET ESTIMATE INCREASED; PROMYELOCYTES % 0 % (0-0); SMUDGE CELLS 0
[2023-08-26 13:18] LABS: BLOOD GAS PH 7.418 (7.35-7.45)
[2023-08-26 13:19] LABS: BLOOD GAS PCO2 45.8 mmHg (35-45)
[2023-08-26 13:20] LABS: BLOOD GAS BASE EXCESS 3.7 mmol/L (-2.0-2.0); BLOOD GAS HCO3 28.9 mmol/L (22-26); BLOOD GAS O2 SAT% 86.7 % (92.0-98.5); BLOOD GAS PO2 50.4 mmHg (75-100)
[2023-08-26 13:30] LABS: APPEARANCE,URINE CLEAR (CLEAR); BILIRUBIN,URINE NEGATIVE (NEGATIVE); BLOOD, URINE 1+ (NEGATIVE); COLOR,URINE YELLOW (YELLOW); LEUKOCYTE ESTERASE ,URINE NEGATIVE (NEGATIVE); NITRITE, URINE POSITIVE (NEGATIVE); PROTEIN,URINE TRACE (NEGATIVE); UGLUCOSE 3+ (NEGATIVE); UROBILINOGEN,URINE 0.2 EU/dL (0.2 - 1)
[2023-08-26 13:41] LABS: BACTERIA,URINE >30 (MANY) /HPF (None Seen); WBC,URINE 0-5 /HPF (0-5)
[2023-08-26 13:42] LABS: SQUAMOUS EPITHELIAL CELL,UR 0-3 (FEW) /LPF (0-3 (FEW))
[2023-08-26] MEDS ORDERED: MORPHINE SULFATE 2 MG/ML SYR IVP PRN (14:30)
[2023-08-26] MEDS ORDERED: ONDANSETRON 4 MG/2 ML VIAL IVP PRN (14:30)
[2023-08-26] MEDS ORDERED: DEXTROSE 50% 50 ML SYR IVP PRN (14:35)
[2023-08-26] MEDS: BLOOD GLUCOSE MONITORING 1 DEV DEV FS SCH (14:38)
[2023-08-26] MEDS: NACL 0.9% 1,000 ML IV SCH (16:00)
[2023-08-26] MEDS: INSULIN LANTUS 100 UNITS/ML 10 ML VIAL SUBQ SCH (22:09)
[2023-08-27 04:05] VITALS: BP 131/68; PULSE 94; PULSE 98; RESP 18; RESP 19; TEMP 97.3; O2SAT 100; O2SAT 97
[2023-08-27 07:26] LABS: ALBUMIN 1.7 g/dL (3.4-5.0); ANION GAP 14.6 (8-16); CALCIUM 9.1 mg/dL (8.5-10.1); CARBON DIOXIDE 25.3 mmol/L (21-32); CREATININE 1.8 mg/dL (0.6-1.3); MAGNESIUM 2.2 mg/dL (1.8-2.4); POTASSIUM 4.9 mmol/L (3.5-5.1); TOTAL BILIRUBIN 0.2 mg/dL (0.0-1.0); TOTAL PROTEIN, SERUM 6.9 g/dL (6.4-8.2)
[2023-08-27 08:00] VITALS: BP 148/83; PULSE 86; PULSE 91; PULSE 92; RESP 13; RESP 20; TEMP 97; O2SAT 100; O2SAT 92
[2023-08-27 08:31] LABS: HEMATOCRIT 35.6 % (36-48); HEMOGLOBIN 11.9 g/dL (12.0-16.0); MEAN CORPUSCULAR HEMOGLOBIN 31 pg (27-31); MEAN CORPUSCULAR HGB CONC 33 g/dL (33-37); MEAN CORPUSCULAR VOLUME 92.1 fL (80-94); PLATELET COUNT (AUTO) 316 K/uL (140-450); RED BLOOD CELL COUNT(AUTO) 3.87 MIL/uL (4.20-5.40); RED CELL DISTRIBUTION WIDTH 13.6 % (11.6-13.7)
[2023-08-27] MEDS: INSULIN LISPRO SLIDING SCALE 100 UNITS/ML VIAL SUBQ PRN (08:35)
[2023-08-27 08:46] LABS: WHITE BLOOD COUNT (AUTO) 29.5 K/uL (4.8-10.8)
[2023-08-27 09:07] LABS: BASOPHILS % (MANUAL) 0 % (0-2); BLASTS, MANUAL % 0 % (0-0); EOSINOPHILS % (MANUAL) 0 % (0-4); LYMPHOCYTES % (MANUAL) 6 % (20-46); METAMYELOCYTES % 0 % (0-0); MONOCYTES % (MANUAL) 7 % (5-12); MYELOCYTES % 0 % (0-0); OTHER CELLS,MANUAL % 0 (0-0); PLASMA CELLS 0; PROMYELOCYTES % 0 % (0-0)
[2023-08-27 09:08] LABS: PLATELET ESTIMATE ADEQUATE
[2023-08-27] MEDS: LOSARTAN 50 MG TAB PO SCH (09:13)
[2023-08-27] MEDS: INSULIN LANTUS 100 UNITS/ML 10 ML VIAL SUBQ SCH (09:25)
[2023-08-27 12:00] VITALS: BP 146/74; PULSE 82; PULSE 86; RESP 15; TEMP 97.5; O2SAT 97
[2023-08-27 16:00] VITALS: BP 143/73; PULSE 82; PULSE 91; RESP 22; TEMP 97.3; O2SAT 99
[2023-08-27 20:00] VITALS: BP 160/60; PULSE 83; RESP 27; TEMP 97.3; O2SAT 99
[2023-08-28] VITALS (7 sets, daily range): BP systolic 96–178; BP diastolic 54–89; PULSE 78–89; RESP 18–20; TEMP 96.2–98.9; O2SAT 96–100
[2023-08-28 16:22] LABS: BASOPHILS % (AUTO) 0.2 % (0.0-2.0); EOSINOPHILS % (AUTO) 0.2 % (0.0-4.0); HEMATOCRIT 31.4 % (36-48); HEMOGLOBIN 10.3 g/dL (12.0-16.0); LYMPHOCYTES # (AUTO) 1.6 K/uL (2.5-16.5); LYMPHOCYTES % (AUTO) 7.6 % (20.5-51.1); MEAN CORPUSCULAR HEMOGLOBIN 30 pg (27-31); MEAN CORPUSCULAR HGB CONC 33 g/dL (33-37); MEAN CORPUSCULAR VOLUME 92.1 fL (80-94); MONOCYTES # (AUTO) 0.5 K/uL (0.8-1.0); MONOCYTES % (AUTO) 2.1 % (1.7-9.3); NEUTROPHILS # (AUTO) 19.3 K/uL (1.8-7.7); NEUTROPHILS % (AUTO) 89.9 % (42.2-75.2); PLATELET COUNT (AUTO) 251 K/uL (140-450); RED BLOOD CELL COUNT(AUTO) 3.41 MIL/uL (4.20-5.40); RED CELL DISTRIBUTION WIDTH 13.7 % (11.6-13.7); WHITE BLOOD COUNT (AUTO) 21.5 K/uL (4.8-10.8)
[2023-08-28 16:23] LABS: ALBUMIN 1.3 g/dL (3.4-5.0); ANION GAP 6.7 (8-16); CALCIUM 7.9 mg/dL (8.5-10.1); CARBON DIOXIDE 27.1 mmol/L (21-32); POTASSIUM 3.8 mmol/L (3.5-5.1); TOTAL BILIRUBIN 0.1 mg/dL (0.0-1.0); TOTAL PROTEIN, SERUM 5.8 g/dL (6.4-8.2)
[2023-08-29] VITALS (7 sets, daily range): BP systolic 137–169; BP diastolic 51–86; PULSE 78–95; RESP 18–20; TEMP 97.5–98.3; O2SAT 95–99
[2023-08-29] MEDS: hydrALAZINE 25 MG TAB PO PRN (16:46)
[2023-08-29] MEDS: CHLORHEXADINE GLUC 2% CLOTH TP SCH (17:00)
[2023-08-29] MEDS: MUPIROCIN CA NASAL 2% 1GM TUBE NS SCH (18:59)
[2023-08-30] VITALS (8 sets, daily range): BP systolic 143–158; BP diastolic 54–68; PULSE 87–98; RESP 18–20; TEMP 98.1–99.9; O2SAT 92–98
[2023-08-30] MEDS ORDERED: hydrALAZINE 20 MG/ML VIAL IVP PRN (09:50)
[2023-08-30] MEDS ORDERED: HYDRAGUARD CREAM TP PRN (22:05)
[2023-08-30] MEDS: IPRATROPIUM 0.02% 0.5 MG/2.5 ML NEBU INH PRN (22:09)
[2023-08-30] MEDS: ALBUTEROL 0.083% 2.5 MG/3 ML NEBU INH PRN (22:09)
[2023-08-31] VITALS (11 sets, daily range): BP systolic 138–156; BP diastolic 55–72; PULSE 91–105; RESP 18–28; TEMP 97.1–98.5; O2SAT 91–97
[2023-08-31] MEDS: ALBUTEROL SULFATE/IPRATROPIU 3 ML SOL IH SCH (08:00)
[2023-08-31] MEDS ORDERED: ALBUTEROL SULFATE/IPRATROPIU 3 ML SOL IH PRN (08:00)
[2023-08-31] MEDS ORDERED: IPRATROPIUM 0.02% 0.5 MG/2.5 ML NEBU INH SCH (09:00)
[2023-08-31] MEDS ORDERED: ALBUTEROL 0.083% 2.5 MG/3 ML NEBU INH SCH (09:00)
== END 2023-08-31 18:30 | disposition home or self-care (01) | DRG 720 ==
LOC: MED 09:53 → MTU 14:30 → MIC 08-27 01:00 → MTU 08-28 06:45
PROVIDERS: ADMIT Hospitalist; ATTEND Hospitalist
DX: A41.9 Sepsis, unspecified organism (principal); N17.9 Acute kidney failure, unspecified; J18.9 Pneumonia, unspecified organism; E11.65 Type 2 diabetes mellitus with hyperglycemia; F19.10 Other psychoactive substance abuse, uncomplicated; J44.9 Chronic obstructive pulmonary disease, unspecified; I10 Essential (primary) hypertension; Z86.73 Personal history of transient ischemic attack (TIA), and cerebral infarction without residual deficits; Z88.6 Allergy status to analgesic agent; Z88.8 Allergy status to other drugs, medicaments and biological substances; J44.0 Chronic obstructive pulmonary disease with (acute) lower respiratory infection
CPT/HCPCS: 36415; 36600; 71045; 80048; 80053; 81001; 82803; 82948; 83605; 83735; 83880; 84484; 85025; 87040; 87081; 87086; 93005; 94640; 96365; 96375; 97112; 97116; 97163-GP; 97530; 99291; J0696; J1815; J2405; J7060; J7613; J7644

== ENCOUNTER 2023-10-26 18:03 | Inpatient (IN) | payer OTHER ==
[~2023-10-26] VITALS: Ht 157.5 cm; Wt 45.4 kg
[2023-10-26] MEDS: DEXT 5% / NACL 0.45% 1,000 ML IV SCH (04:40)
[2023-10-26 18:53] VITALS: BP 177/77; PULSE 80; RESP 16; TEMP 98.6; O2SAT 97
[2023-10-26 18:55] LABS: BASOPHILS # (AUTO) 0.1 K/uL (0.00-0.22); BASOPHILS % (AUTO) 0.6 % (0.0-2.0); EOSINOPHILS % (AUTO) 0.1 % (0.0-4.0); HEMOGLOBIN 13.1 g/dL (12.0-16.0); LYMPHOCYTES # (AUTO) 1.7 K/uL (2.5-16.5); LYMPHOCYTES % (AUTO) 18.1 % (20.5-51.1); MEAN CORPUSCULAR HEMOGLOBIN 30 pg (27-31); MEAN CORPUSCULAR HGB CONC 33 g/dL (33-37); MEAN CORPUSCULAR VOLUME 93.1 fL (80-94); MONOCYTES # (AUTO) 0.3 K/uL (0.8-1.0); MONOCYTES % (AUTO) 3.7 % (1.7-9.3); NEUTROPHILS # (AUTO) 7.2 K/uL (1.8-7.7); NEUTROPHILS % (AUTO) 77.5 % (42.2-75.2); PLATELET COUNT (AUTO) 212 K/uL (140-450); RED CELL DISTRIBUTION WIDTH 14.5 % (11.6-13.7); WHITE BLOOD COUNT (AUTO) 9.2 K/uL (4.8-10.8)
[2023-10-26 19:15] LABS: ACETONE, SERUM Small (NEGATIVE)
[2023-10-26 19:19] LABS: ANION GAP 24.8 (8-16); CALCIUM 9.4 mg/dL (8.5-10.1); CARBON DIOXIDE 23.9 mmol/L (21-32); CREATININE 1.3 mg/dL (0.6-1.3); POTASSIUM 5.7 mmol/L (3.5-5.1)
[2023-10-26 19:26] LABS: LACTIC ACID 1.4 mmol/L (0.4-2.0)
[2023-10-26 19:31] LABS: ALANINE AMINOTRANSFERASE 20 U/L (12-78); ALBUMIN 3.1 g/dL (3.4-5.0); ALKALINE PHOSPHATASE 170 U/L (50-136); ASPARTATE AMINOTRANSFERASE 15 U/L (15-37); BILIRUBIN,DIRECT 0.1 mg/dL (0.0-0.3); CREATINE KINASE, TOTAL 41 U/L (26-192); LIPASE 52 U/L (16-77); TOTAL BILIRUBIN 0.4 mg/dL (0.0-1.0); TOTAL PROTEIN, SERUM 7.5 g/dL (6.4-8.2)
[2023-10-26] MEDS: NACL 0.9% 2,000 ML IV SCH (19:47)
[2023-10-26] MEDS: INSULIN REGULAR, HUMAN 100 UNIT in NACL 0.9% 100 ML IV ONE (20:37)
[2023-10-26] MEDS ORDERED: MAG SULF 2000 MG/WATER PREMIX 50 ML IV PRN (20:50)
[2023-10-26] MEDS ORDERED: ACETAMINOPHEN 325 MG TAB PO PRN (20:50)
[2023-10-26] MEDS ORDERED: POTASSIUM CHLORIDE 10 MEQ TABER PO PRN (20:50)
[2023-10-26] MEDS ORDERED: KCL 20 MEQ IN 100 mL PREMIX 200 ML IV PRN (20:50)
[2023-10-26] MEDS ORDERED: INSULIN REGULAR, HUMAN 100 UNIT in NACL 0.9% 100 ML IV SCH (20:55)
[2023-10-26] MEDS: SODIUM ZIRCONIUM CYCLOSILICATE 10 GM POWD.PACK PO ONE (21:48)
[2023-10-26 21:49] LABS: APPEARANCE,URINE CLEAR (CLEAR); BILIRUBIN,URINE NEGATIVE (NEGATIVE); BLOOD, URINE 2+ (NEGATIVE); COLOR,URINE YELLOW (YELLOW); LEUKOCYTE ESTERASE ,URINE NEGATIVE (NEGATIVE); NITRITE, URINE NEGATIVE (NEGATIVE); PROTEIN,URINE NEGATIVE (NEGATIVE); UGLUCOSE 3+ (NEGATIVE); UROBILINOGEN,URINE 0.2 EU/dL (0.2 - 1)
[2023-10-26] MEDS: NACL 0.9% 1,000 ML IV SCH (21:49)
[2023-10-26 21:58] LABS: BACTERIA,URINE >30 (MANY) /HPF (None Seen); SQUAMOUS EPITHELIAL CELL,UR 0-3 (FEW) /LPF (0-3 (FEW)); WBC,URINE 0-5 /HPF (0-5)
[2023-10-26] MEDS: BLOOD GLUCOSE MONITORING 1 DEV DEV FS SCH (22:00)
[2023-10-26 22:02] LABS: AMPHETAMINE, URINE POSITIVE ng/ml (NEG <=1000); BARBITURATE, URINE NEGATIVE ng/ml (NEG <=200); BENZODIAZEPINE, URINE NEGATIVE ng/mL (NEG <=200); CANNABINOID, URINE NEGATIVE ng/mL (NEG <=50); COCAINE, URINE NEGATIVE ng/mL (NEG <=300); OPIATE, URINE NEGATIVE ng/mL (NEG <=2000); PHENCYCLIDINE SCREEN,URINE NEGATIVE ng/mL (NEG <=25)
[2023-10-27 00:40] LABS: CALCIUM 8.1 mg/dL (8.5-10.1); CARBON DIOXIDE 30.3 mmol/L (21-32); CREATININE 1.1 mg/dL (0.6-1.3); POTASSIUM 3.3 mmol/L (3.5-5.1)
[2023-10-27 04:24] LABS: ANION GAP 9.2 (8-16); CALCIUM 8.1 mg/dL (8.5-10.1); CARBON DIOXIDE 30.2 mmol/L (21-32); POTASSIUM 3.4 mmol/L (3.5-5.1)
[2023-10-27] MEDS: INSULIN LANTUS 100 UNITS/ML 10 ML VIAL SUBQ ONE (05:15)
[2023-10-27] MEDS ORDERED: DOCU-299 PO (08:11)
[2023-10-27] MEDS ORDERED: ASPI-1205 BC (08:11)
[2023-10-27 08:40] LABS: BASOPHILS % (AUTO) 0.4 % (0.0-2.0); EOSINOPHILS # (AUTO) 0.1 K/uL (0-0.4); EOSINOPHILS % (AUTO) 0.6 % (0.0-4.0); HEMATOCRIT 33.2 % (36-48); HEMOGLOBIN 11.2 g/dL (12.0-16.0); LYMPHOCYTES # (AUTO) 3.6 K/uL (2.5-16.5); LYMPHOCYTES % (AUTO) 41.9 % (20.5-51.1); MEAN CORPUSCULAR HEMOGLOBIN 31 pg (27-31); MEAN CORPUSCULAR HGB CONC 34 g/dL (33-37); MEAN CORPUSCULAR VOLUME 90.2 fL (80-94); MONOCYTES # (AUTO) 0.4 K/uL (0.8-1.0); MONOCYTES % (AUTO) 4.5 % (1.7-9.3); NEUTROPHILS # (AUTO) 4.6 K/uL (1.8-7.7); NEUTROPHILS % (AUTO) 52.6 % (42.2-75.2); PLATELET COUNT (AUTO) 214 K/uL (140-450); RED BLOOD CELL COUNT(AUTO) 3.68 MIL/uL (4.20-5.40); RED CELL DISTRIBUTION WIDTH 14.2 % (11.6-13.7); WHITE BLOOD COUNT (AUTO) 8.7 K/uL (4.8-10.8)
[2023-10-27 09:15] LABS: ANION GAP 8.9 (8-16); CARBON DIOXIDE 31.7 mmol/L (21-32); CREATININE 0.8 mg/dL (0.6-1.3); POTASSIUM 3.6 mmol/L (3.5-5.1)
[2023-10-27] MEDS ORDERED: DEXTROSE 50% 50 ML SYR IVP PRN (11:05)
[2023-10-27] MEDS: BLOOD GLUCOSE MONITORING 1 DEV DEV FS SCH (11:12)
[2023-10-27] MEDS: NACL 0.9% 1,000 ML IV SCH (11:15)
[2023-10-27] MEDS: INSULIN LISPRO SLIDING SCALE 100 UNITS/ML VIAL SUBQ PRN (16:23)
[2023-10-27 16:37] LABS: ANION GAP 8.6 (8-16); CALCIUM 7.5 mg/dL (8.5-10.1); CARBON DIOXIDE 28.3 mmol/L (21-32); CREATININE 0.8 mg/dL (0.6-1.3); POTASSIUM 3.9 mmol/L (3.5-5.1)
[2023-10-27 17:55] VITALS: PULSE 72; RESP 18; O2SAT 97
[2023-10-27 20:00] VITALS: BP 119/61; PULSE 87; PULSE 90; RESP 20; TEMP 98.9; O2SAT 93
[2023-10-27 21:09] LABS: CALCIUM 7.3 mg/dL (8.5-10.1); CARBON DIOXIDE 30.8 mmol/L (21-32); CREATININE 0.9 mg/dL (0.6-1.3); POTASSIUM 3.8 mmol/L (3.5-5.1)
[2023-10-27] MEDS: INSULIN LANTUS 100 UNITS/ML 10 ML VIAL SUBQ SCH (22:25)
[2023-10-28] VITALS (7 sets, daily range): BP systolic 127–146; BP diastolic 57–75; PULSE 75–90; RESP 18–20; TEMP 97.5–99; O2SAT 93–99
[2023-10-28] MEDS: MAGNESIUM OXIDE 400 MG TAB PO PRN (02:16)
[2023-10-28] MEDS: CYCLOBENZAPRINE 10 MG TAB PO PRN (02:17)
[2023-10-28 07:10] LABS: BASOPHILS % (AUTO) 0.2 % (0.0-2.0); EOSINOPHILS % (AUTO) 0.2 % (0.0-4.0); HEMATOCRIT 35.2 % (36-48); HEMOGLOBIN 11.6 g/dL (12.0-16.0); LYMPHOCYTES # (AUTO) 3.4 K/uL (2.5-16.5); MEAN CORPUSCULAR HEMOGLOBIN 30 pg (27-31); MEAN CORPUSCULAR HGB CONC 33 g/dL (33-37); MEAN CORPUSCULAR VOLUME 90.7 fL (80-94); MONOCYTES # (AUTO) 0.3 K/uL (0.8-1.0); MONOCYTES % (AUTO) 2.4 % (1.7-9.3); NEUTROPHILS # (AUTO) 8.4 K/uL (1.8-7.7); NEUTROPHILS % (AUTO) 69.2 % (42.2-75.2); PLATELET COUNT (AUTO) 205 K/uL (140-450); RED BLOOD CELL COUNT(AUTO) 3.88 MIL/uL (4.20-5.40); RED CELL DISTRIBUTION WIDTH 14.7 % (11.6-13.7); WHITE BLOOD COUNT (AUTO) 12.1 K/uL (4.8-10.8)
[2023-10-28 07:34] LABS: ANION GAP 8.1 (8-16); CALCIUM 7.5 mg/dL (8.5-10.1); CARBON DIOXIDE 28.2 mmol/L (21-32); CREATININE 0.6 mg/dL (0.6-1.3); POTASSIUM 3.3 mmol/L (3.5-5.1)
[2023-10-28] MEDS ORDERED: CYCLOBENZAPRINE 10 MG TAB PO PRN (16:49)
[2023-10-28] MEDS: POTASSIUM CHLORIDE 10 MEQ TABER PO SCH (19:06)
[2023-10-28] MEDS ORDERED: traMADol 50 MG TAB PO PRN (21:00)
[2023-10-28] MEDS: DOCUSATE SODIUM 100 MG GELCAP PO SCH (22:26)
[2023-10-28] MEDS: levETIRAcetam 500 MG TAB PO SCH (22:27)
[2023-10-29 04:00] VITALS: BP 159/77; PULSE 79; RESP 20; TEMP 98.8; O2SAT 100
[2023-10-29 06:39] LABS: BASOPHILS % (AUTO) 0.2 % (0.0-2.0); EOSINOPHILS % (AUTO) 0.1 % (0.0-4.0); HEMATOCRIT 35.9 % (36-48); LYMPHOCYTES # (AUTO) 2.6 K/uL (2.5-16.5); LYMPHOCYTES % (AUTO) 24.7 % (20.5-51.1); MEAN CORPUSCULAR HEMOGLOBIN 30 pg (27-31); MEAN CORPUSCULAR HGB CONC 33 g/dL (33-37); MEAN CORPUSCULAR VOLUME 90.4 fL (80-94); MONOCYTES # (AUTO) 0.4 K/uL (0.8-1.0); MONOCYTES % (AUTO) 3.6 % (1.7-9.3); NEUTROPHILS # (AUTO) 7.7 K/uL (1.8-7.7); NEUTROPHILS % (AUTO) 71.4 % (42.2-75.2); PLATELET COUNT (AUTO) 204 K/uL (140-450); RED BLOOD CELL COUNT(AUTO) 3.97 MIL/uL (4.20-5.40); RED CELL DISTRIBUTION WIDTH 14.7 % (11.6-13.7); WHITE BLOOD COUNT (AUTO) 10.7 K/uL (4.8-10.8)
[2023-10-29 07:18] LABS: CALCIUM 8.2 mg/dL (8.5-10.1); CARBON DIOXIDE 26.8 mmol/L (21-32); CREATININE 0.6 mg/dL (0.6-1.3); POTASSIUM 3.8 mmol/L (3.5-5.1)
[2023-10-29 08:00] VITALS: BP 154/86; PULSE 88; PULSE 96; RESP 20; TEMP 96.9; O2SAT 94; O2SAT 99
[2023-10-29] MEDS: traMADol 50 MG TAB PO PRN (12:28)
[2023-10-29] MEDS ORDERED: ONDA-188 PO (14:20)
[2023-10-29] MEDS ORDERED: LANTUS SUBQ (14:20)
[2023-10-29] MEDS ORDERED: HUMSLIDE SUBQ (14:20)
[2023-10-29 16:00] VITALS: BP 151/75; PULSE 79; RESP 20; TEMP 99.8; O2SAT 100
[2023-10-29] MEDS: ONDANSETRON 4 MG/2 ML VIAL IVP PRN (17:33)
[2023-10-29 17:52] VITALS: BP 151/75; PULSE 99; RESP 18; TEMP 99.8
== END 2023-10-29 18:55 | disposition home or self-care (01) | DRG 420 ==
LOC: MED 18:03 → MMU 20:48 → MTU 10-27 15:59
PROVIDERS: ADMIT Student in an Organized Health Care Education/Training Program; ATTEND Student in an Organized Health Care Education/Training Program
DX: E11.10 Type 2 diabetes mellitus with ketoacidosis without coma (principal); N17.9 Acute kidney failure, unspecified; E44.1 Mild protein-calorie malnutrition; R64 Cachexia; E11.69 Type 2 diabetes mellitus with other specified complication; D72.829 Elevated white blood cell count, unspecified; E86.1 Hypovolemia; E87.5 Hyperkalemia; F19.10 Other psychoactive substance abuse, uncomplicated; I10 Essential (primary) hypertension; G40.909 Epilepsy, unspecified, not intractable, without status epilepticus; Z79.899 Other long term (current) drug therapy; Z91.199 Patient's noncompliance with other medical treatment and regimen due to unspecified reason; Z68.1 Body mass index [BMI] 19.9 or less, adult
CPT/HCPCS: 36415; 71045; 80048; 80076; 80305; 81001; 82009; 82550; 82948; 83605; 83690; 83735; 83880; 84484; 85025; 87040; 87081; 87086; 93005; 99291; J1644; J1815; J2405

== ENCOUNTER 2024-01-02 15:54 | Inpatient (IN) | payer OTHER ==
[~2024-01-02] VITALS: Ht 162.6 cm; Wt 47.6 kg
[~2024-01-02 15:54] MED LIST changes: +ASPI-1205 BC; +DOCU-299 PO; +ONDA-188 PO
[2024-01-02 15:56] VITALS: BP 176/66; PULSE 102; RESP 21; TEMP 100.1; O2SAT 93
[2024-01-02 18:00] LABS: BASOPHILS % (AUTO) 0.2 % (0.0-2.0); EOSINOPHILS % (AUTO) 0.1 % (0.0-4.0); HEMATOCRIT 30.8 % (36-48); HEMOGLOBIN 10.5 g/dL (12.0-16.0); LYMPHOCYTES # (AUTO) 1.5 K/uL (2.5-16.5); MEAN CORPUSCULAR HEMOGLOBIN 31 pg (27-31); MEAN CORPUSCULAR HGB CONC 34 g/dL (33-37); MEAN CORPUSCULAR VOLUME 90.1 fL (80-94); MONOCYTES # (AUTO) 0.4 K/uL (0.8-1.0); NEUTROPHILS # (AUTO) 10.6 K/uL (1.8-7.7); NEUTROPHILS % (AUTO) 84.7 % (42.2-75.2); PLATELET COUNT (AUTO) 254 K/uL (140-450); RED BLOOD CELL COUNT(AUTO) 3.42 MIL/uL (4.20-5.40); RED CELL DISTRIBUTION WIDTH 13.8 % (11.6-13.7); WHITE BLOOD COUNT (AUTO) 12.5 K/uL (4.8-10.8)
[2024-01-02 18:15] LABS: BILIRUBIN,URINE NEGATIVE (NEGATIVE); BLOOD, URINE 3+ (NEGATIVE); COLOR,URINE YELLOW (YELLOW); LEUKOCYTE ESTERASE ,URINE NEGATIVE (NEGATIVE); NITRITE, URINE POSITIVE (NEGATIVE); PROTEIN,URINE 2+ (NEGATIVE); UGLUCOSE 3+ (NEGATIVE); UROBILINOGEN,URINE 0.2 EU/dL (0.2 - 1)
[2024-01-02 18:16] LABS: BILIRUBIN,DIRECT 0.1 mg/dL (0.0-0.3); TOTAL BILIRUBIN 0.2 mg/dL (0.0-1.0)
[2024-01-02 18:18] LABS: APPEARANCE,URINE SLIGHTLY HAZY (CLEAR)
[2024-01-02 18:19] LABS: ANION GAP 10.7 (8-16); CARBON DIOXIDE 29.8 mmol/L (21-32); CREATININE 0.9 mg/dL (0.6-1.3); POTASSIUM 4.5 mmol/L (3.5-5.1)
[2024-01-02 18:23] LABS: BACTERIA,URINE 2+ /HPF (None Seen); MUCUS,URINE None Seen /LPF (None Seen); RBC,URINE 11-20 (MOD) /HPF (0-5); SQUAMOUS EPITHELIAL CELL,UR 0-3 (FEW) /LPF (0-3 (FEW)); WBC,URINE 0-5 /HPF (0-5)
[2024-01-02] MEDS ORDERED: PIPERACILLIN/TAZOBACTAM 3.375 GM VIAL IV ONE (18:49)
[2024-01-02] MEDS: NACL 0.9% 1,000 ML IV ONE (18:57)
[2024-01-02] MEDS: MORPHINE SULFATE 2 MG/ML SYR IVP STA (18:59)
[2024-01-02] MEDS: PIPERACILLIN/TAZOBACTAM 3.375 GM in DEXTROSE 5% 50 ML IV ONE (19:00)
[2024-01-02 19:39] VITALS: O2SAT 98
[2024-01-02 20:10] LABS: AMPHETAMINE, URINE POSITIVE ng/ml (NEG <=1000); BARBITURATE, URINE NEGATIVE ng/ml (NEG <=200); BENZODIAZEPINE, URINE NEGATIVE ng/mL (NEG <=200); CANNABINOID, URINE NEGATIVE ng/mL (NEG <=50); COCAINE, URINE NEGATIVE ng/mL (NEG <=300); OPIATE, URINE NEGATIVE ng/mL (NEG <=2000); PHENCYCLIDINE SCREEN,URINE NEGATIVE ng/mL (NEG <=25)
[2024-01-02] MEDS: metroNIDAZOLE 500 MG/NS PREMIX 100 ML IV ONE (21:06)
[2024-01-02] MEDS ORDERED: KEP500 PO (21:42)
[2024-01-02] MEDS ORDERED: ONDANSETRON 4 MG ODT PO PRN (22:10)
[2024-01-02] MEDS ORDERED: KCL 20 MEQ IN 100 mL PREMIX 200 ML IV PRN (22:10)
[2024-01-02] MEDS ORDERED: LORazepam 1 MG TAB PO PRN (22:10)
[2024-01-02] MEDS ORDERED: MAGNESIUM OXIDE 400 MG TAB PO PRN (22:10)
[2024-01-02] MEDS ORDERED: ACETAMINOPHEN 325 MG TAB PO PRN (22:10)
[2024-01-02] MEDS ORDERED: POTASSIUM CHLORIDE 10 MEQ TABER PO PRN (22:10)
[2024-01-02] MEDS ORDERED: HYDROcodone/APAP 5/325 MG 1 TAB TAB PO PRN (22:10)
[2024-01-02] MEDS ORDERED: ONDANSETRON 4 MG/2 ML VIAL IVP PRN (22:10)
[2024-01-02] MEDS ORDERED: DEXTROSE 50% 50 ML SYR IVP PRN (22:20)
[2024-01-02] MEDS: INSULIN LISPRO SLIDING SCALE 100 UNITS/ML VIAL SUBQ PRN (22:49)
[2024-01-02 23:10] VITALS: PULSE 102; RESP 18; O2SAT 97
[2024-01-02 23:17] VITALS: PULSE 97
[2024-01-03] VITALS (9 sets, daily range): BP systolic 115–160; BP diastolic 52–76; PULSE 75–102; RESP 17–18; TEMP 97.9–98.4; O2SAT 91–97
[2024-01-03] MEDS: metroNIDAZOLE 500 MG/NS PREMIX 100 ML IV SCH (05:57)
[2024-01-03 06:58] LABS: BASOPHILS % (AUTO) 0.2 % (0.0-2.0); HEMATOCRIT 28.8 % (36-48); HEMOGLOBIN 9.7 g/dL (12.0-16.0); LYMPHOCYTES # (AUTO) 2.6 K/uL (2.5-16.5); LYMPHOCYTES % (AUTO) 16.8 % (20.5-51.1); MEAN CORPUSCULAR HEMOGLOBIN 31 pg (27-31); MEAN CORPUSCULAR HGB CONC 34 g/dL (33-37); MEAN CORPUSCULAR VOLUME 90.5 fL (80-94); MONOCYTES # (AUTO) 0.6 K/uL (0.8-1.0); PLATELET COUNT (AUTO) 242 K/uL (140-450); RED BLOOD CELL COUNT(AUTO) 3.19 MIL/uL (4.20-5.40); RED CELL DISTRIBUTION WIDTH 14.2 % (11.6-13.7); WHITE BLOOD COUNT (AUTO) 15.2 K/uL (4.8-10.8)
[2024-01-03 07:35] LABS: ALBUMIN 1.7 g/dL (3.4-5.0); ANION GAP 9.7 (8-16); CALCIUM 7.8 mg/dL (8.5-10.1); CARBON DIOXIDE 28.2 mmol/L (21-32); CREATININE 0.8 mg/dL (0.6-1.3); MAGNESIUM 1.5 mg/dL (1.8-2.4); POTASSIUM 3.9 mmol/L (3.5-5.1); TOTAL BILIRUBIN 0.3 mg/dL (0.0-1.0); TOTAL PROTEIN, SERUM 5.5 g/dL (6.4-8.2)
[2024-01-03] MEDS: DOCUSATE SODIUM 100 MG GELCAP PO SCH (08:22)
[2024-01-03] MEDS: LOSARTAN 50 MG TAB PO SCH (08:24)
[2024-01-03] MEDS: levETIRAcetam 500 MG TAB PO SCH (08:24)
[2024-01-03] MEDS: BLOOD GLUCOSE MONITORING 1 DEV DEV FS SCH (08:28)
[2024-01-03] MEDS: ASPIRIN 81 MG TAB.CHEW PO SCH (08:35)
[2024-01-03] MEDS: ASPIRIN 325 MG TAB PO SCH (08:39)
[2024-01-03] MEDS: MAG SULF 2000 MG/WATER PREMIX 50 ML IV PRN (08:39)
[2024-01-03] MEDS ORDERED: DOCUSATE SODIUM 100 MG GELCAP PO SCH (09:00)
[2024-01-03] MEDS: Z-GUARD PASTE TP PRN (17:07)
[2024-01-03] MEDS: INSULIN LANTUS 100 UNITS/ML 10 ML VIAL SUBQ SCH (21:01)
[2024-01-03] MEDS: MEDS-TO-BEDS MC SCH (21:39)
[2024-01-04] VITALS (9 sets, daily range): BP systolic 111–163; BP diastolic 49–86; PULSE 75–87; RESP 18–19; TEMP 98.1–99.1; O2SAT 95–98
[2024-01-04] MEDS: HYDROmorphone 1 MG/ML AMP IVP PRN (10:17)
[2024-01-04] MEDS: Z-GUARD PASTE TP SCH (12:08)
[2024-01-04] MEDS: GAUZE TP SCH (12:32)
[2024-01-04] MEDS: BENZONATATE 100 MG CAPLF PO PRN (13:42)
[2024-01-04] MEDS: INSULIN LISPRO 100 UNITS/ML VIAL SUBQ SCH (17:10)
[2024-01-04] MEDS: traMADol 50 MG TAB PO PRN (19:50)
[2024-01-04] MEDS: INSULIN LANTUS 100 UNITS/ML 10 ML VIAL SUBQ SCH (20:52)
[2024-01-04] MEDS: ZOLPIDEM 5 MG TAB PO PRN (21:07)
[2024-01-04] MEDS: LEVOFLOXACIN 500 MG/D5W PREMIX 100 ML IV SCH (21:16)
[2024-01-04] MEDS: ALBUTEROL SULFATE/IPRATROPIU 3 ML SOL IH ONE (22:05)
[2024-01-05] VITALS (10 sets, daily range): BP systolic 112–151; BP diastolic 50–64; PULSE 77–100; RESP 16–24; TEMP 97–99.8; O2SAT 94–98
[2024-01-05] MEDS: ALBUTEROL SULFATE/IPRATROPIU 3 ML SOL IH PRN (04:41)
[2024-01-05] MEDS: ALBUTEROL SULFATE/IPRATROPIU 3 ML SOL IH SCH (07:47)
[2024-01-05] MEDS ORDERED: METR-435 PO (14:13)
[2024-01-05] MEDS ORDERED: LEVO750T75 PO (14:13)
[2024-01-06] VITALS: BP 112/57; PULSE 100; RESP 18; TEMP 99.8; O2SAT 96
[2024-01-06 04:00] VITALS: BP 144/62; PULSE 100; RESP 19; TEMP 99.1; O2SAT 96
[2024-01-06 07:27] VITALS: O2SAT 98
[2024-01-06 10:15] VITALS: BP 144/62; PULSE 100; RESP 19; TEMP 99.1
== END 2024-01-06 11:14 | DRG 720 ==
LOC: MED 15:54 → MTU 22:16
PROVIDERS: ADMIT Hospitalist; ATTEND Hospitalist
DX: A41.9 Sepsis, unspecified organism (principal); E44.0 Moderate protein-calorie malnutrition; N39.0 Urinary tract infection, site not specified; E11.9 Type 2 diabetes mellitus without complications; E86.0 Dehydration; B96.20 Unspecified Escherichia coli [E. coli] as the cause of diseases classified elsewhere; A04.9 Bacterial intestinal infection, unspecified; F15.90 Other stimulant use, unspecified, uncomplicated; Z88.8 Allergy status to other drugs, medicaments and biological substances; K86.1 Other chronic pancreatitis; Z68.1 Body mass index [BMI] 19.9 or less, adult
CPT/HCPCS: 36415; 80048; 80053; 80076; 80305; 81001; 82009; 82803; 82948; 83605; 83690; 83735; 85025; 87040; 87081; 87086; 87186; 94640; 96365; 96367; 96375; 97163-GP; 97530; 99291; J0696; J1170; J1644; J1815; J1956; J2270; J2543; J3475; J3490; J7060

== ENCOUNTER 2024-02-14 11:38 | Inpatient (IN) | payer OTHER ==
[~2024-02-14] VITALS: Ht 162.6 cm; Wt 42.2 kg
[~2024-02-14 11:38] MED LIST changes: +KEP500 PO; +LEVO750T75 PO; +METR-435 PO
[2024-02-14 11:42] VITALS: BP 163/76; PULSE 88; RESP 22; O2SAT 94
[2024-02-14 12:51] LABS: BASOPHILS % (AUTO) 0.4 % (0.0-2.0); EOSINOPHILS % (AUTO) 0.2 % (0.0-4.0); HEMATOCRIT 42.8 % (36-48); HEMOGLOBIN 13.5 g/dL (12.0-16.0); LYMPHOCYTES # (AUTO) 1.5 K/uL (2.5-16.5); LYMPHOCYTES % (AUTO) 20.9 % (20.5-51.1); MEAN CORPUSCULAR HEMOGLOBIN 30 pg (27-31); MEAN CORPUSCULAR HGB CONC 32 g/dL (33-37); MEAN CORPUSCULAR VOLUME 94.5 fL (80-94); MONOCYTES # (AUTO) 0.2 K/uL (0.8-1.0); MONOCYTES % (AUTO) 2.5 % (1.7-9.3); NEUTROPHILS # (AUTO) 5.5 K/uL (1.8-7.7); PLATELET COUNT (AUTO) 241 K/uL (140-450); RED BLOOD CELL COUNT(AUTO) 4.53 MIL/uL (4.20-5.40); RED CELL DISTRIBUTION WIDTH 15.4 % (11.6-13.7); WHITE BLOOD COUNT (AUTO) 7.2 K/uL (4.8-10.8)
[2024-02-14] MEDS: NACL 0.9% 2,000 ML IV ONE (13:22)
[2024-02-14 13:33] LABS: APPEARANCE,URINE CLEAR (CLEAR); BILIRUBIN,URINE 1+ (NEGATIVE); BLOOD, URINE 1+ (NEGATIVE); COLOR,URINE YELLOW (YELLOW); LEUKOCYTE ESTERASE ,URINE NEGATIVE (NEGATIVE); NITRITE, URINE NEGATIVE (NEGATIVE); PROTEIN,URINE NEGATIVE (NEGATIVE); UGLUCOSE 3+ (NEGATIVE); UROBILINOGEN,URINE 0.2 EU/dL (0.2 - 1)
[2024-02-14 14:00] LABS: BACTERIA,URINE FEW /HPF (None Seen); SQUAMOUS EPITHELIAL CELL,UR 0-3 (FEW) /LPF (0-3 (FEW)); WBC,URINE 0-5 /HPF (0-5)
[2024-02-14 14:03] LABS: ALANINE AMINOTRANSFERASE 17 U/L (12-78); ALBUMIN 3.1 g/dL (3.4-5.0); ALKALINE PHOSPHATASE 142 U/L (50-136); ASPARTATE AMINOTRANSFERASE 10 U/L (15-37); BILIRUBIN,DIRECT 0.1 mg/dL (0.0-0.3); LIPASE 54 U/L (16-77); TOTAL BILIRUBIN 0.4 mg/dL (0.0-1.0); TOTAL PROTEIN, SERUM 7.5 g/dL (6.4-8.2)
[2024-02-14 14:03] LABS: ICTOTEST NEGATIVE (NEGATIVE)
[2024-02-14 14:22] LABS: ANION GAP 25.1 (8-16); CALCIUM 9.7 mg/dL (8.5-10.1); CARBON DIOXIDE 20.1 mmol/L (21-32); CREATININE 1.6 mg/dL (0.6-1.3); POTASSIUM 5.2 mmol/L (3.5-5.1)
[2024-02-14 14:39] LABS: LACTIC ACID 1.6 mmol/L (0.4-2.0)
[2024-02-14] MEDS ORDERED: DEXTROSE 50% 50 ML SYR IVP PRN (15:10)
[2024-02-14] MEDS: NACL 0.9% 1,000 ML IV ONE (15:30)
[2024-02-14] MEDS ORDERED: cefTRIAXone 1,000 MG VIAL ONE (16:10)
[2024-02-14] MEDS: BLOOD GLUCOSE MONITORING 1 DEV DEV FS SCH ×2 (16:13→17:23)
[2024-02-14] MEDS ORDERED: HYDROcodone/APAP 5/325 MG 1 TAB TAB PO PRN (16:25)
[2024-02-14] MEDS ORDERED: ZOLPIDEM 5 MG TAB PO PRN (16:25)
[2024-02-14] MEDS: INSULIN REGULAR, HUMAN 100 UNIT in NACL 0.9% 100 ML IV SCH (16:37)
[2024-02-14] MEDS ORDERED: hydrALAZINE 20 MG/ML VIAL IVP PRN (17:20)
[2024-02-14] MEDS: POTASSIUM CHL 20 MEQ/NACL 0.9% 1,000 ML IV SCH (18:07)
[2024-02-14] MEDS: AZITHROMYCIN 500 MG in DEXTROSE 5% 250 ML IV SCH (18:17)
[2024-02-14 21:02] LABS: MAGNESIUM 1.9 mg/dL (1.8-2.4); PHOSPHORUS 3.4 mg/dL (2.5-4.9)
[2024-02-14 21:23] LABS: ANION GAP 21.9 (8-16); CALCIUM 8.1 mg/dL (8.5-10.1); CARBON DIOXIDE 18.7 mmol/L (21-32); CREATININE 1.1 mg/dL (0.6-1.3); POTASSIUM 4.6 mmol/L (3.5-5.1)
[2024-02-15] VITALS (20 sets, daily range): BP systolic 116–164; BP diastolic 58–91; PULSE 62–86; RESP 14–20; TEMP 95.3–97.8; O2SAT 93–100
[2024-02-15 00:46] LABS: ANION GAP 17.1 (8-16); CALCIUM 8.3 mg/dL (8.5-10.1); CARBON DIOXIDE 23.5 mmol/L (21-32); CREATININE 1.2 mg/dL (0.6-1.3); POTASSIUM 4.6 mmol/L (3.5-5.1)
[2024-02-15 00:50] LABS: MAGNESIUM 1.9 mg/dL (1.8-2.4); PHOSPHORUS 3.3 mg/dL (2.5-4.9)
[2024-02-15 04:55] LABS: BASOPHILS # (AUTO) 0.1 K/uL (0.00-0.22); BASOPHILS % (AUTO) 0.6 % (0.0-2.0); EOSINOPHILS % (AUTO) 0.6 % (0.0-4.0); HEMOGLOBIN 13.4 g/dL (12.0-16.0); LYMPHOCYTES % (AUTO) 33.6 % (20.5-51.1); MEAN CORPUSCULAR HEMOGLOBIN 30 pg (27-31); MEAN CORPUSCULAR HGB CONC 32 g/dL (33-37); MONOCYTES # (AUTO) 0.6 K/uL (0.8-1.0); MONOCYTES % (AUTO) 6.3 % (1.7-9.3); NEUTROPHILS # (AUTO) 5.2 K/uL (1.8-7.7); NEUTROPHILS % (AUTO) 58.9 % (42.2-75.2); PLATELET COUNT (AUTO) 198 K/uL (140-450); RED BLOOD CELL COUNT(AUTO) 4.47 MIL/uL (4.20-5.40); RED CELL DISTRIBUTION WIDTH 15.6 % (11.6-13.7); WHITE BLOOD COUNT (AUTO) 8.8 K/uL (4.8-10.8)
[2024-02-15 05:24] LABS: ANION GAP 16.4 (8-16); CALCIUM 8.8 mg/dL (8.5-10.1); CARBON DIOXIDE 24.3 mmol/L (21-32); CREATININE 1.2 mg/dL (0.6-1.3); POTASSIUM 4.7 mmol/L (3.5-5.1)
[2024-02-15 05:31] LABS: PHOSPHORUS 3.2 mg/dL (2.5-4.9)
[2024-02-15] MEDS: DOCUSATE SODIUM 100 MG GELCAP PO SCH (08:29)
[2024-02-15] MEDS: PANTOPRAZOLE 40 MG INJ VIAL IVP SCH (08:31)
[2024-02-15 08:41] LABS: ANION GAP 15.5 (8-16); CALCIUM 8.2 mg/dL (8.5-10.1); CARBON DIOXIDE 21.2 mmol/L (21-32); CREATININE 0.9 mg/dL (0.6-1.3); POTASSIUM 3.7 mmol/L (3.5-5.1)
[2024-02-15 08:46] LABS: MAGNESIUM 1.7 mg/dL (1.8-2.4)
[2024-02-15] MEDS: LORazepam 1 MG TAB PO PRN (09:06)
[2024-02-15] MEDS: ACETAMINOPHEN 325 MG TAB PO PRN (09:07)
[2024-02-15] MEDS: MAG SULF 2000 MG/WATER PREMIX 50 ML IV SCH (10:40)
[2024-02-15 11:53] LABS: AMPHETAMINE, URINE POSITIVE ng/ml (NEG <=1000); BARBITURATE, URINE NEGATIVE ng/ml (NEG <=200); BENZODIAZEPINE, URINE NEGATIVE ng/mL (NEG <=200); CANNABINOID, URINE NEGATIVE ng/mL (NEG <=50); COCAINE, URINE NEGATIVE ng/mL (NEG <=300); OPIATE, URINE NEGATIVE ng/mL (NEG <=2000); PHENCYCLIDINE SCREEN,URINE NEGATIVE ng/mL (NEG <=25)
[2024-02-15 12:20] LABS: ANION GAP 9.4 (8-16); CALCIUM 8.1 mg/dL (8.5-10.1); CARBON DIOXIDE 25.4 mmol/L (21-32); CREATININE 0.8 mg/dL (0.6-1.3); POTASSIUM 3.8 mmol/L (3.5-5.1)
[2024-02-15 12:25] LABS: MAGNESIUM 2.7 mg/dL (1.8-2.4); PHOSPHORUS 1.6 mg/dL (2.5-4.9)
[2024-02-15] MEDS: POTASSIUM PHOSPHATE 30 MM in NACL 0.9% 250 ML IV SCH (13:41)
[2024-02-15] MEDS: NACL 0.9% 1,000 ML IV SCH (14:30)
[2024-02-15] MEDS: BLOOD GLUCOSE MONITORING 1 DEV DEV FS SCH ×2 (14:31→21:41)
[2024-02-15] MEDS: DEXT 5% / NACL 0.45% 1,000 ML IV SCH (14:33)
[2024-02-15 16:50] LABS: ANION GAP 11.7 (8-16); CALCIUM 8.5 mg/dL (8.5-10.1); CARBON DIOXIDE 24.7 mmol/L (21-32); POTASSIUM 4.4 mmol/L (3.5-5.1)
[2024-02-15 16:59] LABS: MAGNESIUM 2.6 mg/dL (1.8-2.4); PHOSPHORUS 2.4 mg/dL (2.5-4.9)
[2024-02-15] MEDS: INSULIN LANTUS 100 UNITS/ML 10 ML VIAL SUBQ SCH (17:50)
[2024-02-15] MEDS: INSULIN LISPRO SLIDING SCALE 100 UNITS/ML VIAL SUBQ SCH (21:51)
[2024-02-15] MEDS: INSULIN LISPRO 100 UNITS/ML VIAL SUBQ ONE (22:24)
[2024-02-16] VITALS (11 sets, daily range): BP systolic 117–136; BP diastolic 62–88; PULSE 70–90; RESP 14–24; TEMP 96.6–98.4; O2SAT 95–100
[2024-02-16 05:47] LABS: BASOPHILS % (AUTO) 0.2 % (0.0-2.0); EOSINOPHILS % (AUTO) 0.6 % (0.0-4.0); HEMATOCRIT 34.1 % (36-48); HEMOGLOBIN 9.2 g/dL (12.0-16.0); LYMPHOCYTES # (AUTO) 2.2 K/uL (2.5-16.5); LYMPHOCYTES % (AUTO) 40.2 % (20.5-51.1); MEAN CORPUSCULAR HEMOGLOBIN 25 pg (27-31); MEAN CORPUSCULAR HGB CONC 27 g/dL (33-37); MEAN CORPUSCULAR VOLUME 91.6 fL (80-94); MONOCYTES # (AUTO) 0.2 K/uL (0.8-1.0); MONOCYTES % (AUTO) 4.3 % (1.7-9.3); NEUTROPHILS % (AUTO) 54.7 % (42.2-75.2); PLATELET COUNT (AUTO) 100 K/uL (140-450); RED BLOOD CELL COUNT(AUTO) 3.72 MIL/uL (4.20-5.40); RED CELL DISTRIBUTION WIDTH 15.7 % (11.6-13.7); WHITE BLOOD COUNT (AUTO) 5.5 K/uL (4.8-10.8)
[2024-02-16] MEDS: INSULIN LANTUS 100 UNITS/ML 10 ML VIAL SUBQ SCH (11:00)
[2024-02-16 11:09] LABS: CALCIUM 8.2 mg/dL (8.5-10.1); CARBON DIOXIDE 28.2 mmol/L (21-32); CREATININE 0.7 mg/dL (0.6-1.3)
[2024-02-16 11:10] LABS: ANION GAP 10.1 (8-16); POTASSIUM 4.3 mmol/L (3.5-5.1)
[2024-02-16 12:35] LABS: ANION GAP 11.3 (8-16); CALCIUM 8.1 mg/dL (8.5-10.1); CARBON DIOXIDE 26.1 mmol/L (21-32); CREATININE 0.8 mg/dL (0.6-1.3); POTASSIUM 4.4 mmol/L (3.5-5.1)
[2024-02-16] MEDS: ONDANSETRON 4 MG/2 ML VIAL IVP PRN (20:51)
[2024-02-17] VITALS (7 sets, daily range): BP systolic 102–129; BP diastolic 53–61; PULSE 81–94; RESP 17–20; TEMP 96.8–98.1; O2SAT 96–100
[2024-02-17] MEDS: DEXTROSE 50% 50 ML SYR IVP PRN (06:48)
[2024-02-17 07:15] LABS: ANION GAP 9.3 (8-16); CARBON DIOXIDE 26.7 mmol/L (21-32); CREATININE 0.7 mg/dL (0.6-1.3)
[2024-02-17 07:22] LABS: MAGNESIUM 1.9 mg/dL (1.8-2.4); PHOSPHORUS 2.7 mg/dL (2.5-4.9)
[2024-02-17 07:25] LABS: BASOPHILS % (AUTO) 0.2 % (0.0-2.0); EOSINOPHILS % (AUTO) 0.5 % (0.0-4.0); HEMOGLOBIN 10.8 g/dL (12.0-16.0); LYMPHOCYTES # (AUTO) 3.6 K/uL (2.5-16.5); LYMPHOCYTES % (AUTO) 37.8 % (20.5-51.1); MEAN CORPUSCULAR HEMOGLOBIN 31 pg (27-31); MEAN CORPUSCULAR HGB CONC 34 g/dL (33-37); MEAN CORPUSCULAR VOLUME 90.9 fL (80-94); MONOCYTES # (AUTO) 0.3 K/uL (0.8-1.0); MONOCYTES % (AUTO) 3.2 % (1.7-9.3); NEUTROPHILS # (AUTO) 5.5 K/uL (1.8-7.7); NEUTROPHILS % (AUTO) 58.3 % (42.2-75.2); PLATELET COUNT (AUTO) 187 K/uL (140-450); RED BLOOD CELL COUNT(AUTO) 3.52 MIL/uL (4.20-5.40); RED CELL DISTRIBUTION WIDTH 15.7 % (11.6-13.7); WHITE BLOOD COUNT (AUTO) 9.4 K/uL (4.8-10.8)
[2024-02-17] MEDS: INSULIN LANTUS 100 UNITS/ML 10 ML VIAL SUBQ SCH (09:14)
[2024-02-17] MEDS ORDERED: traMADol 50 MG TAB PO PRN (09:55)
[2024-02-17] MEDS ORDERED: INSU100I34 SQ (13:46)
[2024-02-17] MEDS ORDERED: ONDA-188 PO (13:46)
[2024-02-17] MEDS ORDERED: LOSA-270 PO (13:46)
[2024-02-17] MEDS ORDERED: INSU100S22 SUBQ (13:46)
[2024-02-17] MEDS ORDERED: AZIT250T11 PO (13:46)
[2024-02-17] MEDS ORDERED: KEP500 PO (13:46)
[2024-02-17] MEDS ORDERED: ASPI-1205 BC (13:46)
[2024-02-18 04:00] VITALS: BP 110/52; PULSE 91; RESP 20; TEMP 97.4; O2SAT 98
[2024-02-18 06:57] LABS: BASOPHILS % (AUTO) 0.3 % (0.0-2.0); EOSINOPHILS # (AUTO) 0.1 K/uL (0-0.4); EOSINOPHILS % (AUTO) 0.9 % (0.0-4.0); HEMATOCRIT 33.9 % (36-48); HEMOGLOBIN 11.1 g/dL (12.0-16.0); LYMPHOCYTES # (AUTO) 4.4 K/uL (2.5-16.5); LYMPHOCYTES % (AUTO) 50.5 % (20.5-51.1); MEAN CORPUSCULAR HEMOGLOBIN 30 pg (27-31); MEAN CORPUSCULAR HGB CONC 33 g/dL (33-37); MONOCYTES # (AUTO) 0.4 K/uL (0.8-1.0); MONOCYTES % (AUTO) 4.1 % (1.7-9.3); NEUTROPHILS # (AUTO) 3.8 K/uL (1.8-7.7); NEUTROPHILS % (AUTO) 44.2 % (42.2-75.2); PLATELET COUNT (AUTO) 185 K/uL (140-450); RED BLOOD CELL COUNT(AUTO) 3.68 MIL/uL (4.20-5.40); RED CELL DISTRIBUTION WIDTH 15.2 % (11.6-13.7); WHITE BLOOD COUNT (AUTO) 8.7 K/uL (4.8-10.8)
[2024-02-18 07:13] LABS: ANION GAP 10.5 (8-16); CALCIUM 8.2 mg/dL (8.5-10.1); CARBON DIOXIDE 27.7 mmol/L (21-32); CREATININE 0.9 mg/dL (0.6-1.3); POTASSIUM 4.2 mmol/L (3.5-5.1)
[2024-02-18 08:00] VITALS: BP 148/79; PULSE 102; RESP 16; TEMP 96.9; O2SAT 95
[2024-02-18 08:01] LABS: MAGNESIUM 1.8 mg/dL (1.8-2.4); PHOSPHORUS 2.6 mg/dL (2.5-4.9)
[2024-02-18] MEDS ORDERED: ONDA-188 PO (12:18)
[2024-02-18] MEDS ORDERED: INSU100S22 SUBQ (12:18)
[2024-02-18] MEDS ORDERED: INSU100I34 SQ (12:18)
[2024-02-18] MEDS ORDERED: KEP500 PO (12:18)
[2024-02-18] MEDS ORDERED: AZIT250T11 PO (12:18)
[2024-02-18] MEDS ORDERED: ASPI-1205 BC (12:18)
[2024-02-18] MEDS ORDERED: LOSA-270 PO (12:18)
== END 2024-02-18 19:00 | disposition home or self-care (01) | DRG 420 ==
LOC: MED 11:38 → MTU 16:26 → MERGE 16:26 → MIC 18:46 → MTU 02-16 11:34
PROVIDERS: ADMIT Hospitalist; ATTEND Hospitalist
DX: E11.10 Type 2 diabetes mellitus with ketoacidosis without coma (principal); J96.01 Acute respiratory failure with hypoxia; N17.0 Acute kidney failure with tubular necrosis; J15.69 Pneumonia due to other Gram-negative bacteria; E43 Unspecified severe protein-calorie malnutrition; R65.10 Systemic inflammatory response syndrome (SIRS) of non-infectious origin without acute organ dysfunction; I50.9 Heart failure, unspecified; E83.39 Other disorders of phosphorus metabolism; Z20.822 Contact with and (suspected) exposure to COVID-19; E83.42 Hypomagnesemia; F15.10 Other stimulant abuse, uncomplicated; E11.22 Type 2 diabetes mellitus with diabetic chronic kidney disease; N18.2 Chronic kidney disease, stage 2 (mild); Z88.8 Allergy status to other drugs, medicaments and biological substances; Z59.00 Homelessness unspecified; Z91.148 Patient's other noncompliance with medication regimen for other reason; Z79.4 Long term (current) use of insulin; Z79.899 Other long term (current) drug therapy; Z79.82 Long term (current) use of aspirin; Z68.1 Body mass index [BMI] 19.9 or less, adult
CPT/HCPCS: 36415; 71045; 80048; 80076; 80305; 81001; 82009; 82803; 82948; 83036; 83605; 83690; 83735; 83880; 84100; 84484; 85025; 87040; 87081; 87635-QW; 93005; 96361; 96365; 99285; J0456; J0696; J1644; J1815; J2405; J2470; J3475; J7030; J7060; Q0092

== ENCOUNTER 2024-03-14 10:50 | Inpatient (IN) | payer OTHER ==
[~2024-03-14] VITALS: Ht 167.6 cm; Wt 40.8 kg
[~2024-03-14 10:50] MED LIST changes: +AZIT250T11 PO; -DOCU-299 PO; -HUMSLIDE SUBQ; +INSU100I34 SQ; +INSU100S22 SUBQ; -LANTUS SUBQ; -LEVO750T75 PO; -METR-435 PO; -TRAM50TA3 PO
--- NOTE | 2024-03-14 10:53 | NUR ---
PT BIBA TO BED 9
[2024-03-14 10:57] VITALS: BP 127/65; PULSE 83; RESP 18; TEMP 97.3; O2SAT 100
[2024-03-14 11:40] LABS: BASOPHILS # (AUTO) 0.1 K/uL (0.00-0.22); BASOPHILS % (AUTO) 0.5 % (0.0-2.0); EOSINOPHILS # (AUTO) 0.1 K/uL (0-0.4); EOSINOPHILS % (AUTO) 0.5 % (0.0-4.0); HEMATOCRIT 42.4 % (36-48); HEMOGLOBIN 13.9 g/dL (12.0-16.0); LYMPHOCYTES # (AUTO) 4.4 K/uL (2.5-16.5); LYMPHOCYTES % (AUTO) 38.5 % (20.5-51.1); MEAN CORPUSCULAR HEMOGLOBIN 30 pg (27-31); MEAN CORPUSCULAR HGB CONC 33 g/dL (33-37); MEAN CORPUSCULAR VOLUME 91.2 fL (80-94); MONOCYTES # (AUTO) 0.5 K/uL (0.8-1.0); NEUTROPHILS # (AUTO) 6.5 K/uL (1.8-7.7); NEUTROPHILS % (AUTO) 56.5 % (42.2-75.2); PLATELET COUNT (AUTO) 348 K/uL (140-450); RED BLOOD CELL COUNT(AUTO) 4.65 MIL/uL (4.20-5.40); WHITE BLOOD COUNT (AUTO) 11.5 K/uL (4.8-10.8)
--- NOTE | 2024-03-14 11:43 | NUR ---
PATIENT PRESENTS TO ED WITH BACK PAIN, DECREASED APPETITE AND INCREASED GENERALIZED WEAKNESS . PT STATES SHE FEELS WEAK AND SO DOES NOT WANT TO EAT. DENIES N/V/D; SKIN IS PINK/WARM/DRY; AAOX4 WITH UNSTEADY GAIT; LUNGS CLEAR BL; HR EVEN AND REGULAR; PT DENIES ANY FEVER, CP, SOB, OR COUGH AT THIS TIME; PATIENT STATES PAIN OF 7/10 IN HER BACK AT THIS TIME; VSS; PATIENT POSITIONED FOR COMFORT; HOB ELEVATED; BEDRAILS UP X2; BED DOWN. ER MD MADE AWARE OF PT STATUS. PLAN OF CARE ONGOING
[2024-03-14] MEDS: NACL 0.9% 2,000 ML IV ONE (11:55)
[2024-03-14 12:02] LABS: ANION GAP 9.2 (8-16); CARBON DIOXIDE 32.7 mmol/L (21-32); CREATININE 1.5 mg/dL (0.6-1.3); POTASSIUM 3.9 mmol/L (3.5-5.1)
[2024-03-14 12:11] LABS: ALANINE AMINOTRANSFERASE 20 U/L (12-78); ALBUMIN 2.7 g/dL (3.4-5.0); ALKALINE PHOSPHATASE 183 U/L (50-136); CREATINE KINASE, TOTAL 176 U/L (26-192); TOTAL BILIRUBIN 0.4 mg/dL (0.0-1.0); TOTAL PROTEIN, SERUM 7.6 g/dL (6.4-8.2)
[2024-03-14 12:31] LABS: INR 0.96 (0.8-1.2); PARTIAL THROMBOPLASTIN TIME 22.1 secs (22-35.6); PROTHROMBIN TIME 10.1 secs (10.8-13.4)
[2024-03-14 12:33] LABS: ASPARTATE AMINOTRANSFERASE 47 U/L (15-37)
[2024-03-14] MEDS ORDERED: NACL 0.9% 1,000 ML IV SCH (14:15)
[2024-03-14] MEDS ORDERED: ONDANSETRON 4 MG/2 ML VIAL IVP PRN (14:15)
[2024-03-14] MEDS ORDERED: KCL 20 MEQ IN 100 mL PREMIX 200 ML IV PRN (14:15)
[2024-03-14] MEDS ORDERED: DEXTROSE 50% 50 ML SYR IVP PRN (14:20)
--- NOTE | 2024-03-14 15:25 | NUR ---
ADMITTED FROM ER VIA GURNEY. A & O X3. NO C/O PAIN. NO C/O SOB. SKIN WARM, DRY, AND INTACT. KEEP COMFORTABLE ON BED. EXPLAINED DIAGNOSIS, PLAN OF CARE, PAIN MANAGEMENT TEACHING, USE OF CALL LIGHT/BED/TV/BATHROOM. VERBALIZED UNDERSTANDING. FALL PRECAUTION APPLIED. CALL LIGHT WITHIN REACH.
--- NOTE | 2024-03-14 15:36 | NUR ---
Patient will be admitted to care of DR WONG. Admited to [facility]. Will go to [id number]. Belongings list completed. Report to ASHLYN COLLINS.
[2024-03-14 16:00] VITALS: BP 139/78; PULSE 68; RESP 18; TEMP 97.4; O2SAT 99
--- NOTE | 2024-03-14 16:15 | NUR ---
Patient's Plan of Care was discussed and reviewed with SELLING SPECIALIST: DENNIS
[2024-03-14] MEDS: BLOOD GLUCOSE MONITORING 1 DEV DEV FS SCH (16:28)
[2024-03-14] MEDS: INSULIN LISPRO SLIDING SCALE 100 UNITS/ML VIAL SUBQ PRN (16:30)
[2024-03-14 17:00] VITALS: PULSE 68
[2024-03-14] MEDS ORDERED: DEXT 5% /NACL 0.9% 1,000 ML IV SCH (17:40)
[2024-03-14] MEDS: NACL 0.9% 1,000 ML IV SCH (18:46)
--- NOTE | 2024-03-14 19:15 | NUR ---
REPORT GIVEN TO DASIA HYLTON. IVF INFUSING WELL. IN STABLE CONDITION.
--- NOTE | 2024-03-14 19:20 | NUR ---
RECEIVED PATIENT FROM DAY SHIFT NURSE DENNIS FOR CONTINUITY OF CARE. PATIENT IS A/O X3ON ROOM AIR, BREATHING IS EVEN AND UNLABORED DENIES PAIN, NO S/SX OF DISTRESS. RIGHT WRIST 22 AIRAM, NORMAL SALINE AT 60/HR. ADVISED PATIENT TO NOT GET OUT OF BED WITHOUT CALLING FOR NURSING ASSISTANCE. SAFETY MEASURES IN PLACE, BED IN LOW POSITION, X3 BED SIDE RAILS UP, CALL LIGHT WITHIN REACH.
[2024-03-14 20:00] VITALS: BP 102/57; PULSE 82; RESP 18; TEMP 97.2; O2SAT 99
--- NOTE | 2024-03-15 | NUR ---
MAKING NURSING ROUNDS. PATIENT IS SLEEPING COMFORTABLY IN BED WITH CHEST RISING AND FALLING ADEQUATELY, NO S/SX OF DISTRESS. IV FLUIDS CONTINUE TO BE INFUSING, SAFETY MEASURES IN PLACE, BED IN LOW POSITION, CALL LIGHT WITHIN REACH
[2024-03-15 04:00] VITALS: BP 134/50; PULSE 79; RESP 16; TEMP 96.9; O2SAT 100
[2024-03-15 05:29] LABS: ANION GAP 10.3 (8-16); CALCIUM 8.9 mg/dL (8.5-10.1); CARBON DIOXIDE 31.1 mmol/L (21-32); CREATININE 1.1 mg/dL (0.6-1.3); POTASSIUM 3.4 mmol/L (3.5-5.1)
[2024-03-15 05:39] LABS: EOSINOPHILS # (AUTO) 0.1 K/uL (0-0.4); EOSINOPHILS % (AUTO) 0.7 % (0.0-4.0); HEMATOCRIT 38.6 % (36-48); HEMOGLOBIN 12.5 g/dL (12.0-16.0); LYMPHOCYTES # (AUTO) 4.4 K/uL (2.5-16.5); LYMPHOCYTES % (AUTO) 37.6 % (20.5-51.1); MEAN CORPUSCULAR HEMOGLOBIN 30 pg (27-31); MEAN CORPUSCULAR HGB CONC 33 g/dL (33-37); MEAN CORPUSCULAR VOLUME 91.5 fL (80-94); MONOCYTES # (AUTO) 0.5 K/uL (0.8-1.0); MONOCYTES % (AUTO) 4.3 % (1.7-9.3); NEUTROPHILS # (AUTO) 6.7 K/uL (1.8-7.7); NEUTROPHILS % (AUTO) 57.4 % (42.2-75.2); PLATELET COUNT (AUTO) 274 K/uL (140-450); RED BLOOD CELL COUNT(AUTO) 4.22 MIL/uL (4.20-5.40); RED CELL DISTRIBUTION WIDTH 15.9 % (11.6-13.7); WHITE BLOOD COUNT (AUTO) 11.6 K/uL (4.8-10.8)
--- NOTE | 2024-03-15 07:12 | NUR ---
PATIENT ENDORSED IN STABLE CONDITION TO MORNING SHIFT NURSE ROBERTS FOR CONTINUITY OF CARE.
[2024-03-15 08:00] VITALS: BP 165/79; PULSE 68; PULSE 75; PULSE 82; RESP 18; TEMP 98.1; O2SAT 100; O2SAT 99
--- NOTE | 2024-03-15 09:03 | NUR ---
PATIENT HAS BEEN SCREENED AND CATEGORIZED HIGH NUTRITION RISK. PATIENT WILL BE SEEN WITHIN 1-2 DAYS OF ADMISSION. 03/15/24 03/16/[address]
[2024-03-15] MEDS: POTASSIUM CHLORIDE 10 MEQ TABER PO PRN (09:16)
[2024-03-15 12:00] VITALS: TEMP 98
[2024-03-15] MEDS: POTASSIUM CHLORIDE 20% 40 MEQ/15 ML UDC GT SCH (13:01)
[2024-03-15] MEDS: LOSARTAN 50 MG TAB PO SCH (13:11)
--- NOTE | 2024-03-15 13:49 | NUR ---
03/15/24 INITIAL ASSESSMENT COMPLETED PLEASE REFER TO NUTRITION ASSESSMENT UNDER CARE ACTIVITY FOR ESTIMATED NUTRITIONAL NEEDS. 1. CONTINUE [id number] DIET TOLERATED 2. RECOMMEND GLUCERNA BID -PROVIDES ADDITIONAL 440 KCAL AND [address] TO FOLLOW-UP 3-5 DAYS, MODERATE RISK LIZZIE REYNOSO, RD
[2024-03-15 16:00] VITALS: BP 156/75; PULSE 81; RESP 18; TEMP 97.8; O2SAT 99
[2024-03-15] MEDS: levETIRAcetam 500 MG TAB PO SCH (16:44)
--- NOTE | 2024-03-15 19:09 | NUR ---
V/S stable,no complaints,tolerating diet,continue with plan of care,
--- NOTE | 2024-03-15 19:11 | NUR ---
Report given to oncoming nurse for continuity of care.
[2024-03-15 19:40] VITALS: PULSE 82; RESP 18; O2SAT 99
--- NOTE | 2024-03-15 19:40 | NUR ---
RECEIVED PATIENT FROM DAY SHIFT NURSE FOR CONTINUITY OF CARE. PATIENT IS A/O X3 ON ROOM AIR, BREATHING IS EVEN AND UNLABORED DENIES PAIN, NO S/SX OF DISTRESS. RIGHT WRIST 22 AIRAM, NORMAL SALINE AT 60/HR. ADVISED PATIENT TO NOT GET OUT OF BED WITHOUT CALLING FOR NURSING ASSISTANCE. SAFETY MEASURES IN PLACE, BED IN LOW POSITION, X3 BED SIDE RAILS UP, CALL LIGHT WITHIN REACH.
[2024-03-15 20:00] VITALS: BP 121/55; PULSE 73; PULSE 87; RESP 18; TEMP 98.3; O2SAT 94
[2024-03-15] MEDS: MEDS-TO-BEDS MC SCH (20:40)
--- NOTE | 2024-03-15 21:00 | NUR ---
SCHEDULED AND PRESCRIBED MEDICATION WAS GIVEN TO PATIENT PER MD ORDERS. ALL SAFETY MEASURES IMPLEMENTED, BED IN LOS POSITION, CALL LIGHT WITHIN REACH.
--- NOTE | 2024-03-16 01:00 | NUR ---
MAKING NURSING ROUNDS PATIENT WAS AWAKE AND ASKED IF SHE COULD BE CHANGED DUE TO BEING WET. PATIENT IS ABLE TO REPOSITIONED HERSELF IN BED. IV FLUIDS CONTINUE TO BE INFUSING. SAFETY MEASURES IN PLACE, BED IN LOW POSITION, X3 BED SIDE RAILS UP. CALL LIGHT WITHIN REACH.
[2024-03-16 04:00] VITALS: BP 130/64; PULSE 96; RESP 18; TEMP 98.5; O2SAT 95
--- NOTE | 2024-03-16 07:38 | NUR ---
REPORT RECEIVED FROM NIGHT NURSE FOR CONTINUING OF CARE PATIENT IS AWAKE NO DISTRESS NOTED BED IN LOWER POSITION NO SOB CONTINUE MONITORING MNURGW
--- NOTE | 2024-03-16 07:38 | NUR ---
PATIENT ENDORSED IN STABLE CONDITION TO MORNING NURSE FOR CONTINUITY OF CARE.
[2024-03-16 08:00] VITALS: BP 110/52; PULSE 99; RESP 18; TEMP 98.4; O2SAT 98
--- NOTE | 2024-03-16 09:00 | NUR ---
PATIENT IS ALERT VITAL SIGN MONITORED IS STABLE MEDICATION ADMINISTERED ORDERED BED IN LOWER POSITION CALL LIGHT WITHIN REACH PATIENT IS ASKING FOR FOOD EVERY MINUTES CONTINUE THE PLAN OF CARE MNURGW
--- NOTE | 2024-03-16 10:33 | NUR ---
RECEIVED ORDER FOR PATIENT TO GET RESOURCES WENT TO BEDSIDE AND PROVIDED PATIENT THE FOLLOWING RESOURCES: ALCOHOL/ SUBSTANCE ABUSE, COUNSELING / MENTAL HEALTH RESOURCES, EMERGENCY SERVICES BASIC NEEDS, HOMELESS RESOURCE PACKET FROM [facility], [facility], AND WALK IN [facility] PATIENT AWARE THEY HAVE TO CALL OR IT IS FIRST COME FIRST SERVE.
[2024-03-16] MEDS: INSULIN LANTUS 100 UNITS/ML 10 ML VIAL SUBQ SCH ×2 (10:41→21:09)
[2024-03-16] MEDS ORDERED: INSU100S22 SUBQ (11:12)
[2024-03-16] MEDS ORDERED: [UNRECOGNIZED DRUG - CODE] SQ ×2 (11:48→13:07)
[2024-03-16 12:00] VITALS: BP 110/52; PULSE 99; RESP 18; TEMP 98.4; O2SAT 98
--- NOTE | 2024-03-16 12:00 | NUR ---
PATIENT IS ALERT BLOOD SUGAR MONITORED ITS 411 DOCTOR JUDITH NOTIFIED LISPRO 20 UNITS SUBQ ADMINISTERED ORDERED CONTINUE MONITORING DISCUSS THE EFFECT OF CONSUMPTION OF FREQUENT SNACK AND BLOOD SUGAR INCREASE WITH THE PATIENT CONTINUE THE PLAN OF CARE ISMAEL
--- NOTE | 2024-03-16 12:05 | NUR ---
RECEIVED ORDER FOR PATIENT TO GO TO SNF FOR REHAB. FAXED ALL PAPERWORK TO [facility] WILL FOLLOW UP WITH UPDATES Addendum: 03/16/24 at 1444 by JENNA CALL CM PATIENT WAS DECLIED DUE TO HER AMA'ING FROM SNF FACILITY BACK IN JANUARY THIS Addendum: 03/16/24 at 1445 by JENNA CALL CM INFORMED CHARGE OF THE ABOVE INFO Addendum: 03/16/24 at 1603 by JENNA CALL CM RECEIVED ORDER FOR PATIENT TO GET WHEEL CHAIR FAXED ALL PAPERWORK TO [facility] AND TO [facility]. WILL FOLLOW UP WITH UPDATES. [facility] AFTER HOURS/ WEEKEND NUMBER NUMBER [phone]
[2024-03-16] MEDS: INSULIN LISPRO 100 UNITS/ML VIAL SUBQ SCH (12:39)
--- NOTE | 2024-03-16 13:15 | NUR ---
03/16/2024. SW ATTEMPTED TO MEET WITH PT AT BEDSIDE FOR SW ASSESSMENT. HOWEVER, PT STATED THAT SHE COULDN'T HEAR OR SEE AT THIS TIME. PT ALSO STATED TO BE TIRED AND ASKED SW TO RETURN AT A LATER TIME.
--- NOTE | 2024-03-16 13:20 | NUR ---
PATIENT IS AWAKE PT IS EVALUATING HER AND MENTIONED THAT PATIENT IS NOT ABLE TO GO TO SNF AND PATIENT IS NOT ABLE TO SIT OR STAND WITHOUT ASSISTANCE HE SAID HE WILL PUT HIS NOTE CONTINUE THE PLAN OF CARE ISMAEL
[2024-03-16 16:00] VITALS: BP 116/58; PULSE 92; RESP 18; TEMP 97.9; O2SAT 99
--- NOTE | 2024-03-16 16:30 | NUR ---
PATIENT IS REFUSED BLOOD SUGAR TEST AND INSULIN CONTINUE MONITORING AND WILL FOLLOW UP THE PLAN OF CARE MNURGW
--- NOTE | 2024-03-16 18:38 | NUR ---
PATIENT IS EATING HER DINNER AND ASK FOR MORE FOOD STILL REFUSING FOR BLOOD SUGAR CHECK AND INSULIN [facility] EDUCTION PROVIDED ABOUT DIABETES DIET AND MANAGEMENT PATIENT VERBALIZE THAT SHE STILL WANT TO EAT MORE AND NO BLOOD GLUCOSE CHECKING AND INSULIN ADMINISTRATION CONTINUE TO FOLLOOW UP THE LAST BLOOD SUGAR CHECK IS AT 1500 IT IS 288 MNURGW
--- NOTE | 2024-03-16 19:25 | NUR ---
report indorsed for the night nurse for continuing plan of care chevyw
[2024-03-16 20:00] VITALS: BP 114/62; PULSE 95; PULSE 97; PULSE 99; RESP 18; RESP 20; TEMP 97.7; O2SAT 98
[2024-03-16] MEDS: ZOLPIDEM 5 MG TAB PO PRN (21:00)
[2024-03-16] MEDS: LORazepam 1 MG TAB PO PRN (21:01)
[2024-03-17] VITALS: BP 116/66; PULSE 94; RESP 20; TEMP 96.9; O2SAT 99
[2024-03-17 04:00] VITALS: BP 120/66; PULSE 89; RESP 19; TEMP 98.3; O2SAT 100
[2024-03-17 05:35] LABS: ANION GAP 6.4 (8-16); CALCIUM 8.7 mg/dL (8.5-10.1); CARBON DIOXIDE 31.5 mmol/L (21-32); POTASSIUM 3.9 mmol/L (3.5-5.1)
[2024-03-17 05:36] LABS: CREATININE 0.8 mg/dL (0.6-1.3)
[2024-03-17 05:46] LABS: BASOPHILS % (AUTO) 0.5 % (0.0-2.0); EOSINOPHILS # (AUTO) 0.1 K/uL (0-0.4); EOSINOPHILS % (AUTO) 0.8 % (0.0-4.0); HEMATOCRIT 32.2 % (36-48); LYMPHOCYTES # (AUTO) 3.7 K/uL (2.5-16.5); LYMPHOCYTES % (AUTO) 42.4 % (20.5-51.1); MEAN CORPUSCULAR HEMOGLOBIN 31 pg (27-31); MEAN CORPUSCULAR HGB CONC 34 g/dL (33-37); MEAN CORPUSCULAR VOLUME 91.8 fL (80-94); MONOCYTES # (AUTO) 0.3 K/uL (0.8-1.0); MONOCYTES % (AUTO) 3.2 % (1.7-9.3); NEUTROPHILS # (AUTO) 4.7 K/uL (1.8-7.7); NEUTROPHILS % (AUTO) 53.1 % (42.2-75.2); PLATELET COUNT (AUTO) 199 K/uL (140-450); RED BLOOD CELL COUNT(AUTO) 3.51 MIL/uL (4.20-5.40); WHITE BLOOD COUNT (AUTO) 8.8 K/uL (4.8-10.8)
--- NOTE | 2024-03-17 07:30 | NUR ---
REPORT RECEIVED FROM NIGHT NURSE FOR CONTINUING PLAN OF CARE NO DISTRESS NOTED NO SOB CONTINUE MONITORING MNURGW
[2024-03-17 08:00] VITALS: BP 101/46; PULSE 84; RESP 18; TEMP 98.5; O2SAT 100
--- NOTE | 2024-03-17 08:00 | NUR ---
Bedside report completed pablo Ward RN. Pt left in stable condition under incoming nures's care.
--- NOTE | 2024-03-17 09:40 | NUR ---
PATIENT IS ALERT PATIENT CLEANED AND CHANGED SKIN ASSESSMENT DONE HAS A REDNESS AT THE PERINEAL AREA AND BILATERAL BUTTOCKS APPLIED HYPOGUARD ORDERED VITAL SIGTN MONITORED IS STABLE BED IN LOWER POSITION SIDE RAILS 3 UP AND BED ALARM IS ON CONTINUE THE PLAN OF CARE [id number]
[2024-03-17] MEDS: MAGNESIUM OXIDE 400 MG TAB PO PRN (10:43)
--- NOTE | 2024-03-17 11:30 | NUR ---
PATIENT IS AWAKE WATCHING TV NURSING ROUND DONE BLOD SUGAR MONITORED IS 186 COVER WITH 2 UNITS OF HUMALOG SUBQ CONTINUE MONITORING MNURGW
[2024-03-17 12:00] VITALS: BP 101/46; PULSE 84; RESP 18; TEMP 98.5; O2SAT 100
[2024-03-17] MEDS: HYDRAGUARD CREAM TP SCH (12:38)
--- NOTE | 2024-03-17 13:00 | NUR ---
PATIENT IS WATCHING TV SKIN ASSESSMENT IS DONE KELLIE JENKINS HAS REDNESS INCLUDING HER BUTTOCKS BILATERAL REDNESS HYPOGUARD APPLIED AFTER CLEANING PATIENT WITH BAKING POWDER MIXER NO SOB HEALTH EDUCATION ABOUT SKIN CARE PROVIDED TO PREVENT PRESSURE ULCER AND SKIN REDNESS BY REPOSITIONING, CHANGE POSITION EVERY TWO HOURS CONTINUE THE PLAN OF CARE MNURGW
[2024-03-17 16:00] VITALS: BP 140/63; PULSE 80; RESP 19; TEMP 98.7; O2SAT 99
--- NOTE | 2024-03-17 17:00 | NUR ---
PATIENT IS SLEEPING MONITOR BLOOD GLUCOSE LEVEL AND ADMINISTER HUMALOG 2 UNIT SUBQ PROVIDE PATIENT ICE CUBES NO DISTRESS NOTED BED IN LOWER POSITION CALL LIGHT WITHIN REACH 3 TIMES SIDE RAILS IS UP ALL SAFETY MEASURES APPLIED CONTINUE THE PLAN OF CARE ISMAEL
--- NOTE | 2024-03-17 19:15 | NUR ---
REPORT INDORSED FOR THE NIGHT NURSE FOR CONTINUING THE PLAN OF CARE NO SOB IS IN STABLE CONDITION BED IN LOWER POSITION CALL LIGHT WITHIN REACH 3 TIMES SIDE RAILS IS UP BED ALARM IS ON MNURGW
[2024-03-17 20:00] VITALS: BP 110/48; PULSE 89; PULSE 96; RESP 18; TEMP 98.8; O2SAT 99
--- NOTE | 2024-03-17 20:00 | NUR ---
Patient's Plan of Care was discussed and reviewed with YOKASTA HORTON
--- NOTE | 2024-03-17 21:00 | NUR ---
PATIENT REFUSED VITAL SIGNS AND BLOOD SUGAR CHECK.
--- NOTE | 2024-03-17 22:00 | NUR ---
PATIENT HAS A BM THREW EVERYTHING ON THE FLOOR. PATIENT WAS CLEANED AND MADE COMFORTABLE. . Addendum: 03/18/24 at 0626 by MAIKEL PITTMAN LVN WRONG PATIENT
--- NOTE | 2024-03-18 01:00 | NUR ---
PATIENT SLEEPING COMFORTABLE IN BD CHEST RISING AND FALLING ADEQUATELY. IV FLUIDS CONTINUE TO BE INFUSING, SAFETY MEASURES IN PLACE, BED IN LOW POSITION, CALL LIGHT WITHIN REACH.
[2024-03-18 04:00] VITALS: BP 121/65; PULSE 88; RESP 18; TEMP 98.5; O2SAT 100
[2024-03-18 05:19] LABS: BASOPHILS % (AUTO) 0.5 % (0.0-2.0); EOSINOPHILS # (AUTO) 0.1 K/uL (0-0.4); EOSINOPHILS % (AUTO) 0.6 % (0.0-4.0); HEMATOCRIT 32.4 % (36-48); HEMOGLOBIN 10.6 g/dL (12.0-16.0); LYMPHOCYTES # (AUTO) 3.6 K/uL (2.5-16.5); LYMPHOCYTES % (AUTO) 37.3 % (20.5-51.1); MEAN CORPUSCULAR HEMOGLOBIN 30 pg (27-31); MEAN CORPUSCULAR HGB CONC 33 g/dL (33-37); MEAN CORPUSCULAR VOLUME 92.7 fL (80-94); MONOCYTES # (AUTO) 0.3 K/uL (0.8-1.0); MONOCYTES % (AUTO) 3.3 % (1.7-9.3); NEUTROPHILS # (AUTO) 5.7 K/uL (1.8-7.7); NEUTROPHILS % (AUTO) 58.3 % (42.2-75.2); PLATELET COUNT (AUTO) 215 K/uL (140-450); RED BLOOD CELL COUNT(AUTO) 3.49 MIL/uL (4.20-5.40); RED CELL DISTRIBUTION WIDTH 15.6 % (11.6-13.7); WHITE BLOOD COUNT (AUTO) 9.8 K/uL (4.8-10.8)
[2024-03-18 05:20] LABS: ANION GAP 8.5 (8-16); CALCIUM 8.7 mg/dL (8.5-10.1); CARBON DIOXIDE 30.5 mmol/L (21-32); CREATININE 0.8 mg/dL (0.6-1.3)
--- NOTE | 2024-03-18 07:07 | NUR ---
PATIENT ENDORSED IN STABLE CONDITION TO MORNING SHIFT NURSE DENNIS FOR CONTINUITY OF CARE
--- NOTE | 2024-03-18 07:08 | NUR ---
ASSUMED CONTINUITY OF CARE. INITIAL ASSESSMENT DONE. RE-ORIENTED TO EVENTS AND SURROUNDINGS. NON-COMPLIANT. KEEP COMFORTABLE ON BED. FALL PRECAUTION APPLIED. CALL LIGHT WITHIN REACH.
--- NOTE | 2024-03-18 07:30 | NUR ---
Patient's Plan of Care was discussed and reviewed with YOKASTA: DAVID
[2024-03-18 08:00] VITALS: BP 154/72; PULSE 82; RESP 18; TEMP 98.9; O2SAT 100
--- NOTE | 2024-03-18 09:15 | NUR ---
ROOM 120-B FAMILY MEMBERS COMPLAINED TO THE CHARGE NURSE ABOUT PT. NOISY BEHAVIOR. EXPLAINED PT. TO CALM DOWN, AND REASON WHY PT. KEEP ON YELLING. PT. CONTINUE TO BE NON-COMPLIANT. TRANSFERRED PT. TO ROOM 116 TO AVOID ARGUMENT WITH OTHER PT. FAMILY MEMBER. CHARGE NURSE -MARGARET MADE AWARE.
[2024-03-18] MEDS: MAG SULF 2000 MG/WATER PREMIX 100 ML IV SCH (11:08)
[2024-03-18 16:00] VITALS: BP 128/53; PULSE 89; RESP 18; TEMP 98.2; O2SAT 99
[2024-03-18] MEDS: MAG SULF 2000 MG/WATER PREMIX 50 ML IV PRN (16:00)
--- NOTE | 2024-03-18 19:18 | NUR ---
REPORT GIVEN TO SADIE MATOS. IN STABLE CONDITION.
--- NOTE | 2024-03-18 19:30 | NUR ---
YANDEL. REPORT FROM SADIE GOLDBERG FOR CONTINUITY OF CARE. PATIENT RESTING IN BED AWAKE, A/OX2, CONFUSED, KEEP ON SHOUTING FOR NURSE. WHEN ASKED WHY, STATED THAT SHE CANNOT HEAR. RESPIRATION EVEN AND UNLABORED. IV OF NS INFUSING AT 60 ML/HR, RIGHT WRIST G22. SAFETY MEASURES ENFORCED. CALL LIGHT IN REACH, BED ON ALARM. DENIES PAIN 0/10.
[2024-03-18 20:00] VITALS: BP 106/50; PULSE 88; PULSE 89; RESP 18; TEMP 98.3; O2SAT 99
--- NOTE | 2024-03-18 20:30 | NUR ---
WITH MODERATE AMOUNT OF BM. CLEANSED AND REPOSITIONED IN BED WITH PILLOWS.
[2024-03-18] MEDS: DOCUSATE SODIUM 100 MG GELCAP PO SCH (20:34)
--- NOTE | 2024-03-19 | NUR ---
SLEEPING COMFORTABLY IN BED, RESPIRATION EVEN AND UNLABORED.
[2024-03-19 02:35] VITALS: PULSE 89; RESP 18; O2SAT 99
--- NOTE | 2024-03-19 03:00 | NUR ---
STILL SLEEPING COMFORTABLY IN BED.
[2024-03-19 04:00] VITALS: BP 102/57; PULSE 98; RESP 18; TEMP 97.5; O2SAT 98
--- NOTE | 2024-03-19 05:00 | NUR ---
HAD ANOTHER LARGE BM, BROWN IN COLOR. CLEANSED AND DIAPER CHANGED, MADE COMFORTABLE IN BED WITH WARM BLANKETS.
[2024-03-19 06:47] LABS: BASOPHILS % (AUTO) 0.2 % (0.0-2.0); EOSINOPHILS % (AUTO) 0.5 % (0.0-4.0); HEMATOCRIT 30.3 % (36-48); LYMPHOCYTES # (AUTO) 2.6 K/uL (2.5-16.5); LYMPHOCYTES % (AUTO) 30.6 % (20.5-51.1); MEAN CORPUSCULAR HEMOGLOBIN 31 pg (27-31); MEAN CORPUSCULAR HGB CONC 33 g/dL (33-37); MEAN CORPUSCULAR VOLUME 92.8 fL (80-94); MONOCYTES # (AUTO) 0.6 K/uL (0.8-1.0); MONOCYTES % (AUTO) 6.5 % (1.7-9.3); NEUTROPHILS # (AUTO) 5.3 K/uL (1.8-7.7); NEUTROPHILS % (AUTO) 62.2 % (42.2-75.2); PLATELET COUNT (AUTO) 240 K/uL (140-450); RED BLOOD CELL COUNT(AUTO) 3.27 MIL/uL (4.20-5.40); RED CELL DISTRIBUTION WIDTH 15.6 % (11.6-13.7); WHITE BLOOD COUNT (AUTO) 8.5 K/uL (4.8-10.8)
--- NOTE | 2024-03-19 07:00 | NUR ---
CONDITION REMAIN STABLE. WILL ENDORSED TO AM SHIFT NURSE FOR CONTINUITY OF CARE.
[2024-03-19 07:03] LABS: ANION GAP 6.9 (8-16); CALCIUM 8.3 mg/dL (8.5-10.1); CARBON DIOXIDE 29.6 mmol/L (21-32); CREATININE 0.7 mg/dL (0.6-1.3); POTASSIUM 4.5 mmol/L (3.5-5.1)
--- NOTE | 2024-03-19 07:32 | NUR ---
RECEIVED REPORT FROM NIGHT RN FOR CONTINUITY OF CARE. NO SIGN OF DISTRESS. CALL LIGHT WITHIN REACH.
[2024-03-19 08:00] VITALS: BP 145/79; PULSE 79; RESP 18; TEMP 98.1; O2SAT 100
--- NOTE | 2024-03-19 10:07 | NUR ---
pt ask food and provide sandwitch.
[2024-03-19] MEDS ORDERED: Z-GUARD PASTE TP SCH (11:05)
--- NOTE | 2024-03-19 12:42 | NUR ---
pt refused to anupama the discharge papers, discharge packet and instruction is given saying that she needs the insulin springs, pt given all the resources for detention and etc , pt has her own w\c. [email or web address]
[2024-03-19 16:00] VITALS: BP 130/59; PULSE 80; RESP 18; TEMP 99.5; O2SAT 99
[2024-03-19] MEDS ORDERED: IBUPROFEN 400 MG TAB PO ONE (17:30)
--- NOTE | 2024-03-19 19:50 | NUR ---
pt is stable endorse pt to production supervisor off shift nurse for continuity of care.
--- NOTE | 2024-03-19 19:51 | NUR ---
RECEIVED REPORT FROM JUDY GOLDBERG, PATIENT WAS STABLE DURING SHIFT REPORT. STOOL NEEDS TO BE COLLECTED FOR CULTURE. PATIENT WAS STABLE DURING SHIFT REPORT. REPORTED A&O X 4. NO S/S OF PAIN/DISCOMFORT. NO S/S OF RESPIRATORY DISTRESS. SIDE RAILS UP X 2 FOR SAFETY. CALL LIGHT WITHIN REACH FOR ASSISTANCE. [email or web address]
[2024-03-19 20:00] VITALS: BP 125/55; PULSE 103; RESP 18; RESP 19; TEMP 98.4; O2SAT 97
--- NOTE | 2024-03-19 23:20 | NUR ---
PATIENT WAS ABLE TO HAVE BOWEL MOVEMENT AND SENT TO LAB FOR OCCULT BLOOD STOOL. PATIENT COMPLAINS OF PAINFUL BOWEL MOVEMENTS AND NURSING GAVE EDUCATION ON THE IMPORTANCE OF DRINKING WATER, MOVING, AND EATING FOOD THAT THAT ARE HIGH IN FIBER. PATIENT SHE STATED SHE UNDERSTOOD AND WANTED CRACKER. PATIENT WAS KEPT CLEAN AND DRY. ALL NEEDS WERE MET AT THIS TIME. SIDE RAILS UP X 2 CALL LIGHT WITHIN REACH FOR ASSISTANCE. [email or web address]
[2024-03-20 04:00] VITALS: BP 123/55; PULSE 94; RESP 18; TEMP 98.6; O2SAT 94
--- NOTE | 2024-03-20 07:15 | NUR ---
RECEIVED PT FROM ROLL FORMING MACHINE SET UP MECHANIC FOR CONTINUITY OF CARE. ALERT AND ORIENTED X 2 WITH EPISODE OF CONFUSION. RESP. EVEN AND UNLABORED. ON ROOM AIR. PIV TO RFA 24G. IVF INFUSING WELL. INCONTINENT TO BOWEL AND BLADDER. NO C/O PAIN OR DISCOMFORT. CALL LIGHT KEPT WITHIN REACH. CONTINUE PLAN OF CARE.
--- NOTE | 2024-03-20 07:17 | NUR ---
ENDORSED PATIENT CARE TO ROSSANA GOLDBERG, PATIENT WAS STABLE DURING SHIFT REPORT. [email or web address]
[2024-03-20 08:00] VITALS: BP 135/55; PULSE 103; PULSE 89; RESP 18; TEMP 98.3; O2SAT 100; O2SAT 97
[2024-03-20 11:20] LABS: BASOPHILS % (AUTO) 0.3 % (0.0-2.0); EOSINOPHILS # (AUTO) 0.1 K/uL (0-0.4); EOSINOPHILS % (AUTO) 0.8 % (0.0-4.0); HEMATOCRIT 26.8 % (36-48); HEMOGLOBIN 8.8 g/dL (12.0-16.0); LYMPHOCYTES # (AUTO) 2.4 K/uL (2.5-16.5); LYMPHOCYTES % (AUTO) 32.2 % (20.5-51.1); MEAN CORPUSCULAR HEMOGLOBIN 31 pg (27-31); MEAN CORPUSCULAR HGB CONC 33 g/dL (33-37); MEAN CORPUSCULAR VOLUME 92.7 fL (80-94); MONOCYTES # (AUTO) 0.7 K/uL (0.8-1.0); MONOCYTES % (AUTO) 10.1 % (1.7-9.3); NEUTROPHILS # (AUTO) 4.2 K/uL (1.8-7.7); NEUTROPHILS % (AUTO) 56.6 % (42.2-75.2); PLATELET COUNT (AUTO) 241 K/uL (140-450); RED BLOOD CELL COUNT(AUTO) 2.89 MIL/uL (4.20-5.40); RED CELL DISTRIBUTION WIDTH 15.6 % (11.6-13.7); WHITE BLOOD COUNT (AUTO) 7.4 K/uL (4.8-10.8)
[2024-03-20 11:28] LABS: ANION GAP 10.7 (8-16); CREATININE 0.7 mg/dL (0.6-1.3); POTASSIUM 4.7 mmol/L (3.5-5.1)
--- NOTE | 2024-03-20 14:00 | NUR ---
INFORMED BY CREDIT OPERATIONS SPECIALIST THAT PT WAS FOUND ON THE FLOOR, KNEELING POSITING. 3 LICENSED STAFF ASSISTED PT BACK TO BED. ASSESSMENT DONE. NO NEW INJURIES NOTED. NO NEW SKIN ISSUES. ASKED THE PT WHAT HAPPENED AND STATED " I WAS TRYING TO GET OUT OF BED AND SLID ON THE FLOOR." PT IS ALERT AND ORIENTED X 2 WITH EPISODE OF CONFUSION PER BASELINE. PER PT ROOMMATE, SHE DIDN'T SEE PT FALLING. EDUCATED PT TO USE CALL LIGHT. BED ALARM ON. DR. HAYWOOD NOTIFIED.
--- NOTE | 2024-03-20 16:57 | NUR ---
BS CHECKED 498. HUMALOG 10 UNITS GIVEN PER SLIDING SCALE. DR. HAYWOOD NOTIFIED.
[2024-03-20] MEDS: INSULIN LISPRO 100 UNITS/ML VIAL SUBQ SCH (17:58)
--- NOTE | 2024-03-20 17:58 | NUR ---
ADDITIONAL HUMALOG 5 UNITS WAS GIVEN. TOLERATED WELL.
--- NOTE | 2024-03-20 19:25 | NUR ---
ENDORSED TO DATA COLLECTION INTERVIEWER FOR CONTINUITY OF CARE. REMAINS STABLE.
[2024-03-20 20:00] VITALS: BP 141/70; PULSE 102; RESP 18; TEMP 98.7; O2SAT 97
[2024-03-21 04:00] VITALS: BP 126/63; PULSE 89; RESP 18; TEMP 97.4; O2SAT 100
--- NOTE | 2024-03-21 06:24 | NUR ---
D/C NOTE: PT IS PICKED UP BY BROTHER AND ESCORTED SAFELY TO FRONT OF HOSPITAL UTILIZING HER OWN WHEELCHAIR. PT SIGNED ALL D/C FORMS WHICH WERE FILED PER PROTOCOL. PT D/C MEDS ARE REVIEWED AND BROTHER IS AWARE AND AGREES TO ASSIST PT IN GETTING THEM FROM PHARMACY. VSS, NAD, PT CONTINUES TO BE DEMANDING. PERIPHERAL IV SITE IS REMOVED WITH CATHETER NOTED TO BE INTACT. BELONGINGS ARE RETURNED SIGNED FOR AND FILED IN PHYSICAL CHART.
--- NOTE | 2024-03-21 07:00 | NUR ---
SHIFT SUMMARY: PT REMAINS SAFE, VSS, NAD, PLAN IS FOR EGD TODAY AT 1130 WITH DOCTOR CATALINA, PRE-OP CHECKLIST COMPLETED BY RN PARISH RESOURCE NURSE AND ENDORSED TO DAY SHIFT NURSE ROSSANA. PT HAS BEEN NPO SINCE 3AM AND IS UPSET. PT HAS ONGOING DEMANDING BEHAVIORS INCLUDING YELLING FOR FOOD AND NON COMPLIANCE WITH CARE, SKIN HAS NO OPEN AREAS BUT PT HAS SCABS TO BLE AND PERINEAL REDNESS EXACERBATED BY INCONTINENCE, BARRIER CREAM IN USE. PERIPHERAL IV REMAINS INTACT AND INFUSING HYDRATION ORDERED. SAFETY ENSURED.
--- NOTE | 2024-03-21 07:58 | NUR ---
RECEIVED REPORT FROM NIGHT NURSE, PATIENT IS A/OX2, WITH RIGHT ENRIQUEZ FA G22 RUINING 60ML/H , SKIN INTACT, NO DISCOMFORT NOTED, SAFETY PRECAUTIONS IN PLACE, BED IN LOWEST POSITION, CALL LIGHT WITHIN REACH, BEDBOUND , INCONTINENT , NPO FOR EGD AND COLONOSCOPY ,ON ROOM AIR , WILL CONTINUE TO MONITOR.
[2024-03-21 08:00] VITALS: PULSE 89; RESP 16; O2SAT 98
[2024-03-21 08:45] VITALS: BP 112/53; PULSE 89; RESP 16; TEMP 97.7; O2SAT 98
--- NOTE | 2024-03-21 13:00 | NUR ---
patient on bed rest , vss , no complain , safety on place , Meds given pt for insertion picc line , patient still under observe . Addendum: 03/21/24 at 1427 by ROSSANA DALTON RN patient on bed rest , vss , no complain , safety on place , Meds given , patient still under observe
[2024-03-21 13:38] LABS: BASOPHILS # (AUTO) 0.1 K/uL (0.00-0.22); EOSINOPHILS % (AUTO) 0.4 % (0.0-4.0); HEMATOCRIT 26.6 % (36-48); HEMOGLOBIN 8.6 g/dL (12.0-16.0); LYMPHOCYTES # (AUTO) 2.6 K/uL (2.5-16.5); LYMPHOCYTES % (AUTO) 32.5 % (20.5-51.1); MEAN CORPUSCULAR HEMOGLOBIN 31 pg (27-31); MEAN CORPUSCULAR HGB CONC 32 g/dL (33-37); MEAN CORPUSCULAR VOLUME 94.9 fL (80-94); MONOCYTES # (AUTO) 0.9 K/uL (0.8-1.0); MONOCYTES % (AUTO) 11.5 % (1.7-9.3); NEUTROPHILS # (AUTO) 4.3 K/uL (1.8-7.7); NEUTROPHILS % (AUTO) 54.6 % (42.2-75.2); PLATELET COUNT (AUTO) 269 K/uL (140-450); WHITE BLOOD COUNT (AUTO) 7.9 K/uL (4.8-10.8)
[2024-03-21 14:11] LABS: MAGNESIUM 1.9 mg/dL (1.8-2.4); PHOSPHORUS 3.9 mg/dL (2.5-4.9)
[2024-03-21 15:11] LABS: ANION GAP 15.7 (8-16); CALCIUM 8.6 mg/dL (8.5-10.1); CARBON DIOXIDE 24.4 mmol/L (21-32); CREATININE 0.6 mg/dL (0.6-1.3); POTASSIUM 5.1 mmol/L (3.5-5.1)
--- NOTE | 2024-03-21 15:37 | NUR ---
03/21/24 RD FOLLOW UP COMPLETED PLEASE REFER TO NUTRITION ASSESSMENT UNDER CARE ACTIVITY FOR ESTIMATED NUTRITIONAL NEEDS. 1. CONTINUE [id number] DIET TOLERATED 2. CONTINUE GLUCERNA BID -PROVIDES ADDITIONAL 440 KCAL AND [address] DA[address]. [address] TO FOLLOW-UP 3-5 DAYS, MODERATE RISK LIZZIE REYNOSO, RD
--- NOTE | 2024-03-21 16:42 | NUR ---
PATIENT HAS DC ORDER TO GO BACK WHERE SHE LIVE , I CALL HER BROTHER MARITO TO CAME AND PICK HER , BORTHER SAID HE IS AT WORK THIS TIME , BOTHER WILL COME AND PICKED PT UP AT 8 PM TODAY .
[2024-03-21 16:57] VITALS: BP 110/57; PULSE 87; RESP 16; TEMP 97.9; O2SAT 99
--- NOTE | 2024-03-21 19:09 | NUR ---
patient endorsed to night nurse lady GOLDBERG , all her question answered .
[2024-03-21] MEDS ORDERED: LACTULOSE 20 GM/30 ML UDC PO SCH (21:00)
[2024-03-22 09:06] LABS: FERRITIN 51 ng/mL (15-150)
== END 2024-03-21 21:10 | disposition home or self-care (01) | DRG 469 ==
LOC: MED 10:50 → MMU 14:14 → MTU 14:50 → MMU 03-19 05:40
PROVIDERS: ADMIT Internal Medicine; ATTEND Internal Medicine
DX: N17.9 Acute kidney failure, unspecified (principal); E43 Unspecified severe protein-calorie malnutrition; E88.A Wasting disease (syndrome) due to underlying condition; R62.7 Adult failure to thrive; E86.0 Dehydration; D72.829 Elevated white blood cell count, unspecified; E11.65 Type 2 diabetes mellitus with hyperglycemia; D64.9 Anemia, unspecified; G40.909 Epilepsy, unspecified, not intractable, without status epilepticus; Z20.822 Contact with and (suspected) exposure to COVID-19; R74.01 Elevation of levels of liver transaminase levels; Z59.00 Homelessness unspecified; Z86.73 Personal history of transient ischemic attack (TIA), and cerebral infarction without residual deficits; Z88.8 Allergy status to other drugs, medicaments and biological substances; Z68.1 Body mass index [BMI] 19.9 or less, adult; Z79.899 Other long term (current) drug therapy
CPT/HCPCS: 36415; 71045; 80048; 80076; 82272; 82550; 82553; 82607; 82728; 82948; 83540; 83605; 83735; 83874; 83880; 84100; 84484; 85025; 85610; 85730; 87081; 93005; 96360; 97112; 97530; 99285; J1644; J1815; J3475